=== PATIENT | female | born 1935 | race Caucasian/White ===

== ENCOUNTER 2021-10-15 18:03 | Inpatient (IN) ==
--- NOTE | 2021-10-15 19:15 | XRay Report ---
XR knee LT 3V HISTORY: 86 years-old Female L knee pain acute left-sided knee pain COMPARISON: None TECHNIQUE: 3 views of the left knee FINDINGS: Moderate diffuse soft tissue swelling. Mild tricompartmental osteoarthritis with chondrocalcinosis. M oderate size joint effusion. IMPRESSION: Moderate sized joint effusion without acute fracture. ACT 112: Negative or not required by law. The above report was generated using voice recognition software. It may contain grammatical, syntax o r spelling errors. Electronically signed by: Calvin Carroll M.D. 10/15/2021 7:13 PM
--- NOTE | 2021-10-15 19:16 | XRay Report ---
XR chest 1V portable HISTORY: 86 years-old Female Chest Pain, Tachycardia acute atypical chest pain with tachycardia COMPARISON: Chest CT 09/28/2018 TECHNIQUE: Portable AP view of the chest FINDINGS: The cardiac silhouette is enlarged. There is no pneumothorax, pleural effusion, airspace consolidatio n or overt pulmonary edema. Mild chronic interstitial coarsening. Degenerative changes of the shoulde rs and spine. IMPRESSION: Cardiomegaly with chronic appearing interstitial coarsening. ACT 112: Negative or not required by law. The above report was generated using voice recognition software. It may contain grammatical, syntax o r spelling errors. Electronically signed by: Calvin Carroll M.D. 10/15/2021 7:14 PM
[2021-10-15] MEDS ORDERED: dilTIAZem HCl 5 MG/ML 5 ML VIAL IV STA (19:40)
[2021-10-15] MEDS ORDERED: STAT IV Infusion **Titration per Protocol STA (19:40)
[2021-10-15] MEDS ORDERED: dilTIAZem HCl 5 MG/ML 5 ML VIAL IV ONE (19:41)
[2021-10-15] MEDS ORDERED: ASPIRIN CHEW 324 MG PO STA (19:45)
[2021-10-15] MEDS ORDERED: dilTIAZem HCL 125 MG in DEXTROSE 5% 100 ML IV SCH (19:45)
[2021-10-15] MEDS ORDERED: ALBUMIN 25% 100 mL 25 GM/100 ML VIAL IV ONE (19:50)
[2021-10-15 19:52] LABS: INR 1.6 (0.9-1.1); Partial Thromboplastin Ratio 1.1; Partial Thromboplastin Time 30.2 Seconds (21.0-31.0); Prothrombin Time 16.7 Seconds (9.0-12.0)
[2021-10-15] MEDS ORDERED: METOPROLOL TARTRATE 25 MG TAB PO STA (19:52)
[2021-10-15 20:01] LABS: Alanine Aminotransferase 15 U/L (7-52); Albumin Globulin Ratio 1.2 (0.9-2); Albumin Level 3.8 gm/dl (3.4-5.0); Alkaline Phosphatase 80 U/L (34-104); Anion Gap 9 (3-11); Aspartate Aminotransferase 15 U/L (13-39); BUN Creatinine Ratio 20.8 (10-20); Basophils # (auto) 0.02 K/uL (0-0.2); Basophils % (auto) 0.2 %; Bilirubin,Total 0.7 mg/dl (0.2-1.0); Blood Urea Nitrogen 20 mg/dl (6-23); Calcium 6.8 mg/dl (8.5-10.1); Carbon Dioxide 28 mmol/L (21-32); Chloride 104 mmol/L (98-107); Eosinophils # (auto) 0.08 K/uL (0-0.5); Eosinophils % (auto) 0.7 %; Est GFR (African American) 62.9 ml/min; Est GFR (Non-African American) 54.3 ml/min; Globulin 3.1 gm/dl (2.5-4.0); Glucose 107 mg/dl (70-99(Fasting)); Hematocrit (blood only) 38.9 % (37-47); Hemoglobin 12.6 g/dL (12.0-16.0); Immature Granulocytes # (auto) 0.05 K/uL (0.00-0.02); Immature Granulocytes % (auto) 0.4 %; Lipase 40 U/L (11-82); Lymphocytes # (auto) 2.22 K/uL (1.2-3.4); Lymphocytes % (auto) 19.1 %; Mean Corpuscular Hemoglobin 30.4 pg (25-34); Mean Corpuscular Hgb Conc 32.4 g/dL (32-36); Mean Platelet Volume 10.4 fL (7.4-10.4); Monocytes # (auto) 0.77 K/uL (0.11-0.59); Monocytes % (auto) 6.6 %; Platelet Count 292 K/uL (130-400); RDW Coefficient of Variation 14.2 % (11.5-14.5); RDW Standard Deviation 48.9 fL (36.4-46.3); Red Blood Count 4.14 M/uL (4.2-5.4); Sodium 141 mmol/L (136-145); Total Protein 6.9 gm/dl (6.0-8.3); White Blood Count 11.64 K/uL (4.8-10.8)
[2021-10-15 20:13] LABS: D Dimer 910 ug/L FEU (0-500)
[2021-10-15] MEDS ORDERED: traMADol HCL 50 MG TABLET PO STA (20:55)
[2021-10-15] MEDS ORDERED: MAGNESIUM SULFATE / D5W 1 GM/100 ML BAG IV ONE (20:56)
[2021-10-15] MEDS ORDERED: WARFARIN SOD 5 MG TAB PO ONE (20:56)
[2021-10-15] MEDS ORDERED: FUROSEMIDE 40 MG/4 ML VIAL IV ONE (20:57)
--- NOTE | 2021-10-15 20:57 | History & Physical Report ---
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 Denies SOB cognitive impairment as per records postsurgical hypothyroidism, euthyroid as of today's TSH PCU Resume home beta-sandro for rate control Wean off Cardizem drip IV heparin for thromboembolic prophylaxis given subtherapeutic INR on Coumadin Doxycycline for LLE cellulitis Orthopedics consult Re: Right knee pain/swelling Hold Coumadin until patient seen by orthopedics in anticipation of procedure. TTE, Cardiology consult Re: New onset A. fib DVT prophylaxis. IV heparin Full code Patient daughter requesting updates from providers. Ms. Elida Albarran for, contact #[phone]. Text document was generated using frooly voice recognition software. It may contain grammatical or spelling errors. Kindly contact undersigned for clarification of any documentation item in question. History of Present Illness Chief Complaint: Left left knee pain/swelling Primary Care Provider: Kiel Brooks MD History obtained from patient, family, and records. 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 Patient noted achy left knee swelling without fever or chills today after she tried cleaning swimming pool at home. Patient looks short of breath as per patient daughter who happens to be an RN. Patient however denies chest pain, cough, SOB symptoms No unusual fluid retention. Patient not compliant with heart medications (metoprolol, Lasix, lisinopril) as per daughter. Patient noted to be in rapid A. fib at the ER. IV Cardizem bolus/infusion initiated at the ER. 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 Allergies Allergy/AdvReac Type Severity Reaction Status Date / Time No Known Drug Allergies Allergy Unknown Verified 09/04/20 15:03 Home Medications Medication Instructions Recorded Confirmed Type albuterol sulfate 90 mcg/actuation 2 puffs INH Q4H PRN ea 01/26/19 09/04/20 History breath activated powder inhaler cholecalciferol (vitamin D3) 1,250 50,000 units PO WEEKLY cap 01/26/19 09/04/20 History mcg (50,000 unit) capsule furosemide 40 mg tablet 40 mg PO DAILY 01/26/19 09/04/20 History loratadine 10 mg tablet 10 mg PO DAILY 01/26/19 09/04/20 History omeprazole 20 mg capsule,delayed 20 mg PO DAILY 01/26/19 09/04/20 History release warfarin 5 mg tablet 5 mg PO DAILY 01/26/19 09/04/20 History albuterol sulfate 90 mcg/actuation 2 puffs INH Q6H PRN #1 ea 03/01/19 09/04/20 Rx breath activated powder inhaler budesonide-formoterol HFA 160 2 puffs INH BID #10.2 gm 03/01/19 09/04/20 Rx mcg-4.5 mcg/actuation aerosol inhaler (Symbicort) Past Med/Surg History Medical History Chronic airway disease Chronic anticoagulation Surgical History History of breast biopsy LEFT - 1985 History of thyroidectomy History of tubal ligation Family History Other No family history of allergies No family history of bleeding disorder Denies family history of Hearing loss Heart disease Cancer Hypertension Stroke Asthma Social History Smoking Status: Never smoker Hx Alcohol Use: No Hx Substance Use: No Preferred Language: [place] Communication Ability: Effective Sterilization Technician Required: No Beliefs That Will Affect Care: None marital status: / Current Living Situation: Alone current occupational status: retired How many Children do You have: 4 Other Information That Helps Us Care for You: No Feels Safe at Home: Yes Safety Concerns: Feels Safe At This Time Review of Systems Review of Systems: As per HPI, all other systems reviewed and negative Physical Exam Physical Exam: GENERAL: Slightly uncomfortable, obese, minimal respiratory distress SKIN: Normal color, warm HEENT: [place] palpebral conjunctivae, no ptosis, moist buccal mucosa, nasal cannula in place NECK : Supple, short neck, no tenderness CHEST : Decreased breath sounds, no tenderness HEART : Irregular, no obvious murmurs ABDOMEN: Some distention, nontender EXTREMITIES : LLE swelling, left knee tenderness, no other conspicuous deformities noted NEUROLOGIC : Coherent, no facial asymmetry, no other gross focality Results & Data Results & Data ([facility]) Vital Signs (Past 12 Hours) Vital Signs Temp Pulse Pulse Resp BP BP Pulse Ox 10/15/21 20:38 101 H 24 149/91 H 95 10/15/21 20:09 107 H 26 H 114/99 94 10/15/21 19:55 89 24 126/80 96 10/15/21 19:49 85 20 96 10/15/21 19:43 149 H 28 H 137/114 H 97 10/15/21 18:50 161 H 161 H 26 H 114/80 91 10/15/21 18:07 36.9 C 146 H 18 149/87 H 94 Laboratory Results Laboratory Results WBC 11.64 K/uL (4.8-10.8) H 10/15/21 19:15 RBC 4.14 M/uL (4.2-5.4) L 10/15/21 19:15 Hgb 12.6 g/dL (12.0-16.0) 10/15/21 19:15 Hct 38.9 % (37-47) 10/15/21 19:15 MCV 94.0 fL (80-100) 10/15/21 19:15 MCH 30.4 pg (25-34) 10/15/21 19:15 MCHC 32.4 g/dL (32-36) 10/15/21 19:15 RDW Std Deviation 48.9 fL (36.4-46.3) H 10/15/21 19:15 RDW Coeff of Juan 14.2 % (11.5-14.5) 10/15/21 19:15 Plt Count 292 K/uL (130-400) 10/15/21 19:15 MPV 10.4 fL (7.4-10.4) 10/15/21 19:15 Immature Gran % (Auto) 0.4 % 10/15/21 19:15 Neut % (Auto) 73.0 % 10/15/21 19:15 Lymph % (Auto) 19.1 % 10/15/21 19:15 [place] % (Auto) 6.6 % 10/15/21 19:15 Eos % (Auto) 0.7 % 10/15/21 19:15 Baso % (Auto) 0.2 % 10/15/21 19:15 Neut # (Auto) 8.50 K/uL (1.4-6.5) H 10/15/21 19:15 Lymph # (Auto) 2.22 K/uL (1.2-3.4) 10/15/21 19:15 [place] # (Auto) 0.77 K/uL (0.11-0.59) H 10/15/21 19:15 Eos # (Auto) 0.08 K/uL (0-0.5) 10/15/21 19:15 Baso # (Auto) 0.02 K/uL (0-0.2) 10/15/21 19:15 Immature Gran # (Auto) 0.05 K/uL (0.00-0.02) H 10/15/21 19:15 PT 16.7 Seconds (9.0-12.0) H 10/15/21 19:15 INR 1.6 (0.9-1.1) H 10/15/21 19:15 APTT 30.2 Seconds (21.0-31.0) 10/15/21 19:15 PTT Ratio 1.1 10/15/21 19:15 D-Dimer 910 ug/L FEU (0-500) H* 10/15/21 19:15 Sodium 141 mmol/L (136-145) 10/15/21 19:15 Potassium 4.0 mmol/L (3.5-5.1) 10/15/21 19:15 Chloride 104 mmol/L (98-107) 10/15/21 19:15 Carbon Dioxide 28 mmol/L (21-32) 10/15/21 19:15 Anion Gap 9 (3-11) 10/15/21 19:15 BUN 20 mg/dl (6-23) 10/15/21 19:15 Creatinine 0.96 mg/dl (0.6-1.2) 10/15/21 19:15 Est Cr Clr Drug Dosing Not Reportable 10/15/21 19:15 Est GFR ( Amer) 62.9 ml/min 10/15/21 19:15 Est GFR (Non-Af Amer) 54.3 ml/min 10/15/21 19:15 BUN/Creatinine Ratio 20.8 (10-20) H 10/15/21 19:15 Glucose 107 mg/dl (70-99(Fasting)) H 10/15/21 19:15 Calcium 6.8 mg/dl (8.5-10.1) L 10/15/21 19:15 Magnesium 1.8 mg/dl (1.7-2.4) 10/15/21 19:15 Total Bilirubin 0.7 mg/dl (0.2-1.0) 10/15/21 19:15 AST 15 U/L (13-39) 10/15/21 19:15 ALT 15 U/L (7-52) 10/15/21 19:15 Alkaline Phosphatase 80 U/L (34-104) 10/15/21 19:15 Troponin I High Sens 9.0 pg/ml (0-14) 10/15/21 19:15 Total Protein 6.9 gm/dl (6.0-8.3) 10/15/21 19:15 Albumin 3.8 gm/dl (3.4-5.0) 10/15/21 19:15 Globulin 3.1 gm/dl (2.5-4.0) 10/15/21 19:15 Albumin/Globulin Ratio 1.2 (0.9-2) 10/15/21 19:15 Lipase 40 U/L (11-82) 10/15/21 19:15 TSH 3.509 uIu/ml (0.300-4.500) 10/15/21 19:15 SARS-CoV-2, RNA, NAAT NEGATIVE (NEGATIVE) 10/15/21 20:03 Impressions Knee X-Ray 10/15/21 18:17 XR knee LT 3V HISTORY: 86 years-old Female L knee pain acute left-sided knee pain COMPARISON: None TECHNIQUE: 3 views of the left knee FINDINGS: Moderate diffuse soft tissue swelling. Mild tricompartmental osteoarthritis with chondrocalcinosis. Moderate size joint effusion. IMPRESSION: Moderate sized joint effusion without acute fracture. ACT 112: Negative or not required by law. The above report was generated using voice recognition software. It may contain grammatical, syntax or spelling errors. Electronically signed by: Calvin Carroll M.D. 10/15/2021 7:13 PM Chest X-Ray 10/15/21 18:57 XR chest 1V portable HISTORY: 86 years-old Female Chest Pain, Tachycardia acute atypical chest pain with tachycardia COMPARISON: Chest CT 09/28/2018 TECHNIQUE: Portable AP view of the chest FINDINGS: The cardiac silhouette is enlarged. There is no pneumothorax, pleural effusion, airspace consolidation or overt pulmonary edema. Mild chronic interstitial coarsening. Degenerative changes of the shoulders and spine. IMPRESSION: Cardiomegaly with chronic appearing interstitial coarsening. ACT 112: Negative or not required by law. The above report was generated using voice recognition software. It may contain grammatical, syntax or spelling errors. Electronically signed by: Calvin Carroll M.D. 10/15/2021 7:14 PM Diagnostic Findings LLE venous Dopplers initial read: No evidence of DVT in the left lower extremity. Extensive edema limiting evaluation of the calf veins. Could this patient have chronic venous insufficiency? No comparisons. EKG as per my interpretation: Rate 130, A. fib, normal axis, no ischemia
[2021-10-15] MEDS: Heparin IV Adult Wt-Based Standard *NO* Bolus Protocol IV SCH ×4 (22:08→23:36)
[2021-10-15] MEDS ORDERED: ACETAMINOPHEN 325 MG TAB PO PRN (23:19)
[2021-10-15] MEDS ORDERED: MoRPHine SULFATE 2 MG/ML CARP IV PRN (23:19)
[2021-10-15] MEDS ORDERED: PROMETHAZINE HCL 12.5 MG in SODIUM CHLORIDE 0.9% 50 ML IV PRN (23:19)
[2021-10-15] MEDS ORDERED: traMADol HCL 50 MG TABLET PO PRN (23:19)
[2021-10-15] MEDS: HEPARIN SODIUM/DEXTROSE 25,000 UNITS/500 ML BAG IV SCH (23:29)
--- NOTE | 2021-10-15 23:31 | Emergency Department Note ---
History of Present Illness General Chief complaint: Knee Injury/Pain Stated complaint: LEFT KNEE PAIN Time Seen by Provider: 10/15/21 18:16 History of Present Illness Maximum Pain Intensity: 6 86-year-old female who presents to the emergency department for evaluation of left knee pain. The patient she was working on the ground around her pool, was on her hands and knees, and felt a pop in her knee while crawling. The patient then reports swelling and increasing pain within the knee, with notable pain with weightbearing. Her daughter who is with the patient reports that she does have a history of osteoarthritis. She also has a history of prior large pelvic blood clot many years ago, and has been on chronic Coumadin since that time. The patient reports that her INR levels have been relatively stable for some time. The daughter also reports that the patient does have a history of lymphedema, and reports that her extremity swelling has not seemed to have increased lately. The patient rates her discomfort a 5 out of 10. Home Medications Medication Instructions Recorded Confirmed Type albuterol sulfate 90 mcg/actuation 2 puffs INH Q4H PRN ea 01/26/19 09/04/20 History breath activated powder inhaler cholecalciferol (vitamin D3) 1,250 50,000 units PO WEEKLY cap 01/26/19 09/04/20 History mcg (50,000 unit) capsule furosemide 40 mg tablet 40 mg PO DAILY 01/26/19 09/04/20 History loratadine 10 mg tablet 10 mg PO DAILY 01/26/19 09/04/20 History omeprazole 20 mg capsule,delayed 20 mg PO DAILY 01/26/19 09/04/20 History release warfarin 5 mg tablet 5 mg PO DAILY 01/26/19 09/04/20 History albuterol sulfate 90 mcg/actuation 2 puffs INH Q6H PRN #1 ea 03/01/19 09/04/20 R x breath activated powder inhaler budesonide-formoterol HFA 160 2 puffs INH BID #10.2 gm 03/01/19 09/04/20 Rx mcg-4.5 mcg/actuation aerosol inhaler (Symbicort) Allergies Allergy/AdvReac Type Severity Reaction Status Date / Time No Known Drug Allergies Allergy Unknown Verified 09/04/20 15:03 Past Med/Surg History Medical History Chronic airway disease Chronic anticoagulation Surgical History History of breast biopsy LEFT - 1986 History of thyroidectomy History of tubal ligation Family History Other No family history of allergies No family history of bleeding disorder Denies family history of Hearing loss Heart disease Cancer Hypertension Stroke Asthma Social History Smoking Status: Never smoker Hx Alcohol Use: No Hx Substance Use: No Preferred Language: American Communication Ability: Effective 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 Required: No Beliefs That Will Affect Care: None marital status: / Current Living Situation: Alone current occupational status: retired How many Children do You have: 4 Other Information That Helps Us Care for You: No Feels Safe at Home: Yes Safety Concerns: Feels Safe At This Time Review of Systems 10 system review was performed and was negative except for pertinent positives and negatives as indicated in history of present illness Physical Exam Vital Signs Vital Signs - 24 hr 10/15/21 18:07 10/15/21 18:50 10/15/21 19:43 Temperature 36.9 C Temperature Source Temporal Artery Scan Pulse Rate 146 H 161 H 149 H Pulse Rate [Apical] 161 H Pulse Rhythm Irregular Pulse Rhythm [Apical] Irregular Pulse Strength [Apical] Normal Respiratory Rate 18 26 H 28 H Respiratory Effort / Characteristics Non-Labored Non-Labored Spontaneous Respiratory Depth Normal Normal Respiratory Pattern Regular Regular Blood Pressure 149/87 H 137/114 H Blood Pressure [Left Arm] 114/80 Blood Pressure Mean 107 121 Blood Pressure Mean [Left Arm] 91 Blood Pressure Position [Left Arm] Sitting Pulse Oximetry 94 91 97 Oxygen Delivery Method Room Air Room Air Nasal Cannula Oxygen Flow Rate 2 Sepsis Recent Fever Within 48 Hours No Sepsis New/Unexplained Change in Mental Status No Sepsis Action Taken by Nursing No Action Required 10/15/21 19:49 10/15/21 19:55 10/15/21 20:09 Temperature Temperature Source Pulse Rate 85 89 Pulse Rate [Apical] 107 H Pulse Rhythm Pulse Rhythm [Apical] Pulse Strength [Apical] Respiratory Rate 20 24 26 H Respiratory Effort / Characteristics Respiratory Depth Respiratory Pattern Blood Pressure 126/80 Blood Pressure [Left Arm] 114/99 Blood Pressure Mean 95 Blood Pressure Mean [Left Arm] 104 Blood Pressure Position [Left Arm] Pulse Oximetry 96 96 94 Oxygen Delivery Method Nasal Cannula Nasal Cannula Nasal Cannula Oxygen Flow Rate 2 2 2 Sepsis Recent Fever Within 48 Hours Sepsis New/Unexplained Change in Mental Status Sepsis Action Taken by Nursing 10/15/21 20:38 Temperature Temperature Source Pulse Rate Pulse Rate [Apical] 101 H Pulse Rhythm Pulse Rhythm [Apical] Pulse Strength [Apical] Respiratory Rate 24 Respiratory Effort / Characteristics Respiratory Depth Respiratory Pattern Blood Pressure Blood Pressure [Left Arm] 149/91 H Blood Pressure Mean Blood Pressure Mean [Left Arm] 110 Blood Pressure Position [Left Arm] Pulse Oximetry 95 Oxygen Delivery Method Nasal Cannula Oxygen Flow Rate 2 Sepsis Recent Fever Within 48 Hours Sepsis New/Unexplained Change in Mental Status Sepsis Action Taken by Nursing CONSTITUTIONAL: Obese female in no significant distress. HEENT: No scleral icterus or conjunctival injection/pallor. NECK: Full active range of motion without discomfort. No JVD or carotid bruits. LYMPHATICS: No cervical chain adenopathy. RESPIRATORY: Clear to auscultation bilaterally with no wheezing, crackles, rhonchi or stridor. CARDIOVASCULAR: Regular rate and rhythm with no murmurs, rubs or gallops. GASTROINTESTINAL: Bowel sounds present in all quadrants. Abdomen is protuberant but soft and nontender to palpation. MUSCULOSKELETAL: Examination of lower extremities shows chronic skin changes with lymphedema, left worse than right. Examination of the left knee shows fullness within the popliteal space, as well as a joint effusion. No gross ligamentous instability. Range of motion worsens the patient's discomfort. INTEGUMENTARY: No rash or other significant dermatologic conditions noted. HEMATOLOGIC: No ecchymosis or petechiae. PSYCHIATRIC: Positive affect. NEUROLOGIC: No focal neurologic deficits noted. Course Course Patient history and physical exam were performed. Nurses notes were reviewed. Vital signs were reviewed from triage, showing a tachycardia of 146 bpm. The patient was also hypertensive at 149/87. The patient was triaged and then sent to room D5, with protocol x-ray of the knee performed. The patient's nurse nor I were advised of the patient's tachycardia. When the patient's nurse did enter the room, she was found to be dyspneic with belly breathing as well. I was advised of the patient's symptoms and tachycardia. X-ray did present to the room at that time, with x-ray showing a joint effusion, as well as arthritic changes, and no evidence for fractures. Attention was then directed to the patient's dyspnea and tachycardia. The access was established, and labs were drawn. Precursor ECG was performed, showing an atrial fibrillation with rapid ventricular response at 133 bpm. Port able chest x-ray was also performed and was grossly normal with my preliminary review. The case was then further discussed with Dr. Reyes, ED attending physician, who evaluated the patient. The patient was administered IV Cardizem. Please see Dr. Reyes's dictations for further details. Additional labs were ordered. The patient was administered aspirin 324 mg chew as well. Labs were reviewed to show a mild leukocytosis with left shift and 5% bands. Coagulation studies shows an INR of 1.6. D-dimer was elevated at 910. CMP shows a mildly elevated glucose, otherwise electrolytes, magnesium, troponin, lipase and TSH were normal. BNP was only mildly elevated at 161. COVID-19 test was negative. Case was then further discussed with Dr. Brizuela, [facility] hospitalist, who came to the emergency department for further evaluation. Dr. Reyes did order chest CT angiography, however Dr. Brizuela did call me and advised that he was going to cancel that test. Venous ultrasound of the left lower extremity was performed and was negative for DVT. Please see hospitalist dictation for further treatment and final disposition. The patient did have good response to the IV Cardizem with adequate rate control. Administered Medications Diltiazem HCl 125 mg/ Dextrose 125 mls @ 5 mls/hr IV .Q24H [facility]; Protocol Stop: 11/14/21 19:44 Last Admin: 10/15/21 19:56 Dose: 5 mg/hr, 5 mls/hr Documented by: [id number] Cosigned by: [id number] Heparin Sodium/Dextrose (Heparin Sodium/Dextrose) 25,000 units in 500 mls @ 22 mls/hr IV .[id number] [facility]; Protocol Stop: 11/14/21 21:14 Last Admin: 10/15/21 23:29 Dose: 1,100 units/hr, 22 mls/hr Documented by: [id number] Cosigned by: [id number] Discontinued Medications Aspirin (Aspirin Chew 324 Mg) 324 mg PO NOW STA Stop: 10/15/21 19:46 Last Admin: 10/15/21 19:56 Dose: 324 mg Documented by: [id number] Diltiazem HCl (Diltiazem Hcl 5 Mg/Ml 5 Ml Vial) 15 mg IV NOW STA Stop: 10/15/21 19:41 Last Admin: 10/15/21 19:51 Dose: 15 mg Documented by: [id number] Cosigned by: [id number] Diltiazem HCl (Diltiazem Hcl 5 Mg/Ml 5 Ml Vial) Confirm Administered Dose 25 mg IV .STK-MED ONE Stop: 10/15/21 19:42 Last Admin: 10/15/21 19:51 Dose: Not Given Documented by: [id number] Furosemide (Furosemide 40 Mg/4 Ml Vial) 20 mg IV ONE ONE Stop: 10/15/21 20:58 Last Admin: 10/15/21 21:53 Dose: 20 mg Documented by: [id number] Heparin Sodium/Dextrose (Heparin Iv Adult Wt-Based Standard *No* Bolus Protocol) 1 ea IV Q15M [id number]; Protocol Stop: 10/15/21 22:16 Last Admin: 10/15/21 23:36 Dose: Not Given Documented by: [id number] Admin: 10/15/21 23:36 Dose: Not Given Documented by: [id number] Admin: 10/15/21 23:36 Dose: Not Given Documented by: [id number] Admin: 10/15/21 23:32 Dose: 1 ea Documented by: [id number] Admin: 10/15/21 22:09 Dose: Not Given Documented by: [id number] Admin: 10/15/21 22:08 Dose: Not Given Documented by: [id number] Albumin Human (Albumin 25% 100 Ml) 25 gm in 100 mls @ 50 mls/hr IV ONE ONE Stop: 10/15/21 21:49 Last Infusion: 10/15/21 23:05 Dose: 0 mls/hr Documented by: [id number] Admin: 10/15/21 21:00 Dose: 50 mls/hr Documented by: [id number] Magnesium Sulfate/Dextrose (Magnesium Sulfate / D5w) 1 gm in 100 mls @ 50 mls/hr IV ONE ONE Stop: 10/15/21 22:55 Last Admin: 10/15/21 23:30 Dose: 50 mls/hr Documented by: [id number] Metoprolol Tartrate (Metoprolol Tartrate 25 Mg Tab) 25 mg PO NOW STA Stop: 10/15/21 19:53 Last Admin: 10/15/21 20:45 Dose: 25 mg Documented by: [id number] Miscellaneous (Stat Iv Infusion Titration Per Protocol) 1 ea N/A NOW STA Stop: 10/15/21 19:41 Last Admin: 10/15/21 20:35 Dose: Not Given Documented by: [id number] Tramadol HCl (Tramadol Hcl 50 Mg Tablet) 25 mg PO NOW STA Stop: 10/15/21 20:56 Last Admin: 10/15/21 21:53 Dose: 25 mg Documented by: [id number] Warfarin Sodium (Warfarin Sod 5 Mg Tab) 5 mg PO NOW ONE Stop: 10/15/21 20:57 Last Admin: 10/15/21 22:09 Dose: Not Given Documented by: [id number] Medical Decision Making Medical Records Attestation: I reviewed the patient's medical records. Home Medications Current Medication List: was personally reviewed by me Laboratory Data Attestation: I reviewed the patient's lab results. Result diagrams: 10/15/21 19:15 10/15/21 19:15 Lab Results 10/15/21 10/15/21 10/15/21 Range/Units 19:15 19:15 19:15 WBC 11.64 H (4.8-10.8) K/uL RBC 4.14 L (4.2-5.4) M/uL Hgb 12.6 (12.0-16.0) g/dL Hct 38.9 (37-47) % MCV 94.0 (80-100) fL MCH 30.4 (25-34) pg MCHC 32.4 (32-36) g/dL RDW Std Deviation 48.9 H (36.4-46.3) fL RDW Coeff of Juan 14.2 (11.5-14.5) % Plt Count 292 (130-400) K/uL MPV 10.4 (7.4-10.4) fL Immature Gran % (Auto) 0.4 % Neut % (Auto) 73.0 % Lymph % (Auto) 19.1 % Rooks % (Auto) 6.6 % Eos % (Auto) 0.7 % Baso % (Auto) 0.2 % Neut # (Auto) 8.50 H (1.4-6.5) K/uL Lymph # (Auto) 2.22 (1.2-3.4) K/uL Rooks # (Auto) 0.77 H (0.11-0.59) K/uL Eos # (Auto) 0.08 (0-0.5) K/uL Baso # (Auto) 0.02 (0-0.2) K/uL Immature Gran # (Auto) 0.05 H (0.00-0.02) K/uL PT 16.7 H (9.0-12.0) Seconds INR 1.6 H (0.9-1.1) APTT 30.2 (21.0-31.0) Seconds PTT Ratio 1.1 D-Dimer 910 H* (0-500) ug/L FEU Sodium 141 (136-145) mmol/L Potassium 4.0 (3.5-5.1) mmol/L Chloride 104 (98-107) mmol/L Carbon Dioxide 28 (21-32) mmol/L Anion Gap 9 (3-11) BUN 20 (6-23) mg/dl Creatinine 0.96 (0.6-1.2) mg/dl Est Cr Clr Drug Dosing Not Reportable Est GFR ( Amer) 62.9 ml/min Est GFR (Non-Af Amer) 54.3 ml/min BUN/Creatinine Ratio 20.8 H (10-20) Glucose 107 H (70-99(Fasting)) mg/dl Calcium 6.8 L (8.5-10.1) mg/dl Magnesium (1.7-2.4) mg/dl Total Bilirubin 0.7 (0.2-1.0) mg/dl AST 15 (13-39) U/L ALT 15 (7-52) U/L Alkaline Phosphatase 80 (34-104) U/L Troponin I High Sens 9.0 (0-14) pg/ml B-Natriuretic Peptide (0-100) pg/ml Total Protein 6.9 (6.0-8.3) gm/dl Albumin 3.8 (3.4-5.0) gm/dl Globulin 3.1 (2.5-4.0) gm/dl Albumin/Globulin Ratio 1.2 (0.9-2) Lipase 40 (11-82) U/L TSH (0.300-4.500) uIu/ml SARS-CoV-2, RNA, NAAT (NEGATIVE) 10/15/21 10/15/21 10/15/21 Range/Units 19:15 19:15 19:15 WBC (4.8-10.8) K/uL RBC (4.2-5.4) M/uL Hgb (12.0-16.0) g/dL Hct (37-47) % MCV (80-100) fL MCH (25-34) pg MCHC (32-36) g/dL RDW Std Deviation (36.4-46.3) fL RDW Coeff of Juan (11.5-14.5) % Plt Count (130-400) K/uL MPV (7.4-10.4) fL Immature Gran % (Auto) % Neut % (Auto) % Lymph % (Auto) % Rooks % (Auto) % Eos % (Auto) % Baso % (Auto) % Neut # (Auto) (1.4-6.5) K/uL Lymph # (Auto) (1.2-3.4) K/uL Rooks # (Auto) (0.11-0.59) K/uL Eos # (Auto) (0-0.5) K/uL Baso # (Auto) (0-0.2) K/uL Immature Gran # (Auto) (0.00-0.02) K/uL PT (9.0-12.0) Seconds INR (0.9-1.1) APTT (21.0-31.0) Seconds PTT Ratio D-Dimer (0-500) ug/L FEU Sodium (136-145) mmol/L Potassium (3.5-5.1) mmol/L Chloride (98-107) mmol/L Carbon Dioxide (21-32) mmol/L Anion Gap (3-11) BUN (6-23) mg/dl Creatinine (0.6-1.2) mg/dl Est Cr Clr Drug Dosing Est GFR ( Amer) ml/min Est GFR (Non-Af Amer) ml/min BUN/Creatinine Ratio (10-20) Glucose (70-99(Fasting)) mg/dl Calcium (8.5-10.1) mg/dl Magnesium 1.8 (1.7-2.4) mg/dl Total Bilirubin (0.2-1.0) mg/dl AST (13-39) U/L ALT (7-52) U/L Alkaline Phosphatase (34-104) U/L Troponin I High Sens (0-14) pg/ml B-Natriuretic Peptide 161 H (0-100) pg/ml Total Protein (6.0-8.3) gm/dl Albumin (3.4-5.0) gm/dl Globulin (2.5-4.0) gm/dl Albumin/Globulin Ratio (0.9-2) Lipase (11-82) U/L TSH 3.509 (0.300-4.500) uIu/ml SARS-CoV-2, RNA, NAAT (NEGATIVE) 10/15/21 Range/Units 20:03 WBC (4.8-10.8) K/uL RBC (4.2-5.4) M/uL Hgb (12.0-16.0) g/dL Hct (37-47) % MCV (80-100) fL MCH (25-34) pg MCHC (32-36) g/dL RDW Std Deviation (36.4-46.3) fL RDW Coeff of Juan (11.5-14.5) % Plt Count (130-400) K/uL MPV (7.4-10.4) fL Immature Gran % (Auto) % Neut % (Auto) % Lymph % (Auto) % Rooks % (Auto) % Eos % (Auto) % Baso % (Auto) % Neut # (Auto) (1.4-6.5) K/uL Lymph # (Auto) (1.2-3.4) K/uL Rooks # (Auto) (0.11-0.59) K/uL Eos # (Auto) (0-0.5) K/uL Baso # (Auto) (0-0.2) K/uL Immature Gran # (Auto) (0.00-0.02) K/uL PT (9.0-12.0) Seconds INR (0.9-1.1) APTT (21.0-31.0) Seconds PTT Ratio D-Dimer (0-500) ug/L FEU Sodium (136-145) mmol/L Potassium (3.5-5.1) mmol/L Chloride (98-107) mmol/L Carbon Dioxide (21-32) mmol/L Anion Gap (3-11) BUN (6-23) mg/dl Creatinine (0.6-1.2) mg/dl Est Cr Clr Drug Dosing Est GFR ( Amer) ml/min Est GFR (Non-Af Amer) ml/min BUN/Creatinine Ratio (10-20) Glucose (70-99(Fasting)) mg/dl Calcium (8.5-10.1) mg/dl Magnesium (1.7-2.4) mg/dl Total Bilirubin (0.2-1.0) mg/dl AST (13-39) U/L ALT (7-52) U/L Alkaline Phosphatase (34-104) U/L Troponin I High Sens (0-14) pg/ml B-Natriuretic Peptide (0-100) pg/ml Total Protein (6.0-8.3) gm/dl Albumin (3.4-5.0) gm/dl Globulin (2.5-4.0) gm/dl Albumin/Globulin Ratio (0.9-2) Lipase (11-82) U/L TSH (0.300-4.500) uIu/ml SARS-CoV-2, RNA, NAAT NEGATIVE (NEGATIVE) Imaging Data Attestation: I personally reviewed and interpreted this imaging study as follows: My Impression: My interpretation of her left knee x-ray shows evidence for osteoarthritic changes and joint effusion. No acute fractures appreciated. My interpretation of reportable chest x-ray does not show evidence for failure. Cardiomegaly is noted. Venous ultrasound of the left lower extremity is negative for DVT. Radiologist reports were also reviewed. Radiologist's Impression: Knee X-Ray 10/15/21 18:17 XR knee LT 3V HISTORY: 86 years-old Female L knee pain acute left-sided knee pain COMPARISON: None TECHNIQUE: 3 views of the left knee FINDINGS: Moderate diffuse soft tissue swelling. Mild tricompartmental osteoarthritis with chondrocalcinosis. Moderate size joint effusion. IMPRESSION: Moderate sized joint effusion without acute fracture. ACT 112: Negative or not required by law. The above report was generated using voice recognition software. It may contain grammatical, syntax or spelling errors. Electronically signed by: Calvin Carroll M.D. 10/15/2021 7:13 PM Chest X-Ray 10/15/21 18:57 XR chest 1V portable HISTORY: 86 years-old Female Chest Pain, Tachycardia acute atypical chest pain with tachycardia COMPARISON: Chest CT 09/28/2018 TECHNIQUE: Portable AP view of the chest FINDINGS: The cardiac silhouette is enlarged. There is no pneumothorax, pleural effusion, airspace consolidation or overt pulmonary edema. Mild chronic interstitial coarsening. Degenerative changes of the shoulders and spine. IMPRESSION: Cardiomegaly with chronic appearing interstitial coarsening. ACT 112: Negative or not required by law. The above report was generated using voice recognition software. It may contain grammatical, syntax or spelling errors. Electronically signed by: Calvin Carroll M.D. 10/15/2021 7:14 PM ECG Data Attestation: I personally reviewed and interpreted this ECG as follows: Indication: + SOB/dyspnea Rate (beats per minute): 133 Rhythm: + atrial fibrillation (Rapid ventricular response) ECG Intervals/blocks: + Normal QRS ECG [place]: + Normal ECG ST segments: + Normal ST segments Comparison ECG Date: no prior available Blood Pressure Blood Pressure Findings: Normal blood pressure MDM Narrative Cardiac monitoring: An order was placed for continuous cardiac monitoring. The monitor shows a rate of 33 bpm with atrial fibrillation with rapid ventricular response. hospital monitor history was reviewed throughout the evaluation, and no dysrhythmias were noted. Patient presented to the emergency department for evaluation of a left knee injury at home while crawling on her knees. Areas of the knee did not show evidence for fracture, however osteoarthritic changes are noted with a joint effusion. The patient unfortunate was found to be dyspneic upon nurse evaluation, and ECG further showed evidence for atrial fibrillation with rapid ventricular response. The patient denies prior history of atrial fibrillation. Chest x-ray does show some cardiomegaly without failure pattern. The patient has minimally elevated BNP, therefore I do not suspect CHF. ECG and troponin also are not suggestive of acute coronary event. Patient did have excellent rate control with IV Cardizem. This portion of the patient's evaluation was managed by Dr. Reyes, ED attending physician. The patient will be admitted for further hospitalist management. Impression & Plan Atrial fibrillation with rapid ventricular response, Chronic anticoagulation, Effusion of left knee, Osteoarthritis of left knee Discharge Plan Visit Data Chief Complaint: Knee Injury/Pain Stated Complaint: LEFT KNEE PAIN ED Provider: Haris Reyes ED Midlevel Provider: Kaylah,Christo G Discharge Problem: Atrial fibrillation with rapid ventricular response, Chronic anticoagulation, Effusion of left knee, Osteoarthritis of left knee Patient Disposition: Admitted As Inpatient Discharge Instructions Interventions: ED Discharge Assessment Last Done: 10/15/21 22:07 Discharge Problem: Osteoarthritis of left knee Qualifiers: Osteoarthritis type: primary Qualified Code(s): M17.12 - Unilateral primary osteoarthritis, left knee
[2021-10-16] MEDS ORDERED: STAT IV STA (01:10)
[2021-10-16] MEDS ORDERED: CALCIUM GLUCONATE 10% 3,000 MG in DEXTROSE 5% 100 ML IV ONE (01:15)
[2021-10-16 06:32] LABS: Basophils # (auto) 0.02 K/uL (0-0.2); Basophils % (auto) 0.2 %; Eosinophils # (auto) 0.08 K/uL (0-0.5); Eosinophils % (auto) 0.8 %; Hematocrit (blood only) 37.1 % (37-47); Hemoglobin 11.8 g/dL (12.0-16.0); Immature Granulocytes # (auto) 0.01 K/uL (0.00-0.02); Immature Granulocytes % (auto) 0.1 %; Lymphocytes # (auto) 2.29 K/uL (1.2-3.4); Lymphocytes % (auto) 23.3 %; Mean Corpuscular Hemoglobin 29.8 pg (25-34); Mean Corpuscular Hgb Conc 31.8 g/dL (32-36); Mean Corpuscular Volume 93.7 fL (80-100); Mean Platelet Volume 10.5 fL (7.4-10.4); Monocytes # (auto) 0.75 K/uL (0.11-0.59); Monocytes % (auto) 7.6 %; Neutrophils # (auto) 6.69 K/uL (1.4-6.5); Platelet Count 262 K/uL (130-400); RDW Coefficient of Variation 14.4 % (11.5-14.5); RDW Standard Deviation 49.1 fL (36.4-46.3); Red Blood Count 3.96 M/uL (4.2-5.4); White Blood Count 9.84 K/uL (4.8-10.8)
--- NOTE | 2021-10-16 06:40 | Ultrasound Report ---
LEFT LOWER EXTREMITY VENOUS DOPPLER HISTORY: Acute pain and swelling of the left lower extremity rodvt COMPARISON STUDY: None. FINDINGS: There is normal compressibility, flow, and augmentation within the left lower extremity rahul p venous system. Subcutaneous edema. IMPRESSION: No DVT within the left lower extremity. ACT 112: Negative or not required by law. Electronically signed by: Calvin Carroll M.D. 10/16/2021 6:38 AM
[2021-10-16 06:54] LABS: BUN Creatinine Ratio 19.6 (10-20); Calcium 7.2 mg/dl (8.5-10.1); Creatinine Clr Calc Pharmacy 43.7 ml/min; Est GFR (African American) 66.3 ml/min; Est GFR (Non-African American) 57.2 ml/min; Potassium 3.7 mmol/L (3.5-5.1)
[2021-10-16 07:11] LABS: Partial Thromboplastin Ratio 2.4
[2021-10-16 07:12] LABS: Partial Thromboplastin Time 66.4 Seconds (21.0-31.0)
--- NOTE | 2021-10-16 08:34 | Cardiology Consultation ---
Date of Consultation October 16, 2021 Assessment & Plan (1) Atrial fibrillation with rapid ventricular response: (2) Effusion of left knee: (3) LV dysfunction: (4) Hypertension: Patient admitted for left knee pain/effusion. Incidentally found to have afib RVR, new diagnosis. Duration unknown. she takes coumadin (for history of DVT) as outpatient but INR was low. Started on IV heparin. She takes metoprolol 25 mg as outpatient, but admits to non compliance with meds. SHe was started on IV diltiazem in the ER, rates have trended down. Recommend stopping IV diltiazem and will adjust metoprolol dose as needed for ongoing rate control. She has mildly reduced LV function with EF 45%, likely due to afib RVR. Due to edema, will give one additional dose of IV lasix today 20 mg with potassium. She is to be taking lisinopril 10 mg per outpatient records, and will resume therapy given HTN and LV dysfunction. Once she has been evaluated by ortho, pending any need for intervention on her knee, will plan to resume coumadin for goal INR 2-3. Once she has been appropriately anticoagulated for 4 weeks, could consider future cardioversion. Case discussed with Dr. Acosta. Will follow. History of Present Illness Reason for Consultation: New onset atrial fibrillation Requesting Physician: Dr. Brizuela Attending Physician: Dr. 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 Patient is somewhat of a poor historian. SHe does not know her outpatient medications but admits to not being compliant. SHe is to take metoprolol, furosemide and lisinopril apparently per [facility] records. Yesterday she apparently noted significant left knee pain and swelling. Daughter felt she was more SOB and they came to the ER for evaluation. Upon arrival she was found to have afib RVR on EKG, new finding. Started on IV diltiazem. INR was low and she was placed on IV heparin. Venous duplex of the left leg was negative for DVT. No acute fractures. ortho has been consulted for left knee effusion. Coumadin was not resumed due to possible knee procedure/aspiration? She was unaware of palpitations. She denies recent chest pain or worsening SOB. SHe reports chronic LE edema. At time of consult, patient resting in bed comfortably. She reports ongoing left knee discomfort but improved from admission. Her heart rates have improved and she denies symptoms of chest pain, palpitations, shortness of breath. No fever or chills. Allergies Allergy/AdvReac Type Severity Reaction Status Date / Time No Known Drug Allergies Allergy Unknown Verified 09/04/20 15:03 Home Medications Medication Instructions Recorded Confirmed Type albuterol sulfate 90 mcg/actuation 2 puffs INH Q4H PRN ea 01/26/19 09/04/20 History breath activated powder inhaler cholecalciferol (vitamin D3) 1,250 50,000 units PO WEEKLY cap 01/26/19 09/04/20 History mcg (50,000 unit) capsule loratadine 10 mg tablet 10 mg PO DAILY 01/26/19 09/04/20 History warfarin 5 mg tablet 5 mg PO DAILY 01/26/19 09/04/20 History levothyroxine 112 mcg tablet mcg 10/16/21 History Patient History Medical History Chronic airway disease Chronic anticoagulation Surgical History History of breast biopsy LEFT - 1985 History of thyroidectomy History of tubal ligation Family History Other No family history of allergies No family history of bleeding disorder Denies family history of Hearing loss Heart disease Cancer Hypertension Stroke Asthma Social History Smoking Status: Never smoker Hx Alcohol Use: No Hx Substance Use: No Preferred Language: Luxembourger Communication Ability: Effective Linux System Admin Required: No Beliefs That Will Affect Care: None marital status: / Current Living Situation: Alone current occupational status: retired How many Children do You have: 4 Other Information That Helps Us Care for You: No Feels Safe at Home: Yes Safety Concerns: Feels Safe At This Time Review of Systems Review of Systems: All systems reviewed & are unremarkable except as noted in HPI & below Physical Exam Constitutional: WD/WN, vitals as above Neck: trachea midline, no thyromegaly Respiratory: normal respiratory effort Auscultation: + diminished lung sounds; no crackles and no rales Cardiovascular: Rate/Rhythm: + irregularly irregular Heart Sounds: normal S1 and normal S2; no murmur Vessels: no JVD Extremities: + edema (1-2+ LE edema) Gastrointestinal (Abdomen): normal bowel sounds, soft, nontender, no hepatosplenomegaly Skin: no rashes, warm and dry Neurologic: PERRL, EOMI, accommodation nl, no face palsy, no dysarthria Psychiatric: A+Ox3, euthymic affect Results & Data ([facility]) Vital Signs (Past 12 Hours) Vital Signs Temp Pulse Pulse Resp BP Pulse Ox 10/16/21 03:28 36.9 C 80 20 131/81 94 10/15/21 23:19 36.9 C 84 16 115/84 96 10/15/21 23:00 84 10/15/21 22:42 36.9 C 91 H 16 115/83 96 10/15/21 22:06 89 22 119/90 98 10/15/21 21:40 83 22 106/63 96 10/15/21 20:38 101 H 24 149/91 H 95 Laboratory Results Cardiac Enzymes 10/15/21 10/15/21 Range/Units 19:15 19:15 AST 15 (13-39) U/L Troponin I High Sens 9.0 (0-14) pg/ml B-Natriuretic Peptide 161 H (0-100) pg/ml Coagulation 10/15/21 10/15/21 10/16/21 Range/Units 19:15 19:15 05:43 PT 16.7 H (9.0-12.0) Seconds APTT 30.2 66.4 H* (21.0-31.0) Seconds B-Natriuretic Peptide 161 H (0-100) pg/ml CBC 10/15/21 10/16/21 Range/Units 19:15 05:43 WBC 11.64 H 9.84 (4.8-10.8) K/uL RBC 4.14 L 3.96 L (4.2-5.4) M/uL Hgb 12.6 11.8 L (12.0-16.0) g/dL Hct 38.9 37.1 (37-47) % Plt Count 292 262 (130-400) K/uL Neut # (Auto) 8.50 H 6.69 H (1.4-6.5) K/uL Lymph # (Auto) 2.22 2.29 (1.2-3.4) K/uL [place] # (Auto) 0.77 H 0.75 H (0.11-0.59) K/uL Eos # (Auto) 0.08 0.08 (0-0.5) K/uL Baso # (Auto) 0.02 0.02 (0-0.2) K/uL Comprehensive Metabolic Panel 10/15/21 10/16/21 Range/Units 19:15 05:43 Sodium 141 141 (136-145) mmol/L Potassium 4.0 3.7 (3.5-5.1) mmol/L Chloride 104 101 (98-107) mmol/L Carbon Dioxide 28 32 (21-32) mmol/L BUN 20 18 (6-23) mg/dl Creatinine 0.96 0.92 (0.6-1.2) mg/dl Glucose 107 H 110 H (70-99(Fasting)) mg/dl Calcium 6.8 L 7.2 L (8.5-10.1) mg/dl AST 15 (13-39) U/L ALT 15 (7-52) U/L Alkaline Phosphatase 80 (34-104) U/L Total Protein 6.9 (6.0-8.3) gm/dl Albumin 3.8 (3.4-5.0) gm/dl Intake and Output 10/15/21 10/16/21 10/16/21 22:59 06:59 14:59 Intake Total 330 / 330 226.650 / 226.650 Balance 330 / 330 226.650 / 226.650 Intake: IV 330 / 330 226.650 / 226.650 ALBUMIN 25% 100 mL 25 gm In 100 100 / 100 ml @ 50 mls/hr IV ONE ONE Rx#: [id number] Calcium Gluconate 10% 3,000 mg 130 / 130 In Dextrose 5% 100 ml @ 65 mls/ hr IV 0115 ONE Rx#:[id number] Heparin Sodium/Dextrose 25,000 171.233 / 171.233 units In 500 ml @ 1,100 UNITS/ HR 22 mls/hr IV .[id number] [facility] Rx #:[id number] Magnesium Sulfate / D5w 1 gm In 100 / 100 100 ml @ 50 mls/hr IV ONE ONE Rx#:[id number] dilTIAZem HCL 125 mg In 55.417 / 55.417 Dextrose 5% 100 ml @ 5 MG/HR 5 mls/hr IV .Q24H [facility] Rx#: [id number] Other: # Unmeasured Voids 4 Weight 84 kg 83.9 kg Weight Measurement Method Built in Bedscale Built in [facility] Diagnostic Findings Telemetry reviewed: Persistent atrial fibrillation with controlled rates ranging 60-80 bpm on low dose diltiazem gtt Echo results reviewed from 10/16/21: The left ventricle is normal in size. Left ventricular systolic function is low normal with ejection fraction 45 to 50%. RV systolic function is normal. Left atrial size is normal. Right atrial size is normal. Aortic valve sclerosis mild without significant aortic valvular stenosis. No significant aortic regurgitation. Mild to moderate mitral regurgitation. Mild to moderate tricuspid regurgitation. Repeat EKG this morning, 10/16/21 - Atrial fibrillation Nonspecific T wave abnormality No acute changes. Rates have improved EKG on admission reviewed: Atrial fibrillation with rapid ventricular response Nonspecific ST abnormality Abnormal ECG No previous ECGs available Knee X-Ray 10/15/21 18:17 XR knee LT 3V HISTORY: 86 years-old Female L knee pain acute left-sided knee pain COMPARISON: None TECHNIQUE: 3 views of the left knee FINDINGS: Moderate diffuse soft tissue swelling. Mild tricompartmental osteoarthritis with chondrocalcinosis. Moderate size joint effusion. IMPRESSION: Moderate sized joint effusion without acute fracture. Electronically signed by: Calvin Carroll M.D. 10/15/2021 7:13 PM Chest X-Ray 10/15/21 18:57 XR chest 1V portable HISTORY: 86 years-old Female Chest Pain, Tachycardia acute atypical chest pain with tachycardia COMPARISON: Chest CT 09/28/2018 TECHNIQUE: Portable AP view of the chest FINDINGS: The cardiac silhouette is enlarged. There is no pneumothorax, pleural effusion, airspace consolidation or overt pulmonary edema. Mild chronic interstitial coarsening. Degenerative changes of the shoulders and spine. IMPRESSION: Cardiomegaly with chronic appearing interstitial coarsening. ACT 112: Negative or not required by law. The above report was generated using voice recognition software. It may contain grammatical, syntax or spelling errors. Electronically signed by: Calvin Carroll M.D. 10/15/2021 7:14 PM Venous Doppler Study 10/15/21 20:27 LEFT LOWER EXTREMITY VENOUS DOPPLER HISTORY: Acute pain and swelling of the left lower extremity rodvt COMPARISON STUDY: None. FINDINGS: There is normal compressibility, flow, and augmentation within the left lower extremity deep venous system. Subcutaneous edema. IMPRESSION: No DVT within the left lower extremity. ACT 112: Negative or not required by law. Electronically signed by: Calvin Carroll M.D. 10/16/2021 6:38 AM Outside/prior records reviewed: EKG from October 2019: Sinus rhythm with Premature atrial complexes Otherwise normal ECG When compared with ECG of 15-SEP-2018 11:15, No significant change was found Echo reviewed from Mar 2019: Normal LV systolic function, EF 60-65% No wall motion abnormalities. No significant valvular pathology Medications Administered Medications albuterol sulfate 90 mcg/actuation breath activated powder inhaler 2 puffs INH Q4H PRN ea 01/26/19 [History Confirmed 09/04/20] cholecalciferol (vitamin D3) 1,250 mcg (50,000 unit) capsule 50,000 units PO WEEKLY cap 01/26/19 [History Confirmed 09/04/20] loratadine 10 mg tablet 10 mg PO DAILY 01/26/19 [History Confirmed 09/04/20] warfarin 5 mg tablet 5 mg PO DAILY 01/26/19 [History Confirmed 09/04/20] levothyroxine 112 mcg tablet mcg 10/16/21 [History] Home Medications Acetaminophen (Acetaminophen 325 Mg Tab) 650 mg PO Q4H PRN PRN Reason: Pain or Fever Stop: 11/14/21 23:18 Doxycycline Hyclate (Doxycycline Hyclate 100 Mg Cap) 100 mg PO BID [facility] Stop: 10/23/21 08:59 Last Admin: 10/16/21 10:28 Dose: 100 mg Documented by: Diltiazem HCl 125 mg/ Dextrose 125 mls @ 5 mls/hr IV .Q24H [facility]; Protocol Stop: 11/14/21 19:44 Last Titration: 10/16/21 07:01 Dose: 5 mg/hr, 5 mls/hr Documented by: Heparin Sodium/Dextrose (Heparin Sodium/Dextrose) 25,000 units in 500 mls @ 22 mls/hr IV .[id number] [facility]; Protocol Stop: 11/14/21 21:14 Last Titration: 10/16/21 07:16 Dose: 1,100 units/hr, 22 mls/hr Documented by: Promethazine HCl 12.5 mg/ (Sodium Chloride) 50.5 mls @ 202 mls/hr IV Q6H PRN PRN Reason: Nausea And Vomiting Stop: 11/14/21 23:18 Levothyroxine Sodium (Levothyroxine Sodium 112 Mcg Tablet) 112 mcg PO DAILYBB [facility] Stop: 11/16/21 06:29 Loratadine (Loratadine 10 Mg Tab) 10 mg PO DAILY [facility] Stop: 11/15/21 08:59 Last Admin: 10/16/21 08:53 Dose: 10 mg Documented by: Metoprolol Succinate (Metoprolol Succ 25mg Ext Rel Tab) 25 mg PO QAM [facility] Stop: 11/15/21 08:59 Last Admin: 10/16/21 08:53 Dose: 25 mg Documented by: Morphine Sulfate (Morphine Sulfate 2 Mg/Ml Carp) 2 mg IV Q3H PRN PRN Reason: Pain Stop: 10/29/21 23:18 Tramadol HCl (Tramadol Hcl 50 Mg Tablet) 25 - 50 mg PO Q4H PRN PRN Reason: Pain Stop: 11/14/21 23:18
[2021-10-16] MEDS: METOPROLOL SUCC 25MG EXT REL TAB PO SCH (08:53)
[2021-10-16] MEDS: LORATADINE 10 MG TAB PO SCH (08:53)
[2021-10-16 09:40] LABS: INR 1.7 (0.9-1.1); Prothrombin Time 17.6 Seconds (9.0-12.0)
[2021-10-16] MEDS: DOXYCYCLINE HYCLATE 100 MG CAP PO SCH ×2 (10:28→20:49)
[2021-10-16] MEDS ORDERED: FUROSEMIDE 40 MG/4 ML VIAL IV ONE (11:30)
[2021-10-16] MEDS ORDERED: POTASSIUM CHLORIDE CRTAB 20 MEQ TABCR PO ONE (11:30)
--- NOTE | 2021-10-16 12:14 | Electrocardiogram Report ---
Test Reason : Blood Pressure : / mmHG Vent. Rate : 133 BPM Atrial Rate : 138 BPM P-R Int : 000 ms QRS Dur : 068 ms QT Int : 318 ms P-R-T Axes : 000 073 019 degrees QTc Int : 473 ms Atrial fibrillation with rapid ventricular response Nonspecific ST abnormality Abnormal ECG No previous ECGs available Confirmed by Mat Peñaloza ([id number]) on 10/16/2021 12:14:07 PM Referred By: REFERRED SELF Confirmed By:Mat Peñaloza
[2021-10-16] MEDS: lisinopril 10 MG TAB PO SCH (12:15)
--- NOTE | 2021-10-16 12:15 | Electrocardiogram Report ---
Test Reason : Blood Pressure : / mmHG Vent. Rate : 089 BPM Atrial Rate : 083 BPM P-R Int : 000 ms QRS Dur : 072 ms QT Int : 362 ms P-R-T Axes : 000 067 047 degrees QTc Int : 440 ms Poor data quality, interpretation may be adversely affected Atrial fibrillation Abnormal ECG When compared with ECG of 15-OCT-2021 19:25, (unconfirmed) Vent. rate has decreased BY 44 BPM Confirmed by Mat Peñaloza ([id number]) on 10/16/2021 12:15:18 PM Referred By: REFERRED SELF Confirmed By:Mat Peñaloza
--- NOTE | 2021-10-16 12:46 | Electrocardiogram Report ---
Test Reason : Blood Pressure : / mmHG Vent. Rate : 084 BPM Atrial Rate : 234 BPM P-R Int : 000 ms QRS Dur : 080 ms QT Int : 380 ms P-R-T Axes : 000 070 068 degrees QTc Int : 449 ms Atrial fibrillation Nonspecific T wave abnormality Abnormal ECG When compared with ECG of 15-OCT-2021 19:49, (unconfirmed) Nonspecific T wave abnormality, worse in Anterolateral leads Confirmed by Mat Peñaloza ([id number]) on 10/16/2021 12:46:29 PM Referred By: REFERRED SELF Confirmed By:Mat Peñaloza
--- NOTE | 2021-10-16 19:43 | Hospitalist Progress Note ---
Date of Service October 16, 2021 delayed entry date of service noted above Assessment & Plan (1) Atrial fibrillation with rapid ventricular response: Plan: On diltiazem drip Also on usual metoprolol 25 mg twice daily Coumadin held, currently bridged with heparin Machine [employer]il As[employer]er consulted Left knee effusion Knee x-ray showing moderate knee effusion Orthopedic evaluation pending hypertension, stable history of extensive DVT status post thrombectomy/IVC filter placement on Coumadin, INR subtherapeutic hx COPD as per records, patient currently without cough symptoms. cognitive impairment as per records postsurgical hypothyroidism, euthyroid as of today's TSH DVT prophylaxis. IV heparin Full code plan of care discussed with patient and her daughter Elida at bedside in detail and at length all questions answered they are understanding, agreeable, comfortable with the plan of care Admission and Anticipated Discharge Date Admission Date: October 15, 2021 Subjective Follow-up for left knee pain, A. fib and RVR, etc. Seen resting in bed, sitting up, comfortable, in good spirits States she feels fine overall except for left knee pain, worse with walking No chest pain, palpitations, dizziness, shortness of breath No other symptoms Review of Systems Review of Systems: all noted and negative except for above Physical Exam Physical Exam: General- oriented x 3, not in distress, speaks in sentences with no effort or accessory muscle use Head- atraumatic Eyes- PERRL, EOMI, anicteric ENT- oropharynx clear Neck- supple, no JVD, no adenopathy, no thyromegaly; carotids +2/2, no bruits appreciated Lungs- clear to auscultation bilaterally, no rales/wheezes Heart- normal rate, irregularly irregular rhythm; no murmur, no gallop, no rub appreciated Abdomen- normal bowel sounds, nondistended, soft, nontender, no masses or hepatosplenomegaly Extremities- Left knee-moderate edema, mild warmth, no erythema, fair range of motion Mild edema of the calf Right lower extremity: No pretibial edema, no calf tenderness; peripheral pulses intact Neuro- alert, oriented x 3; CN 2-12 grossly intact; motor 5/5 bilaterally;sensation 100% on all extremities; no other gross focal neurologic deficits Skin- warm & dry Results & Data Results & Data ([facility]) Vital Signs (Past 12 Hours) Vital Signs Temp Pulse Pulse Resp BP Pulse Ox 10/16/21 19:29 37.9 C H 89 20 114/56 L 91 10/16/21 15:47 93 H 10/16/21 14:00 36.8 C 99 H 20 146/72 H 97 10/16/21 12:00 36.9 C 72 20 139/61 97 10/16/21 11:23 75 10/16/21 08:00 36.8 C 74 20 147/72 H 96 all noted and reviewed including below
[2021-10-16] MEDS: HEPARIN SODIUM/DEXTROSE 25,000 UNITS/500 ML BAG IV SCH (21:55)
[2021-10-17] MEDS: LEVOTHYROXINE SODIUM 112 MCG TABLET PO SCH (06:05)
[2021-10-17 07:17] LABS: Basophils # (auto) 0.02 K/uL (0-0.2); Basophils % (auto) 0.2 %; Eosinophils # (auto) 0.11 K/uL (0-0.5); Hematocrit (blood only) 37.5 % (37-47); Hemoglobin 12.4 g/dL (12.0-16.0); Immature Granulocytes # (auto) 0.01 K/uL (0.00-0.02); Immature Granulocytes % (auto) 0.1 %; Lymphocytes # (auto) 1.79 K/uL (1.2-3.4); Lymphocytes % (auto) 17.1 %; Mean Corpuscular Hemoglobin 30.9 pg (25-34); Mean Corpuscular Hgb Conc 33.1 g/dL (32-36); Mean Corpuscular Volume 93.5 fL (80-100); Mean Platelet Volume 10.6 fL (7.4-10.4); Monocytes # (auto) 0.73 K/uL (0.11-0.59); Neutrophils # (auto) 7.82 K/uL (1.4-6.5); Neutrophils % (auto) 74.6 %; Platelet Count 283 K/uL (130-400); RDW Coefficient of Variation 14.4 % (11.5-14.5); RDW Standard Deviation 48.9 fL (36.4-46.3); Red Blood Count 4.01 M/uL (4.2-5.4); White Blood Count 10.48 K/uL (4.8-10.8)
[2021-10-17 07:43] LABS: INR 1.6 (0.9-1.1); Partial Thromboplastin Ratio 2.2; Prothrombin Time 16.7 Seconds (9.0-12.0)
[2021-10-17 07:45] LABS: Calcium 6.8 mg/dl (8.5-10.1); Creatinine Clr Calc Pharmacy 38.8 ml/min; Est GFR (African American) 57.1 ml/min; Est GFR (Non-African American) 49.3 ml/min; Potassium 3.6 mmol/L (3.5-5.1)
[2021-10-17 07:48] LABS: Partial Thromboplastin Time 59.9 Seconds (21.0-31.0)
[2021-10-17] MEDS: lisinopril 10 MG TAB PO SCH (07:50)
[2021-10-17] MEDS: LORATADINE 10 MG TAB PO SCH (07:51)
[2021-10-17] MEDS: DOXYCYCLINE HYCLATE 100 MG CAP PO SCH (07:51)
[2021-10-17] MEDS: METOPROLOL SUCC 25MG EXT REL TAB PO SCH (07:51)
--- NOTE | 2021-10-17 11:25 | Cardiology Progress Note ---
Date of Service October 17, 2021 Assessment & Plan (1) Atrial fibrillation with rapid ventricular response: (2) Effusion of left knee: (3) LV dysfunction: (4) Hypertension: Plan: Patient admitted for left knee pain/effusion. Incidentally found to have afib RVR, new diagnosis. Duration unknown. she takes coumadin (for history of DVT) as outpatient but INR was low. Started on IV heparin. She takes metoprolol 25 mg as outpatient, but admits to non compliance with meds. SHe was started on IV diltiazem in the ER, rates have trended down. Recommend stopping IV diltiazem and will adjust metoprolol dose as needed for ongoing rate control. She has mildly reduced LV function with EF 45%, likely due to afib RVR. Due to edema, will give one additional dose of IV lasix today 20 mg with potassium. She is to be taking lisinopril 10 mg per outpatient records, and will resume therapy given HTN and LV dysfunction. Once she has been evaluated by ortho, pending any need for intervention on her knee, will plan to resume coumadin for goal INR 2-3. Once she has been appropriately anticoagulated for 4 weeks, could consider future cardioversion. 10/17/2021 Plan as outlined above. Heart rate still elevated will increase metoprolol succinate to 50 mg every morning additional dose of 25 mg to be given this morning. Would recommend resuming anticoagulation with warfarin pending Ortho evaluation Admission and Anticipated Discharge Date Admission Date: October 15, 2021 Subjective Patient seen and examined, chart, medications, telemetry reviewed. No cardiac complaints. No chest pain or discomfort. No dizziness or lightheadedness. Atrial fibrillation still present with mildly elevated average heart rate INR this morning 1.6 with patient chronically anticoagulated with warfarin, currently bridging with heparin Review of Systems Review of Systems: All systems reviewed & are unremarkable except as noted in Subjective Physical Exam Constitutional: WD/WN, vitals as above Neck: trachea midline, no thyromegaly Respiratory: normal respiratory effort Auscultation: + diminished lung sounds; no crackles and no rales Cardiovascular: Rate/Rhythm: + irregularly irregular Heart Sounds: normal S1 and normal S2; no murmur Vessels: no JVD Extremities: + edema (1-2+ LE edema) Gastrointestinal (Abdomen): normal bowel sounds, soft, nontender, no hepatosplenomegaly Skin: no rashes, warm and dry Neurologic: PERRL, EOMI, accommodation nl, no face palsy, no dysarthria Psychiatric: A+Ox3, euthymic affect Results & Data ([facility]) Vital Signs (Past 12 Hours) Vital Signs Temp Pulse Pulse Resp BP BP Pulse Ox 10/17/21 08:01 101 H 10/17/21 07:47 37.0 C 113 H 16 121/93 92 10/17/21 03:24 36.8 C 117 H 22 108/74 90 Laboratory Results Laboratory Results - last 24 hr 10/17/21 10/17/21 10/17/21 06:04 06:04 06:04 WBC 10.48 RBC 4.01 L Hgb 12.4 Hct 37.5 MCV 93.5 MCH 30.9 MCHC 33.1 RDW Std Deviation 48.9 H RDW Coeff of Juan 14.4 Plt Count 283 MPV 10.6 H Immature Gran % (Auto) 0.1 Neut % (Auto) 74.6 Lymph % (Auto) 17.1 [place] % (Auto) 7.0 Eos % (Auto) 1.0 Baso % (Auto) 0.2 Neut # (Auto) 7.82 H Lymph # (Auto) 1.79 [place] # (Auto) 0.73 H Eos # (Auto) 0.11 Baso # (Auto) 0.02 Immature Gran # (Auto) 0.01 PT 16.7 H INR 1.6 H APTT 59.9 H* PTT Ratio 2.2 Sodium 140 Potassium 3.6 Chloride 99 Carbon Dioxide 32 Anion Gap 9 BUN 25 H Creatinine 1.04 Est Cr Clr Drug Dosing 38.8 Est GFR ( Amer) 57.1 Est GFR (Non-Af Amer) 49.3 BUN/Creatinine Ratio 24.0 H Glucose 103 H Calcium 6.8 L
[2021-10-17] MEDS ORDERED: METOPROLOL SUCC 25MG EXT REL TAB PO ONE (11:28)
--- NOTE | 2021-10-17 14:55 | Consultation Report ---
ORTHOPEDIC CONSULTATION DATE OF CONSULTATION: 10/17/2021. CHIEF COMPLAINT: Left knee pain. HISTORY OF PRESENT ILLNESS: The patient is an 86-year-old female who has had some mild pain in her k nee over the last few weeks. On ; however, she felt a pop in her knee with a significant inc rease in her pain. She tried taking Tylenol at home, but was limping around. Her daughter brought h er to the emergency room yesterday. She was noted to be short of breath in the emergency room and wa s found to have rapid AFib in the emergency room. She was admitted to the hospital and has been seen by Cardiology who is managing her atrial fibrillation. Orthopedics was consulted in regards to her left knee. The patient was seen and examined on the floor. She is currently on IV heparin because she has got a subtherapeutic INR. She is normally on Coumadin. She points to the medial aspect of her knee and l ower leg where she feels the pain at. She says it does not travel down to her ankle or up to her hip or back. She says it is also sharp in character. No numbness or tingling. No previous history of injuries to the knee. PAST MEDICAL HISTORY: 1. DVT, status post thrombectomy with IV filter placement, on Coumadin. 2. Hypertension. 3. COPD. 4. Cognitive impairment. 5. Hypothyroidism. 6. Atrial fibrillation with rapid ventricular rate. 7. Hyperlipidemia. 8. Chronic lymphedema. PAST SURGICAL HISTORY: Breast lesion excision, thyroidectomy, IVC filter placement. FAMILY HISTORY: Dementia. SOCIAL HISTORY: She is a nonsmoker. 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 MEDICATIONS: Include warfarin 5 mg orally daily, Lasix 40 mg orally daily, albuterol, vitamin D, jerel atadine, omeprazole, and a corticosteroid inhaler. PHYSICAL EXAMINATION: GENERAL: She is an pleasant female, obese, sitting up in her chair, accompanied by her 3 family memb ers in no acute distress. EXTREMITIES: Left knee exam reveals the patient to have tenderness to palpation along the medial juarez nt line. She has a positive Jodi's test referable to the medial aspect of the knee. Her range o f motion is limited from 20 degrees up to 95 degrees. She says if she tries to extend past 20 degree s, she has increasing knee pain in the anteromedial knee. No lateral joint line tenderness. Minimal peripatellar tenderness. She has significant lymphedema noted in her dorsal foot as well as her ank le. Skin is warm and well perfused. Difficult to palpate pulses due to her lymphedema. RESULTS REVIEWED: X-rays that were done recently on 10/15/2021 are reviewed. These show well-preser marcelo joint spaces and no fracture. IMPRESSION: An 86-year-old female, currently admitted for atrial fibrillation with rapid ventricular response and on a heparin drip for history of a deep venous thrombosis and atrial fibrillation with left medial knee pain. Differential diagnosis includes medial meniscus tear, loose body, focal chond ral defect, medial plica, and an MCL sprain. PLAN: Agree with the already placed an order for an MRI to evaluate for meniscus tear. No surgery i s planned for today. If she does have a bucket-handle tear then surgery might be indicated for a buc ket-handle tear. Any other kind of meniscus tear, we would likely try to treat nonsurgically given h er significant medical comorbidities. I will review her MRI once it is complete. Please make the lane marte n.p.o. after midnight tonight and stop her heparin drip in case she should need to go to the op erating room tomorrow. Job ID: [id number]
[2021-10-17] MEDS: HEPARIN SODIUM/DEXTROSE 25,000 UNITS/500 ML BAG IV SCH (17:43)
--- NOTE | 2021-10-17 18:41 | Hospitalist Progress Note ---
Date of Service October 17, 2021 Assessment & Plan (1) Atrial fibrillation with rapid ventricular response: Plan: Diltiazem drip discontinued Transition to metoprolol XL 50 mg daily No plans for surgery per Ortho Restart Coumadin 5 mg, continue heparin bridge INR daily Appreciate cardiology service consultation Left knee effusion Knee x-ray showing moderate knee effusion Knee MRI showing meniscal tear per Dr. 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 cognitive impairment as per records postsurgical hypothyroidism, euthyroid as of today's TSH DVT prophylaxis. IV heparin plus Coumadin Full code Disposition Lives at home PT and OT evaluation Admission and Anticipated Discharge Date Admission Date: October 15, 2021 Subjective Follow-up for left knee effusion, atrial fibrillation, etc. Seen resting in bedside chair, comfortable, not in distress Left knee discomfort about the same Worse with movement No calf pain Denies chest pain, shortness of breath, palpitations, dizziness No other symptoms Review of Systems Review of Systems: all noted and negative except for above Physical Exam Physical Exam: General- oriented x 3, not in distress, speaks in sentences with no effort or accessory muscle use Eyes- anicteric Neck- no JVD Lungs- clear breath sounds bilaterally, no rales/wheezes Heart-mildly tachycardic, irregularly irregular rhythm; no murmurs Abdomen- normal bowel sounds, nondistended, soft, nontender Extremities- Left knee-moderate edema, no warmth, mild tenderness, no erythema Right lower extremity-essentially normal Neuro- alert, oriented x 3; no gross focal neurologic deficits Skin- warm & dry Results & Data Results & Data ([facility]) Vital Signs (Past 12 Hours) Vital Signs Temp Pulse Pulse Resp BP BP Pulse Ox 10/17/21 15:33 117 H 10/17/21 15:23 37.1 C 107 H 18 121/79 95 10/17/21 12:00 36.9 C 96 H 18 109/74 99 10/17/21 08:01 101 H 10/17/21 07:47 37.0 C 113 H 16 121/93 92 all noted and reviewed including below
--- NOTE | 2021-10-17 19:54 | Magnetic Resonance Report ---
MR knee LT wo con CLINICAL HISTORY: 86 years-old Female with left knee pain, effusion. Acute left knee pain with joint effusion status post injury COMPARISON: Duplex venous Doppler study 10/15/2021, left knee radiographs 10/15/2021 TECHNIQUE: Multiplanar, multisequence MRI of the left knee was performed without intravenous contrast . FINDINGS: Motion degraded exam. MENISCI: Complex tearing of the posterior junction and horn medial meniscus with probable tear extens ion to the posterior meniscal root. There is no definite displaced fragment or parameniscal cyst iden tified. Degeneration of the lateral meniscus without definitive tear identified. CRUCIATE LIGAMENTS: The anterior and posterior cruciate ligaments are normal in signal, morphology an d course. COLLATERAL LIGAMENTS: The popliteus tendon, biceps femoris tendon, and iliotibial band are intact. Th ere is thickening with intermediate PD signal noted involving the proximal fibers of the medial and l ateral collateral ligament suggestive of chronic sprains. EXTENSOR MECHANISM: The quadriceps and patellar tendons are intact. The medial and lateral patellar r etinacula are intact. KNEE JOINT: Moderate to large joint effusion. There is mild tricompartmental joint space narrowing wi th marginal osteophytic spurring. Low-grade chondromalacia the lateral compartment. Low and intermedi ate grade chondromalacia of the medial compartment with a few areas of high-grade chondral fissuring and mild subchondral edema. Mild patellofemoral joint space narrowing and marginal osteophytic spurri ng with a few areas of intermediate to high-grade chondral fissuring noted within the medial patellar facet and patellar apex. Mostly low-grade chondromalacia of the trochlea. There are areas of frog-le g thickening involving the synovium within the suprapatellar joint space. No definite intra-articular loose body. BONE MARROW: The bone marrow signal is age appropriate. No fracture, marrow edema, or marrow replacin g process. SOFT TISSUES: There is at least moderate diffuse subcutaneous edema with mild intramuscular edema, mo st pronounced in the gastrocnemius musculature. 2.6 x 1.8 x 4.5 cm Oh's cyst. IMPRESSION: 1. Motion degraded exam. No acute fracture or acute ligamentous injury. 2. Complex medial meniscal tearing. 3. 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 4. Moderate to large joint effusion with questioned lipoma arborescens. 5. Diffuse subcutaneous edema with nonspecific intramuscular edema most pronounced within the proxima l gastrocnemius. ACT 112: Negative or not required by law. The above report was generated using voice recognition software. It may contain grammatical, syntax o r spelling errors. Electronically signed by: Calvin Carroll M.D. 10/17/2021 7:52 PM
[2021-10-17] MEDS: WARFARIN SOD 5 MG TAB PO SCH (20:54)
[2021-10-18] MEDS: LEVOTHYROXINE SODIUM 112 MCG TABLET PO SCH (06:35)
[2021-10-18] MEDS ORDERED: DEXAMETHASONE SOD INJ 10 MG/ML VIAL INJ ONE (07:32)
[2021-10-18] MEDS ORDERED: ROPIVACAINE 0.5% 5 MG/ML 30 ML VIAL INFIL ONE (07:33)
[2021-10-18] MEDS: LORATADINE 10 MG TAB PO SCH (08:19)
[2021-10-18] MEDS: lisinopril 10 MG TAB PO SCH (08:19)
[2021-10-18 08:39] LABS: INR 1.4 (0.9-1.1); Partial Thromboplastin Ratio 2.2; Partial Thromboplastin Time 61.3 Seconds (21.0-31.0); Prothrombin Time 15.1 Seconds (9.0-12.0)
[2021-10-18 08:54] LABS: BUN Creatinine Ratio 24.5 (10-20); Calcium 7.1 mg/dl (8.5-10.1); Creatinine Clr Calc Pharmacy 39.7 ml/min; Est GFR (African American) 58.5 ml/min; Est GFR (Non-African American) 50.5 ml/min; Magnesium 1.8 mg/dl (1.7-2.4); Potassium 3.7 mmol/L (3.5-5.1)
[2021-10-18] MEDS ORDERED: METOPROLOL SUCC 50MG EXT REL TAB PO SCH (09:00)
--- NOTE | 2021-10-18 10:50 | Orthopedic Progress Note ---
Date of Service October 18, 2021 Assessment & Plan (1) Acute medial meniscus tear of left knee: Plan: I reviewed the diagnosis with the patient and her daughter Elida. Given the improvement in her symptoms overnight options were presented to her including a corticosteroid injection versus continued use of Tylenol, icing, physical therapy, and activity modification to avoid squatting and twisting activities. Through shared decision making they elected to hold off on the cortisone injection. This could always be done at a later date if desired. She can follow-up with orthopedics on an as-needed basis. Admission and Anticipated Discharge Date Admission Date: October 15, 2021 Subjective Patient seen and examined on a.m. rounds. She reports her left knee feels a lot better this morning. She received Tylenol last night. She is able to get up and walk around her room some this morning. Physical Exam Physical Exam: Left knee exam this morning reveals the patient to continue to have tenderness to palpation along the medial joint line. Trace effusion. Range of motion from 0 to 105 degrees. Neurovascular intact. Lymphedema noted once again distally Results & Data ([facility]) Vital Signs (Past 12 Hours) Vital Signs Temp Pulse Pulse Resp BP BP Pulse Ox 10/18/21 08:15 36.7 C 114 H 16 102/68 94 10/18/21 07:17 91 H 10/18/21 03:37 35.6 C L 62 16 127/80 98 10/17/21 22:55 36.3 C L 111 H 20 113/62 93 Diagnostic Findings MRI done yesterday was reviewed. This does show a tear of the medial meniscus. It is not a bucket-handle tear however.
--- NOTE | 2021-10-18 11:20 | Cardiology Progress Note ---
Date of Service October 18, 2021 Assessment & Plan (1) Atrial fibrillation with rapid ventricular response: (2) Effusion of left knee: (3) LV dysfunction: (4) Hypertension: Plan: Patient admitted for left knee pain/effusion. Incidentally found to have afib RVR, new diagnosis. Duration unknown. she takes coumadin (for history of DVT) as outpatient but INR was low. Started on IV heparin. She takes metoprolol 25 mg as outpatient, but admits to non compliance with meds. SHe was started on IV diltiazem in the ER, rates have trended down. Recommend stopping IV diltiazem and will adjust metoprolol dose as needed for ongoing rate control. She has mildly reduced LV function with EF 45%, likely due to afib RVR. Due to edema, will give one additional dose of IV lasix today 20 mg with potassium. She is to be taking lisinopril 10 mg per outpatient records, and will resume therapy given HTN and LV dysfunction. Once she has been evaluated by ortho, pending any need for intervention on her knee, will plan to resume coumadin for goal INR 2-3. Once she has been appropriately anticoagulated for 4 weeks, could consider future cardioversion. 09/24/2021 Plan as outlined above. Heart rate still elevated will increase metoprolol succinate to 75 mg every morning additional dose of 25 mg to be given this morning. Warfarin anticoagulation resumed Follow-up cardiology 3 weeks time Admission and Anticipated Discharge Date Admission Date: October 15, 2021 Subjective Patient seen and examined, chart, medications, telemetry reviewed. Sitting out of bed in chair notes right knee pain substantially improved. She remains in atrial fibrillation with elevated ventricular response rate but unaware. No chest pains or shortness of breath orthopnea. Oxygenating well on room air. Review of Systems Review of Systems: All systems reviewed & are unremarkable except as noted in Subjective Physical Exam Constitutional: WD/WN, vitals as above Neck: trachea midline, no thyromegaly Respiratory: normal respiratory effort Auscultation: + diminished lung sounds; no crackles and no rales Cardiovascular: Rate/Rhythm: + irregularly irregular Heart Sounds: normal S1 and normal S2; no murmur Vessels: no JVD Extremities: + edema (1-2+ LE edema) Gastrointestinal (Abdomen): normal bowel sounds, soft, nontender, no hepatosplenomegaly Skin: no rashes, warm and dry Neurologic: PERRL, EOMI, accommodation nl, no face palsy, no dysarthria Psychiatric: A+Ox3, euthymic affect Results & Data ([facility]) Vital Signs (Past 12 Hours) Vital Signs Temp Pulse Pulse Resp BP BP Pulse Ox 10/18/21 08:15 36.7 C 114 H 16 102/68 94 10/18/21 07:17 91 H 10/18/21 03:37 35.6 C L 62 16 127/80 98
[2021-10-18] MEDS ORDERED: METOPROLOL SUCC 25MG EXT REL TAB PO ONE (11:21)
[2021-10-18] MEDS: WARFARIN SOD 5 MG TAB PO SCH (15:13)
[2021-10-18] MEDS: HEPARIN SODIUM/DEXTROSE 25,000 UNITS/500 ML BAG IV SCH (15:14)
[2021-10-18] MEDS ORDERED: WARFARIN SOD 2.5 MG TAB PO ONE (15:59)
[2021-10-18] MEDS ORDERED: WARFARIN SOD 7.5 MG TAB PO SCH (16:00)
--- NOTE | 2021-10-18 16:35 | Hospitalist Progress Note ---
Date of Service October 18, 2021 Assessment & Plan (1) Atrial fibrillation with rapid ventricular response: Plan: Diltiazem drip discontinued Heart rate still elevated Increased metoprolol XL 75 mg daily Coumadin restarted, INR 1.4, 7.5 mg Coumadin today INR daily Left knee effusion Knee x-ray showing moderate knee effusion Knee MRI showing meniscal tear per Dr. 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 cognitive impairment as per records postsurgical hypothyroidism, euthyroid as of today's TSH DVT prophylaxis. IV heparin plus Coumadin Full code Disposition Lives at home May need inpatient rehab PT and OT evaluation Admission and Anticipated Discharge Date Admission Date: October 15, 2021 Subjective Follow-up for left knee effusion, A. fib etc. Resting in chair, comfortable, in good spirits Left knee pain somewhat improving No fevers or chills, chest pain, shortness of breath, palpitations, dizziness No other symptoms Review of Systems Review of Systems: all noted and negative except for above Physical Exam Physical Exam: General- oriented x 3, not in distress, speaks in sentences with no effort or accessory muscle use Eyes- anicteric Neck- no JVD Lungs- clear breath sounds bilaterally, no rales/wheezes Heart- normal rate, irregularly irregular rhythm; no murmurs Abdomen- normal bowel sounds, nondistended, soft, nontender Extremities- no pretibial edema, no calf tenderness Mild edema left knee, improving No edema calf region No erythema/warmth/tenderness Neuro- alert, oriented x 3; no gross focal neurologic deficits Skin- warm & dry Results & Data Results & Data ([facility]) Vital Signs (Past 12 Hours) Vital Signs Temp Pulse Pulse Resp BP Pulse Ox 10/18/21 15:08 114 H 10/18/21 11:51 36.4 C L 97 H 16 119/73 94 10/18/21 08:15 36.7 C 114 H 16 102/68 94 10/18/21 07:17 91 H all noted and reviewed including below
[2021-10-19] MEDS: LEVOTHYROXINE SODIUM 112 MCG TABLET PO SCH (06:00)
[2021-10-19] MEDS: lisinopril 10 MG TAB PO SCH (08:31)
[2021-10-19] MEDS: LORATADINE 10 MG TAB PO SCH (08:31)
[2021-10-19 08:40] LABS: INR 1.8 (0.9-1.1); Partial Thromboplastin Ratio 2.7; Prothrombin Time 18.2 Seconds (9.0-12.0)
[2021-10-19 08:46] LABS: Partial Thromboplastin Time 74.2 Seconds (21.0-31.0)
[2021-10-19] MEDS ORDERED: METOPROLOL SUCC 25MG EXT REL TAB PO SCH (09:00)
--- NOTE | 2021-10-19 10:58 | Cardiology Progress Note ---
Date of Service October 19, 2021 Assessment & Plan (1) Atrial fibrillation with rapid ventricular response: (2) Effusion of left knee: (3) LV dysfunction: (4) Hypertension: Plan: Admitted for left knee pain/effusion. Incidentally found to have atrial fibrillation with a rapid ventricular response (new diagnosis), of unknown duration, chronically prescribed Coumadin following a remote unprovoked left lower extremity DVT in the INR subtherapeutic on presentation (1.6) and throughout hospitalization, bridging with IV heparin Noncompliant with metoprolol prior to admission. Metoprolol resumed this admission and titrated for rate control. Resting echocardiography with mildly reduced LV function, EF 45%, likely due to afib with RVR. Lisinopril resumed, RE: HTN and LV dysfunction. Patient asymptomatic. Recommend "rate control" strategy along with continued use of anticoagulation. Increase metoprolol succinated to 100 mg/day for additional rate control Outpatient cardiology follow-up in 3 weeks time. Office aware; will contact patient. Admission and Anticipated Discharge Date Admission Date: October 15, 2021 Supervising Physician Co-Signing Physician Notes I have seen and examined the patient. Reviewed the medical record and discussed the case with Mr. Pan. I agree with a rate control strategy with this patient. Subjective Patient seen and examined. Chart, medications, telemetry reviewed. Telemetry: Atrial fibrillation in the 90s, up to a high of 150 bpm. Sitting out of bed in chair. Hoping for a left knee injection today. Anxious to go home. Chronically prescribed Coumadin anticoagulation following an unprovoked left lo wer extremity DVT in the mid . Denies chest pain, palpitations, unusual shortness of breath, cough, orthopnea, PND, increased edema (chronic left lower extremity edema), dizziness, near syncope, syncope, melena, hematochezia, or hematuria. Notes noncompliance with metoprolol prior to hospitalization. INR 1.8 this AM Review of Systems Review of Systems: Complete Review of Systems is as stated above, negative, or noncontributory. Physical Exam Physical Exam: Patient examined while sitting in the bedside chair General: A&Ox3. NAD. HENT: Normocephalic. Atraumatic. Eyes: PER. Conjunctiva pink, sclera clear. Neck: No carotid bruits. No overt JVD. Heart: Irregularly irregular at 100 bpm. Systolic murmur at the LLSB. No diastolic murmur. No rub. Lungs: Clear to auscultation. Abdomen: +BS. Soft. Nontender. No masses or organomegaly. Extremities: Chronic hard indurated left greater than right lower extremity edema. No clubbing. No cyanosis. Limited neurological examination is without focal deficits. Pulses: radial=2/4, posterior tibial=1/4. Results & Data ([facility]) Vital Signs (Past 12 Hours) Vital Signs Temp Pulse Pulse Resp BP Pulse Ox 10/19/21 07:41 100 H 10/19/21 07:14 36.9 C 91 H 16 128/74 97 10/19/21 03:00 36.8 C 105 H 16 122/96 93 10/18/21 23:00 37.0 C 116 H 16 131/92 94
[2021-10-19] MEDS ORDERED: Heparin IV Adult Wt-Based Low-Dose *NO* Bolus Protocol IV SCH (14:00)
[2021-10-19] MEDS ORDERED: HEPARIN SODIUM/DEXTROSE 25,000 UNITS/500 ML BAG IV SCH (14:30)
[2021-10-19] MEDS ORDERED: WARFARIN SOD 7.5 MG TAB PO SCH (16:00)
--- NOTE | 2021-10-19 16:39 | Orthopedic Progress Note ---
Date of Service October 19, 2021 Assessment & Plan (1) Acute medial meniscus tear of left knee: Plan: After verbal informed consent was obtained, the injection site of left knee was confirmed with the patient. The anterolateral aspect of the knee was prepped with chloroprep. A 22 gauge needle with syringe attached was inserted into the knee, anterolateral approach, and 9 cc of ropivicaine and 4 mg of dexamethasone was injected into the knee. A band-aid was applied. Patient tolerated this well. No immediate complications. Ice and tylenol for next 2-3 days. WBAT. Follow-up orthopaedics as needed. Admission and Anticipated Discharge Date Admission Date: October 15, 2021 Subjective Patient reports her left knee hurts about the same as yesterday, worse when she's up on it. She's worried about being discharged home and having her knee flare up, so she is requesting the cortisone injection today. Physical Exam Physical Exam: Left knee exam this morning reveals the patient to continue to have tenderness to palpation along the medial joint line. Trace effusion. Range of motion from 0 to 105 degrees. Neurovascular intact. Lymphedema noted once again distally. Results & Data ([facility]) Vital Signs (Past 12 Hours) Vital Signs Temp Pulse Pulse Resp BP Pulse Ox 10/19/21 15:04 107 H 10/19/21 12:14 36.8 C 66 16 114/60 99 10/19/21 07:41 100 H 10/19/21 07:14 36.9 C 91 H 16 128/74 97
--- NOTE | 2021-10-19 17:52 | Hospitalist Progress Note ---
Date of Service October 19, 2021 Assessment & Plan (1) Atrial fibrillation with rapid ventricular response: Plan: Diltiazem drip discontinued Increased metoprolol XL 100 mg daily Coumadin restarted, INR 1.8, 7.5 mg Coumadin today INR daily Left knee effusion Knee x-ray showing moderate knee effusion Knee MRI showing meniscal tear per Dr. 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 cognitive impairment as per records postsurgical hypothyroidism, euthyroid as of today's TSH DVT prophylaxis. IV heparin plus Coumadin Full code Disposition Lives at home PT and OT evaluation: ok to return home Admission and Anticipated Discharge Date Admission Date: October 15, 2021 Subjective ff up for a fib, left knee meniscal tear seen resting in chair, comfortable states she feels fine overall left knee discomfort about the same no leg pain no chest pain, dyspnea, palpitations, dizziness no other symptoms Review of Systems Review of Systems: all noted and negative except for above Physical Exam Physical Exam: General- oriented x 3, not in distress, speaks in sentences with no effort or accessory muscle use Eyes- anicteric Neck- no JVD Lungs- clear BS BL Heart- normal rate, irregularly irregular rhythm; no murmurs Abdomen- normal bowel sounds, nondistended, soft, nontender Extremities- RLE: no pretibial edema, no calf tenderness LLE: minimal edema of L knee, moderate edema of L calf no tenderness, erythema, warmth Neuro- alert, oriented x 3; no gross focal neurologic deficits Skin- warm & dry Results & Data Results & Data ([facility]) Vital Signs (Past 12 Hours) Vital Signs Temp Pulse Pulse Resp BP Pulse Ox 10/19/21 15:04 107 H 10/19/21 14:00 36.8 C 72 18 121/61 100 10/19/21 12:14 36.8 C 66 16 114/60 99 10/19/21 07:41 100 H 10/19/21 07:14 36.9 C 91 H 16 128/74 97 all noted and reviewed including below
[2021-10-19 21:37] LABS: Partial Thromboplastin Ratio 2.2
[2021-10-19 21:53] LABS: Partial Thromboplastin Time 60.5 Seconds (21.0-31.0)
[2021-10-20] MEDS: LEVOTHYROXINE SODIUM 112 MCG TABLET PO SCH (05:50)
[2021-10-20 06:29] LABS: INR 2.6 (0.9-1.1); Partial Thromboplastin Ratio 3.4; Prothrombin Time 26.2 Seconds (9.0-12.0)
[2021-10-20 06:36] LABS: Partial Thromboplastin Time 92.2 Seconds (21.0-31.0)
[2021-10-20] MEDS ORDERED: Nursing to Pharmacy Communication SCH (07:45)
[2021-10-20] MEDS: LORATADINE 10 MG TAB PO SCH (08:08)
[2021-10-20] MEDS: lisinopril 10 MG TAB PO SCH (08:09)
--- NOTE | 2021-10-20 08:59 | Cardiology Progress Note ---
Date of Service October 20, 2021 Assessment & Plan (1) Atrial fibrillation with rapid ventricular response: (2) Effusion of left knee: (3) LV dysfunction: (4) Hypertension: Plan: Admitted for left knee pain/effusion. Incidentally found to have atrial fibrillation with a rapid ventricular response (new diagnosis), of unknown duration, chronically prescribed Coumadin following a remote unprovoked left lower extremity DVT in the Resting echocardiography with mildly reduced LV function, EF 45%, likely due to afib with RVR. INR subtherapeutic on presentation (1.6); 2.6 this AM Patient asymptomatic. Continue with "rate control" strategy along with chronic anticoagulation. Metoprolol succinated increased to 100 mg/day Add oral digoxin 125 mcg/day today. Lisinopril resumed this admission, RE: Hypertension, LV dysfunction. Outpatient cardiology follow-up in 2-3 weeks time. Office aware; will contact patient. Possible future direct current cardioversion discussed with patient and daughter. Admission and Anticipated Discharge Date Admission Date: October 15, 2021 Supervising Physician Co-Signing Physician Notes I have seen and examined the patient. I discussed the case with Cr Pan and reviewed the medical record. I agree with the plan as outlined above. Patient is anxious to go home today and I would agree that she can be discharged. Subjective Patient seen and examined. Chart, medications, telemetry reviewed. Telemetry: Atrial fibrillation. Heart rates have ranged from the 90's to the 120's over the last 24 hours. Sitting out of bed in chair. Feeling better overall. Status post left knee injection 10/19/2021. Chronically prescribed Coumadin anticoagulation following an unprovoked left lower extremity DVT in the mid . Denies chest pain, palpitations, unusual shortness of breath, cough, orthopnea, PND, increased edema (chronic left lower extremity edema), dizziness, near syncope, syncope, melena, hematochezia, or hematuria. INR 2.6 this AM Review of Systems Review of Systems: Complete Review of Systems is as stated above, negative, or noncontributory. Physical Exam Physical Exam: Patient examined while sitting in the bedside chair General: A&Ox3. NAD. HENT: Normocephalic. Atraumatic. Eyes: PER. Conjunctiva pink, sclera clear. Neck: No overt JVD. Heart: Irregularly irregular at 110 bpm. Systolic murmur at the LLSB. No diastolic murmur. No rub. Lungs: Clear to auscultation. Abdomen: +BS. Soft. Nontender. No masses or organomegaly. Extremities: Chronic hard indurated left greater than right lower extremity edema. No clubbing. No cyanosis. Limited neurological examination is without focal deficits. Pulses: radial=2/4, posterior tibial=1/4. Results & Data ([facility]) Vital Signs (Past 12 Hours) Vital Signs Temp Pulse Resp BP Pulse Ox 10/20/21 07:00 36.9 C 112 H 18 116/97 94 10/20/21 03:07 36.5 C 90 18 117/70 92 10/19/21 23:23 36.8 C 107 H 20 126/93 92 Laboratory Results Laboratory Results - last 24 hr 10/19/21 10/20/21 20:46 05:42 PT 26.2 H INR 2.6 H APTT 60.5 H* 92.2 H* PTT Ratio 2.2 3.4
[2021-10-20] MEDS ORDERED: METOPROLOL SUCC 50MG EXT REL TAB PO SCH (09:00)
[2021-10-20] MEDS ORDERED: WARFARIN SOD 5 MG TAB PO SCH (16:00)
[2021-10-20] MEDS ORDERED: DIGOXIN 0.125 MG TAB PO SCH (16:00)
--- NOTE | 2021-10-22 13:57 | Hospitalist Progress Note ---
Date of Service October 22, 2021 delayed entry date of service 10/20/21 Assessment & Plan (1) Atrial fibrillation with rapid ventricular response: Plan: Diltiazem drip discontinued Increased metoprolol XL 100 mg daily Digoxin 125mcg daily also started HR improved ff up with Cardiology clinic in 2 weeks Coumadin restarted, INR 2.6 continue coumadin, ff up with Coumadin Clinic Left knee effusion, Meniscal Tear Knee x-ray showing moderate knee effusion Knee MRI showing meniscal tear per Dr. 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 cognitive impairment as per records postsurgical hypothyroidism, euthyroid as of today's TSH Disposition PT and OT evaluation: ok to return home d/c home ff up with PCP in 1 week Degreasing Solution Reclaimer in 2 weeks Ortho in 2 weeks Admission and Anticipated Discharge Date Admission Date: October 15, 2021 Subjective ff up for left knee meniscal tear, a fib in RVR, etc seen resting in chair, comfortable L knee pain much better no chest pain, dyspnea, palpitations, dizziness no other symptoms states she is ready for discharge Review of Systems Review of Systems: all noted and negative except for above Physical Exam Physical Exam: General- oriented x 3, not in distress, speaks in sentences with no effort or accessory muscle use Eyes- anicteric Neck- no JVD Lungs- clear BS bilaterally, no rales/wheezes Heart- normal rate, irregularly irregular rhythm; no murmurs Abdomen- normal bowel sounds, nondistended, soft, nontender Extremities- RLE: knee: no erythema/warmth/tenderness/ good ROM; mild lower leg edema LLE: no pretibial edema, no calf tenderness Neuro- alert, oriented x 3; no gross focal neurologic deficits Skin- warm & dry Results & Data Results & Data ([facility]) Vital Signs (Past 12 Hours) all noted and reviewed including below
--- NOTE | 2021-10-22 13:58 | Discharge Summary ---
Date of Service October 22, 2021 delayed entry date of service 10/20/21 Admission HPI Per Admitting Provider History obtained from patient, family, and records. 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 Patient noted achy left knee swelling without fever or chills today after she tried cleaning swimming pool at home. Patient looks short of breath as per patient daughter who happens to be an RN. Patient however denies chest pain, cough, SOB symptoms No unusual fluid retention. Patient not compliant with heart medications (metoprolol, Lasix, lisinopril) as per daughter. Patient noted to be in rapid A. fib at the ER. IV Cardizem bolus/infusion initiated at the ER. 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 Admission Exam Per Admitting Provider GENERAL: Slightly uncomfortable, obese, minimal respiratory distress SKIN: Normal color, warm HEENT: Dustin palpebral conjunctivae, no ptosis, moist buccal mucosa, nasal cannula in place NECK : Supple, short neck, no tenderness CHEST : Decreased breath sounds, no tenderness HEART : Irregular, no obvious murmurs ABDOMEN: Some distention, nontender EXTREMITIES : LLE swelling, left knee tenderness, no other conspicuous deformities noted NEUROLOGIC : Coherent, no facial asymmetry, no other gross focality Principal Diagnosis LEFT KNEE MENISCAL TEAR ATRIAL FIBRILLATION IN RVR Discharge Exam GENERAL: Slightly uncomfortable, obese, minimal respiratory distress SKIN: Normal color, warm HEENT: Dustin palpebral conjunctivae, no ptosis, moist buccal mucosa, nasal cannula in place NECK : Supple, short neck, no tenderness CHEST : Decreased breath sounds, no tenderness HEART : Irregular, no obvious murmurs ABDOMEN: Some distention, nontender EXTREMITIES : LLE swelling, left knee tenderness, no other conspicuous deformities noted NEUROLOGIC : Coherent, no facial asymmetry, no other gross focality Discharge Data Allergies Allergy/AdvReac Type Severity Reaction Status Date / Time No Known Drug Allergies Allergy Unknown Verified 09/04/20 15:03 Consultations 10/15/21 19:45 ED Decision to Admit Stat 10/15/21 21:03 Consult Orthopedic Surgery Routine 10/15/21 23:19 Consult Cardiology Routine Ordered Studies 10/15/21 20:27 US venous doppler LE LT Urgent FINDINGS: There is normal compressibility, flow, and augmentation within the left lower extremity deep venous system. Subcutaneous edema. IMPRESSION: No DVT within the left lower extremity. ACT 112: Negative or not required by law. 10/17/21 11:49 MR knee LT wo con Routine COMPARISON: Duplex venous Doppler study 10/15/2021, left knee radiographs 10/15/2021 TECHNIQUE: Multiplanar, multisequence MRI of the left knee was performed without intravenous contrast. FINDINGS: Motion degraded exam. MENISCI: Complex tearing of the posterior junction and horn medial meniscus with probable tear extension to the posterior meniscal root. There is no definite displaced fragment or parameniscal cyst identified. Degeneration of the lateral meniscus without definitive tear identified. CRUCIATE LIGAMENTS: The anterior and posterior cruciate ligaments are normal in signal, morphology and course. COLLATERAL LIGAMENTS: The popliteus tendon, biceps femoris tendon, and iliotibial band are intact. There is thickening with intermediate PD signal noted involving the proximal fibers of the medial and lateral collateral ligament suggestive of chronic sprains. EXTENSOR MECHANISM: The quadriceps and patellar tendons are intact. The medial and lateral patellar retinacula are intact. KNEE JOINT: Moderate to large joint effusion. There is mild tricompartmental joint space narrowing with marginal osteophytic spurring. Low-grade chondromalacia the lateral compartment. Low and intermediate grade chondromalacia of the medial compartment with a few areas of high-grade chondral fissuring and mild subchondral edema. Mild patellofemoral joint space narrowing and marginal osteophytic spurring with a few areas of intermediate to high-grade chondral fissuring noted within the medial patellar facet and patellar apex. Mostly low-grade chondromalacia of the trochlea. There are areas of frog-leg thickening involving the synovium within the suprapatellar joint space. No definite intra-articular loose body. BONE MARROW: The bone marrow signal is age appropriate. No fracture, marrow edema, or marrow replacing process. SOFT TISSUES: There is at least moderate diffuse subcutaneous edema with mild intramuscular edema, most pronounced in the gastrocnemius musculature. 2.6 x 1.8 x 4.5 cm Oh's cyst. IMPRESSION: 1. Motion degraded exam. No acute fracture or acute ligamentous injury. 2. Complex medial meniscal tearing. 3. 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 4. Moderate to large joint effusion with questioned lipoma arborescens. 5. Diffuse subcutaneous edema with nonspecific intramuscular edema most pronounced within the proximal gastrocnemius. ACT 112: Negative or not required by law. The above report was generated using voice recognition software. It may contain grammatical, syntax or spelling errors. Electronically signed by: Calvin Carroll M.D. 10/17/2021 7:52 PM Hospital Course (1) Atrial fibrillation with rapid ventricular response: Diltiazem drip discontinued Increased metoprolol XL 100 mg daily Digoxin 125mcg daily also started HR improved ff up with Cardiology clinic in 2 weeks Coumadin restarted, INR 2.6 continue coumadin, ff up with Coumadin Clinic Left knee effusion, Meniscal Tear Knee x-ray showing moderate knee effusion Knee MRI showing meniscal tear per Dr. 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 cognitive impairment as per records postsurgical hypothyroidism, euthyroid as of today's TSH Disposition PT and OT evaluation: ok to return home d/c home ff up with PCP in 1 week Biology Teacher in 2 weeks Ortho in 2 weeks Total Time Total Time Spent Total Time Spent (In Minutes): >30 MINUTES Discharge Plan Discharge Items Patient Disposition: Home - Home Health Services Reason For Visit: AF Discharge Diagnosis: Left knee meniscal tear Atrial fibrillation and rapid ventricular response Activity: As commented below Activity Comment: Resume gradually as tolerated, always ambulate carefully to avoid falls Lifting: Wait until after follow-up appointment Exercise/Sports: Wait until after follow-up appointment Driving/Machine Use: No driving until reevaluated and allowed by primary care physician on follo Non-emergency contact: Primary Care Provider Call non-emergency contact if: you have any medication questions, your symptoms worsen, your pain is not controlled, your pain is worsening, your pain is unusual for you, your pain is concerning for you and you have a fever Follow-up/Referrals: Jay Deng MD [Physician] - Kiel Brooks MD [Primary Care Provider] - (Date & Time 10/23/2021 11:00 AM Provider Gilda Craig MD Department [facility] ) Diet: Heart Healthy Addtl Attending Provider Instructions: PLEASE REFER TO YOUR NEW MEDICATION LIST AND FOLLOW INSTRUCTIONS CAREFULLY. YOUR NEW MEDICATIONS INCLUDE: Metoprolol XL 100 mg daily Digoxin 125 mcg daily PLEASE CALL YOUR PRIMARY CARE PHYSICIAN OR RETURN TO THE ER IF WITH WORSENING OF SYMPTOMS, INCLUDING Left knee swelling, pain, tenderness Shortness of breath, palpitations, chest pain FOLLOW UP WITH PRIMARY CARE PHYSICIAN in 1 week. Follow-up with [facility] cardiology clinic in 2 weeks. Follow-up with orthopedic surgeon Dr. Jay Rajput in 1 week. Contact information outlined above. Stand-Alone Forms: [employer], Smoking Cessation Medications and DC Order Prescriptions: New digoxin [Digitek] 125 mcg (0.125 mg) Tablet 125 mcg PO DAILY@1600 Qty: 30 RF: 2 metoprolol succinate 100 mg tablet extended release 24 hr 100 mg PO DAILY Qty: 30 RF: 2 Continued warfarin 5 mg tablet 5 mg PO DAILY RF: 0 loratadine 10 mg tablet 10 mg PO DAILY RF: 0 levothyroxine 112 mcg tablet 112 mcg PO DAILY RF: 0 atorvastatin 20 mg tablet 20 mg PO DAILY RF: 0 donepezil 5 mg tablet 5 mg PO DAILY RF: 0 furosemide 40 mg tablet 40 mg PO DAILY RF: 0 lisinopril 10 mg tablet 10 mg PO DAILY RF: 0 Discontinued metoprolol succinate 25 mg tablet extended release 24 hr 25 mg PO DAILY RF: 0 Discharge Orders: Discharge Order (Routine); Ordered 10/20/21 Ordered By: Petr Castillo Admission Data Admit Date/Time: 10/15/21 21:00 Attending Provider: Petr Castillo Admit Provider: Cornel Brizuela Primary Care Provider: Kiel Brooks Other Providers: Enrike Hyde ; Cornel Brizuela ; Stiven Acosta ; Zay Benedict ; Jc Pickard ; Truong Morales ; Aquilino Ham ; Cr Pan ; Jenna Mcginnis ; Isabel Flood ; Yadira Silverman ; Wilder Aquino Other Interventions: Discharge Summary Assessment (RN) Last Done: 10/20/21 10:22
== END 2021-10-20 16:28 | disposition home health service (06) | DRG 563 ==
LOC: ED 18:03 → SUATTDRO 21:00 → 2E 21:00

== ENCOUNTER 2022-02-07 10:18 | Inpatient (IN) ==
[2022-02-07] MEDS ORDERED: FUROSEMIDE 40 MG/4 ML VIAL IV ONE (10:54)
--- NOTE | 2022-02-07 11:03 | Emergency Department Note ---
History of Present Illness General Chief complaint: Shortness of Breath/Dyspnea Stated complaint: SOB-POST SURGICAL 02/04 Time Seen by Provider: 02/07/22 10:24 History of Present Illness Maximum Pain Intensity: 0 86-year-old female presents to the ED with a chief complaint of shortness of breath. The patient states that she awoke with the symptoms around 7 AM today. She states that she just feels like she cannot breathe well and cannot get enough air. She denies any pain. No fevers. No cough. She does have some chronic pedal edema due to lymphedema. The left is usually greater than the right. It is slightly worse than normal but not much different. She did have a meniscal tear surgery of the left knee on 02/04/2022, 3 days ago. 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 She states that she went off the Coumadin and they transferred her to [facility] for few days prior to the surgery. The day of the surgery they started her back on her Coumadin at 12.5 mg daily. She has taken this for the last 3 days. The patient has no other specific complaints. Denies any chest pains. No back pains. She does chronically take Lasix. She states that she did not take any medication this morning because she was not feeling well. Home Medications Medication Instructions Recorded Confirmed Type loratadine 10 mg tablet (Claritin) 10 mg PO QAM 01/26/19 02/04/22 History warfarin 5 mg tablet 5 mg PO DIRECTED 01/26/19 02/04/22 History levothyroxine 112 mcg tablet 112 mcg PO QAM 10/16/21 02/04/22 History atorvastatin 20 mg tablet (Lipitor) 20 mg PO QDL 10/20/21 02/04/22 History digoxin 125 mcg (0.125 mg) tablet 125 mcg PO DAILY@1600 #30 tabs 10/20/21 02/04/22 Rx (Digitek) furosemide 40 mg tablet 40 mg PO QAM 10/20/21 02/04/22 History lisinopril 10 mg tablet (Zestril) 10 mg PO QDL 10/20/21 02/04/22 History acetaminophen 650 mg 650 mg PO Q12H 01/28/22 02/04/22 History tablet,extended release albuterol sulfate 90 mcg/actuation 1 inh inhalation QID PRN sob 01/28/22 02/04/22 History aerosol inhaler calcium carbonate 300 mg (750 mg) 300 mg PO QPM 01/28/22 02/04/22 History chewable tablet (Tums) ergocalciferol (vitamin D2) 1,250 1,250 mcg PO WK 01/28/22 02/04/22 History mcg (50,000 unit) capsule (Vitamin D2) metoprolol succinate 100 mg 100 mg PO QAM 01/28/22 02/04/22 History tablet,extended release 24 hr warfarin 5 mg tablet 7.5 mg PO DAILY 01/28/22 02/04/22 History Allergies Allergy/AdvReac Type Severity Reaction Status Date / Time No Known Drug Allergies Allergy Unknown Verified 02/04/22 05:51 Past Med/Surg History Medical History Atrial fibrillation Dx/d September 2021 -- on coumadin -- follows with Dr. Pickard Chronic airway disease Chronic anticoagulation Enlarged thyroid History of anesthesia complications per dtr, voice has changed since thyroidectomy. informed by surgeon voice change is probably r/t intubation. History of thrombosis HLD (hyperlipidemia) [place] (hard of hearing) HTN (hypertension) Lymphedema BLLE Nodular thyroid disease Reactive airway disease Surgical History History of breast biopsy LEFT - 1985 History of cataract surgery History of thyroidectomy History of tubal ligation S/P IVC filter Family History Other No family history of adverse response to anesthesia No family history of allergies No family history of bleeding disorder Denies family history of Hearing loss Heart disease Cancer Hypertension Stroke Asthma Social History Smoking Status: Never smoker Second Hand Exposure: No; Hx Alcohol Use: No Hx Substance Use: No Preferred Language: Czech Communication Ability: Effective Health And Safety Instructor Required: No Beliefs That Will Affect Care: None marital status: / Current Living Situation: Alone current occupational status: retired How many Children do You have: 4 Feels Safe at Home: Yes Review of Systems A total of 10 systems reviewed and were otherwise negative Physical Exam Vital Signs Vital Signs - 24 hr 02/07/22 10:35 02/07/22 10:55 02/07/22 11:13 Temperature 36.8 C Temperature Source Temporal Artery Scan Pulse Rate 91 H Pulse Rate [Apical] Respiratory Rate 18 Respiratory Effort / Characteristics Accessory Muscle Use Labored Short of Breath Blood Pressure 189/88 H Blood Pressure [Left Arm] Blood Pressure Mean 121 Blood Pressure Mean [Left Arm] Blood Pressure Position Sitting Pulse Oximetry 75 L 99 Oxygen Delivery Method Room Air Nasal Cannula Nasal Cannula Oxygen Flow Rate 3 Sepsis Recent Fever Within 48 Hours No Sepsis New/Unexplained Change in Mental Status N/A Sepsis Action Taken by Nursing No Action Required Oxygen Flow Rate - Titration 4 Pulse Oximetry Post Tiitration 99 02/07/22 11:45 02/07/22 13:00 Temperature Temperature Source Pulse Rate Pulse Rate [Apical] 84 74 Respiratory Rate 18 18 Respiratory Effort / Characteristics Blood Pressure Blood Pressure [Left Arm] 174/93 H 116/85 Blood Pressure Mean Blood Pressure Mean [Left Arm] 120 95 Blood Pressure Position Pulse Oximetry 100 99 Oxygen Delivery Method Nasal Cannula Nasal Cannula Oxygen Flow Rate 3 3 Sepsis Recent Fever Within 48 Hours Sepsis New/Unexplained Change in Mental Status Sepsis Action Taken by Nursing Oxygen Flow Rate - Titration Pulse Oximetry Post Tiitration CONSTITUTIONAL/VITAL SIGNS: Reviewed / noted above. GENERAL: Non-toxic in appearance. INTEGUMENTARY: Warm, dry, and [place]. HEAD: Normocephalic. EYES: without scleral icterus or trauma. ENT/OROPHARYNX: clear and moist. LYMPHADENOPATHY/NECK: Is supple without lymphadenopathy or meningismus. RESPIRATORY: Diminished with some basilar crackles to auscultation bilaterally. No increased work of breathing. CARDIOVASCULAR: Regular rate and rhythm. GI/ABDOMEN: Soft and nontender. No organomegaly or pulsatile mass. EXTREMITIES: Warm and well perfused. Bilateral pedal edema left greater than right. Patient and family states this is chronic but may be slightly worse than usual. NEUROLOGICAL: Intact without focal deficits. PSYCHIATRIC: normal affect. MUSCULOSKELETAL: Normally developed with good muscle tone. TRIAGE NURSING DOCUMENTATION REVIEWED. Course Administered Medications Discontinued Medications Furosemide (Furosemide 40 Mg/4 Ml Vial) 40 mg IV ONE ONE Stop: 02/07/22 10:55 Last Admin: 02/07/22 11:34 Dose: 40 mg Documented By: GEORGIANA Medical Decision Making Differential Diagnosis The differential was considered includes acute myocardial infarction, acute coronary syndrome, myocarditis, pericarditis, pericardial effusions /tamponad, esophageal perforation, pulmonary embolism, pneumonia, pneumothorax, cardiomyopathy, congestive heart, anemia , COPD/asthma exacerbation. Medical Records Attestation: I reviewed the patient's medical records. Home Medications Current Medication List: was personally reviewed by me Laboratory Data Attestation: I reviewed the patient's lab results. Result diagrams: 02/07/22 11:20 02/07/22 11:20 Lab Results 02/07/22 02/07/22 02/07/22 Range/Units 11:00 11:20 11:20 WBC (4.8-10.8) K/ul RBC (3.93-5.22) M/uL Hgb (12.0-16.0) g/dl Hct (34.1-44.9) % MCV (80.0-100.0) fL MCH (25.0-34.0) pg MCHC (32.0-36.0) g/dL RDW Std Deviation (36.4-46.3) fL RDW Coeff of Juan (11.5-14.5) % Plt Count (130-400) K/uL MPV (9.4-12.3) fL Immature Gran % (Auto) % Neut % (Auto) % Lymph % (Auto) % Ransom % (Auto) % Eos % (Auto) % Baso % (Auto) % Neut # (Auto) (1.4-6.5) K/uL Lymph # (Auto) (1.2-3.4) K/uL Ransom # (Auto) (0.24-0.82) K/uL Eos # (Auto) (0-0.50) K/uL Baso # (Auto) (0-0.2) K/uL Immature Gran # (Auto) (0.00-0.02) K/uL PT (9.0-12.0) Seconds INR (0.9-1.1) APTT (21.0-31.0) Seconds PTT Ratio ABG pH (7.35-7.45) ABG pCO2 (35-46) mmHg ABG pO2 (80-95) mmHg ABG HCO3 (19-24) mmol/L ABG O2 Saturation (90-95) % ABG Base Excess (-9-1.8) mEq/L Sterling Test (Pos) Oxygen Given Sodium 140 (136-145) mmol/L Potassium 4.5 (3.5-5.1) mmol/L Chloride 103 (98-107) mmol/L Carbon Dioxide 29 (21-32) mmol/L Anion Gap 8 (3-11) BUN 27 H (6-23) mg/dl Creatinine 0.87 (0.6-1.2) mg/dl Est Cr Clr Drug Dosing 45.5 ml/min Est GFR ( Amer) 70.9 ml/min Est GFR (Non-Af Amer) 61.2 ml/min BUN/Creatinine Ratio 31.0 H (10-20) Glucose 123 H (70-99(Fasting)) mg/dl Lactate 0.9 (0.4-2.0) mmol/L Calcium 6.7 L (8.5-10.1) mg/dl Magnesium 1.7 (1.7-2.4) mg/dl Total Bilirubin 0.7 (0.2-1.0) mg/dl Direct Bilirubin 0.2 (0-0.2) mg/dl AST 19 (13-39) U/L ALT 22 (7-52) U/L Alkaline Phosphatase 95 (34-104) U/L Troponin I High Sens 12.1 (0-14) pg/ml B-Natriuretic Peptide (0-100) pg/ml Total Protein 6.7 (6.0-8.3) gm/dl Albumin 3.8 (3.4-5.0) gm/dl Globulin 2.9 (2.5-4.0) gm/dl Albumin/Globulin Ratio 1.3 (0.9-2) Procalcitonin < 0.05 (0-0.5) ng/ml SARS-CoV-2, RNA, NAAT (NEGATIVE) 02/07/22 02/07/22 02/07/22 Range/Units 11:20 11:20 11:20 WBC 16.92 H (4.8-10.8) K/ul RBC 3.79 L (3.93-5.22) M/uL Hgb 12.1 (12.0-16.0) g/dl Hct 36.4 (34.1-44.9) % MCV 96.0 (80.0-100.0) fL MCH 31.9 (25.0-34.0) pg MCHC 33.2 (32.0-36.0) g/dL RDW Std Deviation 53.7 H (36.4-46.3) fL RDW Coeff of Juan 15.1 H (11.5-14.5) % Plt Count 213 (130-400) K/uL MPV 10.3 (9.4-12.3) fL Immature Gran % (Auto) 1.1 % Neut % (Auto) 82.0 % Lymph % (Auto) 10.3 % Ransom % (Auto) 6.1 % Eos % (Auto) 0.3 % Baso % (Auto) 0.2 % Neut # (Auto) 13.87 H (1.4-6.5) K/uL Lymph # (Auto) 1.74 (1.2-3.4) K/uL Ransom # (Auto) 1.03 H (0.24-0.82) K/uL Eos # (Auto) 0.05 (0-0.50) K/uL Baso # (Auto) 0.04 (0-0.2) K/uL Immature Gran # (Auto) 0.19 H (0.00-0.02) K/uL PT 27.2 H (9.0-12.0) Seconds INR 2.7 H (0.9-1.1) APTT 33.9 H (21.0-31.0) Seconds PTT Ratio 1.2 ABG pH (7.35-7.45) ABG pCO2 (35-46) mmHg ABG pO2 (80-95) mmHg ABG HCO3 (19-24) mmol/L ABG O2 Saturation (90-95) % ABG Base Excess (-9-1.8) mEq/L Sterling Test (Pos) Oxygen Given Sodium (136-145) mmol/L Potassium (3.5-5.1) mmol/L Chloride (98-107) mmol/L Carbon Dioxide (21-32) mmol/L Anion Gap (3-11) BUN (6-23) mg/dl Creatinine (0.6-1.2) mg/dl Est Cr Clr Drug Dosing ml/min Est GFR ( Amer) ml/min Est GFR (Non-Af Amer) ml/min BUN/Creatinine Ratio (10-20) Glucose (70-99(Fasting)) mg/dl Lactate (0.4-2.0) mmol/L Calcium (8.5-10.1) mg/dl Magnesium (1.7-2.4) mg/dl Total Bilirubin (0.2-1.0) mg/dl Direct Bilirubin (0-0.2) mg/dl AST (13-39) U/L ALT (7-52) U/L Alkaline Phosphatase (34-104) U/L Troponin I High Sens (0-14) pg/ml B-Natriuretic Peptide 413 H (0-100) pg/ml Total Protein (6.0-8.3) gm/dl Albumin (3.4-5.0) gm/dl Globulin (2.5-4.0) gm/dl Albumin/Globulin Ratio (0.9-2) Procalcitonin (0-0.5) ng/ml SARS-CoV-2, RNA, NAAT (NEGATIVE) 02/07/22 02/07/22 Range/Units 11:21 14:10 WBC (4.8-10.8) K/ul RBC (3.93-5.22) M/uL Hgb (12.0-16.0) g/dl Hct (34.1-44.9) % MCV (80.0-100.0) fL MCH (25.0-34.0) pg MCHC (32.0-36.0) g/dL RDW Std Deviation (36.4-46.3) fL RDW Coeff of Juan (11.5-14.5) % Plt Count (130-400) K/uL MPV (9.4-12.3) fL Immature Gran % (Auto) % Neut % (Auto) % Lymph % (Auto) % Ransom % (Auto) % Eos % (Auto) % Baso % (Auto) % Neut # (Auto) (1.4-6.5) K/uL Lymph # (Auto) (1.2-3.4) K/uL Ransom # (Auto) (0.24-0.82) K/uL Eos # (Auto) (0-0.50) K/uL Baso # (Auto) (0-0.2) K/uL Immature Gran # (Auto) (0.00-0.02) K/uL PT (9.0-12.0) Seconds INR (0.9-1.1) APTT (21.0-31.0) Seconds PTT Ratio ABG pH 7.37 (7.35-7.45) ABG pCO2 58 H (35-46) mmHg ABG pO2 128 H (80-95) mmHg ABG HCO3 34 H (19-24) mmol/L ABG O2 Saturation > 100.0 H (90-95) % ABG Base Excess 6.4 H (-9-1.8) mEq/L Sterling Test Pos (Pos) Oxygen Given 3L Sodium (136-145) mmol/L Potassium (3.5-5.1) mmol/L Chloride (98-107) mmol/L Carbon Dioxide (21-32) mmol/L Anion Gap (3-11) BUN (6-23) mg/dl Creatinine (0.6-1.2) mg/dl Est Cr Clr Drug Dosing ml/min Est GFR ( Amer) ml/min Est GFR (Non-Af Amer) ml/min BUN/Creatinine Ratio (10-20) Glucose (70-99(Fasting)) mg/dl Lactate (0.4-2.0) mmol/L Calcium (8.5-10.1) mg/dl Magnesium (1.7-2.4) mg/dl Total Bilirubin (0.2-1.0) mg/dl Direct Bilirubin (0-0.2) mg/dl AST (13-39) U/L ALT (7-52) U/L Alkaline Phosphatase (34-104) U/L Troponin I High Sens (0-14) pg/ml B-Natriuretic Peptide (0-100) pg/ml Total Protein (6.0-8.3) gm/dl Albumin (3.4-5.0) gm/dl Globulin (2.5-4.0) gm/dl Albumin/Globulin Ratio (0.9-2) Procalcitonin (0-0.5) ng/ml SARS-CoV-2, RNA, NAAT NEGATIVE (NEGATIVE) Imaging Data Radiologist's Impression: Chest X-Ray 02/07/22 10:54 XR chest 1V portable HISTORY: 86 years-old Female Dyspnea acute shortness of breath COMPARISON: Chest radiograph 10/15/2021 TECHNIQUE: Portable AP view of the chest FINDINGS: Cardiac silhouette is enlarged. Chronic interstitial coarsening. Possible associated pulmonary vascular congestion. No pneumothorax or large pleural effusion. Calcification noted involving the left breast. Degenerative changes of the shoulders and spine. IMPRESSION: Cardiomegaly with pulmonary vascular congestion. ACT 112: Negative or not required by law. The above report was generated using voice recognition software. It may contain grammatical, syntax or spelling errors. Electronically signed by: Calvin Carroll M.D. 02/07/2022 11:30 AM ECG Data Attestation: I personally reviewed and interpreted this ECG as follows: Additional Comments: Twelve-lead EKG: Per my interpretation there is a normal sinus rhythm at a rate of 86. No ST elevation. No PVCs. Normal QTC. MDM Narrative 86-year-old female presents with acute onset of shortness of breath this morning when she woke. She does have some acute on chronic pedal edema but not much worse than usual. She also had a meniscal surgery 3 days ago. She had a brief time where she was off Coumadin and placed on Lovenox and then back on Coumadin. She did not have any bridging of medication when placed back on Coumadin. Sounds reveal diminished breath sounds with some crackles in the bases. The patient's white blood cell count of 16.9. She does not have any infectious symptoms to suggest infection. This might be stress related elevation. INR is 2.7. The BUN is 27. Calcium is 6.7. BNP is 413. Procalcitonin was negative. Lactic acid is negative. ABG shows a normal ventilation and adequate oxygenation with oxygen. EKG shows a sinus rhythm without ischemic changes. The troponin was negative. Because the patient's pulse ox was low and her clini mary exam and x-ray findings suggest congestive heart failure, she was given IV Lasix. On reassessment, she is feeling somewhat better. She states that her breathing feels better and is more relaxed. Because her saturations were low when she came in, she will be seen by the hospitalist for further evaluation and care. Impression & Plan Congestive heart failure, Hypoxia Discharge Plan Visit Data Chief Complaint: Shortness of Breath/Dyspnea Stated Complaint: SOB-POST SURGICAL 02/04 ED Provider: Ej Lubin Discharge Problem: Congestive heart failure, Hypoxia Patient Disposition: Being Evaluated by Hospitalist Forms Stand Alone Forms: My [facility] Prescriptions Prescriptions: No Action warfarin 5 mg tablet 5 mg PO DIRECTED Rx Instructions: Tuesday, Tuesday, Tuesday, Tuesday loratadine [Claritin] 10 mg tablet 10 mg PO QAM levothyroxine 112 mcg tablet 112 mcg PO QAM digoxin [Digitek] 125 mcg (0.125 mg) Tablet 125 mcg PO DAILY@1600 Qty: 30 2RF atorvastatin [Lipitor] 20 mg tablet 20 mg PO QDL furosemide 40 mg tablet 40 mg PO QAM lisinopril [Zestril] 10 mg tablet 10 mg PO QDL calcium carbonate [Tums] 300 mg (750 mg) Tablet,Chewable 300 mg PO QPM acetaminophen 650 mg Tablet Extended Release 650 mg PO Q12H warfarin 5 mg Tablet 7.5 mg PO DAILY Rx Instructions: Tuesday, , Tuesday ergocalciferol (vitamin D2) [Vitamin D2] 1,250 mcg (50,000 unit) Capsule 1,250 mcg PO WK metoprolol succinate 100 mg tablet extended release 24 hr 100 mg PO QAM albuterol sulfate 90 mcg/actuation Hfa Aerosol Inhaler 1 inh INHALATION QID PRN (Reason: sob) Referrals Referrals: PCP,NO [Physician] -
[2022-02-07 11:28] LABS: Basophils # (auto) 0.04 K/uL (0-0.2); Basophils % (auto) 0.2 %; Eosinophils # (auto) 0.05 K/uL (0-0.50); Eosinophils % (auto) 0.3 %; Hematocrit (blood only) 36.4 % (34.1-44.9); Hemoglobin 12.1 g/dl (12.0-16.0); Immature Granulocytes # (auto) 0.19 K/uL (0.00-0.02); Immature Granulocytes % (auto) 1.1 %; Lymphocytes # (auto) 1.74 K/uL (1.2-3.4); Lymphocytes % (auto) 10.3 %; Mean Corpuscular Hemoglobin 31.9 pg (25.0-34.0); Mean Corpuscular Hgb Conc 33.2 g/dL (32.0-36.0); Mean Platelet Volume 10.3 fL (9.4-12.3); Monocytes # (auto) 1.03 K/uL (0.24-0.82); Monocytes % (auto) 6.1 %; Neutrophils # (auto) 13.87 K/uL (1.4-6.5); Platelet Count 213 K/uL (130-400); RDW Coefficient of Variation 15.1 % (11.5-14.5); RDW Standard Deviation 53.7 fL (36.4-46.3); Red Blood Count 3.79 M/uL (3.93-5.22); White Blood Count 16.92 K/ul (4.8-10.8)
--- NOTE | 2022-02-07 11:32 | XRay Report ---
XR chest 1V portable HISTORY: 86 years-old Female Dyspnea acute shortness of breath COMPARISON: Chest radiograph 10/15/2021 TECHNIQUE: Portable AP view of the chest FINDINGS: Cardiac silhouette is enlarged. Chronic interstitial coarsening. Possible associated pulmonary vascul ar congestion. No pneumothorax or large pleural effusion. Calcification noted involving the left leisa [address]. Degenerative changes of the shoulders and spine. IMPRESSION: Cardiomegaly with pulmonary vascular congestion. ACT 112: Negative or not required by law. The above report was generated using voice recognition software. It may contain grammatical, syntax o r spelling errors. Electronically signed by: Calvin Carroll M.D. 02/07/2022 11:30 AM
[2022-02-07 11:33] LABS: Base Excess ABG 6.4 mEq/L (-9-1.8); HCO3 ABG 34 mmol/L (19-24); Oxygen Saturation ABG > 100.0 % (90-95); PCO2 ABG 58 mmHg (35-46); PO2 ABG 128 mmHg (80-95); pH ABG 7.37 (7.35-7.45)
[2022-02-07 11:39] LABS: INR 2.7 (0.9-1.1); Partial Thromboplastin Ratio 1.2; Partial Thromboplastin Time 33.9 Seconds (21.0-31.0); Prothrombin Time 27.2 Seconds (9.0-12.0)
[2022-02-07 11:53] LABS: Albumin Globulin Ratio 1.3 (0.9-2); Albumin Level 3.8 gm/dl (3.4-5.0); Bilirubin Direct 0.2 mg/dl (0-0.2); Bilirubin,Total 0.7 mg/dl (0.2-1.0); Calcium 6.7 mg/dl (8.5-10.1); Creatinine Clr Calc Pharmacy 45.5 ml/min; Est GFR (African American) 70.9 ml/min; Est GFR (Non-African American) 61.2 ml/min; Globulin 2.9 gm/dl (2.5-4.0); Magnesium 1.7 mg/dl (1.7-2.4); Potassium 4.5 mmol/L (3.5-5.1); Total Protein 6.7 gm/dl (6.0-8.3)
[2022-02-07 11:58] LABS: Troponin I High Sensitivity 12.1 pg/ml (0-14)
[2022-02-07 12:11] LABS: Allen Test Pos (Pos)
--- NOTE | 2022-02-07 13:50 | Electrocardiogram Report ---
Test Reason : Blood Pressure : / mmHG Vent. Rate : 086 BPM Atrial Rate : 086 BPM P-R Int : 164 ms QRS Dur : 068 ms QT Int : 388 ms P-R-T Axes : 061 065 018 degrees QTc Int : 464 ms Poor data quality, interpretation may be adversely affected Normal sinus rhythm Nonspecific T wave abnormality Inferior leads Abnormal ECG When compared with ECG of 16-OCT-2021 08:50, Sinus rhythm has replaced Atrial fibrillation Nonspecific T wave abnormality, improved in Anterolateral leads Confirmed by Usman Leon ([id number]) on 02/07/2022 1:50:16 PM Referred By: REFERRED SELF Confirmed By:Usman Leon
--- NOTE | 2022-02-07 14:52 | History & Physical Report ---
Date of Service February 07, 2022 Assessment & Plan (1) Acute diastolic heart failure: Plan: Likely has congestive heart failure secondary to diastolic dysfunction and has been on Lasix She has been very noncompliant with Lasix and has been having dietary indiscretion recently Presented with acute CHF likely secondary to diastolic dysfunction given the history of atrial fibrillation with RVR She received 40 mg of Lasix IV and has been diuresing enough and clinically much better Will continue with 40 mg Lasix IV daily Has had an echo done in December showed normal systolic function and will not repeat now BNP is minimally elevated at 480 and troponin normal Strongly advised to take Lasix as advised as an outpatient We will get PT and OT evaluation prior to discharge Shortness of breath Noted to be hypoxic in the emergency room Secondary to CHF ABG remained unremarkable Condition improved with Lasix and has been requiring 3 L of oxygen to maintain saturation Will need 2 step O2 saturation test prior to discharge (2) Atrial fibrillation: Plan: Remained in sinus rhythm with controlled rate We will continue current medications including Coumadin (3) COPD (chronic obstructive pulmonary disease): Plan: History of COPD and not on any oxygen at home Does not have any exacerbation by examination Will provide albuterol MDI as needed (4) History of DVT (deep vein thrombosis): Plan: INR is more than 2 Continue Coumadin (5) Hypertension: Plan: Blood pressure is stable Will continue current medications (6) Acute medial meniscus tear of left knee: Plan: History of recent left knee arthroscopic procedure on last Has left knee bandaged No acute arthropathy now (7) History of thyroidectomy: Plan: Has been on thyroid replacement surgery (8) HLD (hyperlipidemia): Plan: Continue statin DVT prophylaxis On Coumadin CODE STATUS Full History of Present Illness Chief Complaint: Shortness of breath since this morning Primary Care Provider: Gilda Craig MD She is an 86-year-old female with significant past medical history of COPD, atrial fibrillation on anticoagulation, hyperlipidemia, history of DVT, essential hypertension and lymphedema of leg apparently has been complaining of shortness of breath with minimal chest tightness since this morning. Apparently she has been very noncompliant with her diuretics. She has had left knee arthroscopic procedure this and has resumed her Coumadin accordingly. She has not been taking her Lasix recently and noted to have more shortness of breath since this morning when her daughter brought her to the hospital for further evaluation. She denies any fever and or chills, any cough or phlegm, any urinary symptoms, any chest pain and/or palpitation. She was noted to be hypoxic in the emergency room and chest x-ray did not show congestive heart failure with a BNP minimally high at more than 400. He did not have any increase in lactate and/or procalcitonin. She received Lasix intravenously and was admitted to medical telemetry unit for continuation of care. Apparently her EKG and troponin are unremarkable Allergies Allergy/AdvReac Type Severity Reaction Status Date / Time No Known Drug Allergies Allergy Unknown Verified 02/04/22 05:51 Home Medications Medication Instructions Recorded Confirmed Type loratadine 10 mg tablet (Claritin) 10 mg PO QAM 01/26/19 02/04/22 History warfarin 5 mg tablet 5 mg PO DIRECTED 01/26/19 02/04/22 History levothyroxine 112 mcg tablet 112 mcg PO QAM 10/16/21 02/04/22 History atorvastatin 20 mg tablet (Lipitor) 20 mg PO QDL 10/20/21 02/04/22 History digoxin 125 mcg (0.125 mg) tablet 125 mcg PO DAILY@1600 #30 tabs 10/20/21 02/04/22 Rx ([facility]) furosemide 40 mg tablet 40 mg PO QAM 10/20/21 02/04/22 History lisinopril 10 mg tablet (Zestril) 10 mg PO QDL 10/20/21 02/04/22 History acetaminophen 650 mg 650 mg PO Q12H 01/28/22 02/04/22 History tablet,extended release albuterol sulfate 90 mcg/actuation 1 inh inhalation QID PRN sob 01/28/22 02/04/22 History aerosol inhaler calcium carbonate 300 mg (750 mg) 300 mg PO QPM 01/28/22 02/04/22 History chewable tablet (Tums) ergocalciferol (vitamin D2) 1,250 1,250 mcg PO WK 01/28/22 02/04/22 History mcg (50,000 unit) capsule (Vitamin D2) metoprolol succinate 100 mg 100 mg PO QAM 01/28/22 02/04/22 History tablet,extended release 24 hr warfarin 5 mg tablet 7.5 mg PO DAILY 01/28/22 02/04/22 History Past Med/Surg History Medical History (Updated 02/07/22 @ 14:46 by Mónica Layton MD) Atrial fibrillation Dx/d September 2021 -- on coumadin -- follows with Dr. Pickard Chronic airway disease Chronic anticoagulation Enlarged thyroid History of anesthesia complications per dtr, voice has changed since thyroidectomy. informed by surgeon voice change is probably r/t intubation. History of thrombosis HLD (hyperlipidemia) [place] (hard of hearing) HTN (hypertension) Lymphedema BLLE Nodular thyroid disease Reactive airway disease Surgical History History of breast biopsy LEFT - 1985 History of cataract surgery History of thyroidectomy History of tubal ligation S/P IVC filter Family History Other No family history of adverse response to anesthesia No family history of allergies No family history of bleeding disorder Denies family history of Hearing loss Heart disease Cancer Hypertension Stroke Asthma Social History Smoking Status: Never smoker Second Hand Exposure: No; Hx Alcohol Use: No Hx Substance Use: No Preferred Language: Ukrainian Communication Ability: Effective Restaurant Cook Required: No Beliefs That Will Affect Care: None marital status: / Current Living Situation: Alone current occupational status: retired How many Children do You have: 4 Feels Safe at Home: Yes Review of Systems Review of Systems: All systems reviewed & are unremarkable except as noted in HPI & below Respiratory: Shortness of breath-resolved Physical Exam Physical Exam: No apparent distress at rest Constitutional: well developed and well nourished; not ill appearing Eyes: PERRL, conjunctivae normal, anicteric sclerae ENMT: external ear and nose normal, oropharynx normal Neck: trachea midline, no thyromegaly Respiratory: no respiratory distress Auscultation: + diminished lung sounds and + crackles (Bilateral crackles without any wheezing) Cardiovascular: Rate/Rhythm: regular rate and regular rhythm; not tachycardic Heart Sounds: normal S1, normal S2 and + murmur Extremities: + edema (1+ edema bilaterally) Gastrointestinal (Abdomen): Inspection/Auscultation: normal bowel sounds; abdomen not distended Percussion/Palpation: abdomen soft; abdomen nontender Musculoskeletal: Left knee arthroscopic procedure recently and is bandaged without any acute pain Neurologic: Alert, awake and oriented x3. Generally weak no focal sensory or no motor deficit appreciated Psychiatric: A+Ox3, euthymic affect Lymphatic: no cervical or axillary lymphadenopathy Results & Data Results & Data ([facility]) Vital Signs (Past 12 Hours) Vital Signs Temp Pulse Pulse Resp BP BP Pulse Ox 02/07/22 13:00 74 18 116/85 99 02/07/22 11:45 84 18 174/93 H 100 02/07/22 11:13 99 02/07/22 10:55 02/07/22 10:35 36.8 C 91 H 18 189/88 H 75 L O2 Del Method O2 Flow Rate 02/07/22 13:00 Nasal Cannula 3 02/07/22 11:45 Nasal Cannula 3 02/07/22 11:13 Nasal Cannula 3 02/07/22 10:55 Nasal Cannula 02/07/22 10:35 Room Air Laboratory Results Short CBC 02/07/22 Range/Units 11:20 WBC 16.92 H (4.8-10.8) K/ul Hgb 12.1 (12.0-16.0) g/dl Hct 36.4 (34.1-44.9) % Plt Count 213 (130-400) K/uL BMP 02/07/22 11:20 Sodium 140 Potassium 4.5 Chloride 103 Carbon Dioxide 29 BUN 27 H Creatinine 0.87 Glucose 123 H Calcium 6.7 L Liver Function 02/07/22 Range/Units 11:20 Total Bilirubin 0.7 (0.2-1.0) mg/dl Direct Bilirubin 0.2 (0-0.2) mg/dl AST 19 (13-39) U/L ALT 22 (7-52) U/L Alkaline Phosphatase 95 (34-104) U/L Albumin 3.8 (3.4-5.0) gm/dl
[2022-02-07] MEDS ORDERED: ALBUTEROL HFA 8 GM INHALER INH PRN (16:56)
[2022-02-07] MEDS: DIGOXIN 0.125 MG TAB PO SCH (17:53)
[2022-02-07] MEDS: WARFARIN SOD 5 MG TAB PO SCH (17:54)
[2022-02-07] MEDS: CALCIUM CARBONATE 500 MG CHEWABLE TAB PO SCH (20:23)
[2022-02-07] MEDS: ACETAMINOPHEN 325 MG TAB PO SCH (20:24)
[2022-02-08] MEDS: LEVOTHYROXINE SODIUM 112 MCG TABLET PO SCH (05:32)
[2022-02-08 07:36] LABS: Basophils # (auto) 0.03 K/uL (0-0.2); Basophils % (auto) 0.2 %; Eosinophils # (auto) 0.08 K/uL (0-0.50); Eosinophils % (auto) 0.6 %; Hematocrit (blood only) 33.6 % (34.1-44.9); Immature Granulocytes # (auto) 0.06 K/uL (0.00-0.02); Immature Granulocytes % (auto) 0.4 %; Lymphocytes # (auto) 1.85 K/uL (1.2-3.4); Lymphocytes % (auto) 13.7 %; Mean Corpuscular Hemoglobin 30.8 pg (25.0-34.0); Mean Corpuscular Hgb Conc 32.7 g/dL (32.0-36.0); Mean Corpuscular Volume 94.1 fL (80.0-100.0); Mean Platelet Volume 10.5 fL (9.4-12.3); Monocytes % (auto) 6.7 %; Neutrophils % (auto) 78.4 %; Platelet Count 212 K/uL (130-400); RDW Coefficient of Variation 14.7 % (11.5-14.5); RDW Standard Deviation 51.8 fL (36.4-46.3); Red Blood Count 3.57 M/uL (3.93-5.22); White Blood Count 13.52 K/ul (4.8-10.8)
[2022-02-08 07:49] LABS: INR 2.8 (0.9-1.1); Prothrombin Time 28.5 Seconds (9.0-12.0)
[2022-02-08 07:55] LABS: BUN Creatinine Ratio 29.3 (10-20); Calcium 6.7 mg/dl (8.5-10.1); Creatinine Clr Calc Pharmacy 42.7 ml/min; Est GFR (African American) 66.3 ml/min; Est GFR (Non-African American) 57.2 ml/min; Magnesium 1.7 mg/dl (1.7-2.4); Potassium 4.1 mmol/L (3.5-5.1)
[2022-02-08] MEDS: FUROSEMIDE 40 MG/4 ML VIAL IV SCH (09:02)
[2022-02-08] MEDS: METOPROLOL SUCC 50MG EXT REL TAB PO SCH (09:02)
[2022-02-08] MEDS: ACETAMINOPHEN 325 MG TAB PO SCH ×3 (09:02→20:05)
[2022-02-08] MEDS: LORATADINE 10 MG TAB PO SCH (09:03)
[2022-02-08] MEDS: lisinopril 10 MG TAB PO SCH (11:43)
[2022-02-08] MEDS: ATORVASTATIN 20 MG TAB PO SCH (11:43)
[2022-02-08 15:50] LABS: Appearance Urine Clear (Clear); Bilirubin Urine Negative (Negative); Blood Urine Negative (Negative); Color Urine Yellow; Glucose Urine UA Negative (Negative); Ketones Urine Negative (Negative); Leukocyte Esterase Urine Negative (Negative); Nitrite Urine Negative (Negative); Protein Urine Negative (Negative); Specific Gravity Urine 1.008 (1.000-1.030); Urobilinogen Urine Negative (Negative)
[2022-02-08] MEDS ORDERED: FUROSEMIDE 40 MG/4 ML VIAL IV ONE (15:56)
--- NOTE | 2022-02-08 16:28 | Hospitalist Progress Note ---
Date of Service February 08, 2022 Assessment & Plan (1) Acute diastolic heart failure: Plan: Likely has congestive heart failure secondary to diastolic dysfunction and has been on Lasix She has been very noncompliant with Lasix and has been having dietary indiscretion recently Presented with acute CHF likely secondary to diastolic dysfunction given the history of atrial fibrillation with RVR She received 40 mg of Lasix IV and has been diuresing enough and clinically much better Will continue with 40 mg Lasix IV daily Has had an echo done in December showed normal systolic function and will not repeat now BNP is minimally elevated at 480 and troponin normal Strongly advised to take Lasix as advised as an outpatient We will get PT and OT evaluation prior to discharge Clinically better and has been diuresing enough with negative cumulative fluid balance of 1250 mm Will give additional dose of Lasix today Get PT and OT evaluation and possible discharge tomorrow following a two-step O2 saturation test Shortness of breath Noted to be hypoxic in the emergency room Secondary to CHF ABG remained unremarkable Condition improved with Lasix and has been requiring 3 L of oxygen to maintain saturation Will need 2 step O2 saturation test prior to discharge (2) Atrial fibrillation: Plan: Remained in sinus rhythm with controlled rate We will continue current medications including Coumadin Rate is controlled and INR therapeutic (3) COPD (chronic obstructive pulmonary disease): Plan: History of COPD and not on any oxygen at home Does not have any exacerbation by examination Will provide albuterol MDI as needed Does not have any wheezing (4) History of DVT (deep vein thrombosis): Plan: INR is more than 2 Continue Coumadin (5) Hypertension: Plan: Blood pressure is stable Will continue current medications (6) Acute medial meniscus tear of left knee: Plan: History of recent left knee arthroscopic procedure on last Has left knee bandaged No acute arthropathy now (7) History of thyroidectomy: Plan: Has been on thyroid replacement surgery (8) HLD (hyperlipidemia): Plan: Continue statin DVT prophylaxis On Coumadin CODE STATUS Full Admission and Anticipated Discharge Date Admission Date: February 07, 2022 Subjective 02/08/2022 The patient was seen and examined in medical telemetry unit She has been feeling a little better but is still requiring about 3 L of oxygen to maintain saturation Denies any chest pain or palpitation Has been diuresing enough Review of Systems Review of Systems: All systems reviewed and are unremarkable as noted below Respiratory: Minimal shortness of breath with exertion Physical Exam Physical Exam: No apparent distress at rest Constitutional: well developed and well nourished; not ill appearing Eyes: PERRL, conjunctivae normal, anicteric sclerae ENMT: external ear and nose normal, oropharynx normal Neck: trachea midline, no thyromegaly Respiratory: no respiratory distress Auscultation: + diminished lung sounds and + crackles (Bilateral crackles without any wheezing) Cardiovascular: Rate/Rhythm: regular rate and regular rhythm; not tachycardic Heart Sounds: normal S1, normal S2 and + murmur Extremities: + edema (1+ edema bilaterally) Gastrointestinal (Abdomen): Inspection/Auscultation: normal bowel sounds; a bdomen not distended Percussion/Palpation: abdomen soft; abdomen nontender Musculoskeletal: Left knee pain without any acute joint inflammation Neurologic: Alert, awake and oriented x3 Psychiatric: A+Ox3, euthymic affect Lymphatic: no cervical or axillary lymphadenopathy Results & Data Results & Data ([facility]) Vital Signs (Past 12 Hours) Vital Signs Temp Pulse Pulse Resp BP Pulse Ox O2 Del Method 02/08/22 15:41 73 02/08/22 15:18 36.7 C 81 22 123/82 96 Nasal Cannula 02/08/22 11:11 36.8 C 69 18 118/74 96 Nasal Cannula 02/08/22 10:29 Nasal Cannula 02/08/22 10:27 93 Nasal Cannula 02/08/22 10:27 77 L Room Air 02/08/22 08:13 36.9 C 88 18 122/66 92 Nasal Cannula 02/08/22 07:21 74 O2 Flow Rate 02/08/22 15:41 02/08/22 15:18 2 02/08/22 11:11 2 02/08/22 10:29 2 02/08/22 10:27 2 02/08/22 10:27 02/08/22 08:13 02/08/22 07:21 Laboratory Results Current Inpatient Medications Acetaminophen (Acetaminophen 325 Mg Tab) 650 mg PO Q12 [facility] Stop: 03/09/22 20:59 Last Admin: 02/08/22 09:54 Dose: Not Given Albuterol (Albuterol Hfa 8 Gm Inhaler) 1 puffs INH QID PRN PRN Reason: sob Stop: 03/09/22 16:55 Atorvastatin Calcium (Atorvastatin 20 Mg Tab) 20 mg PO QDL [facility] Stop: 03/10/22 11:29 Last Admin: 02/08/22 11:43 Dose: 20 mg Calcium Carbonate (Calcium Carbonate 500 Mg Chewable Tab) 500 mg PO QPM [facility] Stop: 03/09/22 20:59 Last Admin: 02/07/22 20:23 Dose: 500 mg Digoxin (Digoxin 0.125 Mg Tab) 0.125 mg PO DAILY@1600 [facility] Stop: 03/09/22 16:55 Last Admin: 02/07/22 17:53 Dose: 0.125 mg Furosemide (Furosemide 40 Mg/4 Ml Vial) 40 mg IV DAILY [facility] Stop: 03/10/22 08:59 Last Admin: 02/08/22 09:02 Dose: 40 mg Levothyroxine Sodium (Levothyroxine Sodium 112 Mcg Tablet) 112 mcg PO DAILYBB [facility] Stop: 03/10/22 06:29 Last Admin: 02/08/22 05:32 Dose: 112 mcg Lisinopril (Lisinopril 10 Mg Tab) 10 mg PO QDL [facility] Stop: 03/10/22 11:29 Last Admin: 02/08/22 11:43 Dose: 10 mg Loratadine (Loratadine 10 Mg Tab) 10 mg PO QAM [facility] Stop: 03/10/22 08:59 Last Admin: 02/08/22 09:03 Dose: 10 mg Metoprolol Succinate (Metoprolol Succ 50mg Ext Rel Tab) 100 mg PO QAM [facility] Stop: 03/10/22 08:59 Last Admin: 02/08/22 09:02 Dose: 100 mg Warfarin Sodium (Warfarin Sod 5 Mg Tab) 5 mg PO SuMoWeFr@1600 [facility] Stop: 03/09/22 17:14 Last Admin: 02/07/22 17:54 Dose: 5 mg Warfarin Sodium (Warfarin Sod 7.5 Mg Tab) 7.5 mg PO TuThSa@1600 [facility] Stop: 03/11/22 15:59 Medications Administered Current Inpatient Medications Acetaminophen (Acetaminophen 325 Mg Tab) 650 mg PO Q12 [facility] Stop: 03/09/22 20:59 Last Admin: 02/08/22 09:54 Dose: Not Given Albuterol (Albuterol Hfa 8 Gm Inhaler) 1 puffs INH QID PRN PRN Reason: sob Stop: 03/09/22 16:55 Atorvastatin Calcium (Atorvastatin 20 Mg Tab) 20 mg PO QDL [facility] Stop: 03/10/22 11:29 Last Admin: 02/08/22 11:43 Dose: 20 mg Calcium Carbonate (Calcium Carbonate 500 Mg Chewable Tab) 500 mg PO QPM [facility] Stop: 03/09/22 20:59 Last Admin: 02/07/22 20:23 Dose: 500 mg Digoxin (Digoxin 0.125 Mg Tab) 0.125 mg PO DAILY@1600 [facility] Stop: 03/09/22 16:55 Last Admin: 02/07/22 17:53 Dose: 0.125 mg Furosemide (Furosemide 40 Mg/4 Ml Vial) 40 mg IV DAILY [facility] Stop: 03/10/22 08:59 Last Admin: 02/08/22 09:02 Dose: 40 mg Levothyroxine Sodium (Levothyroxine Sodium 112 Mcg Tablet) 112 mcg PO DAILYBB [facility] Stop: 03/10/22 06:29 Last Admin: 02/08/22 05:32 Dose: 112 mcg Lisinopril (Lisinopril 10 Mg Tab) 10 mg PO QDL [facility] Stop: 03/10/22 11:29 Last Admin: 02/08/22 11:43 Dose: 10 mg Loratadine (Loratadine 10 Mg Tab) 10 mg PO QAM [facility] Stop: 03/10/22 08:59 Last Admin: 02/08/22 09:03 Dose: 10 mg Metoprolol Succinate (Metoprolol Succ 50mg Ext Rel Tab) 100 mg PO QAM [facility] Stop: 03/10/22 08:59 Last Admin: 02/08/22 09:02 Dose: 100 mg Warfarin Sodium (Warfarin Sod 5 Mg Tab) 5 mg PO SuMoWeFr@1600 [facility] Stop: 03/09/22 17:14 Last Admin: 02/07/22 17:54 Dose: 5 mg Warfarin Sodium (Warfarin Sod 7.5 Mg Tab) 7.5 mg PO TuThSa@1600 [facility] Stop: 03/11/22 15:59
[2022-02-08] MEDS: DIGOXIN 0.125 MG TAB PO SCH (16:50)
[2022-02-08] MEDS: WARFARIN SOD 5 MG TAB PO SCH (16:50)
[2022-02-08] MEDS: CALCIUM CARBONATE 500 MG CHEWABLE TAB PO SCH (20:06)
[2022-02-09] MEDS: LEVOTHYROXINE SODIUM 112 MCG TABLET PO SCH (06:07)
[2022-02-09 07:57] LABS: Basophils # (auto) 0.03 K/uL (0-0.2); Basophils % (auto) 0.2 %; Eosinophils # (auto) 0.07 K/uL (0-0.50); Eosinophils % (auto) 0.5 %; Hematocrit (blood only) 36.2 % (34.1-44.9); Hemoglobin 11.9 g/dl (12.0-16.0); Immature Granulocytes # (auto) 0.08 K/uL (0.00-0.02); Immature Granulocytes % (auto) 0.5 %; Lymphocytes # (auto) 1.69 K/uL (1.2-3.4); Lymphocytes % (auto) 11.2 %; Mean Corpuscular Hemoglobin 30.7 pg (25.0-34.0); Mean Corpuscular Hgb Conc 32.9 g/dL (32.0-36.0); Mean Corpuscular Volume 93.5 fL (80.0-100.0); Mean Platelet Volume 10.4 fL (9.4-12.3); Monocytes # (auto) 1.16 K/uL (0.24-0.82); Monocytes % (auto) 7.7 %; Neutrophils # (auto) 12.01 K/uL (1.4-6.5); Neutrophils % (auto) 79.9 %; Platelet Count 248 K/uL (130-400); RDW Coefficient of Variation 14.3 % (11.5-14.5); RDW Standard Deviation 49.4 fL (36.4-46.3); Red Blood Count 3.87 M/uL (3.93-5.22); White Blood Count 15.04 K/ul (4.8-10.8)
[2022-02-09] MEDS: METOPROLOL SUCC 50MG EXT REL TAB PO SCH (07:59)
[2022-02-09] MEDS: LORATADINE 10 MG TAB PO SCH (07:59)
[2022-02-09] MEDS: FUROSEMIDE 40 MG/4 ML VIAL IV SCH (08:00)
[2022-02-09] MEDS: ACETAMINOPHEN 325 MG TAB PO SCH ×2 (08:00→20:49)
[2022-02-09 08:06] LABS: INR 2.7 (0.9-1.1); Prothrombin Time 27.7 Seconds (9.0-12.0)
[2022-02-09 08:19] LABS: BUN Creatinine Ratio 32.6 (10-20); Calcium 6.8 mg/dl (8.5-10.1); Creatinine Clr Calc Pharmacy 44.4 ml/min; Est GFR (African American) 71.9 ml/min; Magnesium 1.6 mg/dl (1.7-2.4); Potassium 3.9 mmol/L (3.5-5.1)
[2022-02-09] MEDS: lisinopril 10 MG TAB PO SCH (12:17)
[2022-02-09] MEDS: ATORVASTATIN 20 MG TAB PO SCH (12:17)
--- NOTE | 2022-02-09 14:10 | XRay Report ---
XR chest 2V PA/lateral CLINICAL HISTORY: R/O Pneumonia TECHNIQUE: 2 views of the chest were obtained. Comparison: Comparison is made to chest radiograph 02/07/2022 FINDINGS: No lines and tubes are seen. Cardiomegaly is noted. The lungs are clear. No evidence of pleural effus ion or pneumothorax. IMPRESSION: No acute abnormalities and in particular no evidence of pneumonia. ACT 112: Negative or not required by law. Electronically signed by: Mervin Mathis M.D. 02/09/2022 2:09 PM
--- NOTE | 2022-02-09 14:22 | Hospitalist Progress Note ---
Date of Service February 09, 2022 Assessment & Plan (1) Acute diastolic heart failure: Plan: Likely has congestive heart failure secondary to diastolic dysfunction and has been on Lasix She has been very noncompliant with Lasix and has been having dietary indiscretion recently Presented with acute CHF likely secondary to diastolic dysfunction given the history of atrial fibrillation with RVR She received 40 mg of Lasix IV and has been diuresing enough and clinically much better Will continue with 40 mg Lasix IV daily Has had an echo done in December showed normal systolic function and will not repeat now BNP is minimally elevated at 480 and troponin normal Strongly advised to take Lasix as advised as an outpatient We will get PT and OT evaluation prior to discharge Clinically better and has been diuresing enough with negative cumulative fluid balance of 1250 mm Will give additional dose of Lasix today Get PT and OT evaluation and possible discharge tomorrow following a two-step O2 saturation test PT OT recommended home and she has been still on oxygen at 1 L/min Clinically much better and the chest x-ray showing no CHF We will get to step O2 saturation test prior to discharge tomorrow Discussed with the daughter Shortness of breath Noted to be hypoxic in the emergency room Secondary to CHF ABG remained unremarkable Condition improved with Lasix and has been requiring 3 L of oxygen to maintain saturation Will need 2 step O2 saturation test prior to discharge (2) Atrial fibrillation: Plan: Remained in sinus rhythm with controlled rate We will continue current medications including Coumadin Rate is controlled and INR therapeutic (3) COPD (chronic obstructive pulmonary disease): Plan: History of COPD and not on any oxygen at home Does not have any exacerbation by examination Will provide albuterol MDI as needed Does not have any wheezing Complaint to have minimal wheezing with exertion but none at rest (4) History of DVT (deep vein thrombosis): Plan: INR is more than 2 Continue Coumadin (5) Hypertension: Plan: Blood pressure is stable Will continue current medications (6) Acute medial meniscus tear of left knee: Plan: History of recent left knee arthroscopic procedure on last Has left knee bandaged No acute arthropathy now (7) History of thyroidectomy: Plan: Has been on thyroid replacement surgery (8) HLD (hyperlipidemia): Plan: Continue statin DVT prophylaxis On Coumadin CODE STATUS Full Discharge tomorrow Admission and Anticipated Discharge Date Admission Date: February 07, 2022 Subjective 02/08/2022 The patient was seen and examined in medical telemetry unit She has been feeling a little better but is still requiring about 3 L of oxygen to maintain saturation Denies any chest pain or palpitation Has been diuresing enough 02/09/2022 The patient was seen and examined in medical telemetry unit She has been feeling much better He has had physical therapy and recommended home Denies any shortness of breath at rest She will have 2 step O2 saturation test prior to discharge tomorrow Review of Systems Review of Systems: All systems reviewed and are unremarkable as noted below Respiratory: Minimal shortness of breath with exertion Physical Exam Physical Exam: No apparent distress at rest Constitutional: well developed and well nourished; not ill appearing Eyes: PERRL, conjunctivae normal, anicteric sclerae ENMT: external ear and nose normal, oropharynx normal Neck: trachea midline, no thyromegaly Respiratory: no respiratory distress Auscultation: + diminished lung sounds and + crackles (Bilateral crackles without any wheezing) Cardiovascular: Rate/Rhythm: regular rate and regular rhythm; not tachycardic Heart Sounds: normal S1, normal S2 and + murmur Extremities: + edema (1+ edema bilaterally) Gastrointestinal (Abdomen): Inspection/Auscultation: normal bowel sounds; abdomen not distended Percussion/Palpation: abdomen soft; abdomen nontender Musculoskeletal: No acute arthritis in any joint. Left knee and the leg is bandaged Psychiatric: A+Ox3, euthymic affect Lymphatic: no cervical or axillary lymphadenopathy Results & Data Results & Data ([facility]) Vital Signs (Past 12 Hours) Vital Signs Temp Pulse Pulse Resp BP BP Pulse Ox 02/09/22 11:33 37.1 C 74 20 137/84 94 02/09/22 10:24 02/09/22 08:01 36.9 C 78 20 125/82 95 02/09/22 07:30 76 02/09/22 03:00 36.9 C 71 18 119/72 94 O2 Del Method O2 Flow Rate 02/09/22 11:33 Nasal Cannula 1 02/09/22 10:24 Nasal Cannula 2 02/09/22 08:01 Nasal Cannula 2 02/09/22 07:30 02/09/22 03:00 Nasal Cannula 2 Laboratory Results Short CBC 02/09/22 Range/Units 07:27 WBC 15.04 H (4.8-10.8) K/ul Hgb 11.9 L (12.0-16.0) g/dl Hct 36.2 (34.1-44.9) % Plt Count 248 (130-400) K/uL BMP 02/09/22 07:27 Sodium 141 Potassium 3.9 Chloride 94 L Carbon Dioxide 38 H BUN 28 H Creatinine 0.86 Glucose 117 H Calcium 6.8 L Urine 02/08/22 Range/Units 14:40 Urine Color Yellow Urine Appearance Clear (Clear) Urine pH 5.0 (4.5-7.5) Ur Specific [place] 1.008 (1.000-1.030) Urine Protein Negative (Negative) Urine Glucose (UA) Negative (Negative) Medications Administered Current Inpatient Medications Acetaminophen (Acetaminophen 325 Mg Tab) 650 mg PO Q12 [facility] Stop: 03/09/22 20:59 Last Admin: 02/09/22 08:00 Dose: Not Given Albuterol (Albuterol Hfa 8 Gm Inhaler) 1 puffs INH QID PRN PRN Reason: sob Stop: 03/09/22 16:55 Atorvastatin Calcium (Atorvastatin 20 Mg Tab) 20 mg PO QDL [facility] Stop: 03/10/22 11:29 Last Admin: 02/09/22 12:17 Dose: 20 mg Calcium Carbonate (Calcium Carbonate 500 Mg Chewable Tab) 500 mg PO QPM [facility] Stop: 03/09/22 20:59 Last Admin: 02/08/22 20:06 Dose: 500 mg Digoxin (Digoxin 0.125 Mg Tab) 0.125 mg PO DAILY@1600 [facility] Stop: 03/09/22 16:55 Last Admin: 02/08/22 16:50 Dose: 0.125 mg Furosemide (Furosemide 40 Mg/4 Ml Vial) 40 mg IV DAILY [facility] Stop: 03/10/22 08:59 Last Admin: 02/09/22 08:00 Dose: 40 mg Levothyroxine Sodium (Levothyroxine Sodium 112 Mcg Tablet) 112 mcg PO DAILYBB [facility] Stop: 03/10/22 06:29 Last Admin: 02/09/22 06:07 Dose: 112 mcg Lisinopril (Lisinopril 10 Mg Tab) 10 mg PO QDL [facility] Stop: 03/10/22 11:29 Last Admin: 02/09/22 12:17 Dose: 10 mg Loratadine (Loratadine 10 Mg Tab) 10 mg PO QAM [facility] Stop: 03/10/22 08:59 Last Admin: 02/09/22 07:59 Dose: 10 mg Metoprolol Succinate (Metoprolol Succ 50mg Ext Rel Tab) 100 mg PO [facility] Stop: 03/10/22 08:59 Last Admin: 02/09/22 07:59 Dose: 100 mg Warfarin Sodium (Warfarin Sod 5 Mg Tab) 5 mg PO SuMoWeFr@1600 [facility] Stop: 03/09/22 17:14 Last Admin: 02/08/22 16:50 Dose: 5 mg Warfarin Sodium (Warfarin Sod 7.5 Mg Tab) 7.5 mg PO TuThSa@1600 [facility] Stop: 03/11/22 15:59
[2022-02-09] MEDS: DIGOXIN 0.125 MG TAB PO SCH (15:45)
[2022-02-09] MEDS ORDERED: WARFARIN SOD 7.5 MG TAB PO SCH (16:00)
[2022-02-09] MEDS: CALCIUM CARBONATE 500 MG CHEWABLE TAB PO SCH (20:49)
[2022-02-10] MEDS: LEVOTHYROXINE SODIUM 112 MCG TABLET PO SCH (05:33)
[2022-02-10 06:32] LABS: INR 3.4 (0.9-1.1); Prothrombin Time 33.8 Seconds (9.0-12.0)
[2022-02-10 06:47] LABS: BUN Creatinine Ratio 28.7 (10-20); Calcium 6.6 mg/dl (8.5-10.1); Creatinine Clr Calc Pharmacy 43.6 ml/min; Est GFR (African American) 70.9 ml/min; Est GFR (Non-African American) 61.2 ml/min; Magnesium 1.6 mg/dl (1.7-2.4); Potassium 3.8 mmol/L (3.5-5.1)
[2022-02-10] MEDS: LORATADINE 10 MG TAB PO SCH (07:49)
[2022-02-10] MEDS: METOPROLOL SUCC 50MG EXT REL TAB PO SCH (07:49)
[2022-02-10] MEDS: ACETAMINOPHEN 325 MG TAB PO SCH (07:49)
[2022-02-10] MEDS: FUROSEMIDE 40 MG/4 ML VIAL IV SCH (07:51)
[2022-02-10] MEDS ORDERED: MAGNESIUM OXIDE 400 MG TAB PO SCH (09:30)
[2022-02-10] MEDS: lisinopril 10 MG TAB PO SCH (11:52)
[2022-02-10] MEDS: ATORVASTATIN 20 MG TAB PO SCH (11:52)
[2022-02-10] MEDS: DIGOXIN 0.125 MG TAB PO SCH (15:37)
--- NOTE | 2022-02-10 18:00 | Hospitalist Progress Note ---
Date of Service February 10, 2022 Assessment & Plan (1) Acute diastolic heart failure: Plan: Per Dr. Layton's notes with addendum: Likely has congestive heart failure secondary to diastolic dysfunction and has been on Lasix She has been very noncompliant with Lasix and has been having dietary indiscretion recently Presented with acute CHF likely secondary to diastolic dysfunction given the history of atrial fibrillation with RVR She received 40 mg of Lasix IV and has been diuresing enough and clinically much better Will continue with 40 mg Lasix IV daily Has had an echo done in December showed normal systolic function and will not repeat now BNP is minimally elevated at 480 and troponin normal Strongly advised to take Lasix as advised as an outpatient We will get PT and OT evaluation prior to discharge Clinically better and has been diuresing enough with negative cumulative fluid balance of 1250 mm Will give additional dose of Lasix today Get PT and OT evaluation and possible discharge tomorrow following a two-step O2 saturation test PT OT recommended home and she has been still on oxygen at 1 L/min Clinically much better and the chest x-ray showing no CHF We will get to step O2 saturation test prior to discharge tomorrow Discussed with the daughter 02/10 Resume usual Lasix 40 mg p.o. daily Repeat BMP on follow-up with primary care physician as an outpatient Advised to take Lasix regularly Patient verbalized understanding and agreement Shortness of breath Noted to be hypoxic in the emergency room Secondary to CHF ABG remained unremarkable Condition improved with Lasix and has been requiring 3 L of oxygen to maintain saturation Will need 2 step O2 saturation test prior to discharge 02/10 Patient requiring 2 L of oxygen with ambulation Portable oxygen arranged for patient Wean off accordingly as an outpatient (2) Atrial fibrillation: Plan: Remained in sinus rhythm with controlled rate We will continue current medications including Coumadin Rate is controlled and INR therapeutic 02/10 INR 3.4 Advised to hold Coumadin until further advised with Coumadin clinic Coumadin clinic messaged to follow patient closely this week (3) COPD (chronic obstructive pulmonary disease): Plan: History of COPD and not on any oxygen at home Does not have any exacerbation by examination (4) History of DVT (deep vein thrombosis): Plan: INR 3.4 Management per above (5) Hypertension: Plan: Blood pressure is stable Will continue current medications (6) Acute medial meniscus tear of left knee: Plan: History of recent left knee arthroscopic procedure on last Has left knee bandaged No acute arthropathy now (7) History of thyroidectomy: Plan: Has been on thyroid replacement surgery (8) HLD (hyperlipidemia): Plan: Continue statin DVT prophylaxis On Coumadin CODE STATUS Full Discharge to home with home health services Follow-up with PCP in 1 week Follow-up with hogshead inspector in 2 to 3 weeks Follow-up with Coumadin clinic this week Admission and Anticipated Discharge Date Admission Date: February 07, 2022 Subjective Follow-up for acute CHF exacerbation, etc. Seen resting in bed side chair, comfortable, in good spirits States she feels much better overall Ambulated in the hallways with no shortness of breath but required 1 L O2 to maintain O2 sats more than 87% no chest pain, dyspnea, palpitations, dizziness No other symptoms States she is ready and would like to be discharged Review of Systems Review of Systems: all noted and negative except for above Physical Exam Physical Exam: General- oriented x 3, not in distress, speaks in sentences with no effort or accessory muscle use Eyes- anicteric Neck- no JVD Lungs- clear breath sounds bilaterally, no rales/wheezes Heart- normal rate, regular rhythm; no murmurs Abdomen- normal bowel sounds, nondistended, soft, nontender Extremities-right: No pretibial edema, no calf tenderness Left lower extremity: Mild edema, chronic as per patient Neuro- alert, oriented x 3; no gross focal neurologic deficits Skin- warm & dry Results & Data Results & Data ([facility]) Vital Signs (Past 12 Hours) Vital Signs Temp Pulse Pulse Pulse Pulse Pulse Pulse 02/10/22 15:46 36.7 C 75 83 02/10/22 15:37 73 02/10/22 15:06 75 02/10/22 10:14 80 71 72 02/10/22 10:08 02/10/22 08:53 36.7 C 83 02/10/22 07:12 72 Pulse Resp Resp Resp Resp Resp BP 02/10/22 15:46 18 135/73 02/10/22 15:37 02/10/22 15:06 02/10/22 10:14 74 18 16 15 15 02/10/22 10:08 02/10/22 08:53 18 02/10/22 07:12 BP Pulse Ox Pulse Ox Pulse Ox Pulse Ox Pulse Ox O2 Del Method 02/10/22 15:46 127/72 90 02/10/22 15:37 02/10/22 15:06 02/10/22 10:14 91 85 L 93 90 02/10/22 10:08 Nasal Cannula 02/10/22 08:53 127/72 90 Room Air 02/10/22 07:12 O2 Flow Rate O2 Flow Rate 02/10/22 15:46 02/10/22 15:37 02/10/22 15:06 02/10/22 10:14 1 02/10/22 10:08 1 02/10/22 08:53 02/10/22 07:12 all noted and reviewed including below
--- NOTE | 2022-02-10 18:00 | Discharge Summary ---
Discharge Summary Date of Service February 10, 2022 Notes For Next Care Provider Patient advised to take Lasix 40 mg p.o. regularly Repeat BMP and magnesium on follow-up with primary care physician Medication Changes From Visit Protonix 40 mg p.o. daily-for dyspepsia Magnesium 400 mg p.o. twice daily x5 days Admission HPI Per Admitting Provider She is an 86-year-old female with significant past medical history of COPD, atrial fibrillation on anticoagulation, hyperlipidemia, history of DVT, essential hypertension and lymphedema of leg apparently has been complaining of shortness of breath with minimal chest tightness since this morning. Apparently she has been very noncompliant with her diuretics. She has had left knee arthroscopic procedure this and has resumed her Coumadin accordingly. She has not been taking her Lasix recently and noted to have more shortness of breath since this morning when her daughter brought her to the hospital for further evaluation. She denies any fever and or chills, any cough or phlegm, any urinary symptoms, any chest pain and/or palpitation. She was noted to be hypoxic in the emergency room and chest x-ray did not show congestive heart failure with a BNP minimally high at more than 400. He did not have any increase in lactate and/or procalcitonin. She received Lasix intravenously and was admitted to medical telemetry unit for continuation of care. Apparently her EKG and troponin are unremarkable Admission Exam Per Admitting Provider Physical Exam: No apparent distress at rest Constitutional: well developed and well nourished; not ill appearing Eyes: PERRL, conjunctivae normal, anicteric sclerae ENMT: external ear and nose normal, oropharynx normal Neck: trachea midline, no thyromegaly Respiratory: no respiratory distress Auscultation: + diminished lung sounds and + crackles (Bilateral crackles without any wheezing) Cardiovascular: Rate/Rhythm: regular rate and regular rhythm; not tachycardic Heart Sounds: normal S1, normal S2 and + murmur Extremities: + edema (1+ edema bilaterally) Gastrointestinal (Abdomen): Inspection/Auscultation: normal bowel sounds; abdomen not distended Percussion/Palpation: abdomen soft; abdomen nontender Musculoskeletal: Left knee arthroscopic procedure recently and is bandaged without any acute pain Neurologic: Alert, awake and oriented x3. Generally weak no focal sensory or no motor deficit appreciated Psychiatric: A+Ox3, euthymic affect Lymphatic: no cervical or axillary lymphadenopathy Principal Dx & Hospital Course #1 = Principal Diagnosis (1) Acute diastolic heart failure: Per Dr. Layton's notes with addendum: Likely has congestive heart failure secondary to diastolic dysfunction and has been on Lasix She has been very noncompliant with Lasix and has been having dietary indiscretion recently Presented with acute CHF likely secondary to diastolic dysfunction given the history of atrial fibrillation with RVR Has had an echo done in December showed normal systolic function and will not repeat now BNP is minimally elevated at 480 and troponin normal Given IV Lasix, patient diuresed well Repeat chest x-ray: No signs of CHF 02/10 Resume usual Lasix 40 mg p.o. daily Repeat BMP on follow-up with primary care physician as an outpatient Advised to take Lasix regularly Patient verbalized understanding and agreement Shortness of breath Noted to be hypoxic in the emergency room Secondary to CHF ABG remained unremarkable Condition improved with Lasix and has been requiring 3 L of oxygen to maintain saturation Will need 2 step O2 saturation test prior to discharge 02/10 Patient requiring 2 L of oxygen with ambulation Portable oxygen arranged for patient Wean off accordingly as an outpatient (2) Atrial fibrillation: Remained in sinus rhythm with controlled rate Rate is controlled and INR therapeutic 02/10 INR 3.4 Advised to hold Coumadin until further advised with Coumadin clinic Coumadin clinic messaged to follow patient closely this week (3) COPD (chronic obstructive pulmonary disease): History of COPD and not on any oxygen at home Does not have any exacerbation by examination (4) History of DVT (deep vein thrombosis): INR 3.4 Management per above (5) Hypertension: Blood pressure is stable Will continue current medications (6) Acute medial meniscus tear of left knee: History of recent left knee arthroscopic procedure on last Has left knee bandaged No acute arthropathy now (7) History of thyroidectomy: Has been on thyroid replacement surgery (8) HLD (hyperlipidemia): Continue statin DVT prophylaxis On Coumadin CODE STATUS Full Discharge to home with home health services Follow-up with PCP in 1 week Follow-up with cinema operator in 2 to 3 weeks Follow-up with Coumadin clinic this week Discharge Exam General- oriented x 3, not in distress, speaks in sentences with no effort or accessory muscle use Eyes- anicteric Neck- no JVD Lungs- clear breath sounds bilaterally, no rales/wheezes Heart- normal rate, regular rhythm; no murmurs Abdomen- normal bowel sounds, nondistended, soft, nontender Extremities-right: No pretibial edema, no calf tenderness Left lower extremity: Mild edema, chronic as per patient Neuro- alert, oriented x 3; no gross focal neurologic deficits Skin- warm & dry Updated Medication List Medication Instructions Recorded Confirmed Type loratadine 10 mg tablet (Claritin) 10 mg PO QAM 01/26/19 02/07/22 History levothyroxine 112 mcg tablet 112 mcg PO DAILYBB 10/16/21 02/07/22 History atorvastatin 20 mg tablet (Lipitor) 20 mg PO QDL 10/20/21 02/07/22 History digoxin 125 mcg (0.125 mg) tablet 125 mcg PO DAILY@1600 #30 tabs 10/20/21 02/07/22 Rx ([facility]) furosemide 40 mg tablet 40 mg PO QAM 10/20/21 02/07/22 History lisinopril 10 mg tablet (Zestril) 10 mg PO QDL 10/20/21 02/07/22 History albuterol sulfate 90 mcg/actuation 1 inh inhalation QID PRN sob 01/28/22 02/07/22 History aerosol inhaler calcium carbonate 300 mg (750 mg) 300 mg PO QPM 01/28/22 02/07/22 History chewable tablet (Tums) metoprolol succinate 100 mg 100 mg PO QAM 01/28/22 02/07/22 History tablet,extended release 24 hr acetaminophen 500 mg tablet 1,000 mg PO BID PRN Pain 02/07/22 02/07/22 History cholecalciferol (vitamin D3) 1,250 50,000 unit PO WK 02/07/22 02/07/22 History mcg (50,000 unit) capsule metoprolol succinate 25 mg 25 mg PO HS 02/07/22 02/07/22 History tablet,extended release 24 hr tramadol 50 mg tablet 50 mg PO Q6H PRN Pain 02/07/22 02/07/22 History magnesium oxide 400 mg (241.3 mg 400 mg PO BID 5 days #10 tabs 02/10/22 Rx magnesium) tablet pantoprazole 40 mg tablet,delayed 40 mg PO DAILY 14 days #14 tabs 02/10/22 Rx release (Protonix) Hospital Stay Data Pending Results Patient Have Any Pending Studies at Discharge: No Discharge Instructions Given to Patient (Per Discharging Provider) PLEASE REFER TO YOUR NEW MEDICATION LIST AND FOLLOW INSTRUCTIONS CAREFULLY. YOUR NEW MEDICATIONS INCLUDE: Protonix-to lower the acid in your stomach Please take this at least 30 minutes before your breakfast for better absorption. Magnesium supplement Hold Coumadin for now. The Coumadin clinic will be calling in 1 to 2 days for repeat blood work and advice regarding your Coumadin dosing. Always take your Lasix every day. Always use supplemental oxygen at 2 L via nasal cannula while ambulating. PLEASE CALL YOUR PRIMARY CARE PHYSICIAN OR RETURN TO THE ER IF WITH WORSENING OF SYMPTOMS, INCLUDING Shortness of breath, chest pain, leg swelling. FOLLOW UP WITH PRIMARY CARE PHYSICIAN OUTLINED ABOVE. Follow-up with your cinema operator in 2 weeks. Total Time Total Time Spent Total Time Spent (In Minutes): >30 minutes
== END 2022-02-10 17:35 | disposition home or self-care (01) | DRG 987 ==
LOC: ED 10:18 → 2N 14:52 → SUATTDRO 14:52 → 2N 16:37

== ENCOUNTER 2022-02-12 10:05 | Inpatient (IN) ==
[2022-02-12] MEDS ORDERED: SODIUM CHLORIDE 0.9% 500 ML IV ONE (10:43)
--- NOTE | 2022-02-12 10:45 | Emergency Department Note ---
Impression & Plan Weakness, Elevated troponin, Nausea, Leukocytosis ED Provider Note NAME: KATELYNN CRAIN AGE: 86 SEX: F : 1935 ARRIVES VIA: Walk-In INFORMANT: Patient ED PROVIDER(S): Damon Arriaga DO CHIEF COMPLAINT: weak HPI: Patient is an 86-year-old female who presents to the ER with a past medical history of hyperlipidemia, COPD, A. fib on Coumadin, hypertension presents the ER for weakness. She just recently admitted and discharged for CHF. She left on Tuesday. Since being home she is no longer able to get up or get up out of bed. She cannot care for self. She denies any headache or change in vision. No chest pain. She notes that shortness of breath is still present but has improved significantly since being admitted. No belly pain but admits to an episode of nausea, vomiting this morning after eating. She notes that normally when she eats now she feels very nauseated and she had stopped eating. Denies any dysuria, urgency, or frequency. ROS: See above HPI for pertinent positives & negatives. A total of 10 systems reviewed and were otherwise negative. PAST MEDICAL HISTORY:See Below PAST SURGICAL HISTORY:See Below FAMILY HISTORY:See Below SOCIAL HISTORY:See Below HOME MEDICATIONS:See Below ALLERGIES:See Below VITALS:See Below PHYSICAL EXAMINATION: GENERAL: Sitting up in bed, alert, disheveled, obese, on 2 L nasal cannula EYE EXAM: normal conjunctiva. OROPHARYNX: no exudate, no erythema, lips, buccal mucosa, and tongue normal and mucous membranes are moist NECK: supple, no nuchal rigidity, no adenopathy, non-tender LUNGS: Clear to auscultation. Normal chest wall mechanics HEART: no murmurs, S1 normal and S2 normal ABDOMEN: abdomen soft, non-tender, normo-active bowel sounds, no masses, no rebound or guarding. UPPER EXTREMITIES: upper extremities are grossly normal. LOWER EXTREMITIES: No pitting edema. NEURO EXAM: Normal sensorium, cranial nerves II-XII grossly intact, normal speech, no gross weakness of arms, no gross weakness of legs. MEDICAL DECISION MAKING: Patient is an 86-year-old female who presents the ER for above-stated complaint. IV was established blood work is obtained. Labs show mild leukocytosis of 18,000 up from discharge of 15,000. No significant anemia. BMP with slightly elevated CO2 at 37. Trope mildly elevated at 14.8. Lipase normal. She denies any chest pain or shortness of breath. UA was clean. COVID was negative. CT abdomen pelvis showed no acute pathology. Chest x-ray with faint atelectasis versus pneumonia although not seen on CT abdomen pelvis of the lower lung jimenez. Patient was updated bedside and discussed with the hospitalist for fur ther evaluation. Triage Nursing notes reviewed. Limited review of prior medical records performed Vital Signs: reviewed and remarkable for no significant abnormalities Differential diagnosis: Infection, dehydration, metabolic abnormality, hypo/hyperglycemia, electrolyte disturbance, anemia, hypoxia, cardiac sources, intracerebral event, toxicologic, neurologic, as well as other pathologies. ER treatment provided: See below Diagnostics interpreted by me: ECG: Sinus rhythm rate of 74 Normal axis T wave version in lead III Nonspecific ST wave changes in the inferior leads as well as V3 through V6 QTC 466 Cardiac Monitoring: An order was placed for continuous cardiac monitoring. The monitor shows a rate of 80 with sinus rhythm. Laboratory studies: As stated above and show below. Imaging studies: CT abdomen pelvis as described above Chest x-ray as described above CT head was pending upon admission but no obvious bleed per my read Consultation(s[facility] Procedures: none Critical Care: None Past Med/Surg History Medical History (Updated 02/12/22 @ 15:21 by Damon Arriaga DO) Atrial fibrillation Dx/d September 2021 -- on coumadin -- follows with Dr. Pickard Chronic airway disease Chronic anticoagulation Enlarged thyroid History of anesthesia complications per dtr, voice has changed since thyroidectomy. informed by surgeon voice change is probably r/t intubation. History of thrombosis HLD (hyperlipidemia) [place] (hard of hearing) HTN (hypertension) Lymphedema BLLE Nodular thyroid disease Reactive airway disease Surgical History History of breast biopsy LEFT - 1985 History of cataract surgery History of thyroidectomy History of tubal ligation S/P IVC filter Family History Other No family history of adverse response to anesthesia No family history of allergies No family history of bleeding disorder Denies family history of Hearing loss Heart disease Cancer Hypertension Stroke Asthma Social History (Reviewed 02/07/22 @ 11:01 by KENNETH Tam Smoking Status: Never smoker Second Hand Exposure: No; Hx Alcohol Use: No Hx Substance Use: No Preferred Language: Surinamese Communication Ability: Effective Station Supervisor Required: No Beliefs That Will Affect Care: None marital status: / Current Living Situation: Alone current occupational status: retired How many Children do You have: 4 Feels Safe at Home: Yes Assistive Devices: Cane and Walker Allergies Allergies Allergy/AdvReac Type Severity Reaction Status Date / Time No Known Drug Allergies Allergy Unknown Verified 02/07/22 15:43 Home Meds Home Medications Medication Instructions Recorded Confirmed loratadine 10 mg tablet (Claritin) 10 mg PO QAM 01/26/19 02/07/22 levothyroxine 112 mcg tablet 112 mcg PO DAILYBB 10/16/21 02/07/22 atorvastatin 20 mg tablet (Lipitor) 20 mg PO QDL 10/20/21 02/07/22 furosemide 40 mg tablet 40 mg PO QAM 10/20/21 02/07/22 lisinopril 10 mg tablet (Zestril) 10 mg PO QDL 10/20/21 02/07/22 albuterol sulfate 90 mcg/actuation 1 inh inhalation QID PRN sob 01/28/22 02/07/22 aerosol inhaler calcium carbonate 300 mg (750 mg) 300 mg PO QPM 01/28/22 02/07/22 chewable tablet (Tums) metoprolol succinate 100 mg 100 mg PO QAM 01/28/22 02/07/22 tablet,extended release 24 hr acetaminophen 500 mg tablet 1,000 mg PO BID PRN Pain 02/07/22 02/07/22 cholecalciferol (vitamin D3) 1,250 50,000 unit PO WK 02/07/22 02/07/22 mcg (50,000 unit) capsule metoprolol succinate 25 mg 25 mg PO HS 02/07/22 02/07/22 tablet,extended release 24 hr tramadol 50 mg tablet 50 mg PO Q6H PRN Pain 02/07/22 02/07/22 Previous Rx's Medication Instructions Recorded digoxin 125 mcg (0.125 mg) tablet 125 mcg PO DAILY@1600 #30 tabs 10/20/21 (Digitek) magnesium oxide 400 mg (241.3 mg 400 mg PO BID 5 days #10 tabs 02/10/22 magnesium) tablet pantoprazole 40 mg tablet,delayed 40 mg PO DAILY 14 days #14 tabs 02/10/22 release (Protonix) Results & Data (ED) Vital Signs Vital Signs - 24 hr 02/12/22 10:08 02/12/22 10:46 02/12/22 10:44 Temperature 36.5 C Temperature Source Temporal Artery Scan Pulse Rate 128 H 78 Pulse Rate from SpO2 Sensor 78 Respiratory Rate 20 27 H Respiratory Effort / Characteristics Non-Labored Respiratory Depth Normal Blood Pressure 143/72 H Blood Pressure Mean 95 Pulse Oximetry 99 99 Oxygen Delivery Method Room Air Room Air Sepsis Recent Fever Within 48 Hours No Sepsis New/Unexplained Change in Mental Status No Sepsis Action Taken by Nursing No Action Required 02/12/22 11:00 02/12/22 11:11 02/12/22 11:11 Temperature Temperature Source Pulse Rate 74 81 Pulse Rate from SpO2 Sensor 77 89 Respiratory Rate 23 23 Respiratory Effort / Characteristics Respiratory Depth Blood Pressure 138/81 Blood Pressure Mean 100 Pulse Oximetry 99 99 Oxygen Delivery Method Sepsis Recent Fever Within 48 Hours Sepsis New/Unexplained Change in Mental Status Sepsis Action Taken by Nursing 02/12/22 11:30 02/12/22 12:08 02/12/22 12:30 Temperature Temperature Source Pulse Rate 72 77 84 Pulse Rate from SpO2 Sensor 72 76 77 Respiratory Rate 24 25 H 23 Respiratory Effort / Characteristics Respiratory Depth Blood Pressure Blood Pressure Mean Pulse Oximetry 99 90 99 Oxygen Delivery Method Sepsis Recent Fever Within 48 Hours Sepsis New/Unexplained Change in Mental Status Sepsis Action Taken by Nursing 02/12/22 13:00 02/12/22 13:30 02/12/22 14:00 Temperature Temperature Source Pulse Rate 75 73 84 Pulse Rate from SpO2 Sensor 74 76 82 Respiratory Rate 26 H 24 26 H Respiratory Effort / Characteristics Respiratory Depth Blood Pressure Blood Pressure Mean Pulse Oximetry 100 98 99 Oxygen Delivery Method Sepsis Recent Fever Within 48 Hours Sepsis New/Unexplained Change in Mental Status Sepsis Action Taken by Nursing 02/12/22 14:30 02/12/22 14:49 02/12/22 14:49 Temperature Temperature Source Pulse Rate 82 76 Pulse Rate from SpO2 Sensor 79 77 Respiratory Rate 22 21 Respiratory Effort / Characteristics Respiratory Depth Blood Pressure 129/78 Blood Pressure Mean 95 Pulse Oximetry 98 99 Oxygen Delivery Method Sepsis Recent Fever Within 48 Hours Sepsis New/Unexplained Change in Mental Status Sepsis Action Taken by Nursing 02/12/22 15:00 02/12/22 15:00 Temperature Temperature Source Pulse Rate 74 Pulse Rate from SpO2 Sensor 74 Respiratory Rate 20 Respiratory Effort / Characteristics Respiratory Depth Blood Pressure 123/80 Blood Pressure Mean 94 Pulse Oximetry 97 Oxygen Delivery Method Sepsis Recent Fever Within 48 Hours Sepsis New/Unexplained Change in Mental Status Sepsis Action Taken by Nursing Laboratory Data Result diagrams: 02/12/22 10:36 02/12/22 10:36 Lab Results 02/12/22 02/12/22 02/12/22 Range/Units 10:36 10:36 11:17 WBC 18.94 H (4.8-10.8) K/ul RBC 4.36 (3.93-5.22) M/uL Hgb 13.8 (12.0-16.0) g/dl Hct 40.7 (34.1-44.9) % MCV 93.3 (80.0-100.0) fL MCH 31.7 (25.0-34.0) pg MCHC 33.9 (32.0-36.0) g/dL RDW Std Deviation 49.6 H (36.4-46.3) fL RDW Coeff of Juan 14.4 (11.5-14.5) % Plt Count 343 (130-400) K/uL MPV 9.9 (9.4-12.3) fL Immature Gran % (Auto) 0.7 % Neut % (Auto) 84.2 % Lymph % (Auto) 7.2 % Churchill % (Auto) 7.6 % Eos % (Auto) 0.1 % Baso % (Auto) 0.2 % Neut # (Auto) 15.97 H (1.4-6.5) K/uL Lymph # (Auto) 1.36 (1.2-3.4) K/uL Churchill # (Auto) 1.43 H (0.24-0.82) K/uL Eos # (Auto) 0.02 (0-0.50) K/uL Baso # (Auto) 0.03 (0-0.2) K/uL Immature Gran # (Auto) 0.13 H (0.00-0.02) K/uL Sodium 140 (136-145) mmol/L Potassium 4.0 (3.5-5.1) mmol/L Chloride 90 L (98-107) mmol/L Carbon Dioxide 37 H (21-32) mmol/L Anion Gap 13 H (3-11) BUN 42 H (6-23) mg/dl Creatinine 1.16 (0.6-1.2) mg/dl Est Cr Clr Drug Dosing Not Reportable Est GFR ( Amer) 50.1 ml/min Est GFR (Non-Af Amer) 43.2 ml/min BUN/Creatinine Ratio 36.2 H (10-20) Glucose 158 H (70-99(Fasting)) mg/dl Calcium 6.2 L (8.5-10.1) mg/dl Total Bilirubin 1.0 (0.2-1.0) mg/dl AST 23 (13-39) U/L ALT 17 (7-52) U/L Alkaline Phosphatase 95 (34-104) U/L Troponin I High Sens 14.8 H (0-14) pg/ml Total Protein 7.7 (6.0-8.3) gm/dl Albumin 3.5 (3.4-5.0) gm/dl Globulin 4.2 H (2.5-4.0) gm/dl Albumin/Globulin Ratio 0.8 L (0.9-2) Lipase 41 (11-82) U/L Urine Color Urine Appearance (Clear) Urine pH (4.5-7.5) Ur Specific Purcell (1.000-1.030) Urine Protein (Negative) Urine Glucose (UA) (Negative) Urine Ketones (Negative) Urine Blood (Negative) Urine Nitrite (Negative) Urine Bilirubin (Negative) Urine Urobilinogen (Negative) Ur Leukocyte Esterase (Negative) Urine WBC (Auto) (0-5) /hpf Urine RBC (Auto) (0-4) /hpf U Hyaline Cast (Auto) (0-5) /lpf U Epithel Cells (Auto) (0-5) /lpf Urine Bacteria (Auto) (Negative) SARS-CoV-2, RNA, NAAT NEGATIVE (NEGATIVE) 02/12/22 Range/Units 12:10 WBC (4.8-10.8) K/ul RBC (3.93-5.22) M/uL Hgb (12.0-16.0) g/dl Hct (34.1-44.9) % MCV (80.0-100.0) fL MCH (25.0-34.0) pg MCHC (32.0-36.0) g/dL RDW Std Deviation (36.4-46.3) fL RDW Coeff of Juan (11.5-14.5) % Plt Count (130-400) K/uL MPV (9.4-12.3) fL Immature Gran % (Auto) % Neut % (Auto) % Lymph % (Auto) % Churchill % (Auto) % Eos % (Auto) % Baso % (Auto) % Neut # (Auto) (1.4-6.5) K/uL Lymph # (Auto) (1.2-3.4) K/uL Churchill # (Auto) (0.24-0.82) K/uL Eos # (Auto) (0-0.50) K/uL Baso # (Auto) (0-0.2) K/uL Immature Gran # (Auto) (0.00-0.02) K/uL Sodium (136-145) mmol/L Potassium (3.5-5.1) mmol/L Chloride (98-107) mmol/L Carbon Dioxide (21-32) mmol/L Anion Gap (3-11) BUN (6-23) mg/dl Creatinine (0.6-1.2) mg/dl Est Cr Clr Drug Dosing Est GFR ( Amer) ml/min Est GFR (Non-Af Amer) ml/min BUN/Creatinine Ratio (10-20) Glucose (70-99(Fasting)) mg/dl Calcium (8.5-10.1) mg/dl Total Bilirubin (0.2-1.0) mg/dl AST (13-39) U/L ALT (7-52) U/L Alkaline Phosphatase (34-104) U/L Troponin I High Sens (0-14) pg/ml Total Protein (6.0-8.3) gm/dl Albumin (3.4-5.0) gm/dl Globulin (2.5-4.0) gm/dl Albumin/Globulin Ratio (0.9-2) Lipase (11-82) U/L Urine Color Yellow Urine Appearance Cloudy A (Clear) Urine pH 5.0 (4.5-7.5) Ur Specific Purcell 1.021 (1.000-1.030) Urine Protein 1+ H (Negative) Urine Glucose (UA) Negative (Negative) Urine Ketones Negative (Negative) Urine Blood Negative (Negative) Urine Nitrite Negative (Negative) Urine Bilirubin Negative (Negative) Urine Urobilinogen Negative (Negative) Ur Leukocyte Esterase Negative (Negative) Urine WBC (Auto) 1-5 (0-5) /hpf Urine RBC (Auto) 0-4 (0-4) /hpf U Hyaline Cast (Auto) 1-5 (0-5) /lpf U Epithel Cells (Auto) >30 H (0-5) /lpf Urine Bacteria (Auto) Negative (Negative) SARS-CoV-2, RNA, NAAT (NEGATIVE) Administered Medications Discontinued Medications Ioversol (Optiray 350 100ml) 88 ml IV ONCE ONE Stop: 02/12/22 14:47 Last Admin: 02/12/22 14:47 Dose: 88 ml Documented By: DIAN Imaging Data Radiologist's Impression: Abdomen/Pelvis CT 02/12/22 13:14 CT SCAN OF THE ABDOMEN AND PELVIS WITH IV CONTRAST CLINICAL HISTORY: Nausea and vomiting. Anorexia. COMPARISON STUDY: Abdominal CT dated 02/19/2019. TECHNIQUE: Following the IV administration of 88 cc of Optiray 350, CT scan of the abdomen and pelvis is performed from the lung bases to the proximal femora. Images are reviewed in the axial, sagittal, and coronal planes. IV contrast was administered without complication. A dose lowering technique was utilized adhering to the principles of ALARA. CT DOSE: 1843.71 mGy.cm FINDINGS: Lung bases: The heart is mildly enlarged and without pericardial effusion. The mitral annulus is densely calcified. There is a small hiatal hernia. Evaluation of the lung bases is degraded by motion artifact. The lung bases are grossly clear noting bibasilar scarring/atelectasis. Liver: The contrast-enhanced liver is normal in size, contour, and attenuation. There is no intrahepatic biliary ductal dilatation. The hepatic veins and portal veins are patent. Gallbladder: Unremarkable. Spleen: Normal in size and attenuation. Pancreas: Moderately atrophic and grossly unremarkable. Adrenal glands: Unremarkable. Kidneys: The contrast enhanced kidneys history cortical atrophy and are without hydronephrosis. The kidneys enhance symmetrically. Renal sinus cysts are noted bilaterally. Abdominal vasculature: The abdominal aorta is normal in course and caliber noting advanced atherosclerotic calcification. An infrarenal IVC filter is in place. Bowel: There is mild colonic diverticulosis without CT evidence of acute diverticulitis. No bowel obstruction is seen. Pntz-br-lcoaeoyy fecal retention is noted throughout the colon. The appendix is well-visualized and normal. Peritoneum: There is no intraperitoneal free air or abdominal ascites. Lymphadenopathy: None. Pelvic viscera: The bladder is normal as visualized. There are calcified fibroids. The endometrium is significantly thickened for age, measuring up to 1.9 cm. A 1.9 cm simple cystic lesion is seen in the left ovary on image #332. This has been present dating back to at least 2019. Skeletal structures: The skeletal structures are osteopenic. There is mild to moderate lumbosacral spondylosis. There are minimal compression deformities of T11 and L5. No lytic or blastic lesions are seen. IMPRESSION: 1. No acute infectious or inflammatory findings are identified in the abdomen or pelvis. 2. The endometrium is significantly thickened for age measuring up to 1.9 cm. This is not well assessed by CT, and nonemergent follow-up with gynecology and pelvic ultrasound is recommended for further evaluation. 3. Additional findings as above. ACT 112: Negative or not required by law. Electronically signed by: Olayinka Conde M.D. 02/12/2022 3:09 PM Chest X-Ray 02/12/22 13:14 XR chest 1V portable CLINICAL HISTORY: weakness TECHNIQUE: Single frontal radiograph of the chest was obtained. Comparison: Comparison is made to chest radiograph 02/09/2022 FINDINGS: No lines and tubes are seen. Cardiomegaly is noted. There is faint right lower lung airspace opacity. No evidence of pleural effusion or pneumothorax. IMPRESSION: Faint right lower lung airspace opacity likely represents atelectasis with or without superimposed aspiration/pneumonia. Stable cardiomegaly. ACT 112: Negative or not required by law. Electronically signed by: Mervin Mathis M.D. 02/12/2022 2:[address] 02/12/22 13:[address] DOSE: HISTORY: Weakness. TECHNIQUE: Multiaxial CT images of the head were performed without the use of intravenous contrast. Automated exposure control was utilized for this study. A dose lowering technique was utilized adhering to the principles of ALARA. Comparison: None. Findings: The paranasal sinuses and mastoid air cells are clear. The calvarium and skull base are intact. There is no mass, hematoma, midline shift, acute infarct. White matter hypodensity is nonspecific but suggestive of microvascular ischemic change. The ventricles and sulci demonstrate mild age-related involutional changes. Mild motion artifact. 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 Impression: No acute intracranial abnormality. ACT 112: Negative or not required by law. Electronically signed by: Kayden Perez M.D. 02/12/2022 3:20 PM Discharge Plan Visit Data Chief Complaint: Weakness Stated Complaint: FLUID IN LUNGS, WEAKNESS, VOMITING, CONFUSION ED Provider: Damon Arriaga Discharge Problem: Weakness, Elevated troponin, Nausea, Leukocytosis Forms Stand Alone Forms: My [facility] PLAXD Prescriptions Prescriptions: No Action loratadine [Claritin] 10 mg tablet 10 mg PO QAM levothyroxine 112 mcg tablet 112 mcg PO DAILYBB digoxin [Digitek] 125 mcg (0.125 mg) Tablet 125 mcg PO DAILY@1600 Qty: 30 2RF atorvastatin [Lipitor] 20 mg tablet 20 mg PO QDL furosemide 40 mg tablet 40 mg PO QAM lisinopril [Zestril] 10 mg tablet 10 mg PO QDL calcium carbonate [Tums] 300 mg (750 mg) Tablet,Chewable 300 mg PO QPM Rx Instructions: MAY TAKE UP TO TO 1,000MG DAILY. metoprolol succinate 100 mg tablet extended release 24 hr 100 mg PO QAM albuterol sulfate 90 mcg/actuation Hfa Aerosol Inhaler 1 inh INHALATION QID PRN (Reason: sob) acetaminophen 500 mg Tablet 1,000 mg PO BID PRN (Reason: Pain) tramadol 50 mg Tablet 50 mg PO Q6H PRN (Reason: Pain) cholecalciferol (vitamin D3) 1,250 mcg (50,000 unit) capsule 50,000 unit PO WK Rx Instructions: TAKE THIS MED EVERY TUESDAY metoprolol succinate 25 mg tablet extended release 24 hr 25 mg PO HS magnesium oxide 400 mg (241.3 mg magnesium) Tablet 400 mg PO BID 5 Days Qty: 10 0RF pantoprazole [Protonix] 40 mg tablet,delayed release (DR/EC) 40 mg PO DAILY 14 Days Qty: 14 0RF Referrals Referrals: Gilda Craig MD [Primary Care Provider] -
[2022-02-12 10:51] LABS: Basophils # (auto) 0.03 K/uL (0-0.2); Basophils % (auto) 0.2 %; Eosinophils # (auto) 0.02 K/uL (0-0.50); Eosinophils % (auto) 0.1 %; Hematocrit (blood only) 40.7 % (34.1-44.9); Hemoglobin 13.8 g/dl (12.0-16.0); Immature Granulocytes # (auto) 0.13 K/uL (0.00-0.02); Immature Granulocytes % (auto) 0.7 %; Lymphocytes # (auto) 1.36 K/uL (1.2-3.4); Lymphocytes % (auto) 7.2 %; Mean Corpuscular Hemoglobin 31.7 pg (25.0-34.0); Mean Corpuscular Hgb Conc 33.9 g/dL (32.0-36.0); Mean Corpuscular Volume 93.3 fL (80.0-100.0); Mean Platelet Volume 9.9 fL (9.4-12.3); Monocytes # (auto) 1.43 K/uL (0.24-0.82); Monocytes % (auto) 7.6 %; Neutrophils # (auto) 15.97 K/uL (1.4-6.5); Neutrophils % (auto) 84.2 %; Platelet Count 343 K/uL (130-400); RDW Coefficient of Variation 14.4 % (11.5-14.5); RDW Standard Deviation 49.6 fL (36.4-46.3); Red Blood Count 4.36 M/uL (3.93-5.22); White Blood Count 18.94 K/ul (4.8-10.8)
[2022-02-12 11:23] LABS: Alanine Aminotransferase 17 U/L (7-52); Albumin Globulin Ratio 0.8 (0.9-2); Albumin Level 3.5 gm/dl (3.4-5.0); Alkaline Phosphatase 95 U/L (34-104); Anion Gap 13 (3-11); Aspartate Aminotransferase 23 U/L (13-39); BUN Creatinine Ratio 36.2 (10-20); Blood Urea Nitrogen 42 mg/dl (6-23); Calcium 6.2 mg/dl (8.5-10.1); Carbon Dioxide 37 mmol/L (21-32); Chloride 90 mmol/L (98-107); Est GFR (African American) 50.1 ml/min; Est GFR (Non-African American) 43.2 ml/min; Globulin 4.2 gm/dl (2.5-4.0); Glucose 158 mg/dl (70-99(Fasting)); Lipase 41 U/L (11-82); Sodium 140 mmol/L (136-145); Total Protein 7.7 gm/dl (6.0-8.3)
[2022-02-12 11:26] LABS: Troponin I High Sensitivity 14.8 pg/ml (0-14)
[2022-02-12 12:23] LABS: Appearance Urine Cloudy (Clear); Bacteria Urine Automated Negative (Negative); Bilirubin Urine Negative (Negative); Blood Urine Negative (Negative); Color Urine Yellow; Epithelial Cell Urine Auto >30 /lpf (0-5); Glucose Urine UA Negative (Negative); Ketones Urine Negative (Negative); Leukocyte Esterase Urine Negative (Negative); Nitrite Urine Negative (Negative); Protein Urine 1+ (Negative); RBC Urine Automated 0-4 /hpf (0-4); Specific Gravity Urine 1.021 (1.000-1.030); Urobilinogen Urine Negative (Negative)
--- NOTE | 2022-02-12 12:32 | Electrocardiogram Report ---
Test Reason : Blood Pressure : / mmHG Vent. Rate : 077 BPM Atrial Rate : 077 BPM P-R Int : 158 ms QRS Dur : 072 ms QT Int : 402 ms P-R-T Axes : 075 024 038 degrees QTc Int : 454 ms Normal sinus rhythm Nonspecific ST and T wave abnormality Abnormal ECG When compared with ECG of 07-FEB-2022 10:55, Nonspecific T wave abnormality now evident in Lateral leads Confirmed by Usman Leon ([id number]) on 02/12/2022 12:31:45 PM Referred By: REFERRED SELF Confirmed By:Usman Leon
--- NOTE | 2022-02-12 12:34 | Electrocardiogram Report ---
Test Reason : Blood Pressure : / mmHG Vent. Rate : 074 BPM Atrial Rate : 074 BPM P-R Int : 158 ms QRS Dur : 070 ms QT Int : 420 ms P-R-T Axes : 062 054 011 degrees QTc Int : 466 ms Normal sinus rhythm Diffuse Nonspecific ST abnormality Abnormal ECG When compared with ECG of 12-FEB-2022 10:33, No significant change was found Confirmed by Usman Leon ([id number]) on 02/12/2022 12:33:57 PM Referred By: REFERRED SELF Confirmed By:Usman Leon
--- NOTE | 2022-02-12 14:12 | XRay Report ---
XR chest 1V portable CLINICAL HISTORY: weakness TECHNIQUE: Single frontal radiograph of the chest was obtained. Comparison: Comparison is made to chest radiograph 02/09/2022 FINDINGS: No lines and tubes are seen. Cardiomegaly is noted. There is faint right lower lung airspace opacity. No evidence of pleural effusion or pneumothorax. IMPRESSION: Faint right lower lung airspace opacity likely represents atelectasis with or without superimposed as piration/pneumonia. Stable cardiomegaly. ACT 112: Negative or not required by law. Electronically signed by: Mervin Mathis M.D. 02/12/2022 2:10 PM
[2022-02-12] MEDS ORDERED: OPTIRAY 350 100ml IV ONE (14:46)
--- NOTE | 2022-02-12 14:53 | History & Physical Report ---
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 Recent meniscal surgery on 02/04/22, recent hospitalization 02/07/22-02/10/22. CT Head: No acute intracranial abnormality. Weakness likely secondary to underlying illness, recent surgery and deconditioning Treat pneumonia as below Fall precautions PT/OT eval (2) Pneumonia: Plan: WBC: 18, CXR: Faint right lower lung airspace opacity likely represents atelectasis with or without superimposed aspiration/pneumonia Denies fever/chills, cough, SOB Not hypoxic on her 2L oxygen via NC Recent hospitalization, possible aspiration with recent vomiting Procalcitonin pending MRSA swab pending Blood cultures pending Zosyn Incentive spirometer CBC in am (3) Elevated troponin: Plan: Troponin: 14.[address] changes on EKG. No CP, SOB Trend troponin Recent echo 12/30/21 If uptrending troponin add echo (4) Chronic diastolic heart failure: Plan: History Echo 12/30/2021: EF: 60-64%, mild to moderate mitral insufficiency Recent hospitalization 02/07/2022-02/10/2022 for acute diastolic heart failure and was diuresed with IV Lasix. She was discharged on home 2 L home oxygen for hypoxia. Appears euvolemic currently Monitor I's & O's Continue Lasix Continue supplemental oxygen (5) Atrial fibrillation: Plan: History of paroxysmal atrial fibrillation. Anticoagulated on Coumadin INR: 3.1 Continue metoprolol succinate, digoxin Hold Coumadin tonight, monitor INR for further dosing adjustment (6) COPD (chronic obstructive pulmonary disease): Plan: No acute exacerbation Albuterol inhaler as needed (7) Abnormal abdominal CT scan: Plan: CT Abd/pelvis: endometrium is significantly thickened for age measuring up to 1.9 cm. Patient reports was told thickened endometrium in past. (I was unable to locate prior pelvic ultrasound. Prior CT abd/pelvis here without mention of endometrium) Will need outpatient follow-up with gynecology for us and evaluation (8) S/P left knee arthroscopy: Plan: 02/04/22. Left knee arthroscopy secondary to left medial meniscus tear Surgical site appears to be healing well without any signs of infection Keep follow-up with Ortho (9) Hypertension: Plan: Continue metoprolol succinate, lisinopril (10) History of DVT (deep vein thrombosis): Plan: Chronically anticoagulated on Coumadin. S/p IVC filter INR: 3.1 Hold Coumadin tonight, repeat INR tomorrow for further dosing adjustment (11) HLD (hyperlipidemia): Plan: Continue atorvastatin (12) History of thyroidectomy: Plan: Continue levothyroxine DVT Prophylaxis Anticoagulated on Coumadin, INR theurapeutic Full Code as per discussion with pt, however she reports would not want prolonged life support if poor prognosis Follows with Dr Gilda Craig in [place] for routine care Pt was seen and care coordinated with Dr Meneses. 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 History obtained from patient, patient's daughter and son and chart review. Patient with recent left knee arthroscopy secondary to left medial meniscus tear on 02/04/2022. Reports knee seems to be healing well without noted discharge and is not having any pain currently. Recent hospitalization 02/07/2022-02/10/2022 for acute diastolic heart failure and was diuresed with IV Lasix. She was discharged on home 2 L home oxygen for hypoxia. Since being home has had generalized weakness and fatigue. Been s leeping most of the day. Today so weak was unable to get up and walk. Has been also having nausea and vomiting past couple of days. Denies any known choking. Denies any fever/chills, cough, or shortness of breath, diaphoresis, hematemesis, diarrhea, constipation, SANDERS, dizziness, syncope, vision changes, neck pain, CP, orthopnea, palpitations, cough, sore throat, choking, otalgia, rhinorrhea, abdominal pain, paresthesias, increased extremity edema, rashes, urinary symptoms. Allergies Allergy/AdvReac Type Severity Reaction Status Date / Time No Known Drug Allergies Allergy Unknown Verified 02/07/22 15:43 Home Medications Medication Instructions Recorded Confirmed Type loratadine 10 mg tablet (Claritin) 10 mg PO QAM 01/26/19 02/12/22 History levothyroxine 112 mcg tablet 112 mcg PO DAILYBB 10/16/21 02/12/22 History atorvastatin 20 mg tablet (Lipitor) 20 mg PO QDL 10/20/21 02/12/22 History digoxin 125 mcg (0.125 mg) tablet 125 mcg PO DAILY@1600 #30 tabs 10/20/21 02/12/22 Rx ([employer]k) furosemide 40 mg tablet 40 mg PO QAM 10/20/21 02/12/22 History lisinopril 10 mg tablet (Zestril) 10 mg PO QDL 10/20/21 02/12/22 History albuterol sulfate 90 mcg/actuation 1 inh inhalation QID PRN sob 01/28/22 02/12/22 History aerosol inhaler calcium carbonate 300 mg (750 mg) 300 mg PO QPM 01/28/22 02/12/22 History chewable tablet (Tums) metoprolol succinate 100 mg 100 mg PO QAM 01/28/22 02/12/22 History tablet,extended release 24 hr acetaminophen 500 mg tablet 1,000 mg PO BID PRN Pain 02/07/22 02/12/22 History cholecalciferol (vitamin D3) 1,250 50,000 unit PO WK 02/07/22 02/12/22 History mcg (50,000 unit) capsule metoprolol succinate 25 mg 25 mg PO HS 02/07/22 02/12/22 History tablet,extended release 24 hr tramadol 50 mg tablet 50 mg PO Q6H PRN Pain 02/07/22 02/12/22 History magnesium oxide 400 mg (241.3 mg 400 mg PO BID 5 days #10 tabs 02/10/22 02/12/22 Rx magnesium) tablet pantoprazole 40 mg tablet,delayed 40 mg PO DAILY 14 days #14 tabs 02/10/22 02/12/22 Rx release (Protonix) warfarin 5 mg tablet 5 mg PO UD 02/12/22 02/12/22 History Past Med/Surg History Medical History Atrial fibrillation Dx/d September 2021 -- on coumadin -- follows with Dr. Pickard Chronic airway disease Chronic anticoagulation Enlarged thyroid History of anesthesia complications per dtr, voice has changed since thyroidectomy. informed by surgeon voice change is probably r/t intubation. History of thrombosis HLD (hyperlipidemia) [place] (hard of hearing) HTN (hypertension) Lymphedema BLLE Nodular thyroid disease Reactive airway disease Surgical History (Updated 02/12/22 @ 16:21 by Jocelyne Lemon PA-C) History of breast biopsy LEFT - 1985 History of cataract surgery History of thyroidectomy History of tubal ligation S/P IVC filter S/P left knee arthroscopy Family History Other No family history of adverse response to anesthesia No family history of allergies No family history of bleeding disorder Denies family history of Hearing loss Heart disease Cancer Hypertension Stroke Asthma Social History Smoking Status: Never smoker Second Hand Exposure: No; Hx Alcohol Use: No Hx Substance Use: No Preferred Language: Azeri Communication Ability: Effective Shop Technician Required: No Beliefs That Will Affect Care: None marital status: / Current Living Situation: Alone current occupational status: retired How many Children do You have: 4 Other Information That Helps Us Care for You: No Feels Safe at Home: Yes Safety Concerns: Feels Safe At This Time Assistive Devices: Cane and Walker Review of Systems Review of Systems: All systems reviewed & are unremarkable except as noted in HPI & below Physical Exam Physical Exam: General: no distress, WDWN Head: normocephalic, atraumatic Eyes: conjunctiva non-injected, anicteric ENT: normal inspection external ears, nose, mucous membranes moist Neck: supple, trachea midline Lungs: no respiratory distress on current 2L via [place], +rales RLL, no wheezing/rhonchi CV: RRR, no murmur, trace pretibial edema Abd: protuberant, normal BS, soft, non-tender Ext: no cyanosis, no calf tenderness; Left knee: +steri strips over anterior knee without surrounding erythema, no discharge or erythema Neuro: Appears fatigued and sleepy however is A&O x 3, no focal deficits noted, normal affect Skin: warm, dry Results & Data Results & Data ([facility]) Vital Signs (Past 12 Hours) Vital Signs Temp Pulse Resp BP Pulse Ox O2 Del Method 02/12/22 12:30 84 23 99 02/12/22 12:08 77 25 H 90 02/12/22 11:30 72 24 99 02/12/22 11:11 138/81 02/12/22 11:11 81 23 99 02/12/22 11:00 74 23 99 02/12/22 10:44 78 27 H 99 02/12/22 10:46 Room Air 02/12/22 10:08 36.5 C 128 H 20 143/72 H 99 Room Air Laboratory Results Short CBC 02/12/22 Range/Units 10:36 WBC 18.94 H (4.8-10.8) K/ul Hgb 13.8 (12.0-16.0) g/dl Hct 40.7 (34.1-44.9) % Plt Count 343 (130-400) K/uL BMP 02/12/22 10:36 Sodium 140 Potassium 4.0 Chloride 90 L Carbon Dioxide 37 H BUN 42 H Creatinine 1.16 Glucose 158 H Calcium 6.2 L Liver Function 02/12/22 Range/Units 10:36 Total Bilirubin 1.0 (0.2-1.0) mg/dl AST 23 (13-39) U/L ALT 17 (7-52) U/L Alkaline Phosphatase 95 (34-104) U/L Albumin 3.5 (3.4-5.0) gm/dl Urine 02/12/22 Range/Units 12:10 Urine Color Yellow Urine Appearance Cloudy A (Clear) Urine pH 5.0 (4.5-7.5) Ur Specific [place] 1.021 (1.000-1.030) Urine Protein 1+ H (Negative) Urine Glucose (UA) Negative (Negative) Diagnostic Findings Abdomen/Pelvis CT 02/12/22 13:14 CT SCAN OF THE ABDOMEN AND PELVIS WITH IV CONTRAST CLINICAL HISTORY: Nausea and vomiting. Anorexia. COMPARISON STUDY: Abdominal CT dated 02/19/2019. TECHNIQUE: Following the IV administration of 88 cc of Optiray 350, CT scan of the abdomen and pelvis is performed from the lung bases to the proximal femora. Images are reviewed in the axial, sagittal, and coronal planes. IV contrast was administered without complication. A dose lowering technique was utilized adhering to the principles of ALARA. CT DOSE: 1843.71 mGy.cm FINDINGS: Lung bases: The heart is mildly enlarged and without pericardial effusion. The mitral annulus is densely calcified. There is a small hiatal hernia. Evaluation of the lung bases is degraded by motion artifact. The lung bases are grossly clear noting bibasilar scarring/atelectasis. Liver: The contrast-enhanced liver is normal in size, contour, and attenuation. There is no intrahepatic biliary ductal dilatation. The hepatic veins and portal veins are patent. Gallbladder: Unremarkable. Spleen: Normal in size and attenuation. Pancreas: Moderately atrophic and grossly unremarkable. Adrenal glands: Unremarkable. Kidneys: The contrast enhanced kidneys history cortical atrophy and are without hydronephrosis. The kidneys enhance symmetrically. Renal sinus cysts are noted bilaterally. Abdominal vasculature: The abdominal aorta is normal in course and caliber noting advanced atherosclerotic calcification. An infrarenal IVC filter is in place. Bowel: There is mild colonic diverticulosis without CT evidence of acute diverticulitis. No bowel obstruction is seen. [id number] fecal retention is noted throughout the colon. The appendix is well-visualized and normal. Peritoneum: There is no intraperitoneal free air or abdominal ascites. Lymphadenopathy: None. Pelvic viscera: The bladder is normal as visualized. There are calcified fibroids. The endometrium is significantly thickened for age, measuring up to 1.9 cm. A 1.9 cm simple cystic lesion is seen in the left ovary on image #332. This has been present dating back to at least 2019. Skeletal structures: The skeletal structures are osteopenic. There is mild to moderate lumbosacral spondylosis. There are minimal compression deformities of T11 and L5. No lytic or blastic lesions are seen. IMPRESSION: 1. No acute infectious or inflammatory findings are identified in the abdomen or pelvis. 2. The endometrium is significantly thickened for age measuring up to 1.9 cm. This is not well assessed by CT, and nonemergent follow-up with gynecology and pelvic ultrasound is recommended for further evaluation. 3. Additional findings as above. ACT 112: Negative or not required by law. Electronically signed by: Olayinka Conde M.D. 02/12/2022 3:09 PM Chest X-Ray 02/12/22 13:14 XR chest 1V portable CLINICAL HISTORY: weakness TECHNIQUE: Single frontal radiograph of the chest was obtained. Comparison: Comparison is made to chest radiograph 02/09/2022 FINDINGS: No lines and tubes are seen. Cardiomegaly is noted. There is faint right lower lung airspace opacity. No evidence of pleural effusion or pneumothorax. IMPRESSION: Faint right lower lung airspace opacity likely represents atelectasis with or without superimposed aspiration/pneumonia. Stable cardiomegaly. ACT 112: Negative or not required by law. Electronically signed by: Mervin Mathis M.D. 02/12/2022 2:[address] 02/12/22 13:[address] DOSE: HISTORY: Weakness. TECHNIQUE: Multiaxial CT images of the head were performed without the use of intravenous contrast. Automated exposure control was utilized for this study. A dose lowering technique was utilized adhering to the principles of ALARA. Comparison: None. Findings: The paranasal sinuses and mastoid air cells are clear. The calvarium and skull base are intact. There is no mass, hematoma, midline shift, acute infarct. White matter hypodensity is nonspecific but suggestive of microvascular ischemic change. The ventricles and sulci demonstrate mild age-related involutional changes. Mild motion artifact. 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 Impression: No acute intracranial abnormality. ACT 112: Negative or not required by law. Electronically signed by: Kayden Perez M.D. 02/12/2022 3:20 PM ECG Rate (beats per minute): 74 Rhythm: sinus rhythm Findings: + nonspecific-ST abn Code Status & VTE Plan VTE Prophylaxis Plan VTE Prophylaxis will be ordered: Yes Supervising Physician Co-Signing Physician Notes The patient is an 86-year-old female with chronic diastolic heart failure who presents with generalized weakness that is abnormal for her. At baseline she is independent and cares for herself and is off oxygen. She is currently unable to sit up in bed independently and son and daughter are at bedside and states this was not the case just a week and a half ago. She was admitted to the hospital 1 week ago and left but was still feeling some generalized malaise and when she got home this progressively worsened. She was treated for heart failure and has not been taking Lasix because this makes her nauseous. The Lasix has been making her nauseous since September. She denies any coughing or fevers and her children report that she stays in bed all day long. She denies any urinary tract infection symptoms. Daughter states patient has been having trouble sitting up and will tend to fall to the side. There was some vomiting this morning that is not persistent. Physical exam reveals a well-nourished well-developed elderly female in no acute distress. She appears younger than stated age. She is not demonstrating any increased work of breathing but has supplemental oxygen in place. She is not confused but intermittently will sound less confident in her history. Breath sounds are present bilaterally with no rales or wheezes or crackles. Breath sounds are somewhat diminished at the bases bilaterally. Abdomen is soft nontender nondistended. Appetite is poor and she is not eating. Work-up in the ER reveals an elevated white blood cell count to 19,000. Upon discharge a few days ago she was 15,000. She has not received any glucocorticoids. H&H is normal as is her platelet count. INR is 3.1 and she has held Coumadin since recent discharge per instructions. Her chemistry is within normal limits except for metabolic alkalosis and a mildly elevated renal function with BUN 42 creatinine 1.16. This is up from recent BUN 25 and creatinine 0.9 just 2 days ago. Calcium is 6.2 and has notably been low status post thyroidectomy a couple of years ago. This is lower than her measurements in the outpatient clinic which are in the mid 7 range. She has a mildly elevated troponin at 14.8 with repeat check at 15.7. She is again chest pain- free. Procalcitonin is 0.13 which is negative but not 0. Urinalysis reveals no evidence of infection. Respiratory nasal swab is negative. Head CT reveals no acute intracranial abnormality. Chest x-ray reveals a faint right lower lung airspace opacity. CT of the abdomen pelvis reveals a significantly thickened endometrium for her age measuring 1.9 cm nonemergent follow-up with [facility] [employer] [facility] and pelvic ultrasound is recommended for further evaluation. EKG reveals sinus rhythm 74. Overall this is a elderly patient with healthcare associated pneumonia versus aspiration pneumonia with a rising white blood cell count generalized malaise and decreased appetite. She is also not taking her Lasix and has congestion on chest x-ray consistent with possible acute diastolic heart failure exacerbation. Medication noncompliance with Lasix is secondary to nausea and should be adjusted with consideration for use of torsemide. Agree with IV Zosyn given her recent hospitalization. Will screen for MRSA and if positive will consider adding vancomycin depending on her clinical improvement overnight. Follow-up [facility] [facility] for thickened endometrium as outpatient and consider pelvic ultrasound. Discussed the plan with son and daughter at bedside who are in agreement and all questions were answered to their satisfaction. Additionally her calcium level of 6.2 (post-thyroidectomy hypocalcemia) is concerning and may be contributing to her symptoms. She reports taking calcium carbonate 300 mg in the evening, however, typical calcium supplementation is over 1000 mg daily. Additionally if there is a gastric bypass patient or patient taking PPI, and she is on Protonix, calcium should be in the form of citrate as this can be absorbed without gastric acid. We will change her calcium supplementation to calcium citrate and will give her additional IV calcium supplementation tonight. After review of outpatient records she is being followed by primary care only, and may benefit from being followed by nephrology. We will consult nephrology inpatient. We will also update PTH, 25- hydroxy vitamin D, phosphorus, magnesium levels to optimize treatment. DO Gideon
[2022-02-12] MEDS ORDERED: PIPERACILLIN/TAZOBACTAM 3.375 GM in DEXTROSE 5% 100 ML/100 ML BAG IV STA (14:54)
--- NOTE | 2022-02-12 15:10 | CT Scan Report ---
CT SCAN OF THE ABDOMEN AND PELVIS WITH IV CONTRAST CLINICAL HISTORY: Nausea and vomiting. Anorexia. COMPARISON STUDY: Abdominal CT dated 02/19/2019. TECHNIQUE: Following the IV administration of 88 cc of Optiray 350, CT scan of the abdomen and pelvi s is performed from the lung bases to the proximal femora. Images are reviewed in the axial, sagittal , and coronal planes. IV contrast was administered without complication. A dose lowering technique wa s utilized adhering to the principles of ALARA. CT DOSE: 1843.71 mGy.cm FINDINGS: Lung bases: The heart is mildly enlarged and without pericardial effusion. The mitral annulus is dens neri calcified. There is a small hiatal hernia. Evaluation of the lung bases is degraded by motion art ifact. The lung bases are grossly clear noting bibasilar scarring/atelectasis. Liver: The contrast-enhanced liver is normal in size, contour, and attenuation. There is no intrahepa tic biliary ductal dilatation. The hepatic veins and portal veins are patent. Gallbladder: Unremarkable. Spleen: Normal in size and attenuation. Pancreas: Moderately atrophic and grossly unremarkable. Adrenal glands: Unremarkable. Kidneys: The contrast enhanced kidneys history cortical atrophy and are without hydronephrosis. The k idneys enhance symmetrically. Renal sinus cysts are noted bilaterally. Abdominal vasculature: The abdominal aorta is normal in course and caliber noting advanced atheroscle rotic calcification. An infrarenal IVC filter is in place. Bowel: There is mild colonic diverticulosis without CT evidence of acute diverticulitis. No bowel obs truction is seen. [id number] fecal retention is noted throughout the colon. The appendix is we ll-visualized and normal. Peritoneum: There is no intraperitoneal free air or abdominal ascites. Lymphadenopathy: None. Pelvic viscera: The bladder is normal as visualized. There are calcified fibroids. The endometrium is significantly thickened for age, measuring up to 1.9 cm. A 1.9 cm simple cystic lesion is seen in th e left ovary on image #332. This has been present dating back to at least 2019. Skeletal structures: The skeletal structures are osteopenic. There is mild to moderate lumbosacral sp ondylosis. There are minimal compression deformities of T11 and L5. No lytic or blastic lesions are s een. IMPRESSION: 1. No acute infectious or inflammatory findings are identified in the abdomen or pelvis. 2. The endometrium is significantly thickened for age measuring up to 1.9 cm. This is not well assess ed by CT, and nonemergent follow-up with gynecology and pelvic ultrasound is recommended for further evaluation. 3. Additional findings as above. ACT 112: Negative or not required by law. Electronically signed by: Olayinka Conde M.D. 02/12/2022 3:09 PM
--- NOTE | 2022-02-12 15:21 | CT Scan Report ---
HEAD CT NONCONTRAST CT DOSE: HISTORY: Weakness. TECHNIQUE: Multiaxial CT images of the head were performed without the use of intravenous contrast. A utomated exposure control was utilized for this study. A dose lowering technique was utilized adheri ng to the principles of ALARA. Comparison: None. Findings: The paranasal sinuses and mastoid air cells are clear. The calvarium and skull base are int act. There is no mass, hematoma, midline shift, acute infarct. White matter hypodensity is nonspecifi c but suggestive of microvascular ischemic change. The ventricles and sulci demonstrate mild age-rela umair involutional changes. Mild motion artifact. There is an old lacunar infarct within the right basa l ganglia. Impression: No acute intracranial abnormality. ACT 112: Negative or not required by law. Electronically signed by: Kayden Perez M.D. 02/12/2022 3:20 PM
[2022-02-12] MEDS ORDERED: PIPERACILLIN/TAZOBACTAM 4.5 GM/120ML D5W IV ONE (15:54)
[2022-02-12 16:09] LABS: INR 3.1 (0.9-1.1); Prothrombin Time 31.2 Seconds (9.0-12.0)
[2022-02-12] MEDS ORDERED: POLYETHYLENE (MIRALAX) 17 GM PACK PO PRN (16:31)
[2022-02-12] MEDS ORDERED: ONDANSETRON INJ 2 MG/ML 2 ML VIAL IV PRN (16:31)
[2022-02-12] MEDS: DIGOXIN 0.125 MG TAB PO SCH (17:33)
[2022-02-12 18:23] LABS: Influenza A virus by PCR Negative (Neg); Influenza B virus by PCR Negative (Neg); RSV by PCR Negative (Neg); SARS CoV2 RNA(COVID-19) InHosp NEGATIVE (Negative)
[2022-02-12] MEDS ORDERED: STAT IV STA (18:29)
[2022-02-12] MEDS ORDERED: CALCIUM GLUCONATE 10% 1,000 MG in DEXTROSE 5% 50 ML IV ONE (19:00)
[2022-02-12] MEDS ORDERED: CALCIUM GLUCONATE 10% 1,000 MG in SODIUM CHLORIDE 0.9% 50 ML IV ONE (19:00)
[2022-02-12] MEDS: MAGNESIUM OXIDE 400 MG TAB PO SCH (19:55)
[2022-02-12] MEDS: METOPROLOL SUCC 25MG EXT REL TAB PO SCH (19:56)
[2022-02-12 20:13] LABS: Phosphorus 5.5 mg/dl (2.5-4.9)
[2022-02-12] MEDS: PIPERACILLIN/TAZOBACTAM 3.375 GM in DEXTROSE 5% 100 ML IV SCH (20:21)
[2022-02-12] MEDS ORDERED: CALCIUM CARBONATE 500 MG CHEWABLE TAB PO SCH (21:00)
[2022-02-12] MEDS ORDERED: CALCIUM CITRATE 950 MG TAB PO SCH (21:00)
[2022-02-13] MEDS: PIPERACILLIN/TAZOBACTAM 3.375 GM in DEXTROSE 5% 100 ML IV SCH ×3 (04:58→20:35)
[2022-02-13] MEDS: LEVOTHYROXINE SODIUM 112 MCG TABLET PO SCH (05:48)
[2022-02-13 07:04] LABS: Basophils # (auto) 0.05 K/uL (0-0.2); Basophils % (auto) 0.3 %; Eosinophils # (auto) 0.11 K/uL (0-0.50); Eosinophils % (auto) 0.7 %; Hematocrit (blood only) 35.7 % (34.1-44.9); Hemoglobin 11.7 g/dl (12.0-16.0); Immature Granulocytes # (auto) 0.11 K/uL (0.00-0.02); Immature Granulocytes % (auto) 0.7 %; Lymphocytes # (auto) 1.84 K/uL (1.2-3.4); Lymphocytes % (auto) 11.8 %; Mean Corpuscular Hemoglobin 30.9 pg (25.0-34.0); Mean Corpuscular Hgb Conc 32.8 g/dL (32.0-36.0); Mean Corpuscular Volume 94.2 fL (80.0-100.0); Mean Platelet Volume 9.7 fL (9.4-12.3); Monocytes # (auto) 1.35 K/uL (0.24-0.82); Monocytes % (auto) 8.7 %; Neutrophils # (auto) 12.07 K/uL (1.4-6.5); Neutrophils % (auto) 77.8 %; Platelet Count 300 K/uL (130-400); RDW Coefficient of Variation 14.6 % (11.5-14.5); Red Blood Count 3.79 M/uL (3.93-5.22); White Blood Count 15.53 K/ul (4.8-10.8)
[2022-02-13 07:18] LABS: INR 2.6 (0.9-1.1); Prothrombin Time 26.3 Seconds (9.0-12.0)
[2022-02-13 07:45] LABS: BUN Creatinine Ratio 31.2 (10-20); Calcium 6.3 mg/dl (8.5-10.1); Creatinine Clr Calc Pharmacy 35.7 ml/min; Est GFR (Non-African American) 46.6 ml/min; Potassium 3.7 mmol/L (3.5-5.1)
[2022-02-13] MEDS ORDERED: CALCIUM GLUCONATE 10% 2,000 MG in DEXTROSE 5% 50 ML IV ONE (07:56)
[2022-02-13] MEDS ORDERED: STAT IV STA ×2 (07:56→10:58)
[2022-02-13] MEDS: PANTOprazole 40 MG TAB PO SCH (08:41)
[2022-02-13] MEDS: MAGNESIUM OXIDE 400 MG TAB PO SCH ×2 (08:42→20:34)
[2022-02-13] MEDS: LORATADINE 10 MG TAB PO SCH (08:42)
[2022-02-13] MEDS: METOPROLOL SUCC 50MG EXT REL TAB PO SCH (08:42)
[2022-02-13] MEDS ORDERED: FUROSEMIDE 40 MG TAB PO SCH (09:00)
[2022-02-13] MEDS ORDERED: CALCIUM CARBONATE 1250MG TAB PO SCH (09:00)
[2022-02-13] MEDS ORDERED: CALCIUM GLUCONATE 10% 3,000 MG in DEXTROSE 5% 100 ML IV ONE (10:58)
--- NOTE | 2022-02-13 11:57 | Consultation Report ---
NEPHROLOGY CONSULTATION NOTE DATE OF SERVICE: 02/13/2022 REASON FOR CONSULTATION: Hypocalcemia. HISTORY OF PRESENT ILLNESS: The patient is an 86-year-old female who presented to the hospital yeste rday because of severe weakness. She was actually discharged from the hospital after admission for a cute diastolic heart failure and was discharged just few days ago on 02/10/2022 for acute diastolic h eart failure and was diuresed with IV Lasix. She was discharged on home 2 L oxygen for ongoing hypox ia. The patient also recently had a left knee arthroscopy secondary to left medial meniscus tear on 02/04/2022. She seems to have somewhat more swelling in her surgical limb, patient was found to have low calcium on blood work yesterday of 6.2; however, it is worth noting that the patient has had sig nificantly low calcium for a while. Even back in September, she had a calcium of 6.8 and on the day of di scharge, she had 6.6. The patient had thyroidectomy done about 2 years ago and it appears since then , she has had somewhat low calcium. The patient does take a low dose calcium and vitamin D supplemen tation as an outpatient, but does not seem her calcium has really normalized with that. Her PTH was checked yesterday and was only 17 with profound hypocalcemia. Magnesium was normal. Ionized calcium was very low. Since then, she has received multiple doses of IV calcium, but it is still low. PAST MEDICAL AND SURGICAL HISTORY: Includes chronic diastolic heart failure, paroxysmal AFib, on chr onic Coumadin; history of DVT, on chronic anticoagulation; hypertension, hyperlipidemia, COPD, histor y of thyroidectomy, chronic hypocalcemia, history of breast biopsy, cataract surgery, thyroidectomy, tubal ligation, IVC filter, left knee arthroscopy. ALLERGIES: List was reviewed and she does not have any known drug allergies. MEDICATIONS: Home medication list was reviewed and is as per the H and P and the reconciliation list . She takes magnesium 400 twice daily, ergocalciferol 50,000 units per week, Tums 750 mg daily. FAMILY HISTORY: Negative for renal disease or dialysis. SOCIAL HISTORY: She never smoked. No alcohol. She is a . She lives alone. She is retired. She uses cane and walker for ambulation and currently is requiring oxygen. REVIEW OF SYSTEMS: Other than nonspecific severe generalized weakness, really she did not have any o ther acute complaints. Her breathing has been better since being diuresed recently. Twelve systems reviewed and is otherwise negative. PHYSICAL EXAMINATION: GENERAL: Awake, alert, oriented x3. Elderly white female who is not in any respiratory distress. VITAL SIGNS: Blood pressure is 128/74, pulse rate 68, temperature 36.7, 96% on 2 liter nasal cannula . CHEST: Bilaterally clear to auscultation. CARDIOVASCULAR: S1 and S2, regular. ABDOMEN: Soft, nontender. EXTREMITIES: Show bandaged surgical limb with some edema, otherwise no edema. LABORATORY TEST: BUN 34, creatinine 1.09, calcium is 6.3. Ionized calcium 0.69, albumin 3.5, magnes ium 2.2. PTH 17. Vitamin D level 33.6. Chest x-ray, no acute findings noted. CT abdomen and pelvi s, no obvious finding noted. ASSESSMENT AND PLAN: An 86-year-old female who was admitted yesterday with severe generalized weakne ss, some nausea and poor appetite. She was discharged just one day prior to readmission. That admiss ion was for congestive heart failure, requiring IV diuresis. I have been consulted for severe hypoca lcemia. 1. Hypocalcemia. She had a very low calcium level of 6.3, but it does not appear that this is a new problem. In fact, even during her recent hospital admission, she had low calcium and she has had lo w calcium, it seems since she had the thyroidectomy done. Her PTH was 17, which is a lot less than w hat she would expect in a setting of profound hypocalcemia. 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 Almost certainly, she developed hypoparathyroidism after the thyroidect connie surgery. Her calcium is quite low and would need massive dose of calcium supplementation to even bring it up in the 7 range. I will give him another 3 grams of IV calcium gluconate today on top of what she has already received. Her oral calcium supplementation has to be dramatically increased an d we will use 1875 mg 3 times a day. I will change her vitamin D supplementation to cholecalciferol 1000 units daily and also add Calcitriol 0.25 mg daily. She is already on magnesium, which she can c ontinue at the same dose of 400 twice daily. However, it is worth noting that when the hypocalcemia is secondary to hypoparathyroidism, it is exceptionally difficult to increase the calcium level. My goal is to get it close to the low to mid 7 and ionized calcium closer to 1, and that might be the be st we can achieve. Thank you very much for the consult. Job ID: [id number]
[2022-02-13] MEDS: CALCIUM CARBONATE 1250MG TAB PO SCH ×2 (12:46→20:33)
[2022-02-13] MEDS: CHOLECALCIFEROL 1,000 UNITS 25 MCG TAB PO SCH (12:47)
[2022-02-13] MEDS: CALCITRIOL 0.25 MCG CAPSULE PO SCH (12:51)
[2022-02-13] MEDS: lisinopril 10 MG TAB PO SCH (12:52)
[2022-02-13] MEDS: ATORVASTATIN 20 MG TAB PO SCH (12:52)
--- NOTE | 2022-02-13 15:31 | Hospitalist Progress Note ---
Date of Service February 13, 2022 Assessment & Plan (1) Weakness: Plan: Per admitting service notes with addendum: Patient is 86 y/o F with PMH chronic diastolic heart failure, paroxysmal atrial fibrillation anticoagulated on warfarin, history of DVT on chronic antic oagulation on warfarin, HTN, HLD, COPD, h/o thyroidectomy presented to ER with c/o generalized weakness x couple of days. Recent meniscal surgery on 02/04/22, recent hospitalization 02/07/22-02/10/22. CT Head: No acute intracranial abnormality. Weakness likely secondary to deconditioning, dehydration from poor oral intake, hypocalcemia, etc. PT/OT eval Given IV fluids Management of hypophosphatemia noted below (2) Pneumonia: Plan: WBC: 18, CXR: Faint right lower lung airspace opacity likely represents atelectasis with or without superimposed aspiration/pneumonia Denies fever/chills, cough, SOB Not hypoxic on her 2L oxygen via [place] Recent hospitalization, possible aspiration with recent vomiting Procalcitonin pending MRSA swab pending Blood cultures pending Zosyn Incentive spirometer CBC in am 02/13 CT abdomen pelvis: No lung infiltrates noted Pneumonia unlikely given patient also does not have cough, fevers Blood cultures: Pending Continue IV Zosyn for now (3) Hypocalcemia: Plan: Likely secondary to hypoparathyroidism History of thyroidectomy Nephrology service consulted Given IV calcium gluconate total of 5 g today Given p.o. calcium supplement-calcium carbonate 1875 mg p.o. 3 times daily Calcitriol 0.25 mcg p.o. daily Also on vitamin D supplement Repeat ionized calcium tonight May need additional IV calcium gluconate (4) Elevated troponin: Plan: Troponin: 14.[address] changes on EKG. No CP, SOB Trend troponin Recent echo 12/30/21 Troponin remained stable at around 15 (5) Chronic diastolic heart failure: Plan: History Echo 12/30/2021: EF: 60-64%, mild to moderate mitral insufficiency Recent hospitalization 02/07/2022-02/10/2022 for acute diastolic heart failure and was diuresed with IV Lasix. She was discharged on home 2 L home oxygen for hypoxia. Appears euvolemic currently Monitor I's & O's Continue Lasix Continue supplemental oxygen 02/13 Hold Lasix for now, patient appears to be euvolemic Patient reports feeling nauseated after taking Lasix Will consider transitioning to torsemide (6) Atrial fibrillation: Plan: History of paroxysmal atrial fibrillation. Anticoagulated on Coumadin INR: 3.1 Continue metoprolol succinate, digoxin Hold Coumadin tonight, monitor INR for further dosing adjustment 02/17 INR 2.6 Will resume Coumadin 2.5 mg p.o. daily INR daily (7) COPD (chronic obstructive pulmonary disease): Plan: No acute exacerbation Albuterol inhaler as needed (8) Abnormal abdominal CT scan: Plan: CT Abd/pelvis: endometrium is significantly thickened for age measuring up to 1.9 cm. Patient reports was told thickened endometrium in past. (I was unable to locate prior pelvic ultrasound. Prior CT abd/pelvis here without mention of endometrium) Will need outpatient follow-up with gynecology for us and evaluation (9) S/P left knee arthroscopy: Plan: 02/04/22. Left knee arthroscopy secondary to left medial meniscus tear Surgical site appears to be healing well without any signs of infection Keep follow-up with Ortho (10) Hypertension: Plan: Continue metoprolol succinate, lisinopril (11) History of DVT (deep vein thrombosis): Plan: Chronically anticoagulated on Coumadin. S/p IVC filter INR: 2.6 Resume Coumadin, following (12) HLD (hyperlipidemia): Plan: Continue atorvastatin (13) History of thyroidectomy: Plan: TSH normal Continue levothyroxine DVT Prophylaxis Anticoagulated on Coumadin, INR theurapeutic Full Code as per discussion with pt, however she reports would not want prolonged life support if poor prognosis Follows with Dr Gilda Craig in [place] for routine care plan of care discussed with patient and her daughter Elida in detail and at length all questions answered they are understanding, agreeable, comfortable with the plan of care Admission and Anticipated Discharge Date Admission Date: February 12, 2022 Subjective Follow-up for generalized weakness, hypercalcemia, etc. Seen sitting in bedside chair, comfortable, not in distress On 2 L of oxygen via nasal cannula Patient's daughter Elida visiting Patient states she feels better today compared to yesterday Still a little bit weak but improving Appetite also improving Shortness of breath, cough, fevers or chills, sputum production No abdominal pain, diarrhea, urinary symptoms no chest pain, dyspnea, palpitations, dizziness No other symptoms Review of Systems Review of Systems: all noted and negative except for above Physical Exam Physical Exam: General- oriented x 3, not in distress, speaks in sentences with no effort or accessory muscle use Eyes- anicteric Neck- no JVD Lungs- clear breath sounds bilaterally, no rales/wheezes Heart- normal rate, regular rhythm; no murmurs Abdomen- normal bowel sounds, nondistended, soft, nontender Extremities-right lower extremity essentially normal Left lower extremity: Mild edema, dressing in place over the left knee, no warmth or tenderness, no bleeding or discharge Neuro- alert, oriented x 3; no gross focal neurologic deficits Skin- warm & dry Results & Data Results & Data ([facility]) Vital Signs (Past 12 Hours) Vital Signs Temp Pulse Pulse Resp BP BP Pulse Ox 02/13/22 15:24 37.5 C 76 18 118/60 94 02/13/22 14:56 71 02/13/22 14:56 02/13/22 12:00 36.7 C 71 19 133/85 91 02/13/22 08:20 36.7 C 68 18 128/74 96 02/13/22 07:29 67 02/13/22 04:18 36.4 C L 66 18 129/74 96 O2 Del Method O2 Flow Rate 02/13/22 15:24 2 02/13/22 14:56 02/13/22 14:56 Nasal Cannula 2 02/13/22 12:00 2 02/13/22 08:20 Nasal Cannula 2 02/13/22 07:29 02/13/22 04:18 Nasal Cannula 2 all noted and reviewed including below
[2022-02-13] MEDS ORDERED: WARFARIN SOD 2.5 MG TAB PO SCH (16:00)
[2022-02-13] MEDS: DIGOXIN 0.125 MG TAB PO SCH (17:31)
[2022-02-13] MEDS: METOPROLOL SUCC 25MG EXT REL TAB PO SCH (20:34)
[2022-02-14] MEDS: PIPERACILLIN/TAZOBACTAM 3.375 GM in DEXTROSE 5% 100 ML IV SCH ×3 (04:11→20:20)
[2022-02-14] MEDS: LEVOTHYROXINE SODIUM 112 MCG TABLET PO SCH (05:37)
[2022-02-14 06:05] LABS: Prothrombin Time 20.6 Seconds (9.0-12.0)
[2022-02-14 06:15] LABS: BUN Creatinine Ratio 25.7 (10-20); Creatinine Clr Calc Pharmacy 22.4 ml/min; Est GFR (African American) 30.5 ml/min; Est GFR (Non-African American) 26.3 ml/min; Potassium 3.7 mmol/L (3.5-5.1)
--- NOTE | 2022-02-14 07:23 | Electrocardiogram Report ---
Test Reason : Blood Pressure : / mmHG Vent. Rate : 071 BPM Atrial Rate : 071 BPM P-R Int : 148 ms QRS Dur : 080 ms QT Int : 414 ms P-R-T Axes : 038 065 -28 degrees QTc Int : 449 ms Normal sinus rhythm possible Inferior-posterior infarct , age undetermined Abnormal ECG When compared with ECG of 12-FEB-2022 11:02, Nonspecific T wave abnormality now evident in Anterolateral leads Confirmed by Edison Fernandes ([id number]) on 02/14/2022 7:23:12 AM Referred By: REFERRED SELF Confirmed By:Joey Fernandes
[2022-02-14] MEDS: CALCIUM CARBONATE 1250MG TAB PO SCH ×3 (08:07→20:25)
[2022-02-14] MEDS: MAGNESIUM OXIDE 400 MG TAB PO SCH ×2 (08:07→20:26)
[2022-02-14] MEDS: LORATADINE 10 MG TAB PO SCH (08:08)
[2022-02-14] MEDS: CHOLECALCIFEROL 1,000 UNITS 25 MCG TAB PO SCH (08:08)
[2022-02-14] MEDS: PANTOprazole 40 MG TAB PO SCH (08:08)
[2022-02-14] MEDS: CALCITRIOL 0.25 MCG CAPSULE PO SCH (08:08)
[2022-02-14] MEDS: METOPROLOL SUCC 50MG EXT REL TAB PO SCH (08:16)
[2022-02-14] MEDS ORDERED: STAT IV STA (08:43)
[2022-02-14] MEDS ORDERED: CALCIUM GLUCONATE 10% 2,000 MG in DEXTROSE 5% 50 ML IV ONE (08:43)
[2022-02-14] MEDS ORDERED: ERGOCALCIFEROL 50,000 UNITS 1250 MCG CAP PO SCH (09:00)
[2022-02-14] MEDS: ACETAMINOPHEN 325 MG TAB PO PRN (09:21)
--- NOTE | 2022-02-14 09:49 | Nephrology Progress Note ---
Date of Service February 14, 2022 Assessment & Plan Admission and Anticipated Discharge Date Admission Date: February 12, 2022 Subjective S--Some low BP readings. denies any new issues PHYSICAL EXAMINATION: GENERAL: Awake, alert, oriented x3. Elderly white female who is not in any respiratory distress. CHEST: Bilaterally clear to auscultation. CARDIOVASCULAR: S1 and S2, regular. ABDOMEN: Soft, nontender. EXTREMITIES: Show bandaged surgical limb with some edema, otherwise no edema. LABORATORY TEST: Creat is up and Ca somewhat better ASSESSMENT AND PLAN: An 86-year-old female who was admitted yesterday with severe generalized weakness, some nausea and poor appetite. She was discharged just one day prior to readmission. That admission was for congestive heart failure, requiring IV diuresis. 1. Hypocalcemia. She had a very low calcium level of 6.3, but it does not appear that this is a new problem. In fact, even during her recent hospital admission, she had low calcium and she has had low calcium, it seems since she had the thyroidectomy done. Her PTH was 17, which is a lot less than what she would expect in a setting of profound hypocalcemia. This proves that the etiology of hypocalcemia is hypoparathyroidism. Almost certainly, she developed hypoparathyroidism after the thyroidectomy surgery. Her calcium is quite low and would need massive dose of calcium supplementation to even bring it up in the 7 range. I will give him another 3 grams of IV calcium gluconate today on top of what she has already received. Her oral calcium supplementation has to be dramatically increased and we will use 1875 mg 3 times a day. I will change her vitamin D supplementation to cholecalciferol 1000 units daily and also add Calcitriol 0.25 mg daily. She is already on magnesium, which she can continue at the same dose of 400 twice daily. However, it is worth noting that when the hypocalcemia is secondary to hypoparathyroidism, it is exceptionally difficult to increase the calcium level. My goal is to get it close to the low to mid 7 and ionized calcium closer to 1, and that might be the best we can achieve. Increase the Ca supplement even more PO--2600 tid. raise Calcitriol to 0.5 mcg daily. Check Ca++, Mg and renal panel daily. 2 ARF--Creat up quite a bit today. Start iv fluid NS at 75 /hr for 1000 ml. [place] recent CHF admission will be careful. Also Hold Lasix and Lisinopril. Results & Data ([facility]) Vital Signs (Past 12 Hours) Vital Signs Temp Pulse Pulse Resp BP Pulse Ox O2 Del Method 02/14/22 09:22 94 Nasal Cannula 02/14/22 09:22 84 L Room Air 02/14/22 08:15 67 123/80 02/14/22 06:21 36.7 C 62 18 103/64 94 Nasal Cannula 02/14/22 04:30 36.9 C 68 18 125/73 94 Nasal Cannula 02/13/22 22:32 63 02/13/22 23:27 Room Air 02/13/22 23:02 36.9 C 66 18 92/59 L 95 Room Air O2 Flow Rate 02/14/22 09:22 2 02/14/22 09:22 02/14/22 08:15 02/14/22 06:21 2 02/14/22 04:30 2 02/13/22 22:32 02/13/22 23:27 02/13/22 23:02 2
[2022-02-14] MEDS: SODIUM CHLORIDE 0.9% 1000ML 1,000 ML IV SCH (11:19)
[2022-02-14] MEDS: ATORVASTATIN 20 MG TAB PO SCH (11:20)
--- NOTE | 2022-02-14 15:01 | Hospitalist Progress Note ---
Date of Service February 14, 2022 Assessment & Plan (1) Weakness: (2) Hypocalcemia: Plan: (1) Weakness: Plan: Per admitting service notes with addendum: Patient is 86 y/o F with PMH chronic diastolic heart failure, paroxysmal atrial fibrillation anticoagulated on warfarin, history of DVT on chronic anticoagulation on warfarin, HTN, HLD, COPD, h/o thyroidectomy presented to ER with c/o generalized weakness x couple of days. Recent meniscal surgery on 02/04/22, recent hospitalization 02/07/22-02/10/22. CT Head: No acute intracranial abnormality. Weakness likely secondary to deconditioning, dehydration from poor oral intake, hypocalcemia, etc. PT/OT eval Given IV fluids Management of hypocalcemia noted below 02/14 Gradually improving (3) Hypocalcemia: Plan: Likely secondary to hypoparathyroidism History of thyroidectomy Nephrology service consulted Given IV calcium gluconate total of 5 g today Given p.o. calcium supplement-calcium carbonate 1875 mg p.o. 3 times daily Calcitriol 0.25 mcg p.o. daily Also on vitamin D supplement Repeat ionized calcium tonight May need additional IV calcium gluconate 02/14 Calcium stable at 0.7 Calcium carbonate increased to 2100 mg p.o. 3 times daily Calcitriol increased to 0.5 mcg daily Give additional calcium gluconate IV this morning Repeat ionized calcium tomorrow Acute renal failure Likely secondary to IV contrast Hold Lasix, lisinopril IV NSS ordered Monitor creatinine daily (5) Chronic diastolic heart failure: Plan: History Echo 12/30/2021: EF: 60-64%, mild to moderate mitral insufficiency Recent hospitalization 02/07/2022-02/10/2022 for acute diastolic heart failure and was diuresed with IV Lasix. She was discharged on home 2 L home oxygen for hypoxia. Appears euvolemic currently Monitor I's & O's Continue Lasix Continue supplemental oxygen 02/13 Hold Lasix for now, patient appears to be euvolemic Patient reports feeling nauseated after taking Lasix Will consider transitioning to torsemide 02/14 Lasix on hold in light of acute renal failure Still on 2 L of oxygen via nasal cannula No history of pulmonary hypertension, PE unlikely as patient is already on Coumadin, INR therapeutic Incentive spirometry ordered (4) Elevated troponin: Plan: Troponin: 14.[address] changes on EKG. No CP, SOB Trend troponin Recent echo 12/30/21 Troponin remained stable at around 15 (2) Pneumonia: Plan: WBC: 18, CXR: Faint right lower lung airspace opacity likely represents atelectasis with or without superimposed aspiration/pneumonia Denies fever/chills, cough, SOB Not hypoxic on her 2L oxygen via [place] Recent hospitalization, possible aspiration with recent vomiting Procalcitonin pending MRSA swab pending Blood cultures pending Zosyn Incentive spirometer CBC in am CT abdomen pelvis: No lung infiltrates noted Pneumonia unlikely given patient also does not have cough, fevers Blood cultures: Negative so far Continue IV Zosyn for now (6) Atrial fibrillation: Plan: History of paroxysmal atrial fibrillation. Anticoagulated on Coumadin Continue metoprolol succinate, digoxin Hold Coumadin tonight, monitor INR for further dosing adjustment 02/14 INR 2.0 Continue Coumadin 5 mg p.o. daily INR daily (7) COPD (chronic obstructive pulmonary disease): Plan: No acute exacerbation Albuterol inhaler as needed (8) Abnormal abdominal CT scan: Plan: CT Abd/pelvis: endometrium is significantly thickened for age measuring up to 1.9 cm. Patient reports was told thickened endometrium in past. (I was unable to locate prior pelvic ultrasound. Prior CT abd/pelvis here without mention of endometrium) Will need outpatient follow-up with gynecology for us and evaluation (9) S/P left knee arthroscopy: Plan: 02/04/22. Left knee arthroscopy secondary to left medial meniscus tear Surgical site appears to be healing well without any signs of infection Keep follow-up with Ortho (10) Hypertension: Plan: Continue metoprolol succinate, lisinopril (11) History of DVT (deep vein thrombosis): Plan: Chronically anticoagulated on Coumadin. S/p IVC filter INR: 2.0 Resume Coumadin, following (12) HLD (hyperlipidemia): Plan: Continue atorvastatin (13) History of thyroidectomy: Plan: TSH normal Continue levothyroxine DVT Prophylaxis Anticoagulated on Coumadin, INR theurapeutic Full Code as per discussion with pt, however she reports would not want prolonged life support if poor prognosis Follows with Dr Gilda Craig in [place] for routine care Admission and Anticipated Discharge Date Admission Date: February 12, 2022 Subjective Follow-up for weakness, hypo calcemic, etc. Seen resting in bedside chair, comfortable, not in distress On 2 L of oxygen via nasal cannula States she continues to improve feel improved every day although still somewhat weak Able to ambulate in the hallways today Had some dyspnea No cough, fever chills, abdominal pain, nausea vomiting, problems urination or bowel movement No Other symptoms Review of Systems Review of Systems: all noted and negative except for above Physical Exam 2 Physical Exam: General- oriented x 3, not in distress, speaks in sentences with no effort or accessory muscle use Eyes- anicteric Neck- no JVD Lungs- clear breath sounds bilaterally, no crackles or wheezing Heart- normal rate, regular rhythm; no murmurs Abdomen- normal bowel sounds, nondistended, soft, nontender Extremities-right lower extremity: No pretibial edema, no calf tenderness Left lower extremity: Mild edema no Tenderness Neuro- alert, oriented x 3; no gross focal neurologic deficits Skin- warm & dry Results & Data Results & Data ([facility]) Vital Signs (Past 12 Hours) Vital Signs Temp Pulse Resp BP BP Pulse Ox Pulse Ox 02/14/22 08:00 02/14/22 12:15 85 L 02/14/22 12:00 36.7 C 62 20 92/55 L 92 02/14/22 12:03 96 02/14/22 09:22 94 02/14/22 09:22 84 L 02/14/22 08:15 67 123/80 02/14/22 06:21 36.7 C 62 18 103/64 94 02/14/22 04:30 36.9 C 68 18 125/73 94 O2 Del Method O2 Flow Rate O2 Flow Rate 02/14/22 08:00 Nasal Cannula 2 02/14/22 12:15 0 02/14/22 12:00 Room Air 02/14/22 12:03 02/14/22 09:22 Nasal Cannula 2 02/14/22 09:22 Room Air 02/14/22 08:15 02/14/22 06:21 Nasal Cannula 2 02/14/22 04:30 Nasal Cannula 2 all noted and reviewed including below
[2022-02-14] MEDS: DIGOXIN 0.125 MG TAB PO SCH (17:09)
[2022-02-14] MEDS: WARFARIN SOD 5 MG TAB PO SCH (17:09)
[2022-02-14] MEDS: METOPROLOL SUCC 25MG EXT REL TAB PO SCH (20:25)
[2022-02-15] MEDS: SODIUM CHLORIDE 0.9% 1000ML 1,000 ML IV SCH ×2 (00:23→12:40)
[2022-02-15] MEDS: ACETAMINOPHEN 325 MG TAB PO PRN (04:12)
[2022-02-15] MEDS: PIPERACILLIN/TAZOBACTAM 3.375 GM in DEXTROSE 5% 100 ML IV SCH ×2 (04:12→12:37)
[2022-02-15] MEDS: LEVOTHYROXINE SODIUM 112 MCG TABLET PO SCH (05:43)
[2022-02-15 07:23] LABS: Prothrombin Time 20.4 Seconds (9.0-12.0)
[2022-02-15 07:47] LABS: BUN Creatinine Ratio 31.3 (10-20); Creatinine Clr Calc Pharmacy 30.1 ml/min; Est GFR (African American) 43.2 ml/min; Est GFR (Non-African American) 37.3 ml/min; Potassium 3.7 mmol/L (3.5-5.1)
[2022-02-15] MEDS: LORATADINE 10 MG TAB PO SCH (08:57)
[2022-02-15] MEDS: METOPROLOL SUCC 50MG EXT REL TAB PO SCH (08:57)
[2022-02-15] MEDS: PANTOprazole 40 MG TAB PO SCH (08:58)
[2022-02-15] MEDS: CALCIUM CARBONATE 1250MG TAB PO SCH ×3 (08:58→20:38)
[2022-02-15] MEDS: CALCITRIOL 0.25 MCG CAPSULE PO SCH (08:59)
[2022-02-15] MEDS: MAGNESIUM OXIDE 400 MG TAB PO SCH ×2 (08:59→20:38)
[2022-02-15] MEDS: CHOLECALCIFEROL 1,000 UNITS 25 MCG TAB PO SCH (08:59)
[2022-02-15] MEDS: ATORVASTATIN 20 MG TAB PO SCH (12:41)
--- NOTE | 2022-02-15 15:07 | CT Scan Report ---
CT OF THE CHEST WITHOUT IV CONTRAST CLINICAL HISTORY: Hypoxia. COMPARISON STUDY: Chest CT September 28, 2018. Chest radiograph February 12, 2022. CT DOSE: 301.22 mGy.cm TECHNIQUE: Axial images of the chest were obtained without IV contrast. Images were reviewed in the axial, sagittal, and coronal planes. IV contrast was not administered for this examination. Automat ed exposure control was utilized for the study. A dose lowering technique was utilized adhering to t he principles of ALARA. FINDINGS: This exam is compromised by motion artifact. Dilatation of the central pulmonary arteries is similar to CT of September 28, 2018. The thyroid goiter shown on that exam has been resected. Cardiomega ly is unchanged. There is no pericardial effusion. No enlarged thoracic lymph nodes are identified. T here is no pneumothorax or pleural effusion. Lungs are suboptimally assessed due to respiratory motio n. There is no consolidation to suggest pneumonia. Minimal subpleural opacity within the right upper lobe on axial image 58 of 231 is unchanged since prior exam. This favors scarring. Minimal groundglas s opacities with mosaic attenuation within the lungs are noted. Old sternal and thoracic spine compre ssion deformity is are unchanged. There is a small hiatal hernia. IMPRESSION: 1. No consolidation to suggest pneumonia. Mild groundglass opacities with mosaic attenuation within t he lungs. The findings could reflect atelectasis or air trapping. 2. Dilatation of the central pulmonary arteries, similar to prior exam. This suggests pulmonary arter ial hypertension. 3. No pneumothorax. No pleural effusion. 4. Small hiatal hernia. ACT 112: Negative or not required by law. Electronically signed by: Johny Peace M.D. 02/15/2022 3:05 PM
[2022-02-15] MEDS: WARFARIN SOD 5 MG TAB PO SCH (16:13)
[2022-02-15] MEDS: DIGOXIN 0.125 MG TAB PO SCH (16:13)
--- NOTE | 2022-02-15 16:37 | Hospitalist Progress Note ---
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 Recent meniscal surgery on 02/04/22, recent hospitalization 02/07/22-02/10/22. CT Head: No acute intracranial abnormality. Weakness likely secondary to deconditioning, dehydration from poor oral intake, hypocalcemia, etc. 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 calcium supplement-calcium carbonate 1875 mg p.o. 3 times daily Calcitriol 0.25 mcg p.o. daily Also on vitamin D supplement Repeat ionized calcium tonight May need additional IV calcium gluconate 02/15 Calcium level improving, now at 0.8 Calcium carbonate increased to 2,500 mg p.o. 3 times daily Calcitriol increased to 0.5 mcg daily Give additional calcium gluconate IV Repeat ionized calcium tomorrow Acute renal failure Likely secondary to IV contrast Hold Lasix, lisinopril IV NSS ordered Creatinine improving from 1.7 now 1.3 DC IV fluids (5) Chronic diastolic heart failure: Plan: History Echo 12/30/2021: EF: 60-64%, mild to moderate mitral insufficiency Recent hospitalization 02/07/2022-02/10/2022 for acute diastolic heart failure and was diuresed with IV Lasix. She was discharged on home 2 L home oxygen for hypoxia. Appears euvolemic currently Monitor I's & O's Continue Lasix Continue supplemental oxygen 02/13 Hold Lasix for now, patient appears to be euvolemic Patient reports feeling nauseated after taking Lasix Will consider transitioning to torsemide 02/14 Lasix on hold in light of acute renal failure Still on 2 L of oxygen via nasal cannula No history of pulmonary hypertension, PE unlikely as patient is already on Coumadin, INR therapeutic 02/15 CT chest: No signs of pulmonary edema, possible pulmonary hypertension Lasix on hold in light of acute renal failure On room air at rest, currently on 3 L of oxygen via nasal cannula while ambulating (4) Elevated troponin: Plan: Troponin: 14.[address] changes on EKG. No CP, SOB Trend troponin Recent echo 12/30/21 Troponin remained stable at around 15 (2) Pneumonia: Plan: WBC: 18, CXR: Faint right lower lung airspace opacity likely represents atelectasis with or without superimposed aspiration/pneumonia Denies fever/chills, cough, SOB Not hypoxic on her 2L oxygen via NC Recent hospitalization, possible aspiration with recent vomiting Procalcitonin negative MRSA swab negative Blood cultures negative DC IV Zosyn Incentive spirometer CT abdomen pelvis: No lung infiltrates noted CT chest: No pneumonia Pneumonia unlikely given patient also does not have cough, fevers Blood cultures: Negative so far DC IV Zosyn (6) Atrial fibrillation: Plan: History of paroxysmal atrial fibrillation. Anticoagulated on Coumadin Continue metoprolol succinate, digoxin Hold Coumadin tonight, monitor INR for further dosing adjustment 02/15 INR 2.0 Coumadin 7.5 mg p.o. today INR daily (7) COPD (chronic obstructive pulmonary disease): Plan: No acute exacerbation Albuterol inhaler as needed (8) Abnormal abdominal CT scan: Plan: CT Abd/pelvis: endometrium is significantly thickened for age measuring up to 1.9 cm. Patient reports was told thickened endometrium in past. (I was unable to locate prior pelvic ultrasound. Prior CT abd/pelvis here without mention of endometrium) Will need outpatient follow-up with gynecology for us and evaluation (9) S/P left knee arthroscopy: Plan: 02/04/22. Left knee arthroscopy secondary to left medial meniscus tear Surgical site appears to be healing well without any signs of infection Keep follow-up with Ortho (10) Hypertension: Plan: Continue metoprolol succinate Lisinopril held in light of acute renal failure (11) History of DVT (deep vein thrombosis): Plan: Chronically anticoagulated on Coumadin. S/p IVC filter INR: 2.0 Resume Coumadin, following (12) HLD (hyperlipidemia): Plan: Continue atorvastatin (13) History of thyroidectomy: Plan: TSH normal Continue levothyroxine DVT Prophylaxis Anticoagulated on Coumadin, INR theurapeutic Full Code as per discussion with pt, however she reports would not want prolonged life support if poor prognosis Follows with Dr Gilda Craig in [place] for routine care Disposition Pending PT and OT evaluation recommending discharge to home medically stable next Admission and Anticipated Discharge Date Admission Date: February 12, 2022 Subjective Follow-up for hypocalcemia, weakness, etc. Seen resting in bed, comfortable, not in distress Sitting up In good spirits States she continues to feel improved daily Breathing is improving Denies cough, fevers or chills Still on the weak side but able to ambulate more No other symptoms Review of Systems Review of Systems: all noted and negative except for above Physical Exam Physical Exam: General- oriented x 3, not in distress, speaks in sentences with no effort or accessory muscle use Eyes- anicteric Neck- no JVD Lungs- clear BS BL Heart- normal rate, regular rhythm; no murmurs Abdomen- normal bowel sounds, nondistended, soft, nontender Extremities-right lower extremity: No pretibial edema, no calf tenderness Left lower extremity: Mild leg edema No tenderness No Warmth Neuro- alert, oriented x 3; no gross focal neurologic deficits Skin- warm & dry Results & Data Results & Data ([facility]) Vital Signs (Past 12 Hours) Vital Signs Temp Pulse Pulse Resp BP BP Pulse Ox 02/15/22 16:13 66 02/15/22 15:31 37.0 C 65 20 128/81 96 02/15/22 11:26 36.8 C 62 18 117/58 L 94 02/15/22 08:00 61 02/15/22 10:27 02/15/22 07:21 36.6 C 61 22 108/74 93 O2 Del Method 02/15/22 16:13 02/15/22 15:31 Room Air 02/15/22 11:26 Room Air 02/15/22 08:00 02/15/22 10:27 Room Air 02/15/22 07:21 Room Air all noted and reviewed including below
[2022-02-15] MEDS ORDERED: WARFARIN SOD 2.5 MG TAB PO ONE (16:40)
[2022-02-15] MEDS: METOPROLOL SUCC 25MG EXT REL TAB PO SCH (20:38)
[2022-02-16] MEDS: SODIUM CHLORIDE 0.9% 1000ML 1,000 ML IV SCH (01:12)
[2022-02-16] MEDS: LEVOTHYROXINE SODIUM 112 MCG TABLET PO SCH (05:59)
[2022-02-16 06:53] LABS: BUN Creatinine Ratio 25.5 (10-20); Creatinine Clr Calc Pharmacy 37.4 ml/min; Est GFR (African American) 55.8 ml/min; Est GFR (Non-African American) 48.2 ml/min; Potassium 4.2 mmol/L (3.5-5.1)
[2022-02-16 07:02] LABS: INR 2.3 (0.9-1.1); Prothrombin Time 23.5 Seconds (9.0-12.0)
[2022-02-16] MEDS: MAGNESIUM OXIDE 400 MG TAB PO SCH ×2 (08:28→20:15)
[2022-02-16] MEDS: CALCIUM CARBONATE 1250MG TAB PO SCH ×3 (08:28→20:15)
[2022-02-16] MEDS: LORATADINE 10 MG TAB PO SCH (08:29)
[2022-02-16] MEDS: CHOLECALCIFEROL 1,000 UNITS 25 MCG TAB PO SCH (08:29)
[2022-02-16] MEDS: PANTOprazole 40 MG TAB PO SCH (08:29)
[2022-02-16] MEDS: METOPROLOL SUCC 50MG EXT REL TAB PO SCH (08:29)
[2022-02-16] MEDS: CALCITRIOL 0.25 MCG CAPSULE PO SCH (08:29)
[2022-02-16] MEDS: ATORVASTATIN 20 MG TAB PO SCH (11:46)
[2022-02-16] MEDS: TORSEMIDE 10 MG TAB PO SCH (11:46)
--- NOTE | 2022-02-16 14:10 | Hospitalist Progress Note ---
Date of Service February 16, 2022 Assessment & Plan (1) Weakness: (2) Hypocalcemia: Plan: (1) Weakness: Plan: Per admitting service notes with addendum: Patient is 86 y/o F with PMH chronic diastolic heart failure, paroxysmal atrial fibrillation anticoagulated on warfarin, history of DVT on chronic anticoagulation on warfarin, HTN, HLD, COPD, h/o thyroidectomy presented to ER with c/o generalized weakness x couple of days. Recent meniscal surgery on 02/04/22, recent hospitalization 02/07/22-02/10/22. CT Head: No acute intracranial abnormality. Weakness likely secondary to deconditioning, dehydration from poor oral intake, chronic hypocalcemia, etc. 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 calcium supplement-calcium carbonate 1875 mg p.o. 3 times daily Calcitriol 0.25 mcg p.o. daily Also on vitamin D supplement Repeat ionized calcium tonight May need additional IV calcium gluconate 02/16 Calcium level gradually improving, now at 0.8 Calcium carbonate 2,500 mg p.o. 3 times daily Calcitriol 0.5 mcg daily Vit D daily Acute renal failure Likely secondary to IV contrast Held Lasix, lisinopril IV NSS ordered Creatinine improving from 1.7 now 1.0 DC IV fluids resume Lasix and Lisinopril (5) Chronic diastolic heart failure: Plan: History Echo 12/30/2021: EF: 60-64%, mild to moderate mitral insufficiency Recent hospitalization 02/07/2022-02/10/2022 for acute diastolic heart failure and was diuresed with IV Lasix. She was discharged on home 2 L home oxygen for hypoxia. 02/16 CT chest: No signs of pulmonary edema, possible pulmonary hypertension Patient reporting severe nausea with p.o. Lasix 40 mg p.o. daily Requesting a different diuretic Will start torsemide 20 mg p.o. daily, monitor closely Continue incentive spirometry Off oxygen supplement at rest Will need updated two-step exercise test before discharge (4) Elevated troponin: Plan: Troponin: 14.[address] changes on EKG. No CP, SOB Recent echo 12/30/21 Troponin remained stable at around 15 (2) Pneumonia, ruled out Plan: WBC: 18, CXR: Faint right lower lung airspace opacity likely represents atelectasis with or without superimposed aspiration/pneumonia Denies fever/chills, cough, SOB Not hypoxic on her 2L oxygen via NC Recent hospitalization, possible aspiration with recent vomiting Procalcitonin negative MRSA swab negative CT abdomen pelvis: No lung infiltrates noted CT chest: No pneumonia Pneumonia unlikely given patient also does not have cough, fevers Blood cultures: Negative so far DC IV Zosyn (6) Atrial fibrillation: Plan: History of paroxysmal atrial fibrillation. Anticoagulated on Coumadin Continue metoprolol succinate, digoxin 02/16 INR 2.3 Continue Coumadin INR daily (7) COPD (chronic obstructive pulmonary disease): Plan: No acute exacerbation Albuterol inhaler as needed (8) Abnormal abdominal CT scan: Plan: CT Abd/pelvis: endometrium is significantly thickened for age measuring up to 1.9 cm. Patient reports was told thickened endometrium in past. (I was unable to locate prior pelvic ultrasound. Prior CT abd/pelvis here without mention of endometrium) Will need outpatient follow-up with gynecology for us and evaluation (9) S/P left knee arthroscopy: Plan: 02/04/22. Left knee arthroscopy secondary to left medial meniscus tear Surgical site appears to be healing well without any signs of infection She has chronic lymphedema of the left lower extremity Keep follow-up with Ortho (10) Hypertension: Plan: Continue metoprolol succinate and lisinopril (11) History of DVT (deep vein thrombosis): Plan: Chronically anticoagulated on Coumadin. S/p IVC filter INR: 2.3 Continue Coumadin (12) HLD (hyperlipidemia): Plan: Continue atorvastatin (13) History of thyroidectomy: Plan: TSH normal Continue levothyroxine DVT Prophylaxis Anticoagulated on Coumadin, INR theurapeutic Full Code as per discussion with pt, however she reports would not want prolonged life support if poor prognosis Follows with Dr Gilda Craig in [place] for routine care Disposition Pending PT and OT evaluation recommending discharge to home medically stable We will need repeat two-step exercise test to determine oxygen requirement with ambulation Admission and Anticipated Discharge Date Admission Date: February 12, 2022 Subjective ff up for generalized weakness, hypocalcemia, etc seen resting in chair, comfortable in good spirits off oxygen states she continues to feel better overall strength improving breathing ok, denies cough, sputum production, fever/chills no other symptoms Review of Systems Review of Systems: all noted and negative except for above Physical Exam Physical Exam: General- oriented x 3, not in distress, speaks in sentences with no effort or accessory muscle use Eyes- anicteric Neck- no JVD Lungs- clear breath sounds bilaterally, no crackles, no wheezing Heart- normal rate, regular rhythm; no murmurs Abdomen- normal bowel sounds, nondistended, soft, nontender Extremities- RLE: mild edema, no calf tenderness LLE: moderate edema, no tenderness/erythema/warmth knee wound: dressing in place Neuro- alert, oriented x 3; no gross focal neurologic deficits Skin- warm & dry Results & Data Results & Data ([facility]) Vital Signs (Past 12 Hours) Vital Signs Temp Pulse Pulse Resp BP BP Pulse Ox 02/16/22 11:17 36.9 C 67 20 157/95 H 94 02/16/22 08:45 02/16/22 08:00 36.7 C 66 20 149/69 H 94 02/16/22 07:19 60 02/16/22 03:02 36.6 C 68 18 124/61 93 O2 Del Method 02/16/22 11:17 02/16/22 08:45 Room Air 02/16/22 08:00 Room Air 02/16/22 07:19 02/16/22 03:02 Room Air all noted and reviewed including below
--- NOTE | 2022-02-16 15:10 | Nephrology Progress Note ---
Date of Service February 16, 2022 Assessment & Plan (1) Hypocalcemia: Plan: An 86-year-old female who was admitted yesterday with severe generalized weakness, some nausea and poor appetite. She was discharged just one day prior to readmission. That admission was for congestive heart failure, requiring IV diuresis. Hypocalcemia. She had a very low calcium level of 6.3, - Etiology of hypocalcemia is hypoparathyroidism,she developed hypoparathyroidism after the thyroidectomy surgery. - Calcium is better on the present regime of, calcium supplement-calcium carbonate 2500 mg p.o. 3 times daily Calcitriol 0.5 mcg p.o. daily with 1000u vitamin D. Check Ca++, Mg and renal panel daily and keep magnesium > 2.0. She will need to be on high dose calcium and vitamin D life long with regular monitoring of her ionized calcium, either by Nephrology or endocrinology. (2) Acute renal failure: Plan: Prerenal - resolved. Admission and Anticipated Discharge Date Admission Date: February 12, 2022 Subjective ff up for generalized weakness, hypocalcemia, etc seen resting in chair, comfortable in good spirits off oxygen states she continues to feel better overall strength improving breathing ok, denies cough, sputum production, fever/chills no other symptoms Review of Systems Review of Systems: All systems reviewed & are unremarkable except as noted in HPI & below Physical Exam Physical Exam: PHYSICAL EXAMINATION: GENERAL: Awake, alert, oriented x3. Elderly white female who is not in any respiratory distress. CHEST: Bilaterally clear to auscultation. CARDIOVASCULAR: S1 and S2, regular. ABDOMEN: Soft, nontender. EXTREMITIES: Show bandaged surgical limb with some edema, otherwise no edema. Results & Data ([facility]) Vital Signs (Past 12 Hours) Vital Signs Temp Pulse Pulse Resp BP BP Pulse Ox 02/16/22 11:17 36.9 C 67 20 157/95 H 94 02/16/22 08:45 02/16/22 08:00 36.7 C 66 20 149/69 H 94 02/16/22 07:19 60 O2 Del Method 02/16/22 11:17 02/16/22 08:45 Room Air 02/16/22 08:00 Room Air 02/16/22 07:19 Laboratory Results 02/13/22 06:49 02/16/22 05:53
[2022-02-16] MEDS: DIGOXIN 0.125 MG TAB PO SCH (16:58)
[2022-02-16] MEDS: WARFARIN SOD 5 MG TAB PO SCH (16:58)
[2022-02-16] MEDS: METOPROLOL SUCC 25MG EXT REL TAB PO SCH (20:14)
[2022-02-17] MEDS: LEVOTHYROXINE SODIUM 112 MCG TABLET PO SCH (05:39)
[2022-02-17 07:07] LABS: BUN Creatinine Ratio 22.2 (10-20); Calcium 7.2 mg/dl (8.5-10.1); Creatinine Clr Calc Pharmacy 36.5 ml/min; Est GFR (African American) 54.6 ml/min; Est GFR (Non-African American) 47.1 ml/min; Potassium 4.4 mmol/L (3.5-5.1)
[2022-02-17] MEDS: TORSEMIDE 10 MG TAB PO SCH (08:15)
[2022-02-17] MEDS: CALCIUM CARBONATE 1250MG TAB PO SCH ×2 (08:15→13:32)
[2022-02-17] MEDS: PANTOprazole 40 MG TAB PO SCH (08:15)
[2022-02-17] MEDS: METOPROLOL SUCC 50MG EXT REL TAB PO SCH (08:15)
[2022-02-17] MEDS: CALCITRIOL 0.25 MCG CAPSULE PO SCH (08:15)
[2022-02-17] MEDS: CHOLECALCIFEROL 1,000 UNITS 25 MCG TAB PO SCH (08:15)
[2022-02-17] MEDS: LORATADINE 10 MG TAB PO SCH (08:15)
[2022-02-17] MEDS: MAGNESIUM OXIDE 400 MG TAB PO SCH (08:15)
--- NOTE | 2022-02-17 09:08 | Pulmonary Consultation ---
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 Pulmonary hypertension can give sometimes mosaicism as well. If the patient has significant desaturations on walking then would recommend a right heart cath to look at the right-sided pressures along with pulmonary wedge. 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 The dilation of the main pulmonary artery is most likely from patient's underlying SONG/OHS as well as history of A. fib Recommend to continue with diuresis given probability of diastolic CHF BiPAP/CPAP nightly and as needed shortness of breath Recommend outpatient polysomnography 2 step to check for oxygen requirement prior to discharge. Case was discussed with Dr Hnutley No further recommendation from pulmonary perspective. We will sign off Please call directly with any questions Please note the above document was generated using voice recognition software. It may contain grammatical, syntax or spelling errors.Any formal questions or concerns about the content, text or information contained within the body of this dictation should be directly addressed to the provider for clarification. History of Present Illness Attending Physician: Edgardo Horton MD History of Present Illness 86-year-old female was admitted to hospital because of generalized weakness and fatigue. Past medical history: Paroxysmal A. fib on warfarin, history of DVT on an ticoagulation, hypertension, dyslipidemia, diastolic CHF Pulmonary consulted for finding of dilated main pulmonary artery on the CT chest At the time of examination patient was saturating 97% on room air She says she is feeling much better. Denies any chest pain, no shortness of breath. No cough. Feeling more energetic. Denies any abdominal pain. No nausea or vomiting Fair appetite No fever or chills No hematuria, no hematochezia, no epistaxis Social history: Lifetime non-smoker No history of asthma as a child Allergies Allergy/AdvReac Type Severity Reaction Status Date / Time No Known Drug Allergies Allergy Unknown Verified 02/07/22 15:43 Home Medications Medication Instructions Recorded Confirmed Type loratadine 10 mg tablet (Claritin) 10 mg PO QAM 01/26/19 02/12/22 History levothyroxine 112 mcg tablet 112 mcg PO DAILYBB 10/16/21 02/12/22 History atorvastatin 20 mg tablet (Lipitor) 20 mg PO QDL 10/20/21 02/12/22 History digoxin 125 mcg (0.125 mg) tablet 125 mcg PO DAILY@1600 #30 tabs 10/20/21 02/12/22 Rx (Digitek) furosemide 40 mg tablet 40 mg PO QAM 10/20/21 02/12/22 History lisinopril 10 mg tablet (Zestril) 10 mg PO QDL 10/20/21 02/12/22 History albuterol sulfate 90 mcg/actuation 1 inh inhalation QID PRN sob 01/28/22 History aerosol inhaler calcium carbonate 300 mg (750 mg) 300 mg PO QPM 01/28/22 02/12/22 History chewable tablet (Tums) metoprolol succinate 100 mg 100 mg PO QAM 01/28/22 02/12/22 History tablet,extended release 24 hr acetaminophen 500 mg tablet 1,000 mg PO BID PRN Pain 02/07/22 02/12/22 History cholecalciferol (vitamin D3) 1,250 50,000 unit PO WK 02/07/22 02/12/22 History mcg (50,000 unit) capsule metoprolol succinate 25 mg 25 mg PO HS 02/07/22 02/12/22 History tablet,extended release 24 hr tramadol 50 mg tablet 50 mg PO Q6H PRN Pain 02/07/22 02/12/22 History magnesium oxide 400 mg (241.3 mg 400 mg PO BID 5 days #10 tabs 02/10/22 02/12/22 Rx magnesium) tablet pantoprazole 40 mg tablet,delayed 40 mg PO DAILY 14 days #14 tabs 02/10/22 Rx release (Protonix) warfarin 5 mg tablet 5 mg PO UD 02/12/22 02/12/22 History Patient History Medical History (Updated 02/17/22 @ 12:32 by Astrid Carrasco MD, [facility]) Atrial fibrillation Dx/d September 2021 -- on coumadin -- follows with Dr. Pickard Chronic airway disease Chronic anticoagulation Enlarged thyroid History of anesthesia complications per dtr, voice has changed since thyroidectomy. informed by surgeon voice change is probably r/t intubation. History of thrombosis HLD (hyperlipidemia) KASHIA (hard of hearing) HTN (hypertension) Lymphedema BLLE Nodular thyroid disease Reactive airway disease Surgical History (Updated 02/12/22 @ 16:21 by Jocelyne Lemon PA-C) History of breast biopsy LEFT - 1985 History of cataract surgery History of thyroidectomy History of tubal ligation S/P IVC filter S/P left knee arthroscopy Family History Other No family history of adverse response to anesthesia No family history of allergies No family history of bleeding disorder Denies family history of Hearing loss Heart disease Cancer Hypertension Stroke Asthma Social History Smoking Status: Never smoker Second Hand Exposure: No; Hx Alcohol Use: No Hx Substance Use: No Preferred Language: Stateless Communication Ability: Effective Sales Executive Required: No Beliefs That Will Affect Care: None marital status: / Current Living Situation: Alone current occupational status: retired How many Children do You have: 4 Other Information That Helps Us Care for You: No Feels Safe at Home: Yes Safety Concerns: Feels Safe At This Time Assistive Devices: Cane and Walker Review of Systems Review of Systems: All systems reviewed & are unremarkable except as noted in HPI & below Physical Exam Physical Exam: Constitutional: No acute distress HEENT: EOMI, PERRLA Respiratory system: Good air entry bilaterally, no wheeze, rhonchi, mild crackles bilateral lower lobe CVS: S1-S2 positive, no murmurs or gallops Abdomen: Soft, nontender, nondistended, positive bowel sounds x4, obese Extremities: +2 pulses bilaterally radialis/ dorsalis pedis, no cyanosis, +2 pitting edema bilateral lower extremity Neuro: Awake alert oriented x3 Psych: Normal mood and affect G/U: No [place] Skin: no rashes, warm and dry Lymphatic: no cervical or axillary lymphadenopathy Results & Data Results & Data ([facility]) Vital Signs (Past 12 Hours) Vital Signs Temp Pulse Pulse Resp BP BP Pulse Ox 02/17/22 08:05 37.0 C 62 18 157/74 H 94 02/17/22 07:05 62 02/17/22 07:00 36.9 C 61 20 145/77 H 92 02/17/22 03:00 36.7 C 68 18 148/73 H 93 02/16/22 22:15 79 02/16/22 22:56 37 C 66 18 121/76 93 O2 Del Method 02/17/22 08:05 Room Air 02/17/22 07:05 02/17/22 07:00 Room Air 02/17/22 03:00 Room Air 02/16/22 22:15 02/16/22 22:56 Room Air Laboratory Results 02/13/22 06:49 02/17/22 06:00 PG Care Time/CCT Total # of Minutes Spent Total Time Spent with Patient: Total time spent is greater than 50% in coordination of care (as documented) at patient's floor/unit and/or counseling patient: Coding Level of Care Code 66104 Initial Inpt Care Lvl 3 Diagnoses Chronic respiratory failure with hypercapnia J96.[address] scan R93.5
[2022-02-17 09:50] LABS: Base Excess ABG 6.1 mEq/L (-9-1.8); HCO3 ABG 30 mmol/L (19-24); Oxygen Saturation ABG 97.9 % (90-95); PCO2 ABG 38 mmHg (35-46); PO2 ABG 88 mmHg (80-95)
[2022-02-17 10:26] LABS: Allen Test Pos (Pos)
--- NOTE | 2022-02-17 11:56 | Hospitalist Progress Note ---
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 She was discharged on home 2 L home oxygen for hypoxia. - started on torsemide 20 mg p.o. 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 afib - needs outpatient work up - required O2 1L NC on initial 2-step 02/10/2022 - repeat ordered 02/17/2022 (4) Atrial fibrillation: Plan: - History of paroxysmal atrial fibrillation - anticoagulated on Coumadin - daily INR while inpatient - Continue metoprolol succinate, digoxin (5) HLD (hyperlipidemia): Plan: - continue statin (6) Hypertension: Plan: - Continue metoprolol succinate and lisinopril Plan DVT ppx: coumadin Code Status: Full Code Dispo: telemetry Edgardo Horton MD [facility] Medicine Admission and Anticipated Discharge Date Admission Date: February 12, 2022 Subjective Patient with HFpEF, pafib on Coumadin, HTN, HLD, h/o thyroidectomy presented for generalized weakness. Found to have hypocalcemia, renal consulted, started on supplements, nuvialey as result of hypoparathyroidism from parathyroidectomy at time of thyroidectomy. Also with hypoxia on exertion initially. pulm consulted for pHTN, patient has likely pHTN from chronic afib but ill need formal outpatient work up with [facility]. Patient feels well, wants to go home. Denies chest pain, shortness of breath, fever or chills, n/v/d, change in leg swelling. Review of Systems Review of Systems: All systems reviewed & are unremarkable except as noted in Subjective all noted and negative except for above Physical Exam Physical Exam: General- oriented x 3, not in distress, speaks in sentences with no effort or accessory muscle use Eyes- anicteric Neck- no JVD Lungs- clear breath sounds bilaterally, no crackles, no wheezing Heart- normal rate, regular rhythm; no murmurs Abdomen- normal bowel sounds, nondistended, soft, nontender Extremities- RLE: mild edema, no calf tenderness LLE: moderate edema, no tenderness/erythema/warmth knee wound: dressing in place Neuro- alert, oriented x 3; no gross focal neurologic deficits Skin- warm & dry Results & Data Results & Data ([facility]) Vital Signs (Past 12 Hours) Vital Signs Temp Pulse Pulse Resp BP BP Pulse Ox 02/17/22 11:45 36.9 C 67 18 133/84 93 02/17/22 08:15 02/17/22 08:05 37.0 C 62 18 157/74 H 94 02/17/22 07:05 62 02/17/22 07:00 36.9 C 61 20 145/77 H 92 02/17/22 03:00 36.7 C 68 18 148/73 H 93 O2 Del Method 02/17/22 11:45 Room Air 02/17/22 08:15 Room Air 02/17/22 08:05 Room Air 02/17/22 07:05 02/17/22 07:00 Room Air 02/17/22 03:00 Room Air Diagnostic Findings Laboratory Results WBC 15.53 K/ul (4.8-10.8) H 02/13/22 06:49 RBC 3.79 M/uL (3.93-5.22) L 02/13/22 06:49 Hgb 11.7 g/dl (12.0-16.0) L 02/13/22 06:49 Hct 35.7 % (34.1-44.9) 02/13/22 06:49 MCV 94.2 fL (80.0-100.0) 02/13/22 06:49 MCH 30.9 pg (25.0-34.0) 02/13/22 06:49 MCHC 32.8 g/dL (32.0-36.0) 02/13/22 06:49 RDW Std Deviation 51.0 fL (36.4-46.3) H 02/13/22 06:49 RDW Coeff of Juan 14.6 % (11.5-14.5) H 02/13/22 06:49 Plt Count 300 K/uL (130-400) 02/13/22 06:49 MPV 9.7 fL (9.4-12.3) 02/13/22 06:49 Immature Gran % (Auto) 0.7 % 02/13/22 06:49 Neut % (Auto) 77.8 % 02/13/22 06:49 Lymph % (Auto) 11.8 % 02/13/22 06:49 [place] % (Auto) 8.7 % 02/13/22 06:49 Eos % (Auto) 0.7 % 02/13/22 06:49 Baso % (Auto) 0.3 % 02/13/22 06:49 Neut # (Auto) 12.07 K/uL (1.4-6.5) H 02/13/22 06:49 Lymph # (Auto) 1.84 K/uL (1.2-3.4) 02/13/22 06:49 [place] # (Auto) 1.35 K/uL (0.24-0.82) H 02/13/22 06:49 Eos # (Auto) 0.11 K/uL (0-0.50) 02/13/22 06:49 Baso # (Auto) 0.05 K/uL (0-0.2) 02/13/22 06:49 Immature Gran # (Auto) 0.11 K/uL (0.00-0.02) H 02/13/22 06:49 PT 21.0 Seconds (9.0-12.0) H 02/17/22 06:00 INR 2.0 (0.9-1.1) H 02/17/22 06:00 ABG pH 7.50 (7.35-7.45) H 02/17/22 09:19 ABG pCO2 38 mmHg (35-46) 02/17/22 09:19 ABG pO2 88 mmHg (80-95) 02/17/22 09:19 ABG HCO3 30 mmol/L (19-24) H 02/17/22 09:19 ABG O2 Saturation 97.9 % (90-95) H 02/17/22 09:19 ABG Base Excess 6.1 mEq/L (-9-1.8) H 02/17/22 09:19 [place] Test Pos (Pos) 02/17/22 09:19 Oxygen Given ROOM AIR 02/17/22 09:19 Sodium 141 mmol/L (136-145) 02/17/22 06:00 Potassium 4.4 mmol/L (3.5-5.1) 02/17/22 06:00 Chloride 101 mmol/L (98-107) 02/17/22 06:00 Carbon Dioxide 30 mmol/L (21-32) 02/17/22 06:00 Anion Gap 10 (3-11) 02/17/22 06:00 BUN 24 mg/dl (6-23) H 02/17/22 06:00 Creatinine 1.08 mg/dl (0.6-1.2) 02/17/22 06:00 Est Cr Clr Drug Dosing 36.5 ml/min 02/17/22 06:00 Est GFR ( Amer) 54.6 ml/min 02/17/22 06:00 Est GFR (Non-Af Amer) 47.1 ml/min 02/17/22 06:00 BUN/Creatinine Ratio 22.2 (10-20) H 02/17/22 06:00 Glucose 97 mg/dl (70-99(Fasting)) 02/17/22 06:00 Calcium 7.2 mg/dl (8.5-10.1) L 02/17/22 06:00 Ionized Calcium 0.88 mmol/L (1.12-1.32) L 02/17/22 06:00 Phosphorus 5.5 mg/dl (2.5-4.9) H 02/12/22 19:08 Magnesium 2.2 mg/dl (1.7-2.4) 02/13/22 06:49 Total Bilirubin 1.0 mg/dl (0.2-1.0) 02/12/22 10:36 AST 23 U/L (13-39) 02/12/22 10:36 ALT 17 U/L (7-52) 02/12/22 10:36 Alkaline Phosphatase 95 U/L (34-104) 02/12/22 10:36 Troponin I High Sens 15.9 pg/ml (0-14) H 02/12/22 22:42 B-Natriuretic Peptide 145 pg/ml (0-100) H 02/17/22 09:19 Total Protein 7.7 gm/dl (6.0-8.3) 02/12/22 10:36 Albumin 3.5 gm/dl (3.4-5.0) 02/12/22 10:36 Globulin 4.2 gm/dl (2.5-4.0) H 02/12/22 10:36 Albumin/Globulin Ratio 0.8 (0.9-2) L 02/12/22 10:36 Lipase 41 U/L (11-82) 02/12/22 10:36 25-OH Vitamin D Total 33.6 ng/ml (30-100) 02/12/22 19:08 Procalcitonin 0.13 ng/ml (0-0.5) 02/12/22 15:44 TSH 2.098 uIu/ml (0.300-4.500) 02/12/22 19:08 PTH Intact 17.0 pg/ml (12.0-88.0) 02/12/22 19:08 Urine Color Yellow 02/12/22 12:10 Urine Appearance Cloudy (Clear) A 02/12/22 12:10 Urine pH 5.0 (4.5-7.5) 02/12/22 12:10 Ur Specific Equality 1.021 (1.000-1.030) 02/12/22 12:10 Urine Protein 1+ (Negative) H 02/12/22 12:10 Urine Glucose (UA) Negative (Negative) 02/12/22 12:10 Urine Ketones Negative (Negative) 02/12/22 12:10 Urine Blood Negative (Negative) 02/12/22 12:10 Urine Nitrite Negative (Negative) 02/12/22 12:10 Urine Bilirubin Negative (Negative) 02/12/22 12:10 Urine Urobilinogen Negative (Negative) 02/12/22 12:10 Ur Leukocyte Esterase Negative (Negative) 02/12/22 12:10 Urine WBC (Auto) 1-5 /hpf (0-5) 02/12/22 12:10 Urine RBC (Auto) 0-4 /hpf (0-4) 02/12/22 12:10 U Hyaline Cast (Auto) 1-5 /lpf (0-5) 02/12/22 12:10 U Epithel Cells (Auto) >30 /lpf (0-5) H 02/12/22 12:10 Urine Bacteria (Auto) Negative (Negative) 02/12/22 12:10 Nasal Screen MRSA (PCR) Negative (Negative) 02/12/22 16:52 Digoxin 1.2 ng/ml (0.8-2.0) 02/12/22 15:44 SARS-CoV-2 (PCR) NEGATIVE (Negative) 02/12/22 17:30 Influenza Type A (PCR) Negative (Neg) 02/12/22 17:30 Influenza Type B (PCR) Negative (Neg) 02/12/22 17:30 RSV (RT-PCR) Negative (Neg) 02/12/22 17:30 SARS-CoV-2, RNA, NAAT NEGATIVE (NEGATIVE) 02/12/22 11:17 Impressions Abdomen/Pelvis CT 02/12/22 13:14 CT SCAN OF THE ABDOMEN AND PELVIS WITH IV CONTRAST CLINICAL HISTORY: Nausea and vomiting. Anorexia. COMPARISON STUDY: Abdominal CT dated 02/19/2019. TECHNIQUE: Following the IV administration of 88 cc of Optiray 350, CT scan of the abdomen and pelvis is performed from the lung bases to the proximal femora. Images are reviewed in the axial, sagittal, and coronal planes. IV contrast was administered without complication. A dose lowering technique was utilized adhering to the principles of ALARA. CT DOSE: 1843.71 mGy.cm FINDINGS: Lung bases: The heart is mildly enlarged and without pericardial effusion. The mitral annulus is densely calcified. There is a small hiatal hernia. Evaluation of the lung bases is degraded by motion artifact. The lung bases are grossly clear noting bibasilar scarring/atelectasis. Liver: The contrast-enhanced liver is normal in size, contour, and attenuation. There is no intrahepatic biliary ductal dilatation. The hepatic veins and portal veins are patent. Gallbladder: Unremarkable. Spleen: Normal in size and attenuation. Pancreas: Moderately atrophic and grossly unremarkable. Adrenal glands: Unremarkable. Kidneys: The contrast enhanced kidneys history cortical atrophy and are without hydronephrosis. The kidneys enhance symmetrically. Renal sinus cysts are noted bilaterally. Abdominal vasculature: The abdominal aorta is normal in course and caliber noting advanced atherosclerotic calcification. An infrarenal IVC filter is in place. Bowel: There is mild colonic diverticulosis without CT evidence of acute diverticulitis. No bowel obstruction is seen. [id number] fecal retention is noted throughout the colon. The appendix is well-visualized and normal. Peritoneum: There is no intraperitoneal free air or abdominal ascites. Lymphadenopathy: None. Pelvic viscera: The bladder is normal as visualized. There are calcified fibroids. The endometrium is significantly thickened for age, measuring up to 1.9 cm. A 1.9 cm simple cystic lesion is seen in the left ovary on image #332. This has been present dating back to at least 2019. Skeletal structures: The skeletal structures are osteopenic. There is mild to moderate lumbosacral spondylosis. There are minimal compression deformities of T 11 and L5. No lytic or blastic lesions are seen. IMPRESSION: 1. No acute infectious or inflammatory findings are identified in the abdomen or pelvis. 2. The endometrium is significantly thickened for age measuring up to 1.9 cm. This is not well assessed by CT, and nonemergent follow-up with gynecology and pelvic ultrasound is recommended for further evaluation. 3. Additional findings as above. ACT 112: Negative or not required by law. Electronically signed by: Olayinka Conde M.D. 02/12/2022 3:09 PM Chest X-Ray 02/12/22 13:14 XR chest 1V portable CLINICAL HISTORY: weakness TECHNIQUE: Single frontal radiograph of the chest was obtained. Comparison: Comparison is made to chest radiograph 02/09/2022 FINDINGS: No lines and tubes are seen. Cardiomegaly is noted. There is faint right lower lung airspace opacity. No evidence of pleural effusion or pneumothorax. IMPRESSION: Faint right lower lung airspace opacity likely represents atelectasis with or without superimposed aspiration/pneumonia. Stable cardiomegaly. ACT 112: Negative or not required by law. Electronically signed by: Mervin Mathis M.D. 02/12/2022 2:[address] 02/12/22 13:[address] DOSE: HISTORY: Weakness. TECHNIQUE: Multiaxial CT images of the head were performed without the use of intravenous contrast. Automated exposure control was utilized for this study. A dose lowering technique was utilized adhering to the principles of ALARA. Comparison: None. Findings: The paranasal sinuses and mastoid air cells are clear. The calvarium and skull base are intact. There is no mass, hematoma, midline shift, acute infarct. White matter hypodensity is nonspecific but suggestive of microvascular ischemic change. The ventricles and sulci demonstrate mild age-related involutional changes. Mild motion artifact. 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 Impression: No acute intracranial abnormality. ACT 112: Negative or not required by law. Electronically signed by: Kayden Perez M.D. 02/12/2022 3:[address] 02/15/22 08:33 CT OF THE CHEST WITHOUT IV CONTRAST CLINICAL HISTORY: Hypoxia. COMPARISON STUDY: Chest CT September 28, 2018. Chest radiograph February 12, 2022. CT DOSE: 301.22 mGy.cm TECHNIQUE: Axial images of the chest were obtained without IV contrast. Images were reviewed in the axial, sagittal, and coronal planes. IV contrast was not administered for this examination. Automated exposure control was utilized for the study. A dose lowering technique was utilized adhering to the principles of ALARA. FINDINGS: This exam is compromised by motion artifact. Dilatation of the central pulmonary arteries is similar to CT of September 28, 2018. The thyroid goiter shown on that exam has been resected. Cardiomegaly is unchanged. There is no pericardial effusion. No enlarged thoracic lymph nodes are identified. There is no pneumothorax or pleural effusion. Lungs are suboptimally assessed due to respiratory motion. There is no consolidation to suggest pneumonia. Minimal subpleural opacity within the right upper lobe on axial image 58 of 231 is unchanged since prior exam. This favors scarring. Minimal groundglass opacities with mosaic attenuation within the lungs are noted. Old sternal and thoracic spi ne compression deformity is are unchanged. There is a small hiatal hernia. IMPRESSION: 1. No consolidation to suggest pneumonia. Mild groundglass opacities with mosaic attenuation within the lungs. The findings could reflect atelectasis or air trapping. 2. Dilatation of the central pulmonary arteries, similar to prior exam. This suggests pulmonary arterial hypertension. 3. No pneumothorax. No pleural effusion. 4. Small hiatal hernia. ACT 112: Negative or not required by law. Electronically signed by: Johny Peace M.D. 02/15/2022 3:05 PM Medications Administered Current Inpatient Medications Acetaminophen (Acetaminophen 325 Mg Tab) 650 mg PO Q4H PRN PRN Reason: Pain or Fever Stop: 03/14/22 16:30 Last Admin: 02/15/22 04:12 Dose: 650 mg Atorvastatin Calcium (Atorvastatin 20 Mg Tab) 20 mg PO QDL [facility] Stop: 03/15/22 11:29 Last Admin: 02/17/22 12:34 Dose: 20 mg Calcitriol (Calcitriol 0.25 Mcg Capsule) 0.5 mcg PO QAM [facility] Stop: 03/17/22 08:59 Last Admin: 02/17/22 08:15 Dose: 0.5 mcg Calcium Carbonate (Calcium Carbonate 1250mg Tab) 2,500 mg PO TID [facility] Stop: 03/16/22 13:59 Last Admin: 02/17/22 08:15 Dose: 2,500 mg Digoxin (Digoxin 0.125 Mg Tab) 0.125 mg PO DAILY@1600 [facility] Stop: 03/14/22 16:44 Last Admin: 02/16/22 16:58 Dose: 0.125 mg Levothyroxine Sodium (Levothyroxine Sodium 112 Mcg Tablet) 112 mcg PO DAILYBB [facility] Stop: 03/15/22 06:29 Last Admin: 02/17/22 05:39 Dose: 112 mcg Lisinopril (Lisinopril 10 Mg Tab) 10 mg PO QDL [facility] Stop: 03/15/22 11:29 Last Admin: 02/17/22 12:34 Dose: 10 mg Loratadine (Loratadine 10 Mg Tab) 10 mg PO QAM [facility] Stop: 03/15/22 08:59 Last Admin: 02/17/22 08:15 Dose: 10 mg Magnesium Oxide (Magnesium Oxide 400 Mg Tab) 400 mg PO BID [facility] Stop: 03/14/22 20:59 Last Admin: 02/17/22 08:15 Dose: 400 mg Metoprolol Succinate (Metoprolol Succ 25mg Ext Rel Tab) 25 mg PO HS [facility] Stop: 03/14/22 20:59 Last Admin: 02/16/22 20:14 Dose: 25 mg Metoprolol Succinate (Metoprolol Succ 50mg Ext Rel Tab) 100 mg PO QAM [facility] Stop: 03/15/22 08:59 Last Admin: 02/17/22 08:15 Dose: 100 mg Ondansetron HCl (Ondansetron Inj 2 Mg/Ml 2 Ml Vial) 4 mg IV Q6H PRN PRN Reason: Nausea Stop: 03/14/22 16:30 Pantoprazole Sodium (Pantoprazole 40 Mg Tab) 40 mg PO DAILY [facility] Stop: 03/15/22 08:59 Last Admin: 02/17/22 08:15 Dose: 40 mg Polyethylene Glycol (Polyethylene (Miralax) 17 Gm Pack) 17 gm PO DAILY PRN PRN Reason: Constipation Stop: 03/14/22 16:30 Torsemide (Torsemide 10 Mg Tab) [facility] [place] Stop: 03/18/22 11:14 Last Admin: 02/17/22 08:15 Dose: 20 mg Vitamin D (Cholecalciferol 1,000 Units 25 Mcg Tab) 1,000 units [facility] [place] Stop: 03/15/22 11:14 Last Admin: 02/17/22 08:15 Dose: 1,000 units Warfarin Sodium (Warfarin Sod 5 Mg Tab) 5 mg PO DAILY@1600 [facility] Stop: 03/16/22 15:59 Last Admin: 02/16/22 16:58 Dose: 5 mg
[2022-02-17] MEDS: lisinopril 10 MG TAB PO SCH (12:34)
[2022-02-17] MEDS: ATORVASTATIN 20 MG TAB PO SCH (12:34)
[2022-02-17] MEDS ORDERED: ACETAMINOPHEN 325 MG TAB PO PRN (14:57)
[2022-02-17] MEDS: DIGOXIN 0.125 MG TAB PO SCH (15:51)
[2022-02-17] MEDS: WARFARIN SOD 5 MG TAB PO SCH (15:51)
--- NOTE | 2022-02-17 16:48 | Discharge Summary ---
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 History obtained from patient, patient's daughter and son and chart review. Patient with recent left knee arthroscopy secondary to left medial meniscus tear on 02/04/2022. Reports knee seems to be healing well without noted discharge and is not having any pain currently. Recent hospitalization 02/07/2022-02/10/2022 for acute diastolic heart failure and was diuresed with IV Lasix. She was discharged on home 2 L home oxygen for hypoxia. Since being home has had generalized weakness and fatigue. Been sleeping most of the day. Today so weak was unable to get up and walk. Has been also having nausea and vomiting past couple of days. Denies any known choking. Denies any fever/chills, cough, or shortness of breath, diaphoresis, hematemesis, diarrhea, constipation, SANDERS, dizziness, syncope, vision changes, neck pain, CP, orthopnea, palpitations, cough, sore throat, choking, otalgia, rhinorrhea, abdominal pain, paresthesias, increased extremity edema, rashes, urinary symptoms. Admission Exam Per Admitting Provider General: no distress, WDWN Head: normocephalic, atraumatic Eyes: conjunctiva non-injected, anicteric ENT: normal inspection external ears, nose, mucous membranes moist Neck: supple, trachea midline Lungs: no respiratory distress on current 2L via NC, +rales RLL, no wheezing/rhonchi CV: RRR, no murmur, trace pretibial edema Abd: protuberant, normal BS, soft, non-tender Ext: no cyanosis, no calf tenderness; Left knee: +steri strips over anterior knee without surrounding erythema, no discharge or erythema Neuro: Appears fatigued and sleepy however is A&O x 3, no focal deficits noted, normal affect Skin: warm, dry Principal Diagnosis hypocalcemia Discharge Exam General- oriented x 3, not in distress, speaks in sentences with no effort or accessory muscle use Eyes- anicteric Neck- no JVD Lungs- clear breath sounds bilaterally, no crackles, no wheezing Heart- normal rate, regular rhythm; no murmurs Abdomen- normal bowel sounds, nondistended, soft, nontender Extremities- RLE: mild edema, no calf tenderness LLE: moderate edema, no tenderness/erythema/warmth knee wound: dressing in place Neuro- alert, oriented x 3; no gross focal neurologic deficits Skin- warm & dry Discharge Data Allergies Allergy/AdvReac Type Severity Reaction Status Date / Time No Known Drug Allergies Allergy Unknown Verified 02/07/22 15:43 Consultations 02/12/22 13:02 ED Decision to Admit Stat 02/12/22 18:52 Consult Nephrology Routine 02/13/22 07:56 Consult Nephrology Routine 02/16/22 18:44 Consult Pulmonology Routine Ordered Studies 02/12/22 13:14 CT Abd and Pelvis [CT abd pelvis IV con only] Stat 02/12/22 13:47 CT head/brain wo con Stat 02/15/22 08:33 CT chest diagnostic wo con Routine Hospital Course (1) Weakness: - likely in the setting of 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 She was discharged on home 2 L home oxygen for hypoxia. - started on torsemide 20 mg p.o. 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 afib - needs outpatient work up - required O2 1L NC on initial 2-step 02/10/2022 - repeat ordered 02/17/2022 - tolerated exertion on RA - no oxygen needed on discharge (4) Atrial fibrillation: - History of paroxysmal atrial fibrillation - anticoagulated on Coumadin - daily INR while inpatient - Continue metoprolol succinate, digoxin (5) HLD (hyperlipidemia): - continue statin (6) Hypertension: - Continue metoprolol succinate and lisinopril Plan DVT ppx: coumadin Code Status: Full Code Dispo: telemetry Edgardo Horton MD [facility] Medicine Total Time Total Time Spent Total Time Spent (In Minutes): 35 Total Time Includes: Examination of the Patient, Discharge Planning, Medication Reconciliation and Communication With Other Providers Discharge Plan Discharge Items Patient Disposition: Hospice - Home Reason For Visit: WEAKNESS Discharge Diagnosis: hypocalcemia Activity: Resume your previous activity Non-emergency contact: Primary Care Provider, Specialist, Doughnut Dough Mixer, Cracking Machine Operator and Circuit Rider Call non-emergency contact if: you have any medication questions and your sympt oms worsen Follow-up/Referrals: Astrid Carrasco MD, FCCP [Physician] - Olvin Peres MD [Surgeon] - (Date & Time 03/04/2022 10:20 AM Provider Olvin Peres MD Department Nephrology [facility] ) Gilda Craig MD [Primary Care Provider] - (Date & Time 02/23/2022 11:00 AM Provider Gilda Craig MD Department Family [facility] ) Diet: Heart Healthy Addtl Attending Provider Instructions: You were admitted for weakness, found to have low calcium. You were seen by a supervisor tank house who gave you IV calcium and then you are to continue with calcium supplements and vitamin D supplements by mouth. The low calcium is probably a result of your parathyroid gland being removed when you got your thyroid gland removed. Parathyroid glad regulates your calcium levels. You should follow up with your Primary care doctor as well as your Scarfer Operator for further management of your calcium levels. You were also seen by pulmonary doctor for oxygenation, which improved by time of discharge and do not require oxygen at home. You should follow up with Pulmonary and Cardiology for heart function a ssessment. Pending Studies at Discharge: No Stand-Alone Forms: My [facility] Sviral Medications and DC Order Prescriptions: New torsemide 10 mg Tablet 20 mg PO QAM Qty: 30 0RF calcitriol 0.25 mcg Capsule 0.5 mcg PO QAM Qty: 60 0RF cholecalciferol (vitamin D3) 25 mcg (1,000 unit) Capsule 1,000 unit PO QAM Qty: 30 0RF calcium carbonate-vitamin D3 [Os-Chris 500 + D3] 500 mg-15 mcg (600 unit) tablet 5 tab PO TID Qty: 450 0RF Continued loratadine [Claritin] 10 mg tablet 10 mg PO QAM levothyroxine 112 mcg tablet 112 mcg PO DAILYBB digoxin [Digitek] 125 mcg (0.125 mg) Tablet 125 mcg PO DAILY@1600 Qty: 30 2RF atorvastatin [Lipitor] 20 mg tablet 20 mg PO QDL lisinopril [Zestril] 10 mg tablet 10 mg PO QDL calcium carbonate [Tums] 300 mg (750 mg) Tablet,Chewable 300 mg PO QPM Rx Instructions: MAY TAKE UP TO TO 1,000MG DAILY. metoprolol succinate 100 mg tablet extended release 24 hr 100 mg PO QAM albuterol sulfate 90 mcg/actuation Hfa Aerosol Inhaler 1 inh INHALATION QID PRN (Reason: sob) acetaminophen 500 mg Tablet 1,000 mg PO BID PRN (Reason: Pain) tramadol 50 mg Tablet 50 mg PO Q6H PRN (Reason: Pain) cholecalciferol (vitamin D3) 1,250 mcg (50,000 unit) capsule 50,000 unit PO WK Rx Instructions: TAKE THIS MED EVERY TUESDAY metoprolol succinate 25 mg tablet extended release 24 hr 25 mg PO HS magnesium oxide 400 mg (241.3 mg magnesium) Tablet 400 mg PO BID 5 Days Qty: 10 0RF pantoprazole [Protonix] 40 mg tablet,delayed release (DR/EC) 40 mg PO DAILY 14 Days Qty: 14 0RF warfarin 5 mg tablet 5 mg PO UD Rx Instructions: 5mg on tues, thur, sat. 7.5mg on sun, mon, wed, fri Discontinued furosemide 40 mg tablet 40 mg PO QAM Discharge Orders: Discharge Order (Routine); Ordered 02/17/22 Ordered By: Edgardo Horton Admission Data Admit Date/Time: 02/12/22 14:50 Attending Provider: Edgardo Horton Admit Provider: Shiloh Meneses Primary Care Provider: Gilda Craig Other Providers: Shiloh Meneses ; Olvin Peres ; Astrid Carrasco Other Interventions: Discharge Summary Assessment (RN) Last Done: 02/17/22 14:47
== END 2022-02-17 16:40 | disposition home or self-care (01) | DRG 643 ==
LOC: ED 10:05 → SUATTDRO 14:50 → 2N 14:50

== ENCOUNTER 2023-05-01 11:35 | Inpatient (IN) ==
--- OUTSIDE RECORDS SUMMARY | 2023-05-01 11:42 | External Medical Summary ---
Author Name Unknown Address Unknown Organization [id number]:[facility] [place] - [address] [place] [address] Laboratory Report Ordering Provider Test Date Status AMADOU PERRY 04/27/2023 12:51:36 Final Observation Date Value Abnormality Reference (Units ) Status Parathyrin.intact [Mass/volume] in Serum or Plasma 04/27/2023 12:51:36 14 Below low normal 15-65 (pg/mL) Final Performing Location [facility] [place] - [address] [place] [address]
--- OUTSIDE RECORDS SUMMARY | 2023-05-01 11:42 | External Medical Summary ---
Author Name Unknown Address Unknown Organization [id number][place] [place] [address] [facility] [address] Laboratory Report Ordering Provider Test Date Status AMADOU PERRY 04/27/2023 12:51:36 Final Observation Date Value Abnormality Reference (Units ) Status WBC, Total 04/27/2023 12:51:36 10.67 4.00-10.80 (K/uL) Final RBC 04/27/2023 12:51:36 4.34 3.85-5.15 (M/uL) Final Hemoglobin 04/27/2023 12:51:36 13.4 12.0-15.3 (g/dL) Final HCT 04/27/2023 12:51:36 42.4 36.0-45.2 (%) Final MCV 04/27/2023 12:51:36 97.7 81.5-97.5 (fL) Final MCH 04/27/2023 12:51:36 30.9 27.0-34.0 (pg) Final MCHC 04/27/2023 12:51:36 31.6 32.0-36.0 (g/dL) Final RDW 04/27/2023 12:51:36 13.2 11.5-15.5 (%) Final Platelets 04/27/2023 12:51:36 251 140-400 (K/uL) Final MPV 04/27/2023 12:51:36 10.6 6.6-11.1 (fL) Final Nucleated erythrocytes/100 leukocytes [Ratio] in Blood by Automated count 04/27/2023 12:51:36 0 <=0 (/100 WBCs) Final Performing Location [facility] [place] [address] [place] [address]
--- OUTSIDE RECORDS SUMMARY | 2023-05-01 11:42 | External Medical Summary | Summary of Care ---
Author Name Unknown Organization [facility] Address [address] [place] [address] Phone [phone] Care Team Providers Care Physicist Astrophysics Name Role Phone Cornel Salgueroothy Primary Care Provid er Reason for Visit * Reason Comments Acute Encounter Details Date Type Department Care Team ([facility] Contact Info) Description 04/28/2023 10:00 AM EST Office Visit [address] [phone] Petra Marquez MD [address] [place] [phone] COPD exacerbation (HCC)*; Risk and functional assessment Allergies No known active allergiesdocumented as of this encounter (statuses as of 04/29/2023) Medications Medication Sig Dispensed Refills Start Date End Date Status SYMBICORT 160-4.5 MCG/ACT inhaler As needed 2 03/23/2019 Active Acetaminophen ER 650 MG Oral Tablet Extended Release Take 1 Tablet by mouth every 8 hours as needed for Pain, Moderate. 0 Active diphenhydrAMINE HCl 25 MG Oral Tablet Take 1 Tablet by mouth every 6 hours as needed for Itching. 0 Active Calcium Carbonate Antacid 500 MG Oral Tablet ChewableIndications :Hypocalcemia,Stage 3b chronic kidney disease (HCC) Take 3 Tablets by mouth in the morning and 3 Tablets before bedtime. 0 03/10/2022 Active Loratadine 10 MG Oral Tablet (Claritin)Indicatio ns:Dysfunction of Eustachian tube, bilateral Take 1 Tablet by mouth in the morning. 90 Tablet 3 07/07/2022 Active Levothyroxine Sodium 112 MCG Oral Tablet (Levoxyl)Indication s:Postoperative hypothyroidism Take 1 Tablet by mouth in the morning. (at least 30 min prior to breakfast or other meds). 30 Tablet 11 07/07/2022 Active Atorvastatin Calcium 20 MG Oral Tablet (Lipitor)Indication s:Dyslipidemia, goal LDL below 130 TAKE 1 TABLET BY MOUTH ONCE DAILY IN THE MORNING FOR cholesterol 90 Tablet 3 08/18/2022 Active Lisinopril 10 MG Oral Tablet (Prinivil)Indicatio ns:HTN, goal below 140/90 TAKE 1 TABLET BY MOUTH ONCE DAILY IN THE MORNING 90 Tablet 3 08/26/2022 Active Metoprolol Succinate ER 25 MG Oral Tablet Extended Release 24 Hour (Toprol XL) Take 1 Tablet by mouth every evening. 90 Tablet 3 09/03/2022 Active Metoprolol Succinate ER 100 MG Oral Tablet Extended Release 24 Hour (toPROL XL) Take 1 Tablet by mouth in the morning. 90 Tablet 3 09/16/2022 Active Apixaban 5 MG Oral Tablet (Eliquis) Take 1 Tablet by mouth in the morning and 1 Tablet before bedtime. 180 Tablet 3 09/16/2022 Active Vitamin D 25 MCG (1000 UT) Oral TabletIndications:H ypocalcemia,Chronic kidney disease, stage 3b (HCC) TAKE 1 TABLET BY MOUTH ONCE DAILY IN THE MORNING 30 Tablet 5 10/27/2022 Active Torsemide 10 MG Oral Tablet (Demadex) TAKE 1 TABLET BY MOUTH ONCE DAILY IN THE MORNING 90 Tablet 2 03/25/2023 Active Ventolin HFA 108 (90 Base) MCG/ACT Inhalation Aerosol SolutionIndications :Acute bronchitis, unspecified organism,COPD, mild (HCC) Inhale 2 Puffs by mouth every 4 hours as needed for Wheezing. 18 g 0 03/25/2023 Active Calcitriol 0.25 MCG Oral Capsule (Rocaltrol) TAKE 1 CAPSULE BY MOUTH ONCE DAILY IN THE MORNING 30 Capsule 5 04/12/2023 Active Doxycycline Hyclate 100 MG Oral CapsuleIndications: COPD exacerbation (HCC) Take 1 Capsule by mouth in the morning and 1 Capsule before bedtime. Do all this for 7 days. Until gone.. 14 Capsule 0 04/28/2023 Active predniSONE 20 MG Oral Tablet (Deltasone)Indicati ons:COPD exacerbation (HCC) Take 3 tabs for 3 days, 2 tabs for 3 days, 1 tab for 3 days, 1/2 tab for 3 days 20 Tablet 0 04/28/2023 Active Ipratropium-Albuter ol 0.5-2.5 (3) MG/3ML Inhalation Solution (Duoneb)Indications :COPD exacerbation (HCC) Inhale 3 mL via nebulizer every 4 hours as needed for Wheezing or Shortness of Breath. 360 mL 2 04/28/2023 4 Active Benzonatate 200 MG Oral Capsule Take 1 Capsule by mouth 3 times a day as needed for Cough. 30 Capsule 0 04/28/2023 Active Benzonatate 200 MG Oral CapsuleIndications: Acute bronchitis, unspecified organism,COPD, mild (HCC) Take 1 Capsule by mouth 3 times a day as needed for Cough. 30 Capsule 0 03/25/2023 4 Discontinu ed(Refill) documented as of this encounter (statuses as of 04/29/2023) Active Problems Problem Noted Date Diagnosed Date COPD, group A, by GOLD 2017 classification 12/06 Overview: Per COPD GOLD Classification Stage 3a chronic kidney disease 11/23/2022 Degenerative tear of left medial meniscus 2021 Lymphedema 11/24/2021 Atrial fibrillation, unspecified type 10/21/2021 B12 deficiency 08/03/2021 Essential hypertension with goal blood pressure less than 140/90 01/16/2021 Postoperative hypothyroidism 01/16/2021 Dyslipidemia, goal LDL below 130 01/16/2021 Dementia without behavioral disturbance 08/15/19 21 Overview: ICD-10 update of inactive term Chronic deep vein thrombosis (DVT) of proximal vein of left lower extremity 08/14/2020 Chronic anticoagulation 11/19/2019 Lymphedema of left leg 05/14/2019 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 documented as of this encounter (statuses as of 04/29/2023) Resolved Problems Problem Noted Date Diagnosed Date Resolved Date COPD, mild 08/14/2020 12/09/2022 Overview: Per COPD GOLD Classification Kidney disease, chronic, sta ge III (GFR 30-59 ml/min) 02/05/2019 05/14/2019 Overview: Per CKD protocol Menopause 06/12/2007 09/13/2018 Overview: Age 57yrs, hrt x 4 wks Anticoagulation management encounter 04/06/2006 09/13/2018 documented as of this encounter (statuses as of 04/29/2023) Immunizations Name Administration Dates Next Due COVID-19 mRNA, LNP-s, No Pre serve, 2-Dose Series (MediBeacon) 03/13/2021,06/19/2020,05/29/2020 Pneumococcal Conjugate Vacc, 13 Valent (Prevnar) 09/11/2015 Season Influenza, Quad, PF, Adjuvanted, 65+ Yrs, IM (FLUAD) 03/10/2020 Seasonal Influenza, PF, 6 M & above, IM , (FluLaval or Fluzone) 02/09/2018,02/03/2017 Seasonal Influenza, Quadriva lent Hd (Fluzone Hd) 02/23/2022,01/16/2021 Seasonal Influenza, Quadriva lent, No Preserve, IM 02/23/2016,02/12/2015 Seasonal Influenza, Split, I IV3, With Preserve, Inj 02/06/2014,02/02/2013,06/01/2012,2008(Deferred: Patient Refused) Seasonal Influenza, Trivalen t, Adjuvanted, 65+ yrs 03/29/2019 TDAP (age 10 and older)(Boostrix) 09/11/2015 documented as of this encounter Social History Tobacco Use Types Packs/Day Years Used Date Smoking Tobacco: Never Passive Smoke Exposure: Never Smokeless Tobacco: Never Comments:No passive smoke ex posure Alcohol Use Standard Drinks/Week Comments Yes 0 (1 standard drink = 0.6 oz pur e alcohol) rare PHQ-2 Answer Date Recorded PHQ Adult Total Score 0 03/25/2023 Hunger Vital Sign Answer Date Recorded Within the past 12 months, y ou worried that your food would run out before you got the money to buy more. Never true 11/24/19 23 Within the past 12 months, t he food you bought just didn't last and you didn't have money to get more. Never true 11/23/2022 Sex and Gender Information Value Date Recorded Sex Assigned at Female 09/15/2018 10:45 AM EDT Gender Identity Female 09/15/2018 10:45 AM EDT Sexual Orientation Straight 09/15/2018 10 :45 AM EDT Job Start Date Occupation Industry Not on file Not on file Not on file documented as of this encounter Last Filed Vital Signs Vital Sign Reading Time Taken Comments Blood Pressure 110/62 04/28/2023 9:48 AM EST Pulse 108 04/28/2023 9:48 AM EST Temperature 37.8 C (100.1 F) 04/28/2023 9:[address] Respiratory Rate 20 04/28/2023 9:48 AM EST Oxygen Saturation 91% 04/28/2023 9:48 AM EST Inhaled Oxygen Concentration - - Weight 75 kg (165 lb 6.4 oz) 04/28/2023 9:48 AM EST Height - - Body Mass Index 32.3 03/25/2023 11:34 AM EST documented in this encounter Functional Status Functional Status Response Date of Assess ment Are you deaf or do you have serious difficulty h earing? No 12/03/2019 Are you blind or do you have serious difficulty seeing, even when wearing glasses? No 12/03/2019 Do you have serious difficul ty walking or climbing stairs? (5 years old or older) No 12/03/2019 Do you have difficulty dress ing or bathing? (5 years old or older) No 12/03/2019 Because of a physical, menta l, or emotional condition, do you have difficulty doing errands alone such as visiting a doctor s office or shopping? (15 years old or older) No 12/03/19 20 Cognitive Status Response Date of Assessm ent Because of a physical, menta l, or emotional condition, do you have serious difficulty concentrating, remembering, or making decisions? (5 years old or older) No 12/03/2019 documented as of this encounter Patient Instructions * Patient Instructions* Chen Holt, MED ASSIST - 04/28/2023 9:49 AM EST Patient Instructions - Fall Prevention (This education is for all patients over 65 regardless of symptoms) Remember to take your current medications as prescribed. In order to prevent falls, you are encouraged to: Exercise Utilize assistive/adaptive devices Avoid multifocal lenses when walking Avoid hazards in home Maintain a regular toileting schedule Any questions please contact our office. Preventing Falls in the Home (This education is for all patients over 65 regardless of symptoms) As you get older, falls are more likely. Thats because your reaction time slows. Your muscles and joints may also get stiffer, making them less flexible. Illness, medications, and vision changes can also affect your balance. A fall could leave you unable to live on your own. To make your home safer, follow these tips: Floors Put nonskid pads under area rugs Remove throw rugs Replace worn floor coverings Tack carpets firmly to each step on carpeted stairs. Put nonskid strips on the edges of uncarpeted stairs Keep floors and stairs free of clutter and cords Arrange furniture so there are clear pathways Clean up any spills right away Bathrooms Install grab bars in the tub or shower Apply nonskid strips or put a nonskid rubber mat in the tub or shower Sit on a bath chair to bathe Use bathmats with nonskid backing Lighting Keep a flashlight in each room Put a nightlight along the pathway between the bedroom and the bathroom [employer] Patient Education Copyright 2008 - 2010 Kate except where otherwise noted Preventing Falls: Exercises to Improve Balance, Flexibility, Strength, and Staying Power (This education is for all patients over 65 regardless of symptoms) Certain types of exercises may help make you less likely to fall. Try the ones below. Or do other exercises that your healthcare provider suggests. Depending on your health, you may need to start slowly. Dont let that stop you. Even small amounts of exercise can help you. Be sure to talk to yourhealthcare provider before starting any exercise program. Improve Balance Many types of exercise can help improve balance. Graeme chi and yoga are good examples. Heres another one to try. You can do it anytime and almost anywhere. Stand next to a counter or solid support. Push yourself up onto your tiptoes. Hold for 5 seconds. If you start to lose your balance, hold on to the counter. Rest and repeat 5 times. Work up to holding for 20 to 30 seconds, if you can. Increase Flexibility Being more flexible makes it easier for you to move around safely. Try exercises like the seated hamstring stretch. Sit in a chair and put one foot on a stool. Straighten your leg and reach with both hands down either side of your leg. Reach as far down your leg as you can. Hold for about 20 seconds. Go back to the starting position. Then repeat 5 times. Switch legs. Build Strength Resistance exercises help build strength. You can do them without equipment. Or you can use weights, elastic bands, or special machines. One such exercise is called the biceps curl. You can hold a 1 pound weight or even a can of soup. Do this exercise at least 3 times a week. Strive for everyday. Sit up straight in a chair. Keep your elbow close to your body and your wrist straight. Bend your arm, moving your hand up to your shoulder. Then slowly lower your arm. Repeat 5 times. Switch to the other arm. Build Your Staying Power Aerobic exercises make your heart and lungs stronger so you can keep moving longer. Walking and swimming are two of the best types of exercises you can do. Using a stationary bike is great, too. Find an aerobic exercise that you enjoy. Start slowly and build up. Even 5 minutes is helpful. Aimfor a goal of 30 minutes, at least 3 times a week. You dont have to do 30 minutes in one session. Break it up and walk a little throughout the day. More Helpful Tips Start easy. Slowly work up to doing more. Talk with your healthcare provider about the best exercises for you. Call senior centers or health clubs about exercise programs. If needed, have a family member watch you walk every so often to check your stability. Exercise with a friend. Choose an activity you both enjoy. Try exercises that you can do anytime, anywhere. Here are two examples. Have someone with you when you first try these: Practice walking by placing one foot right in front of the other. Stand up and sit down 10 times. Repeat this throughout the day. [email or web address] Patient Education Copyright 2008 - 2010 [email or web address] except where otherwise noted. Preventing Falls: Moving Safely Using a Cane or Walker (This education is for all patients over 65 regardless of symptoms) Keep the cane away from your feet so you dont trip. A walking aid, such as a cane or walker, can help you stay more independent and avoid falls. Remember to keep your walking aid within easy reach when youre in a chair or in bed. And learn how to use it safely so you dont injure yourself. Using a Cane If you have a stronger side, hold the cane on that side. Get your balance. Move the cane and your weaker leg forward. Support your weight on both the cane and your weaker side. Step with your stronger leg. Start again from step 1. If youre using a folding walker, be sure you know how to lock it open. Check that its locked open before each use. Using a Walker Roll the walker (or lift it, if youre using one without wheels) forward about 12 inches. Step forward with your weaker leg first. Use the walker to help keep your balance. Bring your other foot forward to the center of the walker. Start again from step 1. Helpful Tips Check with your healthcare provider about the right walking aid to use. Ask about a walker with a seat attached. Check the tips of your cane or walker to make sure they have nonskid covers. Move slowly from room to room. Dont prado. Sit down to get dressed. Use a belinda pack or backpack to keep your hands free. Get help for jobs that mean climbing, even on a stepstool. Kate Patient Education Copyright 2008 - 2010 Kate except where otherwise noted. Urinary Incontinence Plan of Care Documentation: (This education is for all patients over 65 regardless of symptoms) Current medications reconciled. Patient encouraged to: Practice kegal exercises Provide education materials Use the restroom every 2 hours throughout the day Limit caffeine, alcohol, spicy foods and acidic foods Keep a bladder diary Limit fluid intake 3-4 hours before bed Lose weight Prevent constipation Take fluid pills at a time when you can get to the bathroom quickly Control sugar better if diabetic Limit fluid intake to 60 oz. per day Wear support stockings (TEDs)if you have edema Chen Holt, MED ASSIST 04/28/2023 Kegel Exercises Kegel exercises dont require special clothing or equipment. Theyre easy to learn and simple to do. And if you do them right, no one can tell youre doing them, so they can be done almost anywhere. Your doctor, nurse, or physical therapist can answer any questions you have and help you get started. A Weak Pelvic Floor The pelvic floor muscles may weaken due to aging, and vaginal childbirth, injury, surgery, chronic cough, or lack of exercise. If the pelvic floor is weak, your bladder and other pelvic organs may sag out of place. The urethra may also open too easily and allow urine to leak out. Kegel exercises can help you strengthen your pelvic floor muscles so they can better support the pelvic organs and control urine flow. How Kegel Exercises Are Done Try each of the Kegel exercises described below. When youre doing them, try not to move your leg, buttock, or stomach muscles. While youre urinating, try to stop the flow of urine. Start and stop it as often as you can. Contract as if you were stopping your urine stream, but do it when youre not urinating. Tighten your rectum as if trying not to pass gas. Contract your anus, but dont move your buttocks. Helpful Hints Do your Kegels as often as you can. The more you do them, the faster youll feel the results. Pick an activity you do often as a reminder. For instance, do your Kegels every time you sit down. Tighten your pelvic floor before you sneeze, get up from a chair, cough, laugh, or lift. This protects your pelvic floor from injury and can help prevent urine leakage. Try to hold each Kegel for a slow count to five. You probably wont be able to hold them for thatlong at first, but keep practicing. It will get easier as your pelvic floor gets stronger. Eventually, special weights that you place in your vagina may be recommended to help make your Kegels even more effective. Kate Patient Education Copyright 2009 - 2011 Kate except where otherwise noted. Here are some helpful tips for your urinary incontinence: (This education is for all patients over 65 regardless of symptoms) Practice Kegel exercises Use the restroom every 2 hours throughout the day Limit caffeine, alcohol, spicy foods, and acidic foods Keep a bladder diary Limit fluid intake 3-4 hours before bed Lose weight Prevent constipation Take fluid pills at a time when can get to the bathroom quickly Control sugar better if diabetic Limit fluid intake to 60 oz. per day Any questions, please feel free to contact our office. documented in this encounter Progress Notes * Petra Marquez MD - 04/28/2023 10:04 AM EST Images from the original note were not included. History of Present Illness Rosaura Charles is a 87 year old female with COPD, hypothyroidism, dyslipidemia, atrial fibrillation, chronic DVT on Eliquis, hypertension, CKD 3athat presents for Acute Was treated for COPD exacerbation 03/25/2023. Completely resolved and she was feeling more normal. Then Tuesday she started again with productive cough, wheezing, SOB, and low grade fevers. Using albuterol inhaler frequently, but daughter has concerns she has trouble coordinating her inhalation anddoesn't get enough. No known new sick contacts. No chest pain. No increased work of breathing. Physical Exam Vitals: 04/28/23 0948 Temp: 37.8 C (100.1 F) Pulse: 108 Resp: 20 SpO2: 91% BP: 110/62 Physical Exam Vitals and nursing note reviewed. Constitutional: General: She is not in acute distress. Appearance: Normal appearance. HENT: Head: Normocephalic and atraumatic. Nose: Congestion present. Mouth/Throat: Mouth: Mucous membranes are moist. Pharynx: Oropharynx is clear. Eyes: Conjunctiva/sclera: Conjunctivae normal. Cardiovascular: Rate and Rhythm: Normal rate and regular rhythm. Pulses: Normal pulses. Heart sounds: Normal heart sounds. No murmur heard. Pulmonary: Effort: Pulmonary effort is normal. No respiratory distress. Breath sounds: Wheezing and rhonchi present. Comments: Diffuse wheezing and rhonchi with poor air movement Musculoskeletal: Right lower leg: Edema present. Left lower leg: Edema present. Comments: Chronic lymphedema Skin: General: Skin is warm and dry. Capillary Refill: Capillary refill takes less than 2 seconds. Findings: No rash. Neurological: General: No focal deficit present. Mental Status: She is alert. Mental status is at baseline. I have reviewed the following results: chest xray Assessment and Plan COPD exacerbation (HCC) Trial duonebs Q4H in place of albuterol with trouble using. Doxy and prednisone taper. Call if worsening. If increased work of breathing, proceed to ED. With second exacerbation, could consider addition of LAMA to daily regimen at follow up. - Doxycycline Hyclate 100 MG Oral Capsule; Take 1 Capsule by mouth in the morning and 1 Capsule before bedtime. Do all this for 7 days. Until gone.. - predniSONE 20 MG Oral Tablet (Deltasone); Take 3 tabs for 3 days, 2 tabs for 3 days, 1 tab for 3 days, 1/2 tab for 3 days - Ipratropium-Albuterol 0.5-2.5 (3) MG/3ML Inhalation Solution (Duoneb); Inhale 3 mL via nebulizer every 4 hours as needed for Wheezing or Shortness of Breath. - AEROSOL MASK,W/DME NEBULIZER - INFLUENZA A/B RSV SARS-COV2,PCR; Future - INFLUENZA A/B RSV SARS-COV2,PCR Risk and functional assessment Wrap-Up Follow-up: Return if symptoms worsen or fail to improve. | Check-out note: Help with DME for nebulizer Time: I spent a total of 20-29 minutes (exact time 23 mins) on the date of service in preparation, delivery, and documentation of the care provided to Rosaura Charles excluding any time spent in the performance of separately billed services. documented in this encounter Nursing Notes * Chen Holt MED ASSIST - 04/28/2023 9:55 AM EST The patient has been properly identified by confirmation of name and date of . Chief Complaint Patient presents with Acute Pt SOB, she has a fever and a cough. Sx started Tuesday. documented in this encounter Plan of Treatment Upcoming Encounters Date Type Department Care Team (Late st Contact Info) Description 05/26/2023 11:00 AM EST Laboratory Laboratory Patient [address] [phone] [place], [facility] [address] [place] [id number] 05/31/2023 11:40 AM EST Office Visit [facility] [address] [place] [id number] Cornel Salguero DO [address] [place] [address] 07/08/2023 11:30 AM EDT Office Visit Cardiology, [facility] [address] [place] [address] Jc Pickard MD [address] [place] [id number] 10/26/2023 10:00 AM EDT Office Visit [facility]ph[facility], [facility] [address] [facility] [address] Olvin Peres MD [address] [facility] [address] Pending Results Name Type Priority Associated Diagnoses Date /Time INFLUENZA A/B RSV SARS-COV2,PCR Lab Routine COPD exacerbation (HCC) 04/28/2023 2:29 PM EST Scheduled Orders Name Type Priority Associated Diagnoses Orde r Schedule INFLUENZA A/B RSV SARS-COV2,PCR Lab Routine COPD exacerbation (HCC) Expected: 04/28/2023 (Approximate), Expires: 04/27/2024 Health Maintenance Due Date Last Done Comments *COPD SEVERITY VERIFIED BY PFT 08/17/2020 DXA Scan 03/19/2022 03/19/2015, 06/2011, 06/15/2008 COVID-19 Vaccine ( season) 2022 03/13/2021, 06/19/2020, 05/29/2020 Influenza Vaccine (FLU shot) (#1) 2022 02/23/2022, 01/16/2021, 03/10/2020, Additional history exists Albumin/Creatinine Ratio 06/07/2023 06/07/2022, 0612/2019 TSH 11/20/2023 11/19/2022, 0404/2022, 02/23/2022, Additional history exists Depression Screening 03/25/2024 03/25/2023 CKD HGB USE SMARTSET 14788 04/27/202404/27, 04/27/2023, 11/19/2022, Additional history exists CKD PHOS USE SMARTSET 40608 04/27/202406/2023, 08/09/2022, 08/03/2022, Additional history exists O2 ASSESSMENT COMPLETED IN PAST YEAR FOR COPD 04/28/2024 04/28/2023 DTaP,Tdap,and Td Vaccines (2 - Td or Tdap) 09/10/2025 09/11/2015 Pneumococcal Vaccine: 65+ Years Completed 09/11/2015, 03/02/2005 Alpha-1 Antitrypsin Completed 07/27/2021 GARDASIL-HPV IMMUNIZATION SERIES Aged Out No longer eligible based on patient's age to complete this topic Hepatitis B Aged Out No longer eligi ble based on patient's age to complete this topic MENINGOCOCCAL (MENACTRA/MENVEO) Aged Out No longer eligible based on patient's age to complete this topic Zoster Vaccines Discontinued documented as of this encounter Medical Devices Not on filedocumented as of this encounter Visit Diagnoses Diagnosis COPD exacerbation (HCC)- Primary Obstructive chronic bronchitis with exacerbation Risk and functional assessment Screening for unspecified condition documented in this encounter Advance Directives Latest Code Status on File Code Status Date Activated Date Inactivated Comments Full Code 12/03/2019 3:59 PM 12/05/2019 7:00 PM This order reflects the patients wishes and were consensually agreed upon. Question Answer Comments Discussion of Advance Directives occurred with: Not Discussed Care Teams Physicist Astrophysics Relationship Specialty Start Date End Date Cornel Salguero DO [address] [place] [id number] PCP - General Internal Medicine 11/03/22 documented as of this encounter"
--- OUTSIDE RECORDS SUMMARY | 2023-05-01 11:42 | External Medical Summary ---
Author Name Unknown Address Unknown Organization [id number]:[facility] [place] [address] [place] [address] Laboratory Report Ordering Provider Test Date Status AMADOU PERRY 04/27/2023 12:51:36 Final Normal: <150 mg/ g creatinine
High: 150-500 mg/g creatinine
Very High: >500 mg/g creatinine
Nephrotic: >3000 mg/g creatinine Observation Date Value Abnormality Reference (Units ) Status Protein/Creatinine [Ratio] in Urine 04/27/2023 12:51:36 258 Above high normal <150 (mg/g ) Final Protein, Urine 04/27/2023 12:51:36 42 (mg/dL) Final Creatinine, Urine 04/27/2023 12:51:36 163 (mg/dL) Final Performing Location [facility] [place] - [address] [place] [address]
--- OUTSIDE RECORDS SUMMARY | 2023-05-01 11:42 | External Medical Summary ---
Author Name Unknown Address Unknown Organization [id number][place] [place] [address] [facility] [place] [address] Laboratory Report Ordering Provider Test Date Status AMADOU PERRY 04/27/2023 12:51:36 Final Observation Date Value Abnormality Reference (Units ) Status SYNC LEUKOCYTES IN BLOOD BY AUTOMATED COUNT 04/27/2023 12:51:36 10.67 4.00-10.80 (K/uL) Final Segs 04/27/2023 12:51:36 71.7 40.0-75.0 (%) Final Lymphs % 04/27/2023 12:51:36 18.6 18.0-42.0 (%) Final Monos 04/27/2023 12:51:36 7.8 1.0-11.0 (%) Final Eosinophils 04/27/2023 12:51:36 0.5 0.0-6.0 (%) Final Basos 04/27/2023 12:51:36 0.7 0.0-2.0 (%) Final Immature Granulocyte, Percent 04/27/2023 12:51:36 0.7 0.0-2.0 (%) Final Absolute Segs 04/27/2023 12:51:36 7.67 1.80-7.70 (K/uL) Final Lymphs, absolute 04/27/2023 12:51:36 1.98 1.00-4.80 (K/ul) Final Monos, Abs 04/27/2023 12:51:36 0.83 0.00-1.10 (K/uL) Final Eos, Abs 04/27/2023 12:51:36 0.05 0.00-0.70 (K/uL) Final Basos, Abs 04/27/2023 12:51:36 0.07 0.00-0.20 (K/uL) Final Immature Granulocytes, Number 04/27/2023 12:51:36 0.07 0.00-0.20 (K/uL) Final Performing Location [facility] [place] [address] [facility] [place] [address]
--- OUTSIDE RECORDS SUMMARY | 2023-05-01 11:42 | External Medical Summary | Summary of Care ---
Author Name Unknown Organization [facility] Address [address] [place] [address] Phone [phone] Care Team Providers Care Drafter Engineering Name Role Phone Cornel Salgueroothy Primary Care Provid er Reason for Visit * Reason Comments Acute Encounter Details Date Type Department Care Team ([facility] Contact Info) Description 04/28/2023 10:00 AM EST Office Visit [address] [phone] Petra Marquez MD [address] [place] [phone] COPD exacerbation (HCC)*; Risk and functional assessment Allergies No known active allergiesdocumented as of this encounter (statuses as of 04/28/2023) Medications Medication Sig Dispensed Refills Start Date [...] as of this encounter (statuses as of 04/28/2023) Active Problems Problem Noted Date Diagnosed Date [...] as of this encounter (statuses as of 04/28/2023) Resolved Problems Problem Noted Date Diagnosed Date Resolved Date COPD, mild 08/14/2020 12/09/2022 Overview: Per COPD GOLD Classification Kidney disease, chronic, sta ge III (GFR 30-59 ml/min) 02/05/2019 05/14/2019 Overview: Per CKD protocol Menopause 06/12/2007 09/13/2018 Overview: Age 57yrs, hrt x 4 wks Anticoagulation management encounter 04/06/2006 09/13/2018 documented as of this encounter (statuses as of 04/28/2023) Immunizations Name Administration Dates Next Due COVID-19 mRNA, LNP-s, No Pre serve, 2-Dose Series (uromovie) 03/13/2021,06/19/2020,05/29/2020 Pneumococcal Conjugate Vacc, 13 Valent (Prevnar) [...] 10 times. Repeat this throughout the day. [employer] Patient Education Copyright 2008 - 2010 [employer] except where otherwise noted. Preventing Falls: Moving [...] 05/26/2023 11:00 AM EST Laboratory Laboratory Patient [address] [phone] [place], [facility] [address] [place] [address] 05/31/2023 11:40 AM EST Office Visit [facility] [address] [place] [phone] Cornel Salguero DO [address] [place] [address] 07/08/2023 11:30 AM EDT Office Visit Cardiology, [facility] [address] [place] [address] Jc Pickard MD [address] [place] [address] 10/26/2023 10:00 AM EDT [facility] [place] [address] Olvin Peres MD [address] [facility] [place] [address] Scheduled Orders Name Type Priority Associated Diagnoses [...] Additional history exists Albumin/Creatinine Ratio 06/07/2023 06/07/2022, 12/2019 TSH 11/20/2023 11/19/2022, 07/24, 02/23/2022, Additional history exists Depression Screening 03/25/2024 03/25/2023 CKD HGB USE SMARTSET 56066 04/27/202404/27, 04/27/2023, 11/19/2022, Additional history exists CKD PHOS USE SMARTSET 70049 04/27/202406/2023, 08/09/2022, 08/03/2022, Additional history exists O2 ASSESSMENT COMPLETED IN PAST YEAR FOR COPD 04/27/2024 04/27/2023 DTaP,Tdap,and Td Vaccines (2 - Td or [...] Directives occurred with: Not Discussed Care Teams Drafter Engineering Relationship Specialty Start Date End Date Cornel Salguero DO [address] [place] [address] PCP - General Internal Medicine 11/03/22 documented as of this encounter"
--- OUTSIDE RECORDS SUMMARY | 2023-05-01 11:42 | External Medical Summary | Summary of Care ---
Author Name Unknown Organization [facility] Address [address] [place] [address] Phone [phone] Care Team Providers Care It Security Consultant Name Role Phone Buzzearnest Cornel Juárez Primary Care Provid er Reason for Visit * Reason Comments Chronic Kidney Disease (CKD) Encounter Details Date Type Department Care Team ([facility] Contact Info) Description 04/27/2023 11:40 AM EST Office Visit Nephrology [address] [place] [address] Olvin Peres MD [address] [place] [address] Chronic kidney disease, stage 3b (HCC)*; Hypocalcemia; SOB (shortness of breath) Allergies No known active allergiesdocumented as of this encounter (statuses as of 04/27/2023) Medications Medication Sig Dispensed Refills Start Date [...] for Wheezing. 18 g 0 03/25/2023 Active Benzonatate 200 MG Oral CapsuleIndications: Acute bronchitis, unspecified organism,COPD, mild (HCC) Take 1 Capsule by mouth 3 times a day as needed for Cough. 30 Capsule 0 03/25/2023 Active Calcitriol 0.25 MCG Oral Capsule (Rocaltrol) TAKE 1 CAPSULE BY MOUTH ONCE DAILY IN THE MORNING 30 Capsule 5 04/12/2023 Active methylPREDNISolone 4 MG Oral Tablet Therapy Pack (Medrol Dosepack)Indication s:Acute bronchitis, unspecified organism,COPD, mild (HCC) follow package directions 21 Tablet 0 03/25/2023 4 Discontinu ed(End of Procedure) documented as of this encounter (statuses as of 04/27/2023) Active Problems Problem Noted Date Diagnosed Date [...] 130 01/16/2021 Dementia without behavioral disturbance 08/15/19 Overview: ICD-10 update of inactive term Chronic [...] as of this encounter (statuses as of 04/27/2023) Resolved Problems Problem Noted Date Diagnosed Date Resolved Date COPD, mild 08/14/2020 12/09/2022 Overview: Per COPD GOLD Classification Kidney disease, chronic, sta ge III (GFR 30-59 ml/min) 02/05/2019 05/14/2019 Overview: Per CKD protocol Menopause 06/12/2007 09/13/2018 Overview: Age 57yrs, hrt x 4 wks Anticoagulation management encounter 04/06/2006 09/13/2018 documented as of this encounter (statuses as of 04/27/2023) Immunizations Name Administration Dates Next Due COVID-19 mRNA, LNP-s, No Pre serve, 2-Dose Series (Pfizer) 03/13/2021,06/19/2020,05/29/2020 Pneumococcal Conjugate Vacc, 13 Valent (Prevnar) [...] Passive Smoke Exposure: Never Smokeless Tobacco: Never Tobacco Cessation:Counseling Given: Not Answered Comments:No passive smoke exposure Alcohol Use Standard Drinks/Week Comments Yes 0 [...] Sign Reading Time Taken Comments Blood Pressure 142/78 04/27/2023 11:34 AM EST Pulse 82 04/27/2023 11:34 AM EST Temperature 37.4 C (99.3 F) 04/27/2023 1 1:34 AM EST Respiratory Rate 22 04/27/2023 11:3 4 AM EST Oxygen Saturation 92% 04/27/2023 11: 34 AM EST Inhaled Oxygen Concentration - - Weight 75.2 kg (165 lb 11.2 oz) 024 11:34 AM EST Height - - Body Mass Index 32.36 03/25/2023 11:34 AM EST documented in this [...] No 12/03/2019 documented as of this encounter Progress Notes * Olvin Peres MD - 04/27/2023 11:50 AM EST Chief Complaint Patient presents with Chronic Kidney Disease (CKD) SUBJECTIVE: HPI:Patient is a 87 year old female with ongoing hx of low calcium levels. Recently in hospital for very low Ca++ sec to hypoparathyroidism post thyroid surgery. After lot of iv ca++ and Lotof PO supplements finally Ca++ was normal. Was Discharged on needed high dose of Ca++ Supplement + Calcitriol and Vit D. Schuyler noting that she has had low Ca++ for last 2 years though. Also recently admitted for CHF after the knee surgery. Currently on torsemide 10--lowered one week ago by PCP after Creat was up to 1.7. ARIEL event suspected possibly due to contrast Patient was also told to stop all ca++ supplement by PCP. Her daughter was not comfortable doing that so has Continued 2 tabs per day of Ca++ and Calcitriol and Vit d weekly. Since last visit 07/2022---Denies any recent hospitalizations, procedures or infections.Feels more SOB and Also wheezing. Has lot of edema but similar to previous. NSAID No Renal Stone No Herbal Medication Yes se above Urinary Complaints No HISTORY: Current Outpatient Medications Medication Sig Dispense Refill SYMBICORT 160-4.5 MCG/ACT inhaler As needed 2 Acetaminophen ER 650 MG Oral Tablet Extended Release Take 1 Tablet by mouth every 8 hours as neededfor Pain, Moderate. diphenhydrAMINE HCl 25 MG Oral Tablet Take 1 Tablet by mouth every 6 hours as needed for Itching. Calcium Carbonate Antacid 500 MG Oral Tablet Chewable Take 3 Tablets by mouth in the morning and 3 Tablets before bedtime. Loratadine 10 MG Oral Tablet (Claritin) Take 1 Tablet by mouth in the morning. 90 Tablet 3 Levothyroxine Sodium 112 MCG Oral Tablet (Levoxyl) Take 1 Tablet by mouth in the morning. (at least30 min prior to breakfast or other meds). 30 Tablet 11 Atorvastatin Calcium 20 MG Oral Tablet (Lipitor) TAKE 1 TABLET BY MOUTH ONCE DAILY IN THE MORNING FOR cholesterol 90 Tablet 3 Lisinopril 10 MG Oral Tablet (Prinivil) TAKE 1 TABLET BY MOUTH ONCE DAILY IN THE MORNING 90 Tablet 3 Metoprolol Succinate ER 25 MG Oral Tablet Extended Release 24 Hour (Toprol XL) Take 1 Tablet by mouth every evening. 90 Tablet 3 Metoprolol Succinate ER 100 MG Oral Tablet Extended Release 24 Hour (toPROL XL) Take 1 Tablet by mouth in the morning. 90 Tablet 3 Apixaban 5 MG Oral Tablet (Eliquis) Take 1 Tablet by mouth in the morning and 1 Tablet before bedtime. 180 Tablet 3 Vitamin D 25 MCG (1000 UT) Oral Tablet TAKE 1 TABLET BY MOUTH ONCE DAILY IN THE MORNING 30 Tablet 5 Torsemide 10 MG Oral Tablet (Demadex) TAKE 1 TABLET BY MOUTH ONCE DAILY IN THE MORNING 90 Tablet 2 Ventolin HFA 108 (90 Base) MCG/ACT Inhalation Aerosol Solution Inhale 2 Puffs by mouth every 4 hours as needed for Wheezing. 18 g 0 Benzonatate 200 MG Oral Capsule Take 1 Capsule by mouth 3 times a day as needed for Cough. 30 Capsule 0 Calcitriol 0.25 MCG Oral Capsule (Rocaltrol) TAKE 1 CAPSULE BY MOUTH ONCE DAILY IN THE MORNING 30 Capsule 5 No current facility-administered medications for this visit. 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 No Past Hx Brother Cancer Uncle (Unspecified) ? Family history of renal disease:No Social History Socioeconomic History Marital status: Spouse name: Not on file Number of children: Not on file Years of education: Not on file Highest education level: Not on file Occupational History Not on file Tobacco Use Smoking status: Never Passive exposure: Never Smokeless tobacco: Never Tobacco comments: No passive smoke exposure Vaping Use Vaping Use: Never used Substance and Sexual Activity Alcohol use: Yes Comment: rare Drug use: Never Sexual activity: Yes Partners: Male Comment: M 1954 Other Topics Concern Not on file Social History Narrative Not on file Social Determinants of Health Financial Resource Strain: Not on file Food Insecurity: No Food Insecurity (11/23/2022) Hunger Vital Sign Worried About Running Out of Food in the Last Year: Never true Ran Out of Food in the Last Year: Never true Transportation Needs: Not on file Physical Activity: Not on file Stress: Not on file Social Connections: Not on file Intimate Partner Violence: Not on file Housing Stability: Not on file Ambulation: Without assisted device REVIEW OF SYSTEMS General: No fatigue, No change in weight Head: No significant headache Respiratory: No cough,No wheezing, No shortness of breath Cardiovascular:No chest pain, No palpitations,+ CHF +Afib Gastrointestinal: No nausea, vomiting, diarrhea No blood in stools No abdominal pain Urinary: No dysuira, No hematuria. No flank pain Musculoskeletal: No muscle/joint pains , + edema chronic Skin: No itching All other systems were reviewed and were negative. OBJECTIVE: BP 142/78 (BP Site: Right Arm, BP Position: Sitting, BP Cuff Size: Regular) | Pulse 82 | Temp 37.4 C (99.3 F) (Tympanic) | Resp 22 | Wt 75.2 kg (165 lb 11.2 oz) | SpO2 92% | BMI 32.36 kg/m | BSA 1.78 m Wt Readings from Last 1 Encounters: 04/27/23 75.2 kg (165 lb 11.2 oz) General appearance: alert, no apparent distress. HEAD: Normocephalic, No masses, lesions, tenderness Respiratory: b/l rhonchi heard Heart: regular rate and regular rhythm Abdomen: abdomen soft, non-tender and no CVA tenderness EXTREMITIES: + bilateral edema, Skin: skin color, texture, turgor are normal NEURO: alert & oriented x 3 with fluent speech, no focal motor/sensory deficits No tremor Patient is a reliable historian of events Last 4 BP Readings: BP Readings from Last 4 Encounters: 04/27/23 142/78 03/25/23 132/88 11/23/22 142/78 09/16/22 136/76 Last 3 Weights: Wt Readings from Last 3 Encounters: 04/27/23 75.2 kg (165 lb 11.2 oz) 03/25/23 72.7 kg (160 lb 3.2 oz) 11/23/22 74.8 kg (165 lb) Estimated body mass index is 32.36 kg/m as calculated from the following: Height as of 03/25/23: 1.524 m (5'). Weight as of this encounter: 75.2 kg (165 lb 11.2 oz). LABS: Latest Reference Range & Units 01/29/22 12:12 02/23/22 12:45 03/04/22 11:09 03/08/22 11:58 03/17/22 11:46 04/14/22 14:57 Sodium 135 - 146 mmol/L 144 143 143 145 145 143 Potassium 3.5 - 5.1 mmol/L 4.8 5.1 4.9 4.8 4.6 4.8 Chloride 98 - 107 mmol/L 102 95 (L) 103 102 101 102 CO2 22 - 32 mmol/L 28 35 (H) 30 33 (H) 33 (H) 31 BUN 6 - 20 mg/dL 19 38 (H) 21 (H) 20 19 27 (H) Creatinine 0.5 - 1.0 mg/dL 0.9 1.7 (H) 1.2 (H) 1.2 (H) 1.3 (H) 1.3 (H) Estimated Glomerular Filtration Rate >=60 mL/min 65 29 (L) 44 (L) 43 (L) 41 (L) 39 (L) Anion Gap 7 - 15 mmol/L 14 13 10 10 11 10 Glucose 70 - 120 mg/dL 85 103 101 101 94 106 Calcium 8.4 - 10.2 mg/dL 7.4 (L) 10.1 9.2 8.9 9.8 8.9 Calcium, Ionized 1.13 - 1.32 mmol/L 1.19 1.19 1.12 (L) Magnesium 1.5 - 2.6 mg/dL 1.8 Phosphorus 2.5 - 4.8 mg/dL 3.6 4.7 4.9 (H) Latest Reference Range & Units 10/02/19 10:08 Albumin / Creatinine Ratio, Urine <30 mg/g creat 19 ALBUMIN / CREATININE RATIO, URINE Rpt Albumin, Random Urine mg/dL 2.38 Creatinine, Random Urine mg/dL 125 ASSESSMENT/PLAN: Chronic kidney disease, stage 3b (HCC) (Primary) CKD stage 3 B multifactorial sec to HTN, Age. Creat does fluctuate. No changes to meds at this time - will review after labs More concern is the SOb and b/l rhonchi she has. She has Lymphedema so not very responsive to diuretics but if Pulm congestion and/or pl eff will raise the dose of diuretics. labs as per CKD protocol and will be managed accordingly. Essential hypertension with goal blood pressure less than 140/90 At goal. Continue same. - CBC WITH WBC DIFFERENTIAL; Future; Expected date: 04/27/2023 - PTH; Future; Expected date: 04/27/2023 - PROTEIN/ CREATININE RATIO, URINE; Future; Expected date: 04/27/2023 - RENAL FUNCTION PANEL; Future; Expected date: 04/27/2023 - URINALYSIS WITH MICROSCOPIC EXAM; Future; Expected date: 04/27/2023 - 25-HYDROXY VITAMIN D; Future; Expected date: 04/27/2023 Hypocalcemia Ca++, Vit D, PTH are all within normal range. Phos slightly high. If continues to be higher then will lower the dose a bit of Vit D /calcitriol. SOB (shortness of breath) Has b/l rhonhci and will do CXR also. - XR CHEST 2 VIEWS Follow Up: Return in about 6 months (around 10/26/2023) for Clinic Visit. | For: Clinic Visit I spent a total of 40-54 minutes (exact time 42 mins) on the date of service in preparation, delivery, and documentation of the care provided to Rosaura Charles excluding any time spent in the performance of separately billed services. Olvin Peres MD documented in this encounter Nursing Notes * Rsehma Renteria LPN - 04/27/2023 11:32 AM EST Patient identified by verbal name and date of .Return visit No recent labs Pt states will get next week with PCP documented in this encounter Plan of Treatment Upcoming Encounters Date Type Department Care Team (Late st Contact Info) Description 04/28/2023 10:00 AM EST Office Visit [address] [phone] Petra Marquez MD [address] [place] [phone] 05/26/2023 11:00 AM EST Laboratory Laboratory Patient Service [place], [place] [address] [place] [phone] [place], [facility] [address] [place] [address] 05/31/2023 11:40 AM EST [facility] [phone] [place] Cornel JuárezDO [address] [place] [address] 07/08/2023 11:30 AM EDT Office Visit Cardiology, [facility] [address] [place] [address] Jc Pickard MD [address] [place] [address] 10/26/2023 10:00 AM EDT Office Visit Nephrology, [facility] 200 [place] [address] Olvin Peres MD [address] [place] [address] Pending Results Name Type Priority Associated Diagnoses Date /Time CBC WITH WBC DIFFERENTIAL Lab Routine Chronic kidney disease, stage 3b (HCC) 04/27/2023 12:51 PM EST PTH Lab Routine Chronic kidney disease, stage 3b (HCC) 04/27/2023 12:51 PM EST PROTEIN/ CREATININE RATIO, URINE Lab Routine Chronic kidney disease, stage 3b (HCC) 04/27/2023 12:51 PM EST RENAL FUNCTION PANEL Lab Routine Chronic kidney disease, stage 3b (HCC) 04/27/2023 12:51 PM EST URINALYSIS WITH MICROSCOPIC EXAM Lab Routine Chronic kidney disease, stage 3b (HCC) 04/27/2023 12:51 PM EST 25-HYDROXY VITAMIN D Lab Routine Chronic kidney disease, stage 3b (HCC) 04/27/2023 12:51 PM EST XR CHEST 2 VIEWS Medical Imaging Routine SOB (shortness of breath) 04/27/2023 12:37 PM EST Scheduled Orders Name Type Priority Associated Diagnoses Orde r Schedule CBC WITH WBC DIFFERENTIAL Lab Routine Chronic kidney disease, stage 3b (HCC) Expected: 04/27/2023 (Approximate), Expires: 10/24/2023 PTH Lab Routine Chronic kidney disease, stage 3b (HCC) Expected: 04/27/2023 (Approximate), Expires: 10/24/2023 PROTEIN/ CREATININE RATIO, URINE Lab Routine Chronic kidney disease, stage 3b (HCC) Expected: 04/27/2023 (Approximate), Expires: 10/24/2023 RENAL FUNCTION PANEL Lab Routine Chronic kidney disease, stage 3b (HCC) Expected: 04/27/2023 (Approximate), Expires: 10/24/2023 URINALYSIS WITH MICROSCOPIC EXAM Lab Routine Chronic kidney disease, stage 3b (HCC) Expected: 04/27/2023 (Approximate), Expires: 10/24/2023 25-HYDROXY VITAMIN D Lab Routine Chronic kidney disease, stage 3b (HCC) Expected: 04/27/2023 (Approximate), Expires: 10/24/2023 Health Maintenance Due Date Last Done Comments *COPD SEVERITY VERIFIED BY PFT 08/17/2020 DXA Scan 03/19/2022 03/19/2015, 08/0 06/2011, 06/15/2008 COVID-19 Vaccine ( season) 2022 03/13/2021, 06/19/2020, 05/29/2020 Influenza Vaccine (FLU shot) (#1) 2022 02/23/2022, 01/16/2021, 03/10/2020, Additional history exists Albumin/Creatinine Ratio 06/07/2023 06/07/2022, 06/0 12/2019 CKD PHOS USE SMARTSET 85384 08/10/202307/24, 08/03/2022, 05/27/2022, Additional history exists CKD HGB USE SMARTSET 09856 11/20/202311/19, 11/19/2022, 08/03/2022, Additional history exists TSH 11/20/2023 11/19/2022, 07/24, 02/23/2022, Additional history exists Depression Screening 03/25/2024 03/25/2023 O2 ASSESSMENT COMPLETED IN PAST YEAR FOR COPD 03/25/2024 04/27/2023 DTaP,Tdap,and Td Vaccines (2 - Td [...] as of this encounter Visit Diagnoses Diagnosis Chronic kidney disease, stage 3b (HCC)- Primary Hypocalcemia SOB (shortness of breath) Shortness of breath documented in this encounter Advance Directives Latest Code Status on File Code Status Date Activated Date Inactivated Comments Full Code 12/03/2019 3:59 PM 12/05/2019 7:00 PM This order reflects the patients wishes and were consensually agreed upon. Question Answer Comments Discussion of Advance Directives occurred with: Not Discussed Care Teams It Security Consultant Relationship Specialty Start Date End Date Cornel Salguero DO [address] [place] [phone] PCP - General Internal Medicine 11/03/22 documented as of this encounter"
--- OUTSIDE RECORDS SUMMARY | 2023-05-01 11:42 | External Medical Summary | Summary of Care ---
Author Name Unknown Organization [facility] Address [address] [place] [address] Phone [phone] Care Team Providers Care Cadence Specialists Name Role Phone Buzzearnest Cornel Juárez Primary Care Provid er Reason for Visit * Reason Comments eRx-Medication Refill Encounter Details Date Type Department Care Team ([facility] Contact Info) Description 04/10/2023 Refill Nephrology [address] [place] [address] [facility] [address] [facility] [address] Allergies No known active allergiesdocumented as of this encounter (statuses as of 04/12/2023) Medications Medication Sig Dispensed Refills Start Date End Date Status SYMBICORT 160-4.5 MCG/ACT inhaler As needed 2 9 Active Acetaminophen ER 650 MG Oral Tablet [...] morning and 3 Tablets before bedtime. 0 2 Active Loratadine 10 MG Oral Tablet (Claritin)Indicatio ns:Dysfunction of Eustachian tube, bilateral Take 1 Tablet by mouth in the morning. 90 Tablet 3 3 Active Levothyroxine Sodium 112 MCG Oral Tablet (Levoxyl)Indication s:Postoperative hypothyroidism Take 1 Tablet by mouth in the morning. (at least 30 min prior to breakfast or other meds). 30 Tablet 11 3 Active Atorvastatin Calcium 20 MG Oral Tablet (Lipitor)Indication s:Dyslipidemia, goal LDL below 130 TAKE 1 TABLET BY MOUTH ONCE DAILY IN THE MORNING FOR cholesterol 90 Tablet 3 3 Active Lisinopril 10 MG Oral Tablet (Prinivil)Indicatio ns:HTN, goal below 140/90 TAKE 1 TABLET BY MOUTH ONCE DAILY IN THE MORNING 90 Tablet 3 3 Active Metoprolol Succinate ER 25 MG Oral Tablet Extended Release 24 Hour (Toprol XL) Take 1 Tablet by mouth every evening. 90 Tablet 3 3 Active Metoprolol Succinate ER 100 MG Oral Tablet Extended Release 24 Hour (toPROL XL) Take 1 Tablet by mouth in the morning. 90 Tablet 3 3 Active Apixaban 5 MG Oral Tablet (Eliquis) Take 1 Tablet by mouth in the morning and 1 Tablet before bedtime. 180 Tablet 3 3 Active Vitamin D 25 MCG (1000 UT) Oral TabletIndications:H ypocalcemia,Chronic kidney disease, stage 3b (HCC) TAKE 1 TABLET BY MOUTH ONCE DAILY IN THE MORNING 30 Tablet 5 3 Active Torsemide 10 MG Oral Tablet (Demadex) TAKE 1 TABLET BY MOUTH ONCE DAILY IN THE MORNING 90 Tablet 2 3 Active methylPREDNISolone 4 MG Oral Tablet Therapy Pack (Medrol Dosepack)Indication s:Acute bronchitis, unspecified organism,COPD, mild (HCC) follow package directions 21 Tablet 0 3 Active Ventolin HFA 108 (90 Base) MCG/ACT Inhalation Aerosol SolutionIndications :Acute bronchitis, unspecified organism,COPD, mild (HCC) Inhale 2 Puffs by mouth every 4 hours as needed for Wheezing. 18 g 0 3 Active Benzonatate 200 MG Oral CapsuleIndications: Acute bronchitis, unspecified organism,COPD, mild (HCC) Take 1 Capsule by mouth 3 times a day as needed for Cough. 30 Capsule 0 3 Active Calcitriol 0.25 MCG Oral Capsule (Rocaltrol) TAKE 1 CAPSULE BY MOUTH ONCE DAILY IN THE MORNING 30 Capsule 5 3 Active Calcitriol 0.25 MCG Oral Capsule (Rocaltrol) TAKE 1 CAPSULE BY MOUTH ONCE DAILY IN THE MORNING 30 Capsule 5 3 04/12/20 23 Discontinued documented as of this encounter (statuses as of 04/12/2023) Active Problems Problem Noted Date Diagnosed Date [...] as of this encounter (statuses as of 04/12/2023) Resolved Problems Problem Noted Date Diagnosed Date Resolved Date COPD, mild 08/14/2020 12/09/2022 Overview: Per COPD GOLD Classification Kidney disease, chronic, sta ge III (GFR 30-59 ml/min) 02/05/2019 05/14/2019 Overview: Per CKD protocol Menopause 06/12/2007 09/13/2018 Overview: Age 57yrs, hrt x 4 wks Anticoagulation management encounter 04/06/2006 09/13/2018 documented as of this encounter (statuses as of 04/12/2023) Immunizations Name Administration Dates Next Due COVID-19 [...] Packs/Day Years Used Date Smoking Tobacco: Never Smokeless Tobacco: Never Alcohol Use Standard Drinks/Week Comments Yes 0 [...] on file documented as of this encounter Functional Status Functional Status Response [...] No 12/03/2019 documented as of this encounter Miscellaneous Notes * Telephone Encounter - Orlando Peres MD - 04/12/2023 10:01 AM ESTSigned Prescriptions: Disp Refills Calcitriol 0.25 MCG Oral Capsule (Rocaltro*30 Cap*5 Sig: TAKE 1 CAPSULE BY MOUTH ONCE DAILY IN THE MORNING Authorizing Provider: ORLANDO PERES * Telephone Encounter - Aida Briceño RN - 04/11/2023 2:37 PM ESTPending Prescriptions: Disp Refills Calcitriol 0.25 MCG Oral Capsule (Rocaltro*30 Cap*5 Sig: TAKE 1 CAPSULE BY MOUTH ONCE DAILY IN THE MORNING * Telephone Encounter - Aida Briceño RN - 04/11/2023 2:36 PM EST Prescription request received from pharmacy pending. Please authorize. Last OV 08/09/22 Next OV 04/27/23 documented in this encounter Plan of Treatment Upcoming Encounters Date Type Department Care Team ([facility] st Contact Info) Description 04/27/2023 11:40 AM EST Office Visit Nephrology [address] [place] [address] Orlando Peres MD [address] [place] [address] 05/26/2023 11:00 AM EST Laboratory [facility], [address] [phone] [place], [facility] [address] [place] [address] 05/31/2023 11:40 AM EST Office Visit Family Practice [facility] [address] [place] [address] Cornel Salguero DO [address] [place] [address] 07/08/2023 11:30 AM EDT Office Visit Cardiology, [facility] [address] [facility] [place] [address] Jc Pickard MD [address] [place] [address] Health Maintenance Due Date Last Done Comments *COPD SEVERITY VERIFIED BY PFT 08/17/2020 DXA Scan 03/19/2022 03/19/2015, 08/0 06/2011, 06/15/2008 COVID-19 Vaccine ( season) 2022 03/13/2021, 06/19/2020, 05/29/2020 Influenza Vaccine (FLU shot) (#1) 2022 02/23/2022, 01/16/2021, 03/10/2020, Additional history exists Albumin/Creatinine Ratio 06/07/2023 06/07/2022, 06/0 12/2019 CKD PHOS USE SMARTSET 55590 08/10/202307/24, 08/03/2022, 05/27/2022, Additional history exists CKD HGB USE SMARTSET 86616 11/20/202311/19, 11/19/2022, 08/03/2022, Additional history exists TSH 11/20/2023 11/19/2022, 07/24, 02/23/2022, Additional history exists Depression Screening 03/25/2024 03/25/2023 O2 ASSESSMENT COMPLETED IN PAST YEAR FOR COPD 03/25/2024 03/25/2023 DTaP,Tdap,and Td Vaccines (2 - Td or [...] Not on filedocumented as of this encounter Advance Directives Latest Code Status on File Code Status Date Activated Date Inactivated Comments Full Code 12/03/2019 3:59 PM 12/05/2019 7:00 PM This order reflects the patients wishes and were consensually agreed upon. Question Answer Comments Discussion of Advance Directives occurred with: Not Discussed Care Teams Cadence Specialists Relationship Specialty Start Date End Date Cornel Salguero DO [address] [place] [address] PCP - General Internal Medicine 11/03/22 documented as of this encounter
--- OUTSIDE RECORDS SUMMARY | 2023-05-01 11:42 | External Medical Summary ---
Author Name Unknown Address Unknown Organization [id number]:LABORATORY [facility] - [address] [facility] [address] Laboratory Report Ordering Provider Test Date Status NUNO EDWARDS 04/28/2023 14:29:00 Final Observation Date Value Abnormality Reference (Units ) Status SARS Coronavirus 2 04/28/2023 14:29:00 Negative N egative Final No SARS-CoV2 Coronavirus RNA detected by PCR (amplified probe).
This automated test was developed and its performance characteristics determined by [facility]. It has not been cleared or approved by the U.S. Food and Drug Administration (FDA). FDA does not require this test to go thru premarket FDA review. This test is used for clinical purposes. It should not be regarded as investigational or for research. This laboratory is certified under the Clinical Laboratory Improvement Amendments (CLIA) as qualified to perform high complexity clinical laboratory testing.

This test is a nucleic acid amplification test (NAAT), a reverse transcriptase polymerase chain reaction (RT-PCR) test, or a Centers for Disease Control-acceptable equivalent. The test is performed in a high complexity Clinical Laboratory Improvement Amendments-(CLIA) certified laboratory. The test is acceptable for SARS-CoV-2 diagnosis, surveillance, and travel within the [place] and to most countries. Please check with local testing authorities about requirements before travel.

The validation of bronchial specimens, tracheal aspirates, and sputum for this assay was developed and performance characteristics determined by [facility]. The validation of alternate specimen types has not been cleared or approved by the U.S. Food and Drug Administration (FDA). It has been determined that such clearance or approval is not necessary. Influenza virus A RNA [Prese nce] in Specimen by ANIKA with probe detection 04/28/2023 14:29:00 Negative Negative Final No Influenza A RNA detected by PCR (amplified probe) Influenza virus B RNA [Prese nce] in Specimen by ANIKA with probe detection 04/28/2023 14:29:00 Negative Negative Final No Influenza B RNA detected by PCR (amplified probe) Respiratory syncytial virus RNA [Identifier] in Specimen by ANIKA with probe detection 04/28/2023 14:29:00 Positive Abnormal Negative Final Respiratory Syncytial Virus RNA detected by PCR (amplified probe). Test results reported to [facility]. Performing Location LABORATORY [facility] - [address] [facility] [address]
--- OUTSIDE RECORDS SUMMARY | 2023-05-01 11:42 | External Medical Summary ---
Author Name Unknown Address Unknown Organization [id number]:LABORATORY [facility] [place] - [address] [facility] [place] [address] Laboratory Report Ordering Provider Test Date Status AMADOU PERRY 04/27/2023 12:51:36 Final Observation Date Value Abnormality Reference (Units ) Status Color of Urine by Auto 04/27/2023 12:51:36 Yellow Colorless, Light Yellow, Yellow, Dark Yellow Final Clarity, Urine 04/27/2023 12:51:36 Clear Clear Final Glucose [Mass/volume] in Urine by Automated test strip 04/27/2023 12:51:36 Negative Negative (mg/dL) Final Bilirubin.total [Presence] in Urine by Automated test strip 04/27/2023 12:51:36 Negative Negative Final Ketones [Mass/volume] in Urine by Automated test strip 04/27/2023 12:51:36 Negative Negative (mg/dL) Final Specific gravity, Urine 04/27/2023 12:51:36 1.024 1.003-1.030 Final Hemoglobin [Presence] in Urine by Automated test strip 04/27/2023 12:51:36 Negative Negative Final pH, Urine 04/27/2023 12:51:36 7.5 5.0-7.5 (Units) Final Protein [Mass/volume] in Urine by Automated test strip 04/27/2023 12:51:36 30 Abnormal Negative (mg/dL) Final Urobilinogen [Mass/volume] in Urine by Automated test strip 04/27/2023 12:51:36 Normal Normal (mg/dL) Final Nitrite [Presence] in Urine by Automated test strip 04/27/2023 12:51:36 Negative Negative Final Leukocyte esterase [Presence] in Urine by Automated test strip 04/27/2023 12:51:36 Negative Negative Final RBC, Urine 04/27/2023 12:51:36 0-2 0-2 (/HPF) Final WBC, Urine 04/27/2023 12:51:36 6-9 Abnormal 0-2 (/HPF) Final Bacteria [#/area] in Urine sediment by Microscopy high power field 04/27/2023 12:51:36 0-25 0-25 (/HPF) Final Performing Location LABORATORY [facility] - [facility] [address] [facility] [address]
--- OUTSIDE RECORDS SUMMARY | 2023-05-01 11:42 | External Medical Summary ---
Author Name Unknown Address Unknown Organization K01:LABORATORY [facility] - [address] [facility] [address] [place] [address] Laboratory Report Ordering Provider Test Date Status AMADOU PERRY 04/27/2023 12:51:36 Final Observation Date Value Abnormality Reference (Units ) Status BUN 04/27/2023 12:51:36 18 6-20 (mg/dL) Final Creatinine 04/27/2023 12:51:36 1.1 Above high normal 0.5-1.0 (mg/dL) Final Glomerular filtration rate/1.73 sq M.predicted [Volume Rate/Area] in Serum, Plasma or Blood by Creatinine-based formula (CKD-EPI) 04/27/2023 12:51:36 49 Below low normal >=60 (mL/min) Final eGFR is calculated based on the CKD-EPI 2020 equation SODIUM 04/27/2023 12:51:36 142 135-146 (m mol/L) Final Potassium 04/27/2023 12:51:36 4.4 3.5-5.1 (m mol/L) Final Cl 04/27/2023 12:51:36 97 Below low normal 98- 107 (mmol/L) Final CO2 04/27/2023 12:51:36 32 22-32 (mmo l/L) Final Anion gap 04/27/2023 12:51:36 13 7-15 (mmol /L) Final Glucose 04/27/2023 12:51:36 128 Above high normal 70 -120 (mg/dL) Final Calcium 04/27/2023 12:51:36 8.9 8.4-10.2 ( mg/dL) Final Albumin 04/27/2023 12:51:36 4.4 3.8-5.0 (g /dL) Final Phosphate 04/27/2023 12:51:36 4.4 2.5-4.8 (m g/dL) Final Performing Location LABORATORY [facility] - [address] [place] [address]
--- OUTSIDE RECORDS SUMMARY | 2023-05-01 11:42 | External Medical Summary | Summary of Care ---
Author Name Unknown Organization [facility] Address [address] [place] [address] Phone [phone] Care Team Providers Care Shipping Hand Name Role Phone LisabennieCornel Franck Primary Care Provid er Reason for Visit * Reason Comments Outpatient Testing Encounter Details Date Type Department Care Team ([facility] st Contact Info) Description 04/27/2023 12:50 PM [facility] Laboratory Laboratory Patient Service [address] [phone] [address] Chronic kidney disease, stage 3b (HCC) Allergies No known active allergiesdocumented as of [...] Calcium Carbonate Antacid 500 MG Oral Tablet ChewableIndications: Hypocalcemia,Stage 3b chronic kidney disease (HCC) Take 3 Tablets by mouth in the morning and 3 Tablets before bedtime. 0 03/10/2022 Active Loratadine 10 MG Oral Tablet (Claritin)Indication s:Dysfunction of Eustachian tube, bilateral Take 1 Tablet by mouth in the morning. 90 Tablet 3 07/07/2022 Active Levothyroxine Sodium 112 MCG Oral Tablet (Levoxyl)Indications :Postoperative hypothyroidism Take 1 Tablet by mouth in the morning. (at least 30 min prior to breakfast or other meds). 30 Tablet 11 07/07/2022 Active Atorvastatin Calcium 20 MG Oral Tablet (Lipitor)Indications :Dyslipidemia, goal LDL below 130 TAKE 1 TABLET BY MOUTH ONCE DAILY IN THE MORNING FOR cholesterol 90 Tablet 3 08/18/2022 Active Lisinopril 10 MG Oral Tablet (Prinivil)Indication s:HTN, goal below 140/90 TAKE 1 TABLET BY [...] Vitamin D 25 MCG (1000 UT) Oral TabletIndications:Hy pocalcemia,Chronic kidney disease, stage 3b (HCC) TAKE 1 TABLET BY MOUTH ONCE DAILY IN THE MORNING 30 Tablet 5 10/27/2022 Active Torsemide 10 MG Oral Tablet (Demadex) TAKE 1 TABLET BY MOUTH ONCE DAILY IN THE MORNING 90 Tablet 2 03/25/2023 Active Ventolin HFA 108 (90 Base) MCG/ACT Inhalation Aerosol SolutionIndications: Acute bronchitis, unspecified organism,COPD, mild (HCC) Inhale 2 Puffs by mouth every 4 hours as needed for Wheezing. 18 g 0 03/25/2023 Active Benzonatate 200 MG Oral CapsuleIndications:A cute bronchitis, unspecified organism,COPD, mild (HCC) Take 1 Capsule by mouth 3 times a day as needed for Cough. 30 Capsule 0 03/25/2023 Active Calcitriol 0.25 MCG Oral Capsule (Rocaltrol) TAKE 1 CAPSULE BY MOUTH ONCE DAILY IN THE MORNING 30 Capsule 5 04/12/2023 Active documented as of this encounter (statuses as of 04/27/2023) Active Problems Problem Noted Date Diagnosed Date COPD, group A, by GOLD 2017 classification 08/14 /2023 Overview: Per COPD GOLD Classification Stage 3a [...] No 12/03/2019 documented as of this encounter Plan of Treatment Upcoming Encounters Date Type Department Care Team ([facility] st Contact Info) Description 04/28/2023 10:00 AM EST Office Visit [address] [address] Petra Marquez MD [address] [place] [address] 05/26/2023 11:00 AM EST [facility] [address] [place], [facility] [address] [place] [address] 05/31/2023 11:40 AM EST Office Visit [address] [phone] Cornel Salguero DO [address] [place] [address] 07/08/2023 11:30 AM EDT Office Visit Cardiology, [facility] [address] [place] [address] Jc Pickard MD [address] [place] [address] 10/26/2023 10:00 AM EDT Office Visit Nephrology, [facility] [address] [place] [address] Olvin Peres MD [address] [place] [address] Pending Results Name Type Priority Associated Diagnoses [...] stage 3b (HCC) 04/27/2023 12:51 PM EST CBC Lab Routine Chronic kidney disease, stage 3b (HCC) 04/27/2023 12:51 PM EST DIFFERENTIAL, AUTOMATED Lab Routine Chronic kidney disease, stage 3b (HCC) 04/27/2023 12:51 PM EST Health Maintenance Due Date Last Done Comments *COPD SEVERITY VERIFIED BY PFT 08/17/2020 DXA Scan 03/19/2022 03/19/2015, 06/2011, 06/15/2008 COVID-19 Vaccine ( season) 2022 03/13/2021, 06/19/2020, 05/29/2020 Influenza Vaccine (FLU shot) (#1) 2022 02/23/2022, 01/16/2021, 03/10/2020, Additional history exists Albumin/Creatinine Ratio 06/07/2023 06/07/2022, 0612/2019 CKD PHOS USE SMARTSET 49565 08/10/202307/24, 08/03/2022, 05/27/2022, Additional history exists CKD HGB USE SMARTSET 58907 11/20/202311/19, 11/19/2022, 08/03/2022, Additional history exists TSH [...] Diagnoses Diagnosis Chronic kidney disease, stage 3b (HCC) documented in this encounter Advance Directives Latest Code Status on File Code Status Date Activated Date Inactivated Comments Full Code 12/03/2019 3:59 PM 12/05/2019 7:00 PM This order reflects the patients wishes and were consensually agreed upon. Question Answer Comments Discussion of Advance Directives occurred with: Not Discussed Care Teams Shipping Hand Relationship Specialty Start Date End Date Cornel Salguero DO [address] [place] [address] PCP - General Internal Medicine 11/03/22 documented as of this encounter
--- OUTSIDE RECORDS SUMMARY | 2023-05-01 11:42 | External Medical Summary | Summary of Care ---
Author Name Unknown Organization [facility] Address [address] [place] [address] Phone [phone] Care Team Providers Care Claims Configuration Analyst Name Role Phone Cornel Salguero DO Primary Care Provid er Reason for Visit * Reason Comments Acute Patient is here toda y for a illness symptoms.Symptoms: cough, phlegm, runny nose, SOB, Possible fever, wheezing.Patient states whatever she had turns into a cold. Patient states she was sick for 3 weeks end of January beginning of February was good for 1 week and then got this sickness Encounter Details Date Type Department Care Team ([facility] st Contact Info) Description 03/25/2023 11:40 AM EST Office Visit [address] [address] Cornel Salguero DO [address] [place] [id number] Acute bronchitis, unspecified organism*; Screening for depression; COPD, mild (HCC) Allergies No known active allergiesdocumented as of this encounter (statuses as of 03/25/2023) Medications Medication Sig Dispensed Refills Start Date [...] before bedtime. 180 Tablet 3 09/16/2022 Active Calcitriol 0.25 MCG Oral Capsule (Rocaltrol) TAKE 1 CAPSULE BY MOUTH ONCE DAILY IN THE MORNING 30 Capsule 5 09/23/2022 Active Vitamin D 25 MCG (1000 UT) Oral TabletIndications:H ypocalcemia,Chronic kidney disease, stage 3b (HCC) TAKE 1 TABLET BY MOUTH ONCE DAILY IN THE MORNING 30 Tablet 5 10/27/2022 Active Torsemide 10 MG Oral Tablet (Demadex) TAKE 1 TABLET BY MOUTH ONCE DAILY IN THE MORNING 90 Tablet 2 03/25/2023 Active methylPREDNISolone 4 MG Oral Tablet Therapy Pack (Medrol Dosepack)Indication s:Acute bronchitis, unspecified organism,COPD, mild (HCC) follow package directions 21 Tablet 0 03/25/2023 Active Ventolin HFA 108 (90 Base) MCG/ACT Inhalation Aerosol SolutionIndications :Acute bronchitis, unspecified organism,COPD, mild (HCC) Inhale 2 Puffs by mouth every 4 hours as needed for Wheezing. 18 g 0 03/25/2023 Active Benzonatate 200 MG Oral CapsuleIndications: Acute bronchitis, unspecified organism,COPD, mild (HCC) Take 1 Capsule by mouth 3 times a day as needed for Cough. 30 Capsule 0 03/25/2023 Active Cefuroxime Axetil 500 MG Oral Tablet (Ceftin)Indications :Acute bronchitis, unspecified organism,COPD, mild (HCC) Take 1 Tablet by mouth in the morning and 1 Tablet before bedtime. Do all this for 7 days. 14 Tablet 0 03/25/2023 3 Active Vitamin D3 25 MCG (1000 UT) Oral Capsule TAKE 1 TABLET BY MOUTH ONCE DAILY IN THE MORNING 0 03/14/2023 3 Discontinu ed(Patient preference /discontin uation) Hospital, Clinic, or Other Facility Administered Medication Ordered Dose Route Frequency Start Date End Date Status methylPREDNISolone sodium succ (SOLU-Medrol) inj 125 mgIndications:Acute bronchitis, unspecified organism,COPD, mild (HCC) 125 mg IM ONCE 03/25/2023 03/25/2023 Ended documented as of this encounter (statuses as of 03/25/2023) Active Problems Problem Noted Date Diagnosed Date [...] as of this encounter (statuses as of 03/25/2023) Resolved Problems Problem Noted Date Diagnosed Date Resolved Date COPD, mild 08/14/2020 12/09/2022 Overview: Per COPD GOLD Classification Kidney disease, chronic, sta ge III (GFR 30-59 ml/min) 02/05/2019 05/14/2019 Overview: Per CKD protocol Menopause 06/12/2007 09/13/2018 Overview: Age 57yrs, hrt x 4 wks Anticoagulation management encounter 04/06/2006 09/13/2018 documented as of this encounter (statuses as of 03/25/2023) Immunizations Name Administration Dates Next Due COVID-19 mRNA, LNP-s, No Pre serve, 2-Dose Series (Pfizer) 03/13/2021,06/19/2020,05/29/2020 Pneumococcal Conjugate Vacc, 13 Valent (Prevnar) 09/11/2015 SEASONAL INFLUENZA, PF, 6 M & Above, IM , (FLULAVAL or FLUZONE) 02/09/2018,02/03/2017 Season Influenza, Quad, PF, Adjuvanted, 65+ Yrs, IM (FLUAD) 03/10/2020 Seasonal Influenza, Quadriva lent Hd (Fluzone Hd) [...] Date Recorded PHQ Adult Total Score 0 01/16/2021 Hunger Vital Sign Answer Date Recorded Within [...] Sign Reading Time Taken Comments Blood Pressure 132/88 03/25/2023 11:34 AM EST Pulse 75 03/25/2023 11:34 AM EST Temperature 36.5 C (97.7 F) 03/25/2023 11:[address] Respiratory Rate 20 03/25/2023 11:34 AM EST Oxygen Saturation 94% 03/25/2023 11:34 AM EST Inhaled Oxygen Concentration - - Weight 72.7 kg (160 lb 3.2 oz) 03/25/2023 11:34 AM EST Height 152.4 cm (5') 03/25/2023 11:34 AM EST Body Mass Index 31.29 03/25/2023 11:34 AM EST documented in this [...] as of this encounter Progress Notes * Hyun Ma CCMA - 03/25/2023 12:02 PM EST Pre-Administration Time Out Procedure Performed: Yes Patient Identified (Ask Name/Date of ): Yes Does the patient have a fever greater than 101 degrees today? No Patient allergic to latex? No Has the patient ever fainted after receiving an injection? No VFC Stock: No Injection(s) verified: Yes, Injection Name: methylPREDNISolone Sodium Verified Side and Site: Yes Verified Shot(s) with Parent(s)/Patient: Yes * Cornel Salguero DO - 03/25/2023 11:43 AM EST Subjective Rosaura Charles is a 87 year old female. Chief Complaint Patient presents with Acute Patient is here today for a illness symptoms. Symptoms: cough, phlegm, runny nose, SOB, Possible fever, wheezing. Patient states whatever she had turns into a cold. Patient states she was sick for 3 weeks end of January beginning of February was good for 1 week and then got this sickness HPI: Patient presents to office for evaluation of upper respiratory infection. Symptoms have been going on for about 2 weeks. Initially started with cough, congestion, sore throat. More recently has had chest congestion, productive cough yellow/green mucus, wheezing. Has had bronchitis before. Was sick for about 3 weeks at the end of January/beginning in February. [place] okay for about 2 weeks and then got sick again. No known sick contacts or COVID-19 exposures. Is vaccinated. Feels tired. No obvious fever chills. 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 ([facility]) I82.5Y2 Essential hypertension with goal blood pressure less than 140/90 I10 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 180 Tablet 3 Calcitriol 0.25 MCG Oral Capsule (Rocaltrol) TAKE 1 CAPSULE BY MOUTH ONCE DAILY IN THE MORNING 30 Capsule 5 Vitamin D 25 MCG (1000 UT) Oral Tablet TAKE 1 TABLET BY MOUTH ONCE DAILY IN THE MORNING 30 Tablet 5 Torsemide 10 MG Oral Tablet (Demadex) TAKE 1 TABLET BY MOUTH ONCE DAILY IN THE MORNING 90 Tablet 2 Vitamin D3 25 MCG (1000 UT) Oral Capsule TAKE 1 TABLET BY MOUTH ONCE DAILY IN THE MORNING SYMBICORT 160-4.5 MCG/ACT inhaler As needed 2 Acetaminophen ER 650 MG Oral Tablet Extended Release Take 1 Tablet by mouth every 8 hours as neededfor Pain, Moderate. diphenhydrAMINE HCl 25 MG Oral Tablet Take 1 Tablet by mouth every 6 hours as needed for Itching. No current facility-administered medications for this visit. Past Medical History: Diagnosis Date Anticoagulation management encounter 04/06/2006 Menopause 06/12/2007 Age 57yrs, hrt x 4 wks Phlebitis and thrombophlebitis of other deep vessels of lower extremities 04/06/2006 Past Surgical History: Procedure Laterality Date BREAST LESION,OTHER,EXCISION 1985 fibroid REMOVAL OF THYROID GLAND Bilateral 12/03/2019 THYROIDECTOMY INCLUDING SUBSTERNAL THYROID CERVICAL APPROACH performed by Gabriele Valenzuela DO at [facility] 2006 left inguinal DVT Review of patient's allergies indicates: No Known Allergies Family History Problem Relation Age of Onset Other (Other) Father fell down cellar steps age 81 1 mo later Cancer Grandmother (Maternal) ? No Past Hx Brother Cancer Uncle (Unspecified) ? Family Status Relation Status Mo Alive Fa at age 81 fall MGMA (Not Specified) Bro (Not Specified) UNCLE (Not Specified) Social History Socioeconomic History Marital status: Spouse name: Not on file Number of children: Not on file Years of education: Not on file Highest education level: Not on file Occupational History Not on file Tobacco Use Smoking status: Never Smokeless tobacco: Never Vaping Use Vaping Use: Never used Substance and Sexual Activity Alcohol use: Yes Comment: rare Drug use: Never Sexual activity: Yes Partners: Male Comment: M 1955 Other Topics Concern Not on file Social [...] on file Housing Stability: Not on file Travel Screening Question 03/25/2023 11:21 AM EST - Filed by Patient Do you have any of the following new or worsening symptoms? Cough Have you recently been in contact with someone who was sick? No / Unsure Myc Visit Accident Related Question Question 03/25/2023 11:21 AM EST - Filed by Patient Is this visit related to an accident? (i.e work, motor vehicle) No Phq2 Adult-Depression Question 03/25/2023 11:48 AM EST - Filed by Cornel Salguero, DO Over the last two weeks, how often have you been bothered by any of the following problems? Little interest or pleasure in doing things Not at all Feeling down, depressed or hopeless Not at all Sum of the PHQ1 and PHQ2 questions (range: 0 - 6) 0 (Further screening not recommended) Review of Systems Constitutional: Negative for chills and fever. HENT: Negative for congestion, sore throat and trouble swallowing. Eyes: Negative for photophobia and itching. Respiratory: Positive for cough, shortness of breath and wheezing. Negative for apnea. Cardiovascular: Negative for chest pain and palpitations. Gastrointestinal: Negative for abdominal distention, abdominal pain, nausea and vomiting. Genitourinary: Negative for dysuria and frequency. Musculoskeletal: Negative for arthralgias and myalgias. Skin: Negative for pallor and rash. Neurological: Negative for dizziness, light-headedness and headaches. Psychiatric/Behavioral: Negative for sleep disturbance. The patient is not nervous/anxious. Objective BP 132/88 | Pulse 75 | Temp 36.5 C (97.7 F) (Tympanic) | Resp 20 | Ht 1.524 m (5') | Wt 72.7 kg(160 lb 3.2 oz) | SpO2 94% | BMI 31.29 kg/m | BSA 1.75 m Physical Exam Constitutional: General: She is not in acute distress. Appearance: She is not ill-appearing. HENT: Head: Normocephalic and atraumatic. Right Ear: Tympanic membrane, ear canal and external ear normal. Left Ear: Tympanic membrane, ear canal and external ear normal. Nose: Nose normal. No congestion or rhinorrhea. Mouth/Throat: Mouth: Mucous membranes are moist. Pharynx: Oropharynx is clear. Eyes: General: No scleral icterus. Extraocular Movements: Extraocular movements intact. Conjunctiva/sclera: Conjunctivae normal. Pupils: Pupils are equal, round, and reactive to light. Cardiovascular: Rate and Rhythm: Normal rate and regular rhythm. Pulses: Normal pulses. Heart sounds: Normal heart sounds. No murmur heard. No friction rub. No gallop. Pulmonary: Effort: Pulmonary effort is normal. No respiratory distress. Breath sounds: No stridor. Wheezing and rhonchi present. No rales. Chest: Chest wall: No tenderness. Abdominal: General: Bowel sounds are normal. There is no distension. Palpations: Abdomen is soft. There is no mass. Tenderness: There is no abdominal tenderness. There is no right CVA tenderness or left CVA tenderness. Musculoskeletal: General: No deformity. Normal range of motion. Cervical back: Normal range of motion and neck supple. Right lower leg: No edema. Left lower leg: No edema. Lymphadenopathy: Cervical: No cervical adenopathy. Skin: General: Skin is warm and dry. Coloration: Skin is not jaundiced. Findings: No rash. Neurological: General: No focal deficit present. Mental Status: She is oriented to person, place, and time. Cranial Nerves: No cranial nerve deficit. Sensory: No sensory deficit. Motor: No weakness. Psychiatric: Mood and Affect: Mood normal. Behavior: Behavior normal. ASSESSMENT/PLAN: Acute bronchitis, unspecified organism (Primary) - methylPREDNISolone 4 MG Oral Tablet Therapy Pack (Medrol Dosepack); follow package directions - Ventolin HFA 108 (90 Base) MCG/ACT Inhalation Aerosol Solution; Inhale 2 Puffs by mouth every 4 hours as needed for Wheezing. - Benzonatate 200 MG Oral Capsule; Take 1 Capsule by mouth 3 times a day as needed for Cough. - Cefuroxime Axetil 500 MG Oral Tablet (Ceftin); Take 1 Tablet by mouth in the morning and 1 Tabletbefore bedtime. Do all this for 7 days. - RESPIRATORY PATHOGEN PANEL, PCR; Future; Expected date: 03/25/2023 - methylPREDNISolone sodium succ (SOLU-Medrol) inj 125 mg - RESPIRATORY PATHOGEN PANEL, PCR Screening for depression - DEPRESSION SCREENING PERFORMED COPD, mild (HCC) - methylPREDNISolone 4 MG Oral Tablet Therapy Pack (Medrol Dosepack); follow package directions - Ventolin HFA 108 (90 Base) MCG/ACT Inhalation Aerosol Solution; Inhale 2 Puffs by mouth every 4 hours as needed for Wheezing. - Benzonatate 200 MG Oral Capsule; Take 1 Capsule by mouth 3 times a day as needed for Cough. - Cefuroxime Axetil 500 MG Oral Tablet (Ceftin); Take 1 Tablet by mouth in the morning and 1 Tabletbefore bedtime. Do all this for 7 days. - methylPREDNISolone sodium succ (SOLU-Medrol) inj 125 mg Plan: Patient presents to office with persistent respiratory symptoms. Suspect she is developed acute bronchitis, likely bacterial due to length of symptoms. Will start treatment as would like to avoid flare of her COPD Ceftin 500 mg twice daily for 7 days for antibiotic therapy. Counseled on common side effects whichto monitor Will give Solu-Medrol 125 mg IM in office. Start Medrol 4 mg oral Dosepak tomorrow. Again counseledon ADRs for which to monitor Ventolin HFA 2 puffs every 4 hours as needed for shortness of breaths/wheezing. Counseled on commonside effects Benzonatate 200 mg three times daily as needed for cough. Again counseled on side effects Will check respiratory pathogen panel PCR. Follow-up results Keep well hydrated Continue other meds/management Follow Up: Return if symptoms worsen or fail to improve, for Follow up next routine with PCP as scheduled. | For: Follow up next routine with PCP as scheduled | Check-out note: Follow up as needed Should get flu shot once better Cornel Salguero DO documented in this encounter Nursing Notes * Hyun Ma CCMA - 03/25/2023 11:41 AM EST The patient has been properly identified by confirmation of name and date of . Chief Complaint Patient presents with Acute Patient is here today for a illness symptoms. Symptoms: cough, phlegm, runny nose, SOB, Possible fever, wheezing. Patient states whatever she had turns into a cold. Patient states she was sick for 3 weeks end of January beginning of February was good for 1 week and then got this sickness documented in this encounter Plan of Treatment Upcoming Encounters Date Type Department Care Team (Late st Contact Info) Description 04/27/2023 11:40 AM EST Office Visit Nephrology [facility], [address] [place] [address] Olvin Peres MD [address] [facility] [place], [place] [address] 05/26/2023 11:00 AM EST Laboratory [facility] [place] [address] [place] [address] [facility] [address] [place] [address] 05/31/2023 11:40 AM EST Office Visit [facility] [address] [place] [address] Cornel Salguero, [address] [place] [address] 07/08/2023 11:30 AM EDT Office Visit [facility] [address] [facility] [place] [address] Jc Pickard MD [address] [place] [address] Scheduled Orders Name Type Priority Associated Diagnoses Orde r Schedule RESPIRATORY PATHOGEN PANEL, PCR Lab Routine Acute bronchitis, unspecified organism Expected: 03/25/2023 (Approximate), Expires: 03/24/2024 Health Maintenance Due Date Last Done Comments *COPD SEVERITY VERIFIED BY PFT 08/17/2020 Depression Screening 01/16/2022 03/25/2023 DXA Scan 03/19/2022 03/19/2015, 06/2011, 06/15/2008 COVID-19 Vaccine ( season) 2022 03/13/2021, 06/19/2020, 05/29/2020 Influenza Vaccine (FLU shot) (#1) 2022 02/23/2022, 01/16/2021, 03/10/2020, Additional history exists Albumin/Creatinine Ratio 06/07/2023 06/07/2022, 12/2019 CKD PHOS USE SMARTSET 85717 08/10/2023 0410/2022, 08/03/2022, 05/27/2022, Additional history exists CKD HGB USE SMARTSET 75403 11/20/202311/19, 11/19/2022, 08/03/2022, Additional history exists TSH 11/20/2023 11/19/2022, 07/24, 02/23/2022, Additional history exists O2 ASSESSMENT COMPLETED IN PAST YEAR FOR COPD 11/24/2023 03/25/2023 DTaP,Tdap,and Td Vaccines (2 - Td [...] as of this encounter Visit Diagnoses Diagnosis Acute bronchitis, unspecified organism- Primary Screening for depression COPD, mild (HCC) Chronic airway obstruction, not elsewhere classified documented in this encounter Administered Medications Inactive Administered Medications - up to 3 most recent administrations Medication Order MAR Action Action Date Dose Rate Site methylPREDNISolone sodium succ (SOLU-Medrol) inj 125 mg 125 mg, Intramuscular, ONCE, On Tue03/25/23 at 1230, For 1 dose Given 03/25/2023 11:56 AM EST 125 mg Dorsogluteal Left documented in this encounter Advance Directives Latest Code Status on File Code Status Date Activated Date Inactivated Comments Full Code 12/03/2019 3:59 PM 12/05/2019 7:00 PM This order reflects the patients wishes and were consensually agreed upon. Question Answer Comments Discussion of Advance Directives occurred with: Not Discussed Care Teams Claims Configuration Analyst Relationship Specialty Start Date End Date Cornel Salguero DO [address] [place] [id number] PCP - General Internal Medicine 11/03/22 documented as of this encounter"
--- OUTSIDE RECORDS SUMMARY | 2023-05-01 11:42 | External Medical Summary ---
Author Name Unknown Address Unknown Organization [id number]:[facility] [place] [address] [place] [address] Laboratory Report Ordering Provider Test Date Status AMADOU PERRY 04/27/2023 12:51:36 Final Deficient: <20 ng/mL
Ins ufficient: 20-29 ng/mL
Recommended/Optimum:30-50 ng/mL

Vitamin D intoxication is rare. If suspicious of Vitamin D toxicity, evaluation of serum Calcium and PTH is recommended. Observation Date Value Abnormality Reference (Units ) Status 25-OH Vitamin D total 04/27/2023 12:51:36 33 >19 (ng/mL) Final Performing Location [facility]ORY [facility] - [address] [place] [address]
--- OUTSIDE RECORDS SUMMARY | 2023-05-01 11:43 | External Medical Summary ---
Author Name Unknown Address Unknown Organization [id number][place] [place] [address] [place] [address] Laboratory Report Ordering Provider Test Date Status JULIETA GRAYSON 11/19/2022 12:20:33 Final Observation Date Value Abnormality Reference (Units ) Status LDL, (direct) 11/19/2022 12:20:33 74 <=129 (mg/dL) Final LDL Cholesterol Reference Ra nges (mg/dL):
<70 Target level for high risk ASCVD patient
<100 Optimal for general population
100-129 Near optimal for general population
130-159 Borderline high
160-189 High
>=190 Very high Performing Location [facility] - [address] [place] [address]
--- OUTSIDE RECORDS SUMMARY | 2023-05-01 11:43 | External Medical Summary ---
Author Name Unknown Address Unknown Organization [id number][place] [place] [address] [place] [address] Laboratory Report Ordering Provider Test Date Status JULIETA GRAYSON 03/25/2023 12:08:48 Final Observation Date Value Abnormality Reference (Units ) Status Adenovirus DNA [Presence] in Nasopharynx by ANIKA with non-probe detection 03/25/2023 12:08:48 Negative Negative Final Human coronavirus 229E RNA [Presence] in Nasopharynx by ANIKA with non-probe detection 03/25/2023 12:08:48 Negative Negative Final Human coronavirus HKU1 RNA [Presence] in Nasopharynx by ANIKA with non-probe detection 03/25/2023 12:08:48 Negative Negative Final Human coronavirus NL63 RNA [Presence] in Nasopharynx by ANIKA with non-probe detection 03/25/2023 12:08:48 Negative Negative Final Human coronavirus OC43 RNA [Presence] in Nasopharynx by ANIKA with non-probe detection 03/25/2023 12:08:48 Negative Negative Final SARS-CoV-2 (COVID-19) RNA [Presence] in Nasopharynx by ANIKA with non-probe detection 03/25/2023 12:08:48 Negative Negative Final Human metapneumovirus RNA [Presence] in Nasopharynx by ANIKA with non-probe detection 03/25/2023 12:08:48 Negative Negative Final Rhinovirus+Enterovirus RNA [Presence] in Nasopharynx by ANIKA with non-probe detection 03/25/2023 12:08:48 Negative Negative Final Influenza virus A RNA [Presence] in Nasopharynx by ANIKA with non-probe detection 03/25/2023 12:08:48 Negative Negative Final Influenza virus B RNA [Presence] in Nasopharynx by ANIKA with non-probe detection 03/25/2023 12:08:48 Negative Negative Final Parainfluenza virus 1 RNA [Presence] in Nasopharynx by ANIKA with non-probe detection 03/25/2023 12:08:48 Negative Negative Final Parainfluenza virus 2 RNA [Presence] in Nasopharynx by ANIKA with non-probe detection 03/25/2023 12:08:48 Negative Negative Final Parainfluenza virus 3 RNA [Presence] in Nasopharynx by ANIKA with non-probe detection 03/25/2023 12:08:48 Negative Negative Final Parainfluenza virus 4 RNA [Presence] in Nasopharynx by ANIKA with non-probe detection 03/25/2023 12:08:48 Negative Negative Final Respiratory syncytial virus RNA [Presence] in Nasopharynx by ANIKA with non-probe detection 03/25/2023 12:08:48 Negative Negative Final Bordetella pertussis.pertussis toxin promoter region [Presence] in Nasopharynx by ANIKA with non-probe detection 03/25/2023 12:08:48 Negative Negative Final Chlamydophila pneumoniae DNA [Presence] in Nasopharynx by ANIKA with non-probe detection 03/25/2023 12:08:48 Negative Negative Final Mycoplasma pneumoniae DNA [Presence] in Nasopharynx by ANIKA with non-probe detection 03/25/2023 12:08:48 Negative Negative Final Bordetella parapertussis [id number] DNA [Presence] in Nasopharynx by ANIKA with non-probe detection 03/25/2023 12:08:48 Negative Negative Final
The primers that detect Rhinovirus may cross react with some Enterorviruses. The validation of bronchial specimens, tracheal aspirates, and throats for this assay was developed and performance characteristics determined by [facility]. The validation of alternate specimen types has not been cleared or approved by the U.S. Food and Drug Administration (FDA). It has been determined that such clearance or approval is not necessary. Performing Location [facility] [place] [address] [facility] [place] [facility] [address]
--- OUTSIDE RECORDS SUMMARY | 2023-05-01 11:43 | External Medical Summary | Summary of Care ---
Author Name Unknown Organization [facility] Address [address] [place] [address] Phone [phone] Care Team Providers Care Control Electrician Name Role Phone Cornel Salguero DO Primary Care Provid er Reason for Visit * Reason Onset Date Comments Health Maintenance 03/15/2023 Encounter Details Date Type Department Care Team ([facility] Contact Info) Description 03/15/[address] [phone] Cornel Salguero DO [address] [place] [address] Health Maintenance Allergies No known active allergiesdocumented as of this encounter (statuses as of 03/15/2023) Medications Medication Sig Dispensed Refills Start Date End Date Status SYMBICORT 160-4.5 MCG/ACT inhaler As needed 2 03/23/2019 Active Acetaminophen ER 650 MG Oral Tablet Extended Release Take 1 Tablet by mouth every 8 hours as needed for Pain, Moderate. 0 Active Torsemide 10 MG Oral Tablet (Demadex) Take by mouth 1 Tablet in the morning. In the morning. 90 Tablet 2 02/23/2022 Active diphenhydrAMINE HCl 25 MG Oral Tablet [...] THE MORNING 30 Tablet 5 10/27/2022 Active documented as of this encounter (statuses as of 03/15/2023) Active Problems Problem Noted Date Diagnosed Date [...] as of this encounter (statuses as of 03/15/2023) Resolved Problems Problem Noted Date Diagnosed Date Resolved Date COPD, mild 08/14/2020 12/09/2022 Overview: Per COPD GOLD Classification Kidney disease, chronic, sta ge III (GFR 30-59 ml/min) 02/05/2019 05/14/2019 Overview: Per CKD protocol Menopause 06/12/2007 09/13/2018 Overview: Age 57yrs, hrt x 4 wks Anticoagulation management encounter 04/06/2006 09/13/2018 documented as of this encounter (statuses as of 03/15/2023) Immunizations Name Administration Dates Next Due COVID-19 mRNA, LNP-s, No Pre serve, 2-Dose Series ([employer]) 03/13/2021,06/19/2020,05/29/2020 Pneumococcal Conjugate Vacc, 13 Valent (Prevnar) [...] encounter Miscellaneous Notes * Telephone Encounter - Maggie Vivas LPN - 03/15/2023 1:32 PM EST Care Gaps Comprehensive Care Outreach Last Office/Telemedicine Visit: 11/23/2022 (in office), Visit date not found (telemedicine) Next Office Visit: 05/31/2023 Hemoglobin AIC Results: No results found for: "HEMOGLOBIN A1C" Reviewed Health Maintenance below: Health Maintenance Topic Date Due *COPD SEVERITY VERIFIED BY PFT Never done Depression Screening 01/16/2022 DXA Scan 03/19/2022 Influenza Vaccine (FLU shot) (1) 12/24/2022 COVID-19 Vaccine ( season) 2022 Care Gap Outreach Action Taken: Outreach not indicated documented in this encounter Plan of Treatment Upcoming Encounters Date Type Department Care Team ([facility] st Contact Info) Description 03/25/2023 10:20 AM EST Office Visit Nephrology [address] [place] [phone] Olvin Peres MD [address] [facility] [place] [address] 05/26/2023 11:00 AM EST Laboratory [facility], [address] [phone] [facility] [address] [place] [address] 05/31/2023 11:40 AM EST Office Visit Family Practice [facility] [address] [place] [phone] Cornel Salguero, [address] [place] [address] 07/08/2023 11:30 AM EDT Office Visit Cardiology, [facility] [address] [address] Jc Pickard MD [address] [address] Health Maintenance Due Date Last Done Comments *COPD SEVERITY VERIFIED BY PFT 08/17/2020 Depression Screening 01/16/2022 01/16/2021 DXA Scan 03/19/2022 03/19/2015, 080 06/2011, 06/15/2008 COVID-19 Vaccine ( season) 2022 03/13/2021, 06/19/2020, 05/29/2020 Influenza Vaccine (FLU shot) (#1) 2022 02/23/2022, 01/16/2021, 03/10/2020, Additional history exists Albumin/Creatinine Ratio 06/07/2023 06/07/2022, 12/2019 CKD PHOS USE SMARTSET 10415 08/10/202307/24, 08/03/2022, 05/27/2022, Additional history exists CKD HGB USE SMARTSET 84408 11/20/202311/19, 11/19/2022, 08/03/2022, Additional history exists TSH 11/20/2023 11/19/2022, 07/24, 02/23/2022, Additional history exists O2 ASSESSMENT COMPLETED IN PAST YEAR FOR COPD 11/24/2023 11/23/2022 DTaP,Tdap,and Td Vaccines (2 - Td or [...] Directives occurred with: Not Discussed Care Teams Control Electrician Relationship Specialty Start Date End Date Cornel Salguero DO [address] [place] [address] PCP - General Internal Medicine 11/03/22 documented as of this encounter
--- OUTSIDE RECORDS SUMMARY | 2023-05-01 11:43 | External Medical Summary | Summary of Care ---
Author Name Unknown Organization [facility] Address [address] [place] [address] Phone [phone] Care Team Providers Care Bridge Opener Name Role Phone LisabennieCornel Franck Primary Care Provid er Reason for Visit * Reason Comments Outpatient Testing Encounter Details Date Type Department Care Team Description 11/19/2022 Laboratory Laboratory Patient Service [address] [phone] Have, [facility] Lock [address] [place] [phone] Dyslipidemia, goal LDL below 130; Postoperative hypothyroidism; Dementia without behavioral disturbance (HCC) Allergies No known active allergiesdocumented as of this encounter (statuses as of 11/19/2022) Medications Medication Sig Dispensed Refills Start Date End Date Status albuterol (VENTOLIN HFA) 108 (90 BASE) MCG/ACT inhalerIndications:B ronchitis with bronchospasm Inhale 2 Puffs by mouth every 4 hours as needed for Wheezing. 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 01/01/2022 Lymphedema 11/24/2021 Atrial fibrillation, unspecified type B12 deficiency 08/03/2021 Essential hypertension with goal blood p ressure less than 140/90 01/16/2021 Postoperative hypothyroidism 01/16/2021 Dyslipidemia, goal LDL below 130 021 Dementia without behavioral disturbance 08/14/2020 Overview: ICD-10 update of inactive term COPD, mild 08/14/2020 Chronic deep vein thrombosis (DVT) of proximal [...] as of this encounter (statuses as of 11/19/2022) Resolved Problems Problem Noted Date Resolved Date Kidney disease, chronic, stage III (GFR 30-59 ml /min) 02/05/2019 05/14/2019 Overview: Per CKD protocol Menopause 06/12/2007 09/13/2018 Overview: Age 57yrs, hrt x 4 wks Anticoagulation management encounter 04/06/2006 09/13/2018 documented as of this encounter (statuses as of 11/19/2022) Immunizations Name Administration Dates Next Due COVID-19 mRNA, LNP-s, No Pre serve, 2-Dose Series ([employer]) 03/13/2021,06/19/2020,05/29/2020 Pneumococcal Conjugate Vacc, 13 Valent (Prevnar) 09/11/2015 Seasonal Influenza, Quadriva lent Hd (Fluzone Hd) 02/23/2022,01/16/2021 Seasonal Influenza, Quadriva lent, No Preserve, 6 Mons & Above, IM 02/09/2018,02/03/2017 Seasonal Influenza, Quadriva lent, No Preserve, Adjuvanted, 65+ Yrs, IM 03/10/2020 Seasonal Influenza, Quadriva lent, No Preserve, IM [...] = 0.6 oz pur e alcohol) rare Food Insecurity Answer Date Recorded Within the past 12 months, y ou worried that your food would run out before you got money to buy more. Never true 10/05/2019 Within the past 12 months, t he food you bought just didn't last and you didn't have money to get more. Never true 10/05/2019 Sex Assigned at Date Recorded Female 09/15/2018 10:45 AM EDT Job Start Date Occupation Industry [...] or making decisions? (5 years old or older No 12/03/2019 documented as of this encounter Plan of Treatment Upcoming Encounters Date Type Specialty Care Team Description 11/23/2022 Office Visit Family Medicine Cornel Salguero DO [address] [place] [address] 03/25/2023 Office Visit Nephrology Olvin Peres MD [address] [facility] [place] [address] 07/08/2023 Office Visit Cardiology Jc Pickard MD [address] [place] [address] Pending Results Name Type Priority Associated Diagnoses Date /Time COMPREHENSIVE METABOLIC PANEL Lab Routine Dyslipidemia, goal LDL below 130 Postoperative hypothyroidism Dementia without behavioral disturbance (HCC) 11/19/2022 12:20 PM EDT CBC WITH WBC DIFFERENTIAL Lab Routine Dyslipidemia, goal LDL below 130 Postoperative hypothyroidism Dementia without behavioral disturbance (HCC) 11/19/2022 12:20 PM EDT LIPID PANEL WITH DIRECT LDL IF TG IS HIGH Lab Routine Dyslipidemia, goal LDL below 130 Postoperative hypothyroidism Dementia without behavioral disturbance (HCC) 11/19/2022 12:20 PM EDT TSH WITH FREE T4 IF INDICATED Lab Routine Dyslipidemia, goal LDL below 130 Postoperative hypothyroidism Dementia without behavioral disturbance (HCC) 11/19/2022 12:20 PM EDT CBC Lab Routine Dyslipidemia, goal LDL below 130 Postoperative hypothyroidism Dementia without behavioral disturbance (HCC) 11/19/2022 12:20 PM EDT DIFFERENTIAL, AUTOMATED Lab Routine Dyslipidemia, goal LDL below 130 Postoperative hypothyroidism Dementia without behavioral disturbance (HCC) 11/19/2022 12:20 PM EDT Health Maintenance Due Date Last Done Comments *COPD SEVERITY VERIFIED BY PFT 08/17/2020 COVID-19 Vaccine (4 - Pfizer series) 05/08/2021 03/13/2021, 06/19/2020, 05/29/2020 Depression Screening, Annual for Pts 12 and Over 01/16/2022 01/16/2021 DXA Scan 03/19/2022 03/19/2015, 06/2011, 06/15/2008 Influenza Vaccine (FLU shot) (#1) 2022 02/23/2022, 01/16/2021, 03/10/2020, Additional history exists O2 ASSESSMENT COMPLETED IN PAST YEAR FOR COPD 07/01/2023 06/30/2022 TSH 08/04/2023 08/03/2022, 04/2021, 07/27/2021, Additional history exists Albumin/Creatinine Ratio 06/07/2025 06/07/2022, 0612/2019 DTaP,Tdap,and Td Vaccines (2 - Td or [...] as of this encounter Visit Diagnoses Diagnosis Dyslipidemia, goal LDL below 130 Other and unspecified hyperlipidemia Postoperative hypothyroidism Postsurgical hypothyroidism Dementia without behavioral disturbance (HCC) Dementia, unspecified, without behavioral disturbance documented in this encounter Advance Directives Latest Code Status on File Code Status Date Activated Date Inactivated Comments Full Code 12/03/2019 3:59 PM 12/05/2019 7:00 PM This order reflects the patients wishes and were consensually agreed upon. Question Answer Comments Discussion of Advance Directives occurred with: Not Discussed Care Teams Bridge Opener Relationship Specialty Start Date End Date Cornel Salguero, [address] [place] [address] [phone] PCP - General Internal Medicine 11/03/22 documented as of this encounter
--- OUTSIDE RECORDS SUMMARY | 2023-05-01 11:43 | External Medical Summary | Summary of Care ---
Author Name Unknown Organization [facility] Address [address] [place] [address] Phone [phone] Care Team Providers Care Retail Business Manager Name Role Phone LisabennieCornel Franck Primary Care Provid er Reason for Visit * Reason Comments Outpatient Testing Encounter Details Date Type Department Care Team Description 11/19/2022 Laboratory Laboratory Patient Service [address] [phone] [place], [facility] [address] [place] [address] Dyslipidemia, goal LDL below 130; Postoperative [...] mRNA, LNP-s, No Pre serve, 2-Dose Series ([employer]) 03/13/2021,06/19/2020,05/29/2020 Pneumococcal Conjugate Vacc, 13 Valent (Prevnar) [...] Office Visit Family Medicine Cornel Salguero DO [address] [place] [address] 03/25/2023 Office Visit Nephrology Olvin Peres MD 200 [facility] [place] [address] 07/08/2023 Office Visit Cardiology Jc Pickard MD [address] [place] [address] Pending Results Name Type Priority Associated Diagnoses [...] Directives occurred with: Not Discussed Care Teams Retail Business Manager Relationship Specialty Start Date End Date Cornel Salguero, [address] [place] [phone] PCP - General Internal Medicine 11/03/22 documented as of this encounter
--- OUTSIDE RECORDS SUMMARY | 2023-05-01 11:43 | External Medical Summary ---
Author Name Unknown Address Unknown Organization [id number]:LABORATORY [facility] [place] - [address] [place] [address] Laboratory Report Ordering Provider Test Date Status JULIETA GRAYSON 11/19/2022 12:20:33 Final Observation Date Value Abnormality Reference (Units ) Status Triglyceride 11/19/2022 12:20:33 274 Above high normal <=174 (mg/dL) Final Triglyceride Reference Range s (mg/dL):
<150 Acceptable
150-174 Borderline high
175-499 High
>=500 Very high Cholesterol 11/19/2022 12:20:33 159 <200 (mg /dL) Final Total Cholesterol Reference Ranges (mg/dL):
<200 Desirable
200-239 Borderline high
>=240 High HDL 11/19/2022 12:20:33 43 Below low normal >49 (mg/dL) Final HDL Cholesterol Reference Ra nges (mg/dL):
>=60 High (Desirable)
<50 Low (Undesirable) For Females
<40 Low (Undesirable) For Males NON-HDL CHOLESTEROL 11/19/2022 12:20:33 116 <=159 (mg/dL) Final Non-HDL Cholesterol Referenc e Range (mg/dL):
<100 Target level for high risk ASCVD patient
<130 Optimal for general population
130-159 Near optimal for general population
160-189 Borderline High
190-219 High
>=220 Very High Performing Location LABORATORY [facility] [place] - [address] [place] [address]
--- OUTSIDE RECORDS SUMMARY | 2023-05-01 11:43 | External Medical Summary | Summary of Care ---
Author Name Unknown Organization [facility] Address [address] [place] [address] Phone [phone] Care Team Providers Care Hand Turner Name Role Phone LisabennieCornel Franck Primary Care Provid er Reason for Visit * Reason Comments eRx-Medication Refill Encounter Details Date Type Department Care Team ([facility] st Contact Info) Description 03/25/[address] [phone] Gilda Craig MD [address] [place] [phone] Allergies No known active allergiesdocumented as of [...] before bedtime. 180 Tablet 3 3 Active Calcitriol 0.25 MCG Oral Capsule (Rocaltrol) TAKE 1 CAPSULE BY MOUTH ONCE DAILY IN THE MORNING 30 Capsule 5 3 Active Vitamin D 25 MCG (1000 UT) Oral TabletIndications:H ypocalcemia,Chronic kidney disease, stage 3b (HCC) TAKE 1 TABLET BY MOUTH ONCE DAILY IN THE MORNING 30 Tablet 5 3 Active Torsemide 10 MG Oral Tablet (Demadex) TAKE 1 TABLET BY MOUTH ONCE DAILY IN THE MORNING 90 Tablet 2 3 Active Torsemide 10 MG Oral Tablet (Demadex) Take by mouth 1 Tablet in the morning. In the morning. 90 Tablet 2 2 03/25/20 23 Discontinued documented as of this encounter [...] encounter Miscellaneous Notes * Telephone Encounter - Aman Song sahil - 03/25/2023 10:35 AM EST Signed Prescriptions: Disp Refills Torsemide 10 MG Oral Tablet (Demadex) 90 Tab*2 Sig: TAKE 1 TABLET BY MOUTH ONCE DAILY IN THE MORNINGAuthorizing Provider: CORNEL RENDON User: AMAN SONG documented in this encounter Plan of Treatment Upcoming Encounters Date Type Department Care Team ([facility] st Contact Info) Description 03/25/2023 11:40 AM EST Office Visit [address] [phone] Cornel Rendon DO [address] [place] [address] 04/27/2023 11:40 AM EST Office Visit Nephrology [address] [place] [address] Olvin Peres MD [address] [place] [address] 05/26/2023 11:00 AM EST Laboratory [facility], [address] [phone] [address] 05/31/2023 11:40 AM EST Office Visit [address] [phone] Cornel Rendon, DO [address] [place] [address], [place] [address] 07/08/2023 11:30 AM EDT Office Visit Cardiology, [facility] [address] [place] [address] Jc Pickard MD [address] [place] [address] Health Maintenance Due Date Last Done Comments *COPD SEVERITY VERIFIED BY PFT 08/17/2020 Depression Screening 01/16/2022 01/16/2021 DXA Scan 03/19/2022 03/19/2015, 06/2011, 06/15/2008 COVID-19 Vaccine ( season) 2022 03/13/2021, 06/19/2020, 05/29/2020 Influenza Vaccine (FLU shot) (#1) 2022 02/23/2022, 01/16/2021, 03/10/2020, Additional history exists Albumin/Creatinine Ratio 06/07/2023 06/07/2022, 0612/2019 CKD PHOS USE SMARTSET 77966 08/10/202307/24, 08/03/2022, 05/27/2022, Additional history exists CKD HGB USE SMARTSET 90880 11/20/202311/19, 11/19/2022, 08/03/2022, Additional history exists TSH [...] Directives occurred with: Not Discussed Care Teams Hand Turner Relationship Specialty Start Date End Date Cornel Rendon DO [address] [place] [address] PCP - General Internal Medicine 11/03/22 documented as of this encounter
--- OUTSIDE RECORDS SUMMARY | 2023-05-01 11:43 | External Medical Summary ---
Author Name Unknown Address Unknown Organization K01[place] [facility] [place] [address] [facility] [place] [address] Laboratory Report Ordering Provider Test Date Status JULIETA GRAYSON 11/19/2022 12:20:33 Final Observation Date Value Abnormality Reference (Units ) Status BUN 11/19/2022 12:20:33 22 Above high normal 6-20 (mg/dL) Final Creatinine 11/19/2022 12:20:33 1.3 Above high normal 0.5-1.0 (mg/dL) Final Glomerular filtration rate/1.73 sq M.predicted [Volume Rate/Area] in Serum, Plasma or Blood by Creatinine-based formula (CKD-EPI) 11/19/2022 12:20:33 42 Below low normal >=60 (mL/min) Final eGFR is calculated based on the CKD-EPI 2020 equation SODIUM 11/19/2022 12:20:33 143 135-146 (m mol/L) Final Potassium 11/19/2022 12:20:33 5.3 Above high normal 3. 5-5.1 (mmol/L) Final Result may be falsely elevat ed due to hemolysis. Cl 11/19/2022 12:20:33 100 98-107 (mm ol/L) Final CO2 11/19/2022 12:20:33 31 22-32 (mmo l/L) Final Anion gap 11/19/2022 12:20:33 12 7-15 (mmol /L) Final Glucose 11/19/2022 12:20:33 101 70-120 (mg /dL) Final Albumin 11/19/2022 12:20:33 4.2 3.8-5.0 (g /dL) Final AST (Aspartate aminotransferase) 11/19/2022 12:20:33 28 10-35 (U/L) Final Result may be falsely elevat ed due to hemolysis. Alk Phos 11/19/2022 12:20:33 99 35-130 (U/ L) Final Bilirubin, Total 11/19/2022 12:20:33 0.6 <=1 .2 (mg/dL) Final Calcium 11/19/2022 12:20:33 9.0 8.4-10.2 ( mg/dL) Final Protein 11/19/2022 12:20:33 6.6 6.0-8.3 (g /dL) Final ALT (Alanine aminotransferase) 11/19/2022 12:20:33 20 10-35 (U/L) Final Performing Location [facility] [facility] [place] [facility] [address] [facility] [address]
--- OUTSIDE RECORDS SUMMARY | 2023-05-01 11:43 | External Medical Summary ---
Author Name Unknown Address Unknown Organization K01:[facility]ATORY [facility] [place] - [address] [facility] [place] [address] Laboratory Report Ordering Provider Test Date Status JULIETA GRAYSON 11/19/2022 12:20:33 Final Observation Date Value Abnormality Reference (Units ) Status TSH 11/19/2022 12:20:33 0.88 0.27-4.20 (uIU/mL) Final Performing Location LABORATORY [facility] [place] - [address] [facility] [address]
--- OUTSIDE RECORDS SUMMARY | 2023-05-01 11:43 | External Medical Summary | Summary of Care ---
Author Name Unknown Organization [facility] Address [address] [place] [address] Phone [phone] Care Team Providers Care Raw Material Handler Name Role Phone Cornel Salguero DO Primary Care Provid er Reason for Visit * Reason Comments Follow Up Encounter Details Date Type Department Care Team Description 11/23/2022 Office Visit [address] [phone] Cornel Salguero DO [address] [place] [id number] Paroxysmal atrial fibrillation (HCC)*; Risk and functional assessment; Lymphedema of left leg; Chronic anticoagulation; Dementia without behavioral disturbance (HCC); COPD, mild (HCC); Chronic deep vein thrombosis (DVT) of proximal vein of left lower extremity (HCC); Essential hypertension with goal blood pressure less than 140/90; Postoperative hypothyroidism; Dyslipidemia, goal LDL below 130; Obesity, Class I, BMI 30.0-34.9 (see actual BMI); Osteoporosis, unspecified osteoporosis type, unspecified pathological fracture presence; Stage 3a chronic kidney disease (HCC) Allergies No known active allergiesdocumented as of this encounter (statuses as of 11/23/2022) Medications Medication Sig Dispensed Refills Start Date [...] THE MORNING 30 Tablet 5 10/27/2022 Active albuterol (VENTOLIN HFA) 108 (90 BASE) MCG/ACT inhalerIndications: Bronchitis with bronchospasm Inhale 2 Puffs by mouth every 4 hours as needed for Wheezing. 1 Inhaler 1 04/10/2018 3 Discontinu ed(Patient preference /discontin uation) documented as of this encounter (statuses as of 11/23/2022) Active Problems Problem Noted Date Stage 3a chronic kidney disease 11/24/19 23 Degenerative tear of left medial meniscu s [...] as of this encounter (statuses as of 11/23/2022) Resolved Problems Problem Noted Date Resolved Date Kidney disease, chronic, stage III (GFR 30-59 ml /min) 02/05/2019 05/14/2019 Overview: Per CKD protocol Menopause 06/12/2007 09/13/2018 Overview: Age 57yrs, hrt x 4 wks Anticoagulation management encounter 04/06/2006 09/13/2018 documented as of this encounter (statuses as of 11/23/2022) Immunizations Name Administration Dates Next Due COVID-19 mRNA, LNP-s, No Pre serve, 2-Dose Series (Seratis) 03/13/2021,06/19/2020,05/29/2020 Pneumococcal Conjugate Vacc, 13 Valent (Prevnar) [...] got money to buy more. Never true 11/23/2022 Within the past 12 months, t he food you bought just didn't last and you didn't have money to get more. Never true 11/23/2022 Sex Assigned at Date Recorded Female 09/15/2018 10:45 AM EDT Job Start Date Occupation Industry Not on file Not on file Not on file documented as of this encounter Last Filed Vital Signs Vital Sign Reading Time Taken Comments Blood Pressure 142/78 11/23/2022 11:12 AM EDT Pulse 72 11/23/2022 11:12 AM EDT Temperature 36.7 C (98.1 F) 11/23/2022 11:12 AM E DT Respiratory Rate 18 11/23/2022 11:12 AM EDT Oxygen Saturation 96% 11/23/2022 11:12 AM EDT Inhaled Oxygen Concentration - - Weight 74.8 kg (165 lb) 11/23/2022 11:12 AM EDT Height - - Body Mass Index 32.22 08/09/2022 11:13 AM EDT documented in this encounter Functional Status Functional [...] this encounter Patient Instructions * Patient Instructions* Otilia Fowler LPN - 11/23/2022 11:12 AM EDT Patient Instructions - Fall Prevention (This education [...] 10 times. Repeat this throughout the day. Kate Patient Education Copyright 2008 - 2010 Ktae except where otherwise noted. Preventing Falls: Moving [...] side, hold the cane on that side. 17. Get your balance. 18. Move the cane and your weaker leg forward. 19. Support your weight on both the cane and your weaker side. 20. Step with your stronger leg. 21. Start again from step 1. If youre using a folding walker, be sure you know how to lock it open. Check that its locked open before each use. Using a Walker 7. Roll the walker (or lift it, if youre using one without wheels) forward about 12 inches. 8. Step forward with your weaker leg first. 9. Use the walker to help keep your balance. 10. Bring your other foot forward to the center of the walker. 11. Start again from step 1. Helpful Tips Check with your healthcare provider about the right walking aid to use. Ask about a walker with a seat attached. Check the tips of your cane or walker to make sure they have nonskid covers. Move slowly from room to room. Christina prado. Sit down to get dressed. Use [...] Wear support stockings (TEDs)if you have edema Otilia Fowler LPN 11/23/2022 Kegel Exercises Kegel exercises dont require special [...] effective. Kate Patient Education Copyright 2009 - 2010 Kate except where otherwise noted. Here are [...] please feel free to contact our office. BMI (Body Mass Index) is the number obtained by dividing a person's weight in kilograms by his or her height in meters squared. BMI is used in determining obesity. BMI is not used to determine a person's actual percentage of body fat, but it is a good tool to otr tanker truck driver weight in terms of what is healthy and unhealthy. It is used to identify adults at increased risk for developing weight related medical problems. Estimated body mass index is 32.22 kg/m as calculated from the following: Height as of 08/09/22: 1.524 m (5'). Weight as of this encounter: 74.8 kg (165 lb). Obesity - BMI 30 kg/m2 to 34.9 kg/mg - Obese individuals are at risk for developing: * Heart disease * Stroke * Diabetes * High Blood Pressure * High Cholesterol * GERD (acid reflux) * Sleep Apnea * Osteoarthritis * Fatty Liver Disease * Certain Types of Cancers * Gout * Gall Bladder Disease - Weight loss has been shown to decrease weight related medical problems. - Each additional 5 unit increase in BMI at/above 25 kg/m2 is linked to a 40% increase in from heart and coronary artery disease. - The lifespan of those with a BMI of 30-35 kg/m2 is reduced by two to four years compared to thosewith a normal BMI. - A 12-week weight management text message program is also available. Go to [employer] and seethe message under '[employer]' for more information and enrollment. Patient is Instructed to: Diet: * Limit total fat intake to no more than 40 grams per day (low fat diet). * Increase fruits and vegetables to 5 servings per day, combined. * Limited starches (breads, pasta, rice, potatoes, corn, cereals) to 4 servings per day. Avoid Calorie Containing Drinks: * No fruit juices, regular sodas or sweetened drinks. * Water is preferred - 64 ounces per day unless advised of a fluid restriction. * Diet sodas and drinks permitted. Keep Honest, Accurate Food logs: * www.[employer].Linkpass * www.[employer]or[employer]te * If you bite it - write it! Weigh Yourself Weekly: * Morning is best. * Try to do this outside your home. * Have a friend/spouse remind you to weigh yourself, accountability to others helps. Perform 30 minutes of physical activity daily: * Can do all at once or 5 minutes 6 times per day * 8, 000-10,000 steps per day using a pedometer * Make it fun! documented in this encounter Progress Notes * Cornel Salguero DO - 11/23/2022 11:26 AM EDT Subjective Rosaura Charles is a 87 year old female. Chief Complaint Patient presents with Follow Up HPI: Patient presents to office for routine follow-up. First time in consultation with myself as PCP. Is a former patient of Dr. Craig in our office. Lab work done recently, results reviewed with patient. Previous documentation including notes, radiographic studies and medication list personally reviewed. Patient's daughter Elida also participated in visit over the phone. Patient is on anticoagulation with Eliquis 5 mg twice daily. Tolerating without side effects or bleeding complication. Has history of significant DVT in the left lower extremity that was unprovoked. Also diagnosed with paroxysmal AFib in 2021. Does still have chronic lymphedema in the left lower extremity but no evidence of fluid overload. Is on metoprolol 125 mg daily for rate control. No current palpitations, chest pain or dyspnea. Follows with [facility] cardiology in regards to AFib Has history hypertension with resultant CKD 3. Most recent creatinine 1.3. Also has a history of associated hypocalcemia. Follows with [facility] Nephrology in regards to this. Calcium levels have been improved. No acute urinary symptoms. Tolerating current hypertensive regimen. No symptoms noted beconsistent with elevation of baseline blood pressure History hypothyroidism tolerating current levothyroxine dose without ADRs. Recent TSH within normallimits/stable overall. 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 Chronic anticoagulation Z79.01 Dementia without behavioral disturbance ([facility]) F03.90 COPD, mild ([facility]) J44.9 Chronic deep vein thrombosis (DVT) of proximal vein of left lower extremity ([facility]) I82.5Y2 Essential hypertension with goal blood pressure less than 140/90 I10 Postoperative hypothyroidism E89.0 Dyslipidemia, goal LDL below 130 E78.5 B12 deficiency E53.8 Atrial fibrillation, unspecified type ([facility]) I48.91 Degenerative tear of left medial meniscus M23.204 Lymphedema I89.0 Current Outpatient Medications Medication Sig Dispense Refill albuterol (VENTOLIN HFA) 108 (90 BASE) MCG/ACT inhaler Inhale 2 Puffs by mouth every 4 hours asneeded for Wheezing. (Patient not taking: Reported on 08/09/2022) 1 Inhaler 1 SYMBICORT 160-4.5 MCG/ACT inhaler As needed 2 Acetaminophen ER 650 MG Oral Tablet Extended Release Take 1 Tablet by mouth every 8 hours as needed for Pain, Moderate. Torsemide 10 MG Oral Tablet (Demadex) Take by mouth 1 Tablet in the morning. In the morning. 90Tablet 2 diphenhydrAMINE HCl 25 MG Oral Tablet Take [...] 24 Hour (Toprol XL) Take 1 Tablet bymouth every evening. 90 Tablet 3 Metoprolol Succinate [...] DAILY IN THE MORNING 30 Tablet 5 No current facility-administered medications for this [...] Gabriele Valenzuela DO at [facility] 2006 left inguinal DVT [...] Sexual activity: Yes Partners: Male Comment: M 195 Other Topics Concern Not on file Social History Narrative Not on file Social Determinants of Health Financial Resource Strain: Not on file Food Insecurity: No Food Insecurity Worried About Running Out of Food in the Last Year: Never true Ran Out of Food in the Last Year: Never true Transportation Needs: Not on file Physical Activity: Not on file Stress: Not on file Social Connections: Not on file Intimate Partner Violence: Not on file Housing Stability: Not on file Travel Screening Question 11/23/2022 11:16 AM EDT - Filed by Otilia Fowler LPN Do you have any of the following new or worsening symptoms? None of these Have you recently been in contact with someone who was sick? No / Unsure Mmrc Cat Question 11/23/2022 11:17 AM EDT - Filed by Otilia Fowler LPN When do you become breathless? (0) I only get breathless with strenuous exercise How frequently do you cough? (0) - I never cough Do you have phlegm in your chest? (0) - I have no phlegm (mucus) in my chest Is your chest tight? (0) - My chest does not feel tight at all How breathless do you become when walking up a hill or steps? (0) - When I walk up a hill or one flight of stairs I am not breathless How limited are you doing activities at home? (0) - I am not limited doing any activities at home How confident are you leaving home with your lung condition? (0) - I am confident leaving my home despite my condition How soundly do you sleep? (0) - I sleep soundly How much energy do you have? (0) - I have lots of energy Total MMRC Score (range: 0 - 4) 0 Total CAT Score (range: 0 - 40) 0 Social Needs Screening Question 11/23/2022 11:18 AM EDT - Filed by Otilia Fowler LPN We want to ensure that you can live your healthiest life, part of that is ensuring you have can find resources when you need them. We know that if you have trouble accessing things like food, housing, or transportation, it can impact your health. We encourage you to take a couple minutes to fill out this social needs questionnaire. Your care team will go over the screening with you at your upcoming visit and can connect you to local resources. Within the past 12 months, you worried that your food would run out before you got the money to buymore. Never true Within the past 12 months, the food you bought just didnt last and you didnt have money to get more. Never true Do you need food for this week? No Do you currently live in a mcfp or have no steady place to sleep at night? No Do you think you are at risk of becoming homeless? No Do you have trouble getting a ride to medical visits or work? Never True Do you have any trouble paying for your medications, or do you think you might in the future? No How often do you feel lonely or isolated from those around you? Never Do you feel unsafe or have concerns for your safety? No Do you feel overwhelmed with taking care of a child, family member or friend? No Have you been unable to get clothing when it was really needed? No Do you have trouble paying your heating, water, or electric bill? No Are you unemployed or without regular income? No About Me Question 11/23/2022 11:18 AM EDT - Filed by Otilia Fowler LPN Demographics Section: I identify my ethnicity as: Not or I identify my race as: White My preferred language is: Ethiopian I need an clinical trial data manager to communicate with you: I identify my gender as: Female My pronouns are: she/her/hers My sex assigned at and orginally recorded on my certificate was: Female My sexual orientation is: Straight Have you ever served in the ? Never Served (Not a [place]) [employer] Question 11/23/2022 11:19 AM EDT - Filed by Otilia Fowler LPN Have you used an antibiotic (e.g., azithromycin, doxycycline, augmentin) in the last 12 months because of your breathing or lung problem? No Have you added or increased the dose of a steroid (e.g., prednisone, solumedrol) in the last 12 months because of your breathing or lung problem? No Did you go to the ED, or were you hospitalized in the last 12 months because of your breathing or lung problem? No Myc Visit Accident Related Question Question 11/23/2022 11:19 AM EDT - Filed by Otilia Fowler LPN Is this visit related to an accident? (i.e work, motor vehicle) No Review of Systems Constitutional: Negative for chills and fever. HENT: Negative for congestion, sore throat and trouble swallowing. Eyes: Negative for photophobia and itching. Respiratory: Negative for apnea, cough, shortness of breath and wheezing. Cardiovascular: Positive for leg swelling. Negative for chest pain and palpitations. Gastrointestinal: Negative for abdominal distention, abdominal pain, nausea and vomiting. Genitourinary: Negative for dysuria and frequency. Musculoskeletal: Negative for arthralgias and myalgias. Skin: Negative for pallor and rash. Neurological: Negative for dizziness, light-headedness and headaches. Psychiatric/Behavioral: Negative for sleep disturbance. The patient is not nervous/anxious. Objective BP 142/78 | Pulse 72 | Temp 36.7 C (98.1 F) (Tympanic) | Resp 18 | Wt 74.8 kg (165 lb) | SpO2 96% | BMI 32.22 kg/m | BSA 1.78 m Physical Exam Constitutional: General: She is [...] gallop. Pulmonary: Effort: Pulmonary effort is normal. Breath sounds: Normal breath sounds. No wheezing, rhonchi or rales. Abdominal: General: Bowel sounds are normal. There is no distension. Palpations: Abdomen is soft. There is no mass. Tenderness: There is no abdominal tenderness. Musculoskeletal: General: No deformity. Normal range of motion. Cervical back: Normal range of motion and neck supple. Right lower leg: No edema. Left lower leg: Edema present. Comments: Chronic, known lymphedema left lower extremity. Lymphadenopathy: Cervical: No cervical adenopathy. Skin: General: Skin is warm and dry. Coloration: Skin is not jaundiced. Findings: No rash. Neurological: General: No focal deficit present. Mental Status: She is oriented to person, place, and time. Cranial Nerves: No cranial nerve deficit. Sensory: No sensory deficit. Motor: No weakness. Psychiatric: Mood and Affect: Mood normal. Behavior: Behavior normal. Latest Reference Range & Units 11/19/22 12:20 Triglycerides <=174 mg/dL 274 (H) Cholesterol <200 mg/dL 159 Non-HDL Cholesterol <=159 mg/dL 116 HDL Cholesterol >49 mg/dL 43 (L) LDL Cholesterol (Direct Measure) <=129 mg/dL 74 Sodium 135 - 146 mmol/L 143 Potassium 3.5 - 5.1 mmol/L 5.3 (H) Chloride 98 - 107 mmol/L 100 CO2 22 - 32 mmol/L 31 BUN 6 - 20 mg/dL 22 (H) Creatinine 0.5 - 1.0 mg/dL 1.3 (H) Estimated Glomerular Filtration Rate >=60 mL/min 42 (L) Anion Gap 7 - 15 mmol/L 12 Glucose 70 - 120 mg/dL 101 Calcium 8.4 - 10.2 mg/dL 9.0 Protein 6.0 - 8.3 g/dL 6.6 TSH 0.27 - 4.20 uIU/mL 0.88 TSH WITH FREE T4 IF INDICATED Rpt CBC Rpt CBC WITH WBC DIFFERENTIAL Rpt WBC 4.00 - 10.80 K/uL 10.78 HGB 12.0 - 15.3 g/dL 13.1 HCT 36.0 - 45.2 % 40.7 MCV 81.5 - 97.5 fL 97.8 PLT 140 - 400 K/uL 166 Absolute Neutrophils 1.80 - 7.70 K/uL 6.29 Absolute Lymphocytes 1.00 - 4.80 K/ul 3.51 Absolute Monocytes 0.00 - 1.10 K/uL 0.69 Absolute Eosinophils 0.00 - 0.70 K/uL 0.14 Absolute Basophils 0.00 - 0.20 K/uL 0.07 Albumin 3.8 - 5.0 g/dL 4.2 AST 10 - 35 U/L 28 ALT 10 - 35 U/L 20 Alkaline Phosphatase 35 - 130 U/L 99 Bilirubin, Total <=1.2 mg/dL 0.6 (H): Data is abnormally high (L): Data is abnormally low Rpt: View report in Results Review for more information ASSESSMENT/PLAN: Paroxysmal atrial fibrillation (HCC) (Primary) - COMPREHENSIVE METABOLIC PANEL; Future; Expected date: 05/26/2023 - CBC WITH WBC DIFFERENTIAL; Future; Expected date: 05/26/2023 - LIPID PANEL WITH DIRECT LDL IF TG IS HIGH; Future; Expected date: 05/26/2023 - TSH WITH FREE T4 IF INDICATED; Future; Expected date: 05/26/2023 Risk and functional assessment Lymphedema of left leg Chronic anticoagulation Dementia without behavioral disturbance (HCC) COPD, mild (HCC) Chronic deep vein thrombosis (DVT) of proximal vein of left lower extremity (HCC) Essential hypertension with goal blood pressure less than 140/90 - COMPREHENSIVE METABOLIC PANEL; Future; Expected date: 05/26/2023 - CBC WITH WBC DIFFERENTIAL; Future; Expected date: 05/26/2023 - LIPID PANEL WITH DIRECT LDL IF TG IS HIGH; Future; Expected date: 05/26/2023 - TSH WITH FREE T4 IF INDICATED; Future; Expected date: 05/26/2023 Postoperative hypothyroidism - COMPREHENSIVE METABOLIC PANEL; Future; Expected date: 05/26/2023 - CBC WITH WBC DIFFERENTIAL; Future; Expected date: 05/26/2023 - LIPID PANEL WITH DIRECT LDL IF TG IS HIGH; Future; Expected date: 05/26/2023 - TSH WITH FREE T4 IF INDICATED; Future; Expected date: 05/26/2023 Dyslipidemia, goal LDL below 130 Obesity, Class I, BMI 30.0-34.9 (see actual BMI) Osteoporosis, unspecified osteoporosis type, unspecified pathological fracture presence - DEXA SCAN/BONE MINERAL AXIAL Stage 3a chronic kidney disease (HCC) - ALBUMIN / CREATININE RATIO, URINE; Future; Expected date: 05/26/2023 Plan: Patient presents to office for routine follow-up. First visit with myself as PCP. No acute concerns. Continue current medications. Continue metoprolol ER 100 mg a.m., 25 mg p.m. for rate control of AFib. Continue Eliquis 5 mg twice daily for anticoagulation. No medication refills needed at this time Repeat labs prior to next follow-up. Current results show stable renal function electrolytes. Thyroid at goal Due for DEXA scan. Patient agreeable to have this done. Ordered for Shiloh Mujica Depression screening done. No evidence of current symptoms. PHQ 2 noted 0 Follow Up: Return in about 6 months (around 05/26/2023), or if symptoms worsen or fail to improve, for Return with Physician. | For: Return with Physician | Check-out note: 6 month follow up, sooner ifneeded Fasting labs 1 week prior DEXA ordered [facility] Cornel Salguero DO Patient counseling on weight management given. documented in this encounter Nursing Notes * Otilia Fowler LPN - 11/23/2022 11:14 AM EDT Chief Complaint Patient presents with Follow Up documented in this encounter Plan of Treatment Upcoming Encounters Date Type Specialty Care Team Description 02/07/2023 Imaging Radiology 03/25/2023 [facility] [address] [facility] [phone] 05/26/2023 Laboratory [facility] [address] [place] [address] 05/31/2023 Office Visit Family Medicine Cornel Salguero DO [address] [place] [address] 07/08/2023 Office Visit Cardiology Jc Pickard MD [address] [id number] Scheduled Orders Name Type Priority Associated Diagnoses Orde r Schedule COMPREHENSIVE METABOLIC PANEL Lab Routine Paroxysmal atrial fibrillation (HCC) Essential hypertension with goal blood pressure less than 140/90 Postoperative hypothyroidism Expected: 05/26/2023 (Approximate), Expires: 11/23/2023 CBC WITH WBC DIFFERENTIAL Lab Routine Paroxysmal atrial fibrillation (HCC) Essential hypertension with goal blood pressure less than 140/90 Postoperative hypothyroidism Expected: 05/26/2023 (Approximate), Expires: 11/24/2023 LIPID PANEL WITH DIRECT LDL IF TG IS HIGH Lab Routine Paroxysmal atrial fibrillation (HCC) Essential hypertension with goal blood pressure less than 140/90 Postoperative hypothyroidism Expected: 05/26/2023, Expires: 11/24/2023 TSH WITH FREE T4 IF INDICATED Lab Routine Paroxysmal atrial fibrillation (HCC) Essential hypertension with goal blood pressure less than 140/90 Postoperative hypothyroidism Expected: 05/26/2023 (Approximate), Expires: 11/23/2023 ALBUMIN / CREATININE RATIO, URINE Lab Routine Stage 3a chronic kidney disease (HCC) Expected: 05/26/2023 (Approximate), Expires: 11/23/2023 DEXA SCAN/BONE MINERAL AXIAL Medical Imaging Routine Osteoporosis, unspecified osteoporosis type, unspecified pathological fracture presence Ordered: 11/23/2022 Health Maintenance Due Date Last Done Comments *COPD SEVERITY VERIFIED BY PFT 08/17/2020 COVID-19 Vaccine (4 - Pfizer series) 05/08/2021 03/13/2021, 06/19/2020, 05/29/2020 Depression Screening, Annual for Pts 12 and Over 01/16/2022 01/16/2021 DXA Scan 03/19/2022 03/19/2015, 06/2011, 06/15/2008 Influenza Vaccine (FLU shot) (#1) 2022 02/23/2022, 01/16/2021, 03/10/2020, Additional history exists O2 ASSESSMENT COMPLETED IN PAST YEAR FOR COPD 07/01/2023 06/30/2022 TSH 11/20/2023 11/19/2022, 07/24, 02/23/2022, Additional history exists Albumin/Creatinine Ratio 06/07/2025 06/07/2022, 12/2019 DTaP,Tdap,and Td Vaccines (2 - Td or [...] as of this encounter Visit Diagnoses Diagnosis Paroxysmal atrial fibrillation (HCC)- Primary Atrial fibrillation Risk and functional assessment Screening for unspecified condition Lymphedema of left leg Other lymphedema Chronic anticoagulation Long-term (current) use of anticoagulants Dementia without behavioral disturbance (HCC) Dementia, unspecified, without behavioral disturbance COPD, mild (HCC) Chronic airway obstruction, not elsewhere classified Chronic deep vein thrombosis (DVT) of proximal vein of left lower extremity (HCC) Essential hypertension with goal blood pressure less than 140/90 Postoperative hypothyroidism Postsurgical hypothyroidism Dyslipidemia, goal LDL below 130 Other and unspecified hyperlipidemia Obesity, Class I, BMI 30.0-34.9 (see actual BMI) Obesity, unspecified Osteoporosis, unspecified osteoporosis type, unspecified pathological fracture presence Stage 3a chronic kidney disease (HCC) documented in this encounter Advance Directives Latest Code Status on File Code Status Date Activated Date Inactivated Comments Full Code 12/03/2019 3:59 PM 12/05/2019 7:00 PM This order reflects the patients wishes and were consensually agreed upon. Question Answer Comments Discussion of Advance Directives occurred with: Not Discussed Care Teams Raw Material Handler Relationship Specialty Start Date End Date Cornel Salguero, DO [address] [place] [id number] PCP - General Internal Medicine 11/03/22 documented as of this encounter"
--- OUTSIDE RECORDS SUMMARY | 2023-05-01 11:43 | External Medical Summary ---
Author Name Unknown Address Unknown Organization K01:[facility] [place] [address] [facility] [id number] Laboratory Report Ordering Provider Test Date Status JULIETA GRAYSON 11/19/2022 12:20:33 Final Observation Date Value Abnormality Reference (Units ) Status WBC, Total 11/19/2022 12:20:33 10.78 4.00-10.80 (K/uL) Final RBC 11/19/2022 12:20:33 4.16 3.85-5.15 (M/uL) Final Hemoglobin 11/19/2022 12:20:33 13.1 12.0-15.3 (g/dL) Final HCT 11/19/2022 12:20:33 40.7 36.0-45.2 (%) Final MCV 11/19/2022 12:20:33 97.8 81.5-97.5 (fL) Final MCH 11/19/2022 12:20:33 31.5 27.0-34.0 (pg) Final MCHC 11/19/2022 12:20:33 32.2 32.0-36.0 (g/dL) Final RDW 11/19/2022 12:20:33 13.1 11.5-15.5 (%) Final Platelets 11/19/2022 12:20:33 166 140-400 (K/uL) Final MPV 11/19/2022 12:20:33 12.1 6.6-11.1 (fL) Final Nucleated erythrocytes/100 leukocytes [Ratio] in Blood by Automated count 11/19/2022 12:20:33 0 <=0 (/100 WBCs) Final Performing Location [facility] [place] [address] [place] [address]
--- OUTSIDE RECORDS SUMMARY | 2023-05-01 11:43 | External Medical Summary | Summary of Care ---
Author Name Unknown Organization [facility] Address [address] [place] [address] Phone [phone] Care Team Providers Care Parliamentary Librarian Name Role Phone LisabennieCornel Franck Primary Care Provid er Reason for Visit * Reason Comments Outpatient Testing Encounter Details Date Type Department Care Team Description 11/19/2022 Laboratory Laboratory Patient Service [address] [id number] Have, [facility] [address] [place] [id number] Dyslipidemia, goal LDL below 130; Postoperative [...] mRNA, LNP-s, No Pre serve, 2-Dose Series ([employer]Vault) 03/13/2021,06/19/2020,05/29/2020 Pneumococcal Conjugate Vacc, 13 Valent (Prevnar) [...] Office Visit Family Medicine Cornel Salguero DO [address] [place] [address] 03/25/2023 Office Visit Nephrology Olvin Peres MD [address] [facility] [place] [address] 07/08/2023 Office Visit Cardiology Jc Pickard MD [address] [place] [address] Pending Results Name Type Priority Associated Diagnoses [...] Directives occurred with: Not Discussed Care Teams Parliamentary Librarian Relationship Specialty Start Date End Date Cornel Salguero, [address] [place] [address] [phone] PCP - General Internal Medicine 11/03/22 documented as of this encounter
[2023-05-01] MEDS ORDERED: DOXYCYCLINE HYCLATE 100 MG in DEXTROSE 5% MINI-B 100 ML IV STA (12:17)
[2023-05-01] MEDS ORDERED: cefTRIAXone SODIUM 2,000 MG/50 ML BAG IV STA (12:17)
--- NOTE | 2023-05-01 12:42 | Emergency Department Note ---
Impression & Plan Pneumonia ED Provider Note NAME: KATELYNN CRAIN AGE: 87 SEX: F : 1935 ARRIVES VIA: Ambulance INFORMANT: Patient, ED PROVIDER(S): Gissell Dubose MD CHIEF COMPLAINT: Respiratory distress HPI: This is an 87-year-old female presenting for respiratory distress. Patient was diagnosed with RSV on . Daughter provides all history as patient is significantly altered at this time. Daughter states that patient has been generally well, living alone and doing daily activities is as usual. No acute disturbances until today when the call out was for feeling worse and also having trouble breathing. Upon arrival to ER, patient had already received 1.5 neb treatments via ambulance as well as 125 Solu-Medrol. Patient initially had a oxygen saturation of 55% on room air. Placed on 15 L nonrebreather via ambulance and had improvement to 97%. Switch to high flow as cannula as 6 L nasal cannula was not sufficient. ROS: See above HPI for pertinent positives & negatives. A total of 10 systems reviewed and were otherwise negative. PAST MEDICAL HISTORY: See Below PAST SURGICAL HISTORY: See Below FAMILY HISTORY: See Below SOCIAL HISTORY: See Below HOME MEDICATIONS: See Below ALLERGIES: See Below VITALS: See Below PHYSICAL EXAMINATION: General: Pleasantly confused in stretcher Head: Normocephalic and atraumatic Eyes: Normal inspection, extraocular muscles intact Ear, nose, throat: Normal external exam Neck: Normal range of motion Respiratory: Rales, wheezing Cardiovascular: Regular rate/rhythm, no murmur GI: soft, nontender, no guarding or rebound Extremities: nontender, moves all extremities, 2+ edema Neuro: The patient awake and alert, appropriately conversive, no focal deficits, symmetric faces Skin: Warm, dry, and intact MEDICAL DECISION MAKING: This is an 87-year-old female with history of lymphedema, CHF, COPD, hyperlipidemia presenting for respiratory stress. Patient is RSV +4 days ago. Now having respiratory stress. Consider pneumonia, CHF, COPD and lab previous history. -Chest x-ray as independently interpreted by me shows focal opacities in the right middle and lower lobe consistent with pneumonia, no pneumothorax, no pleural effusions. -Patient stabilized on high flow nasal cannula, low hypoxic. -Initially patient was significantly tachycardic with A-fib RVR into the 150s to 170s -After oxygenation and time, patient's rates improved into the 90s to 100 -Currently resting comfortably, will do gentle fluids as patient is history of CHF with pitting edema at this time. -VBG reviewed showing acidosis to 7.17 as well as hypercarbia to 90. This will require BiPAP to help rule out for CO2 -Significant leukocytosis to 18. -Lactate was 4.4 -Patient continues to be RSV positive -At this time patient appears much better upon reevaluation, mentating much better, still slightly confused but is otherwise able to converse, hold a conversation, appears to have improved oxygenation and respiratory status upon my exam Differential diagnosis: Pneumonia, PE, pneumothorax, viral syndrome ER treatment provided: See below Diagnostics interpreted by me: ECG: ECG independently interpreted by me with atrial fibrillation with RVR, rate of 142, normal QRS, normal QTc, no ST segment elevations consistent with STEMI criteria Cardiac Monitoring: An order was placed for continuous cardiac monitoring. The monitor shows a rate of 98 with atrial fibrillation rhythm. Laboratory studies: As stated above and show below. Imaging studies: See below. Critical Care Note: I have personally spent 45 minutes of critical care time in the direct management of this patient. This includes bedside care, interpretation of diagnostic studies, and testing, discussion with consultants, patient, and family members, and other required patient management activities. This 45 minutes is in excess of all separately billable procedures. Past Med/Surg History Medical History (Updated 05/01/23 @ 19:14 by Gissell Dubose MD) Acute renal failure Pneumonia Weakness History of DVT (deep vein thrombosis) History of anesthesia complications per dtr, voice has changed since thyroidectomy. informed by surgeon voice change is probably r/t intubation. Enlarged thyroid Nodular thyroid disease TANGIRNAQ (hard of hearing) HLD (hyperlipidemia) HTN (hypertension) Lymphedema BLLE History of thrombosis Atrial fibrillation Dx/d September 2021 -- on coumadin -- follows with Dr. Pickard Reactive airway disease Chronic anticoagulation Chronic airway disease Surgical History (Updated 03/07/22 @ 00:09 by Kusum Ovalle) S/P left knee arthroscopy S/P IVC filter History of cataract surgery History of thyroidectomy History of tubal ligation History of breast biopsy LEFT - 1985 Family History Other No family history of adverse response to anesthesia No family history of allergies No family history of bleeding disorder Denies family history of Hearing loss Heart disease Cancer Hypertension Stroke Asthma Social History Smoking Status: Never smoker Second Hand Exposure: No; Do You Dip or Chew Tobacco: No; Hx Alcohol Use: No Hx Substance Use: No Preferred Language: Guamanian Communication Ability: Effective [employer] Glassware Replacer Required: No Beliefs That Will Affect Care: None marital status: / Current Living Situation: Alone current occupational status: retired How many Children do You have: 4 Feels Safe at Home: Yes Assistive Devices: Cane and Walker Allergies Allergies Allergy/AdvReac Type Severity Reaction Status Date / Time No Known Drug Allergies Allergy Unknown Verified 02/07/22 15:43 Home Meds Home Medications Medication Instructions Recorded Confirmed loratadine 10 mg tablet (Claritin) 10 mg PO QAM 01/26/19 05/01/23 levothyroxine 112 mcg tablet 112 mcg PO DAILYBB 10/16/21 05/01/23 atorvastatin 20 mg tablet (Lipitor) 20 mg PO QAM 10/20/21 05/01/23 lisinopril 10 mg tablet (Zestril) 10 mg PO QAM 10/20/21 05/01/23 albuterol sulfate 90 mcg/actuation 1 inh inhalation QID PRN sob 01/28/22 05/01/23 aerosol inhaler metoprolol succinate 100 mg 100 mg PO QAM 01/28/22 05/01/23 tablet,extended release 24 hr acetaminophen 500 mg tablet 1,000 mg PO BID PRN Pain 02/07/22 05/01/23 metoprolol succinate 25 mg 25 mg PO HS 02/07/22 05/01/23 tablet,extended release 24 hr apixaban 5 mg tablet (Eliquis) 5 mg PO BID 05/01/23 05/01/23 calcitriol 0.25 mcg capsule 0.25 mcg PO QAM 05/01/23 05/01/23 calcium carbonate 500 mg-vitamin 3 tab PO BID 05/01/23 05/01/23 D3 15 mcg (600 unit) tablet (Os-Chris 500 + D3) torsemide 10 mg tablet 10 mg PO QAM 05/01/23 05/01/23 Previous Rx's Medication Instructions Recorded cholecalciferol (vitamin D3) 25 1,000 unit PO QAM #30 caps 02/17/22 mcg (1,000 unit) capsule Results & Data (ED) Vital Signs Vital Signs - 24 hr 05/01/23 12:02 05/01/23 12:06 05/01/23 12:06 Temperature 36.9 C 36.9 C Temperature Source Oral Oral Pulse Rate 157 H 118 H Pulse Rate [Apical] 118 H Pulse Rate [Right Finger] Respiratory Rate 28 H 24 Respiratory Effort / Characteristics Labored Short of Breath Blood Pressure 187/110 H Blood Pressure [Left Arm] 187/110 H Blood Pressure Mean 135 Blood Pressure Mean [Left Arm] 135 Blood Pressure Position Semi-fowlers Pulse Oximetry 55 L 98 Oxygen Delivery Method Room Air Non-rebreather Oxygen Flow Rate 15 Fraction of Inspired Oxygen Sepsis Recent Fever Within 48 Hours No Sepsis New/Unexplained Change in Mental Status N/A Sepsis Action Taken by Nursing Physician Notified 05/01/23 12:10 05/01/23 13:50 Temperature Temperature Source Pulse Rate Pulse Rate [Apical] Pulse Rate [Right Finger] 163 H Respiratory Rate 27 H Respiratory Effort / Characteristics Spontaneous Blood Pressure Blood Pressure [Left Arm] Blood Pressure Mean Blood Pressure Mean [Left Arm] Blood Pressure Position Pulse Oximetry 93 92 Oxygen Delivery Method High Flow Nasal Cannula High Flow Nasal Cannula Oxygen Flow Rate 25 25 Fraction of Inspired Oxygen 50 Sepsis Recent Fever Within 48 Hours Sepsis New/Unexplained Change in Mental Status Sepsis Action Taken by Nursing Laboratory Data 05/01/23 13:21 05/01/23 13:21 Lab Results 05/01/23 05/01/23 Range/Units 13:21 13:25 WBC 18.71 H (4.8-10.8) K/ul RBC 4.42 (4.20-5.40) M/uL Hgb 13.4 (12.0-16.0) g/dl Hct 42.8 (37.0-47.0) % MCV 96.8 (80.0-100.0) fL MCH 30.3 (25.0-34.0) pg MCHC 31.3 L (32.0-36.0) g/dL RDW Std Deviation 47.2 H (36.4-46.3) fL RDW Coeff of Juan 13.1 (11.5-14.5) % Plt Count 225 (130-400) K/uL MPV 10.2 (9.4-12.4) fL Immature Gran % (Auto) 1.7 % Neut % (Auto) 81.2 % Lymph % (Auto) 10.8 % [place] % (Auto) 5.8 % Eos % (Auto) 0.1 % Baso % (Auto) 0.4 % Neut # (Auto) 15.18 H (1.40-6.50) K/uL Lymph # (Auto) 2.03 (1.20-3.40) K/uL [place] # (Auto) 1.09 H (0.11-0.59) K/uL Eos # (Auto) 0.02 (0.00-0.50) K/uL Baso # (Auto) 0.07 (0.00-0.20) K/uL Immature Gran # (Auto) 0.32 H (0.01-0.20) K/uL VBG pH 7.17 L (7.36-7.41) VBG pCO2 92 H (38-50) mmHg VBG pO2 33 mmHg VBG HCO3 34 mmol/L VBG O2 Saturation < 60.0 % VBG Base Excess 2.1 mEq/L Sodium 142 (136-145) mmol/L Potassium 4.6 (3.5-5.1) mmol/L Chloride 101 (98-107) mmol/L Carbon Dioxide 31 (21-32) mmol/L Anion Gap 10 (3-11) BUN 44 H (6-23) mg/dl Creatinine 1.33 H (0.6-1.2) mg/dl Est Cr Clr Drug Dosing Not Reportable Est GFR ( Amer) 42.1 ml/min Est GFR (Non-Af Amer) 36.4 ml/min BUN/Creatinine Ratio 33.1 H (10-20) Glucose 200 H (70-99(Fasting)) mg/dl Calcium 7.9 L (8.6-10.3) mg/dl Magnesium 1.6 L (1.7-2.4) mg/dl Total Bilirubin 0.6 (0.2-1.0) mg/dl AST 30 (13-39) U/L ALT 27 (7-52) U/L Alkaline Phosphatase 91 (34-104) U/L Troponin I High Sens 33.5 H (0-14) pg/ml B-Natriuretic Peptide 151 H (0-100) pg/ml Total Protein 6.9 (6.0-8.3) gm/dl Albumin 3.9 (3.4-5.0) gm/dl Globulin 3.0 (2.5-4.0) gm/dl Albumin/Globulin Ratio 1.3 (0.9-2) Adenovirus (PCR) Not Detected (NotDetected) B. pertussis DNA (PCR) Not Detected (NotDetected) B.parapertussis DNA PCR Not Detected (NotDetected) C. pneumoniae DNA (PCR) Not Detected (NotDetected) Coronavirus OC43 (PCR) Not Detected (NotDetected) Coronavirus HKU1 (PCR) Not Detected (NotDetected) Coronavirus 229E (PCR) Not Detected (NotDetected) SARS-CoV-2 (PCR) Not Detected (NotDetected) Coronavirus NL63 (PCR) Not Detected (NotDetected) Human Metapneumovir PCR Not Detected (NotDetected) Influenza Type A (PCR) Not Detected (NotDetected) Influenza Type B (PCR) Not Detected (NotDetected) M. pneumoniae (PCR) Not Detected (NotDetected) Parainfluenza 1 (PCR) Not Detected (NotDetected) Parainfluenza 2 (PCR) Not Detected (NotDetected) Parainfluenza 3 (PCR) Not Detected (NotDetected) Parainfluenza 4 (PCR) Not Detected (NotDetected) RSV (PCR) DETECTED A* (NotDetected) Entero/Rhino (PCR) Not Detected (NotDetected) Administered Medications Sodium Chloride (Nss) 1,000 mls @ 75 mls/hr IV .[id number] [facility] Stop: 05/02/23 19:10 Last Admin: 05/01/23 18:07 Dose: 75 mls/hr Documented By: ANIL Methylprednisolone 60 mg/ (Syringe) 0.96 mls @ 1.5 mls/min IV DAILY [facility] Stop: 05/31/23 16:59 Last Admin: 05/01/23 18:04 Dose: 1.5 mls/min Documented By: ANIL Discontinued Medications Magnesium Sulfate/Dextrose (Magnesium Sulfate / D5w) 1 gm in 100 mls @ 100 mls/hr IV Q1H [facility] Stop: 05/01/23 14:14 Last Infusion: 05/01/23 16:59 Dose: Infused Documented By: Admin: 05/01/23 15:33 Dose: 100 mls/hr Documented By: Infusion: 05/01/23 15:19 Dose: Infused Documented By: Admin: 05/01/23 14:19 Dose: 100 mls/hr Documented By: AMANDEEP Ceftriaxone Sodium (Rocephin) 2,000 mg in 50 mls @ 100 mls/hr IV NOW STA Stop: 05/01/23 12:46 Last Infusion: 05/01/23 14:04 Dose: Infused Documented By: Admin: 05/01/23 13:20 Dose: 100 mls/hr Documented By: AMANDEEP Doxycycline Hyclate 100 mg/ (Dextrose) 100 mls @ 50 mls/hr IV NOW STA Stop: 05/01/23 14:16 Last Infusion: 05/01/23 18:53 Dose: Infused Documented By: Admin: 05/01/23 15:56 Dose: 50 mls/hr Documented By: ANIL Sodium Chloride (Nss) 500 mls @ 999 mls/hr IV .Q31M ONE Stop: 05/01/23 17:04 Last Infusion: 05/01/23 18:38 Dose: Infused Documented By: Admin: 05/01/23 18:07 Dose: 999 mls/hr Documented By: ANIL Piperacillin Sod/Tazobactam (Sod 4.5 gm/ Dextrose) 100 mls @ 200 mls/hr IV NOW ONE; Protocol Stop: 05/01/23 17:29 Last Infusion: 05/01/23 18:53 Dose: Infused Documented By: Admin: 05/01/23 18:13 Dose: 200 mls/hr Documented By: ANIL Miscellaneous (Patient's Height Needed) 1 each N/A Q30M [facility] Stop: 05/31/23 16:52 Last Admin: 05/01/23 18:37 Dose: Not Given Documented By: Admin: 05/01/23 18:37 Dose: Not Given Documented By: Admin: 05/01/23 17:07 Dose: 1 each Documented By: ANIL Imaging Data Radiologist's Impression: Chest X-Ray 05/01/23 12:03 XR chest 1V portable HISTORY: Shortness of breath. COMPARISON: Chest CT 02/15/2022. FINDINGS: No pneumothorax. No pleural effusions. The cardiac silhouette is borderline enlarged. There are calcifications within the aortic knob. There is mild diffuse interstitial thickening which is likely chronic. A few left basilar linear densities favor subsegmental atelectasis. Patchy right mid to lower lung zone airspace opacities are new compared the prior study. There is also a 3.2 cm right suprahilar nodular density. IMPRESSION: 1. Patchy right mid to lower lung zone airspace opacities are new compared the prior study. This favors a pneumonia. 2. There is also a 3.2 cm right suprahilar nodular density. This could also represent a component of the suspected pneumonia. However, one to 2 month chest x-ray follow-up recommended to exclude the possibility of a pulmonary mass. ACT 112: Positive. There are findings on this exam that require communication between the performing entity and the patient following Patient Test Result Information Act ([place] Act 112) guidelines. Electronically signed by: Kayden Perez M.D. 05/01/2023 1:27 PM Discharge Plan Visit Data Chief Complaint: Shortness of Breath/Dyspnea Stated Complaint: SOB ED Provider: Gissell Dubose Discharge Problem: Pneumonia Discharge Instructions Interventions: ED Discharge Assessment Last Done: 05/01/23 16:32
--- NOTE | 2023-05-01 13:29 | XRay Report ---
XR chest 1V portable HISTORY: Shortness of breath. COMPARISON: Chest CT 02/15/2022. FINDINGS: No pneumothorax. No pleural effusions. The cardiac silhouette is borderline enlarged. There are calcifications within the aortic knob. There is mild diffuse interstitial thickening which is li mary chronic. A few left basilar linear densities favor subsegmental atelectasis. Patchy right mid to lower lung zone airspace opacities are new compared the prior study. There is also a 3.2 cm right candelaria prahilar nodular density. IMPRESSION: 1. Patchy right mid to lower lung zone airspace opacities are new compared the prior study. This favo rs a pneumonia. 2. There is also a 3.2 cm right suprahilar nodular density. This could also represent a component of the suspected pneumonia. However, one to 2 month chest x-ray follow-up recommended to exclude the pos sibility of a pulmonary mass. ACT 112: Positive. There are findings on this exam that require communication between the performing entity and the patient following Patient Test Result Information Act ([place] Act 112) guidelines. Electronically signed by: Kayden Perez M.D. 05/01/2023 1:27 PM
[2023-05-01 13:32] LABS: Basophils # (auto) 0.07 K/uL (0.00-0.20); Basophils % (auto) 0.4 %; Eosinophils # (auto) 0.02 K/uL (0.00-0.50); Eosinophils % (auto) 0.1 %; Hematocrit (blood only) 42.8 % (37.0-47.0); Hemoglobin 13.4 g/dl (12.0-16.0); Immature Granulocytes # (auto) 0.32 K/uL (0.01-0.20); Immature Granulocytes % (auto) 1.7 %; Lymphocytes # (auto) 2.03 K/uL (1.20-3.40); Lymphocytes % (auto) 10.8 %; Mean Corpuscular Hemoglobin 30.3 pg (25.0-34.0); Mean Corpuscular Hgb Conc 31.3 g/dL (32.0-36.0); Mean Corpuscular Volume 96.8 fL (80.0-100.0); Mean Platelet Volume 10.2 fL (9.4-12.4); Monocytes # (auto) 1.09 K/uL (0.11-0.59); Monocytes % (auto) 5.8 %; Neutrophils # (auto) 15.18 K/uL (1.40-6.50); Neutrophils % (auto) 81.2 %; Platelet Count 225 K/uL (130-400); RDW Coefficient of Variation 13.1 % (11.5-14.5); RDW Standard Deviation 47.2 fL (36.4-46.3); Red Blood Count 4.42 M/uL (4.20-5.40); White Blood Count 18.71 K/ul (4.8-10.8)
[2023-05-01 13:33] LABS: Base Excess VBG 2.1 mEq/L; HCO3 VBG 34 mmol/L; Oxygen Saturation VBG < 60.0 %; PCO2 VBG 92 mmHg (38-50); PO2 VBG 33 mmHg; pH VBG 7.17 (7.36-7.41)
[2023-05-01 13:46] LABS: Albumin Level 3.9 gm/dl (3.4-5.0); Anion Gap 10 (3-11); Bilirubin,Total 0.6 mg/dl (0.2-1.0); Calcium 7.9 mg/dl (8.6-10.3); Carbon Dioxide 31 mmol/L (21-32); Chloride 101 mmol/L (98-107); Magnesium 1.6 mg/dl (1.7-2.4); Potassium 4.6 mmol/L (3.5-5.1); Sodium 142 mmol/L (136-145)
[2023-05-01 13:52] LABS: Alanine Aminotransferase 27 U/L (7-52); Albumin Globulin Ratio 1.3 (0.9-2); Alkaline Phosphatase 91 U/L (34-104); Aspartate Aminotransferase 30 U/L (13-39); BUN Creatinine Ratio 33.1 (10-20); Blood Urea Nitrogen 44 mg/dl (6-23); Est GFR (African American) 42.1 ml/min; Est GFR (Non-African American) 36.4 ml/min; Glucose 200 mg/dl (70-99(Fasting)); Total Protein 6.9 gm/dl (6.0-8.3)
[2023-05-01 13:57] LABS: Troponin I High Sensitivity 33.5 pg/ml (0-14)
[2023-05-01] MEDS: MAGNESIUM SULFATE / D5W 1 GM/100 ML BAG IV SCH ×2 (14:19→15:33)
[2023-05-01 14:32] LABS: Adenovirus PCR Not Detected (NotDetected); Bordetella parapertussis PCR Not Detected (NotDetected); Bordetella pertussis PCR Not Detected (NotDetected); Chlamydia pneumoniae PCR Not Detected (NotDetected); Coronavirus 229E PCR Not Detected (NotDetected); Coronavirus CoV-2 (COVID19)PCR Not Detected (NotDetected); Coronavirus HKU1 PCR Not Detected (NotDetected); Coronavirus NL63 PCR Not Detected (NotDetected); Coronavirus OC43PCR Not Detected (NotDetected); Human Metapneumovirus PCR Not Detected (NotDetected); Influenza A PCR Not Detected (NotDetected); Influenza B PCR Not Detected (NotDetected); Mycoplasma pneumoniae PCR Not Detected (NotDetected); Parainfluenza Virus 1 PCR Not Detected (NotDetected); Parainfluenza Virus 2 PCR Not Detected (NotDetected); Parainfluenza Virus 3 PCR Not Detected (NotDetected); Parainfluenza Virus 4 PCR Not Detected (NotDetected); Rhinovirus/Enterovirus PCR Not Detected (NotDetected)
[2023-05-01 14:37] LABS: Respiratory Syncytial VirusPCR DETECTED (NotDetected)
--- NOTE | 2023-05-01 14:41 | History & Physical Report ---
Date of Service May 01, 2023 Assessment & Plan (1) Sepsis: (2) Acute hypoxic respiratory failure: (3) AMS (altered mental status): (4) RSV (respiratory syncytial virus infection): (5) Acute on chronic kidney failure: (6) CHF (congestive heart failure): (7) Hypomagnesemia: (8) Elevated troponin: (9) Hyperglycemia: Plan Pt is an 87yoF with PMHx significant for CHF, paroxysmal atrial fibrillation, history of DVT on chronic anticoagulation with Eliquis currently, HTN, HLD, COPD, h/o thyroidectomy and hypoparathyroidism, chronic lymphedema admitted with acute hypoxic respiratory failure in the setting of an RSV infection and RML/RLL pneumonia. Acute hypoxic respiratory failure AMS RSV infection RML/RLL Pneumonia COPD Sepsis Pt tested positive for RSV on 04/28, per daughter was at baseline until yesterday even doing laundry Today, told daughter she was not doing well. Reportedly EMS noted hypoxia to the 50s, pt confused on arrival Requiring hi-milind oxygen and eventually bipap in the ED VBG noting pH of 7.17, pCO2 of 92, repeat q4h (3rd repeat currently scheduled for 9pm, consider ICU admission if no significant improvement). Appreciate pulmonology recs WBC elevated >18K, tachycardic, tachypneic on arrival Chest xray noting RML/RLL pneumonia with noted suprahilar lesion that followup is recommended for to r/o possible mass Chest CT w/o contrast ordered (in setting of ARIEL, pt also on daily Eliquis walter ng PE less likely) Biofire repeated and confirms RSV infection Procalcitonin pending, lactate pending Blood Cx x2 pending Duonebs scheduled, flutter valve Supportive treatment for RSV infection (mucinex, tessalon, cough syrup) Received Rocephin and doxycycline in the ED for right sided pneumonia Continue with Zosyn and azithromycin in the setting of COPD and possible aspiration. MRSA nares pending, consider adding Vancomycin if positive, with close renal monitoring IV Solumedrol 60mg daily Continue with bipap Pulm consult- appreciate recs ARIEL in setting of CKD Pt with noted Cr with slight elevation at 1.33 Per EPIC review, Cr on 04/27 was 1.1 Fluid resuscitation as noted above Continue with IV NSS x 2 bags @75 Holding home torsemide and lisinopril- resume per cardiology recs Pt follows with nephrology Avoid nephrotoxic meds and contrast as able Trend with AM labs CHF Elevated trop BNP elevated at 151, chronic elevation Trop elevated at 33.5, trend to peak, likely demand EKG with noted sinus tach Echo Jan 2022 reviewed Repeat echo ordered and pending in this setting Cardiology consult- appreciate recs Paroxysmal atrial fibrillation Paroxysmal, pt's daughter notes she was in sinus a week ago Pt on metoprolol 100mg qAM and 25mg qhs and Eliquis for anticoagulation Cardiology consult as above Hyperglycemia Pt with no known dx of DM Glucose elevated at 200 Could be due to recent outpatient steroid use AM [id number] -follow If diabetic consider ISS especially in the setting of steroid use while hospitalized BSG ACHS Hypomagnesemia Replete as needed Hypocalcemia Hypoparathyroidism s/p thyroid surgery Follows with nephrology On Calcitriol, Vit D and calcium tabs Ionized mary in AM Hypothyroidism s/p thyroid surgery/thyroidectomy Continue levothyroxine Continue other home medications as ordered DVT prophylaxis: On Eliquis Diet: HH, low sodium CODE STATUS: Full code Dispo: PCU/tele, might need transfer to ICU if condition worsens History of Present Illness Chief Complaint: SOB Primary Care Provider: Gilda Craig MD Pt is an 87yoF with PMHx significant for CHF, paroxysmal atrial fibrillation, history of DVT on chronic anticoagulation with Eliquis currently, HTN, HLD, COPD, h/o thyroidectomy and hypoparathyroidism, chronic lymphedema admitted with acute hypoxic respiratory failure in the setting of an RSV infection and RML/RLL pneumonia. Pt's daughter and son at bedside providing the history with pt occasionally supplementing through the bipap mask. States that she was in her usual state of health, able to drive and do her ADLs, living alone before today. Daughter states she tested positive for RSV on 04/27. Even then she was still at baseline, daughter states she was doing laundry yesterday. Today she called her daughter and advised she was not doing well. Daughter states she went over and noticed that she was having trouble breathing, leaning forward, using accessory muscles to breathe. EMS was called and she reportedly was saturating in the 50s. They note that upon arrival, pt was very confused. They state that she was babbling and restless. Extensive discussion about code status. Per daughter, pt has living will that states her wishes. Pt alert and oriented x 3 at the time of admission. Originally stating that she was unsure what she wanted but with further discussion with her family states that she would want to be a full code with further decisions to be made by her family/POA afterwards. Allergies Allergy/AdvReac Type Severity Reaction Status Date / Time No Known Drug Allergies Allergy Unknown Verified 02/07/22 15:43 Home Medications Medication Instructions Recorded Confirmed Type loratadine 10 mg tablet (Claritin) 10 mg PO QAM 01/26/19 05/01/23 History levothyroxine 112 mcg tablet 112 mcg PO DAILYBB 10/16/21 05/01/23 History atorvastatin 20 mg tablet (Lipitor) 20 mg PO QAM 10/20/21 05/01/23 History lisinopril 10 mg tablet (Zestril) 10 mg PO QAM 10/20/21 05/01/23 History albuterol sulfate 90 mcg/actuation 1 inh inhalation QID PRN sob 01/28/22 05/01/23 History aerosol inhaler metoprolol succinate 100 mg 100 mg PO QAM 01/28/22 05/01/23 History tablet,extended release 24 hr acetaminophen 500 mg tablet 1,000 mg PO BID PRN Pain 02/07/22 05/01/23 History metoprolol succinate 25 mg 25 mg PO HS 02/07/22 05/01/23 History tablet,extended release 24 hr cholecalciferol (vitamin D3) 25 1,000 unit PO QAM #30 caps 02/17/22 05/01/23 Rx mcg (1,000 unit) capsule apixaban 5 mg tablet (Eliquis) 5 mg PO BID 05/01/23 05/01/23 History calcitriol 0.25 mcg capsule 0.25 mcg PO QAM 05/01/23 05/01/23 History calcium carbonate 500 mg-vitamin 3 tab PO BID 05/01/23 05/01/23 History D3 15 mcg (600 unit) tablet (Os-Mary 500 + D3) torsemide 10 mg tablet 10 mg PO QAM 05/01/23 05/01/23 History Past Med/Surg History Medical History (Updated 05/01/23 @ 17:42 by Sera Segovia MD) Acute renal failure Pneumonia Weakness History of DVT (deep vein thrombosis) History of anesthesia complications per dtr, voice has changed since thyroidectomy. informed by surgeon voice change is probably r/t intubation. Enlarged thyroid Nodular thyroid disease [place] (hard of hearing) HLD (hyperlipidemia) HTN (hypertension) Lymphedema BLLE History of thrombosis Atrial fibrillation Dx/d September 2021 -- on coumadin -- follows with Dr. Pickard Reactive airway disease Chronic anticoagulation Chronic airway disease Surgical History (Updated 03/07/22 @ 00:09 by Kusum Ovalle) S/P left knee arthroscopy S/P IVC filter History of cataract surgery History of thyroidectomy History of tubal ligation History of breast biopsy LEFT - 1985 Family History Other No family history of adverse response to anesthesia No family history of allergies No family history of bleeding disorder Denies family history of Hearing loss Heart disease Cancer Hypertension Stroke Asthma Social History Smoking Status: Never smoker Second Hand Exposure: No; Do You Dip or Chew Tobacco: No; Hx Alcohol Use: No Hx Substance Use: No Preferred Language: Amharic Communication Ability: Effective [employer] Analyst Required: No Beliefs That Will Affect Care: None marital status: / Current Living Situation: Alone current occupational status: retired How many Children do You have: 4 Feels Safe at Home: Yes Assistive Devices: Cane and Walker Review of Systems Review of Systems: All systems reviewed & are unremarkable except as noted in HPI & below Physical Exam Physical Exam: General: Alert, orientedx3. No acute distress with bipap on her face Psych: Appropriate mood and affect Neuro: difficulty with sitting up in bed HEENT: NC/AT, bipap on face Chest: Nontender to palpation. CV: RRR, Normal s1, s2. No murmurs appreciated Resp: Breath sounds clear bilaterally, no increased effort of breathing. No crackles/rhonchi/rales. Abdomen: BS+. Soft, nontender, nondistended. No guarding. No organomegaly appreciated. Extremities: No edema in lower extremities bilaterally. Results & Data Results & Data Vital Signs (Past 12 Hours) Vital Signs Temp Pulse Pulse Pulse Resp BP BP 05/01/23 13:50 05/01/23 12:10 163 H 27 H 05/01/23 12:06 36.9 C 118 H 24 187/110 H 05/01/23 12:06 36.9 C 118 H 28 H 187/110 H 05/01/23 12:02 157 H Pulse Ox O2 Del Method O2 Flow Rate FiO2 05/01/23 13:50 92 High Flow Nasal Cannula 25 05/01/23 12:10 93 High Flow Nasal Cannula 25 50 05/01/23 12:06 98 Non-rebreather 15 05/01/23 12:06 55 L Room Air 05/01/23 12:02 Diagnostic Findings Chest X-Ray 05/01/23 12:03 XR chest 1V portable HISTORY: Shortness of breath. COMPARISON: Chest CT 02/15/2022. FINDINGS: No pneumothorax. No pleural effusions. The cardiac silhouette is borderline enlarged. There are calcifications within the aortic knob. There is mild diffuse interstitial thickening which is likely chronic. A few left basilar linear densities favor subsegmental atelectasis. Patchy right mid to lower lung zone airspace opacities are new compared the prior study. There is also a 3.2 cm right suprahilar nodular density. IMPRESSION: 1. Patchy right mid to lower lung zone airspace opacities are new compared the prior study. This favors a pneumonia. 2. There is also a 3.2 cm right suprahilar nodular density. This could also represent a component of the suspected pneumonia. However, one to 2 month chest x-ray follow-up recommended to exclude the possibility of a pulmonary mass. ACT 112: Positive. There are findings on this exam that require communication between the performing entity and the patient following Patient Test Result Information Act ([place] Act 112) guidelines. Electronically signed by: Kayden Perez M.D. 05/01/2023 1:27 PM
[2023-05-01 16:27] LABS: Base Excess VBG 1.4 mEq/L; HCO3 VBG 33 mmol/L; Oxygen Saturation VBG < 60.0 %; PCO2 VBG 90 mmHg (38-50); PO2 VBG 38 mmHg; pH VBG 7.17 (7.36-7.41)
[2023-05-01] MEDS ORDERED: guaiFENesin/DEXTROM SYRUP 100MG/10MG 5ML UDC PO PRN (16:31)
[2023-05-01] MEDS ORDERED: ACETAMINOPHEN 500 MG TAB PO PRN (16:31)
[2023-05-01] MEDS ORDERED: BENZONATATE 100 MG CAPSULE PO PRN (16:31)
[2023-05-01] MEDS ORDERED: methylPREDNISolone 125 MG/2 ML VIAL IV SCH (16:31)
[2023-05-01] MEDS ORDERED: ALBUTEROL HFA 8 GM INHALER INH PRN (16:31)
[2023-05-01] MEDS ORDERED: SODIUM CHLORIDE 0.9% 500 ML IV ONE (16:34)
[2023-05-01 16:40] LABS: Prothrombin Time 11.4 Seconds (9.0-12.0)
[2023-05-01] MEDS ORDERED: PIPER/TAZO 4.5g in D5W MINI-B 100 ML IV ONE (17:00)
[2023-05-01] MEDS: Patient's HEIGHT Needed SCH ×2 (17:07→18:37)
--- NOTE | 2023-05-01 17:34 | CT Scan Report ---
CT OF THE CHEST WITHOUT IV CONTRAST CLINICAL HISTORY: hypoxia, pneumonia, possible mass COMPARISON STUDY: Chest CT February 15, 2022. Chest radiograph performed earlier today. CT DOSE: 392.79 mGy.cm TECHNIQUE: Axial images of the chest were obtained without IV contrast. Images were reviewed in the axial, sagittal, and coronal planes. IV contrast was not administered for this examination. Automat ed exposure control was utilized for the study. A dose lowering technique was utilized adhering to t he principles of ALARA. FINDINGS: There is moderate cardiomegaly. No pericardial effusion is present. Dilatation of the cent ral pulmonary arteries is noted. Main pulmonary artery measures 4 cm in caliber. Mildly enlarged subc arinal lymph node has increased in size since prior CT. This measures 1.2 cm in short axis diameter. Narrowing of the trachea is noted as well as narrowing of bilateral mainstem bronchi. Bronchial wall thickening is present. Small right and trace left pleural effusions are present. There is no pneumoth orax. Interlobular septal thickening is noted. Moderate alveolar opacities throughout the lungs are p resent. These account for the right suprahilar abnormality on chest radiograph from earlier today. No cavitation is present. There is no central obstructing mass. Several old thoracic spine compression fractures are unchanged. There is an old sternal fracture. A density within the left breast is unchan ged from earlier exams. This is likely benign given stability. IMPRESSION: 1. Extensive alveolar opacities throughout the lungs, several of which are nodular in configuration. These account for the right suprahilar abnormality on chest radiograph. The findings favor multifocal pneumonia. Alveolar pulmonary edema could appear similar although is considered less likely. Consoli dation with adjacent groundglass opacity raises the possibility of pulmonary hemorrhage although this is also considered less likely. 2. Interlobular septal thickening consistent with interstitial pulmonary edema. 3. Small right and trace left pleural effusions. 4. Moderate cardiomegaly and dilatation of the central pulmonary arteries. 5. Tracheobronchial narrowing which raises the possibility of tracheobronchomalacia. Scattered secret ions within the airways with bronchial wall thickening. ACT 112: Negative or not required by law. Electronically signed by: Johny Peace M.D. 05/01/2023 5:32 PM
[2023-05-01] MEDS: methylPREDNISolone 60 MG in SYRINGE 0 ML IV SCH (18:04)
[2023-05-01] MEDS: SODIUM CHLORIDE 0.9% 1,000 ML IV SCH (18:07)
[2023-05-01 18:54] LABS: Appearance Urine Cloudy (Clear); Bacteria Urine Automated Negative (Negative); Bilirubin Urine Negative (Negative); Blood Urine Negative (Negative); Color Urine Yellow; Glucose Urine UA Negative (Negative); Ketones Urine Negative (Negative); Leukocyte Esterase Urine Negative (Negative); Nitrite Urine Negative (Negative); Protein Urine 1+ (Negative); RBC Urine Automated 0-4 /hpf (0-4); Specific Gravity Urine 1.023 (1.000-1.030); Urobilinogen Urine Negative (Negative)
[2023-05-01] MEDS: AZITHROMYCIN 250 MG TAB PO SCH (19:09)
[2023-05-01] MEDS ORDERED: DEXTROSE 50% 50 ML SYRINGE IV PRN (19:49)
[2023-05-01] MEDS ORDERED: GLUCAGON FOR INJ 1 MG VIAL SQ PRN (19:49)
[2023-05-01] MEDS ORDERED: CARBOHYDRATES FOR HYPOGLYCEMIA PO PRN (19:49)
[2023-05-01] MEDS ORDERED: GLUCOSE 40% GEL 15 GM TUBE PO PRN (19:49)
[2023-05-01] MEDS ORDERED: GLUCOSE 10 TAB/TUBE PO PRN (19:49)
[2023-05-01] MEDS ORDERED: PHARMACY GLYCEMIC MGMT CONSULT PRN (19:50)
[2023-05-01] MEDS: SODIUM CHLORIDE 0.9% 500 ML IV ONE ×2 (20:01→20:08)
[2023-05-01] MEDS ORDERED: CEFEPIME 2,000 MG in SYRINGE 0 ML IV SCH (20:15)
--- NOTE | 2023-05-01 20:15 | Communication Note ---
Date of Service: May 01, 2023 CT chest results reviewed- concern for trace R an L pleural effusions, interstitial pulm edema, ? alveolar pulm edema/pulm hemorrhage Lactate on repeat elevated to 4.4 from 4.2. Second fluid bolus held and not given in setting of CT chest findings noted above. Pt previously received one 500ml NSS bolus. Continue with NSS running at 75mls for 2 bags. Zosyn switched to Cefepime as fluid laden as well. Daughter notes low suspicion for aspiration. Continue with azithromycin 500mg daily for 3 days. MRSA nares negative. CT chest also concerning for possible tracheobronchomalacia, cardiomegaly with dilatation of central pulm arteries. Pulmonology and Cardiology previously consulted- appreciate recs. Family still at bedside, updated.
[2023-05-01] MEDS: ALBUT/IPRATROP 3MG/0.5MG NEB 3 ML VIAL NEB SCH ×2 (20:37→23:12)
[2023-05-01] MEDS ORDERED: CALCIUM CARBONATE 1250MG TAB PO SCH (21:00)
[2023-05-01 21:14] LABS: Base Excess VBG 1.8 mEq/L; HCO3 VBG 31 mmol/L; Oxygen Saturation VBG 70.7 %; PCO2 VBG 71 mmHg (38-50); PO2 VBG 43 mmHg; pH VBG 7.25 (7.36-7.41)
[2023-05-01] MEDS: APIXABAN 5 MG TABLET PO SCH (21:43)
[2023-05-01] MEDS: guaiFENesin 600 MG TABCR PO SCH (21:44)
[2023-05-01] MEDS: METOPROLOL SUCC 25MG EXT REL TAB PO SCH (21:46)
[2023-05-01] MEDS: INSULIN ASPART PER UNIT CHARGE SC SCH (21:53)
[2023-05-01 23:39] LABS: Base Excess VBG -0.3 mEq/L; HCO3 VBG 30 mmol/L; Oxygen Saturation VBG < 60.0 %; PCO2 VBG 74 mmHg (38-50); PO2 VBG 35 mmHg; pH VBG 7.21 (7.36-7.41)
[2023-05-02] MEDS ORDERED: PIPERACILLIN/TAZOBACTAM 4.5 GM in DEXTROSE 5% MINI-B 100 ML IV SCH
[2023-05-02] MEDS ORDERED: FORMOTEROL 20 MCG/2 ML VIAL NEB ONE (00:53)
[2023-05-02] MEDS ORDERED: BUDESONIDE 0.5 MG/2 ML VIAL (PULMICORT) NEB ONE (00:53)
[2023-05-02] MEDS ORDERED: CEFEPIME 2,000 MG in SYRINGE 0 ML IV SCH (01:00)
[2023-05-02 01:28] LABS: iSTAT Arterial Blood Gas HCO3 28 meg/L (19-24); iSTAT Arterial Blood Gas pCO2 58 mmHg (35-46); iSTAT Arterial Blood Gas pH 7.28 (7.35-7.45); iSTAT Arterial Blood Gas pO2 146 mmHg (80-95); iSTAT Carbon Dioxide 29 mmol/L (24-31); iSTAT Hematocrit 35 % (37-47); iSTAT Hemoglobin 11.9 g/dl (12.0-16.0); iSTAT Sodium 139 mmol/L (135-144)
[2023-05-02] MEDS: SODIUM CHLORIDE 0.9% 1,000 ML IV SCH (01:50)
[2023-05-02] MEDS ORDERED: INSULIN ASPART PER UNIT CHARGE SC ONE (02:00)
--- NOTE | 2023-05-02 02:05 | Critical Care Consultation ---
Date of Consultation May 02, 2023 Assessment & Plan (1) Respiratory failure with hypoxia and hypercapnia: (2) Pneumonia: (3) Encephalopathy: (4) Elevated troponin: (5) Hypomagnesemia: (6) CHF (congestive heart failure): (7) Acute on chronic kidney failure: (8) RSV (respiratory syncytial virus infection): (9) Tracheal anomaly: (10) Abnormal CT scan, chest: (11) Chronic bronchitis: Plan Reason Critically Ill: 88 YOF with acute hypoxic and hypercarbic respiratory failure in setting of RSV infection complicated by tracheal narrowing. Neuro - Encephalopathy [facility] ICU: ALVIN - Hypercarbic encephalopathy- that resolved with clearing of CO2 and now fully awake, conversant moving all extremities and laughing with her family - No acute concerns at this time for infectious etiology - No focal deficits Cardiac - HFrEF, PAF, Chronic anticoagulation, Elevated HScTNI, - ECG is witout stemi and she is back in NSR with rate controlled- elevation of HScTNI is likely demand type II in the setting of respiratory failure - She is with some pulmonary edema on CT scan- unsure of how much HF is playing a role in her overall respiratory failure, will diurese as hemodyanmics allow - Continue with Apixaban - however pending further pulmonary evaluation may need to hold Respiratory - Hypercarbic with hypoxic respiratory failure, RSV, Chronic Bronchitis, Viral/bacterial pneumonia, Abnormal CT scan of chest - Multifocal hypercarbic respiratory failure- with RSV complicated by what appears as worsening 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 - Continue with NIVPPV with attempt to wean pending continued improvement - Evaluated on CT scan - may need consider bronchoscopy for full evaluation however will need to see how she progresses - Further treatment options pending the above - For her respiratory failure - she is on chronic anticoagulation and her PaO2 increased with delivery so doubt that PE at this time - She is not coughing up any blood in regards to her GG opactiies- this is likely from her RSV and infective in nature - PCT in morning, sputum sample if able to obtain- continue with Cefepime, Azithromycin - Continue with RANJIT/LABA/ICS for the above - Continue with methylpred for time being - Mildly enlarged subcarinal lymph node has increased in size since prior CT. This measures 1.2 cm in short axis diameter- from chart review has not had this followed or evaluated in the past. GI - No acute needs RENAL/LYTES - Respiratory acidosis, electrolyte disturbance - Acidosis as above - ICU electrolyte protocol - No acute needs ENDO - Hypothyroidism secondary to thyroidectomy - Continue synthroid- convert to IV if unable to take PO is prolonged HEME - NO acute needs ID - Bacterial and viral pneumonia - Elevated WBC with elevated lactate and SIRS criteria on presnetation to EMD - Continue with Cefepime and Azithromycin, Pending MRSA swab on arrival to ICU - Follow biomarkers and clinical presentation - Blood cultures are pending - Sputum sample if able to obtain LINES/IV ACCESS - PIV, Continue use of these lines- consideration of Street[place] if failure of BiPAP DVT PROPHYLAXIS - SCDS, Apixaban DISPO: ICU until respiratory and hemodynamics proven stable I have personally spent 65 minutes of critical care time in the direct management of this patient. This is a life/limb threatening event. This includes time spent evaluating patient, direct bedside care, chart review, placing orders, interpretation of diagnostic studies, discussion with consultants, patient, and family members, as well as other required patient management activities. This time is exclusive of all separately billable procedures, and teaching time and separate from and in addition to any other critical care service time. Thank you for allowing us to participate in the care of this patient. Please refer to my attending physician's documentation for any further recommendations. Supervising Physician Co-Signing Physician Notes Patient seen and examined. EMR reviewed. Discussed with LOIR. Agree with assessment plan as noted. Please refer to my progress note from 05/02/2023 for additional details. History of Present Illness Reason for Consultation: Hypercarbic Respiratory Failure Requesting Physician: Jerry Stewart MD Attending Physician: Sera Segovia MD History of Present Illness 87 YOF with medical history of: Thyroidectomy 11/2019 for multinodular goiter, PAF (on apixaban), HFrEF (EF 45-50%)) 10/14, HTN, DVT s/p thrombectomy and IVC filter while on coumadin, lymphedema, COPD(chronic bronchitis), CKD. Patient is normally with normal mentation and very independent living at home. She was diagnosed with RSV on 04/27/23. Patient was brought to the EMD today after the patient called her daughter and told her she was not doing well, she was found to be tripod positioning with difficulty breathing. EMS was notified and reportedly with spo2 in the 50s on arrival and confused- she was given nebulizer treatments, given 125mg of Solumederol and NRB. Upon arrival to the [facility] at 12:37 on 05/01/23, the patient had a CXR completed with opacities in right and lower lobe, she was noted to be in Afib to the 150s, had a VBG performed that was with PH 7.17 and CO2 in the 90s and placed to BiPAP her CO2 trended down from 90-70s. She was on BiPAP 18/8. I was notified by primary team at midnight that the patient was somnolent and with repeat VBG with Co2 increasing to the mid 70s. Went to [facility] where patient was inpatient hold to B8, patient was with head down and to the side, HR fixed at 60s, required multiple modes of stimulation to ar ouse patient and was now obtunded. Increased her BiPAP settings to 20/10 and increased her RR to 24 backup. She was given Pulmicort nebulizer as well as Formoterol, which resulted in improved air moving. CT scan was reviewed noting worsening of her tracheal narrowing that appears to also extend into right bronchus as well as ground glass opacities. 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 She is not on any CPAP or BiPAP at home normally and is on Albuterol and Loratadine for chronic bronchitis. I did call and discuss her current status with her daughter as she may require intubation if CO2 continues to increase as well as unsure of how much her tracheal narrowing is effecting her overall picture and this may complicate her getting off the ventilatory or re-intubation. Her daughter and Son came to bedside. Following above interventions the patient is now with PH 7.28, CO2 58, and Pa02 146 with HCO3 28. Currently will continue with NIPPV as she has the ability to improve on it. Will have to evaluate her tracheomalacia if this would require further therapy/treatment other than PPV. Currently will continue with full code status. Daughter is a nurse and will discuss termination clerk plans with her brother moving forward once more information becomes available as her hospital stay progresses. Allergies Allergy/AdvReac Type Severity Reaction Status Date / Time No Known Drug Allergies Allergy Unknown Verified 02/07/22 15:43 Home Medications Medication Instructions Recorded Confirmed Type loratadine 10 mg tablet (Claritin) 10 mg PO QAM 01/26/19 05/01/23 History levothyroxine 112 mcg tablet 112 mcg PO DAILYBB 10/16/21 05/01/23 History atorvastatin 20 mg tablet (Lipitor) 20 mg PO QAM 10/20/21 05/01/23 History lisinopril 10 mg tablet (Zestril) 10 mg PO QAM 10/20/21 05/01/23 History albuterol sulfate 90 mcg/actuation 1 inh inhalation QID PRN sob 01/28/22 05/01/23 History aerosol inhaler metoprolol succinate 100 mg 100 mg PO QAM 01/28/22 05/01/23 History tablet,extended release 24 hr acetaminophen 500 mg tablet 1,000 mg PO BID PRN Pain 02/07/22 05/01/23 History metoprolol succinate 25 mg 25 mg PO HS 02/07/22 05/01/23 History tablet,extended release 24 hr cholecalciferol (vitamin D3) 25 1,000 unit PO QAM #30 caps 02/17/22 05/01/23 Rx mcg (1,000 unit) capsule apixaban 5 mg tablet (Eliquis) 5 mg PO BID 05/01/23 05/01/23 History calcitriol 0.25 mcg capsule 0.25 mcg PO QAM 05/01/23 05/01/23 History calcium carbonate 500 mg-vitamin 3 tab PO BID 05/01/23 05/01/23 History D3 15 mcg (600 unit) tablet (Os-Chris 500 + D3) torsemide 10 mg tablet 10 mg PO QAM 05/01/23 05/01/23 History Patient History Medical History Acute renal failure Pneumonia Weakness History of DVT (deep vein thrombosis) History of anesthesia complications per dtr, voice has changed since thyroidectomy. informed by surgeon voice change is probably r/t intubation. Enlarged thyroid Nodular thyroid disease [place] (hard of hearing) HLD (hyperlipidemia) HTN (hypertension) Lymphedema BLLE History of thrombosis Atrial fibrillation Dx/d September 2021 -- on coumadin -- follows with Dr. Pickard Reactive airway disease Chronic anticoagulation Chronic airway disease Surgical History S/P left knee arthroscopy S/P IVC filter History of cataract surgery History of thyroidectomy History of tubal ligation History of breast biopsy LEFT - 1985 Family History Other No family history of adverse response to anesthesia No family history of allergies No family history of bleeding disorder Denies family history of Hearing loss Heart disease Cancer Hypertension Stroke Asthma Social History Smoking Status: Never smoker Second Hand Exposure: No; Do You Dip or Chew Tobacco: No; Hx Alcohol Use: No Hx Substance Use: No Preferred Language: Tamazight Communication Ability: Effective 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 Beliefs That Will Affect Care: None marital status: / Current Living Situation: Alone current occupational status: retired How many Children do You have: 4 Feels Safe at Home: Yes Safety Concerns: Feels Safe At This Time Assistive Devices: BiPap, Hospital Bed and Oxygen - Continuous Review of Systems Review of Systems: REVIEW OF SYSTEMS: Unable to perform secondary to encephalopathy Physical Exam Physical Exam: PHYSICAL EXAM: General: obtunded Head: Normocephalic, atraumatic ENT: PERRLA, EOMI, no pharyngeal exudate, mucous membranes dry Neuro: AAO x 1, speech confused , strength intact bilaterally 5/5, sensation intact, no pronator drift Chest: equal rise and fall of the chest, now without accessory muscle use, decreased throughout with expiratory wheeze, Cardiac: Regular rate and rhythm, telemetry reviewed- NSR no ectopy, skin warm dry, cap refill <3 seconds, peripheral pulses +2 no JVD, no murmur, lymphedema bilaateral lower extremities GI: NABS x 4 quadrants, soft, nontender to palpation, no rebound, guarding or tenderness : Spontaneously voiding Skin: chronic venous insufficiency, no rash or erythema Results & Data Results & Data Vital Signs (Past 12 Hours) Vital Signs Pulse Pulse Pulse Resp BP BP Pulse Ox 05/02/23 01:16 70 143/93 H 98 05/02/23 00:39 66 25 H 91 05/01/23 23:51 63 20 126/94 100 05/01/23 23:20 54 L 05/01/23 23:13 61 16 97 05/01/23 23:12 66 17 97 05/01/23 20:39 63 16 100 05/01/23 20:38 63 16 100 05/01/23 18:18 71 72 18 124/65 97 05/01/23 16:24 73 05/01/23 16:06 75 20 94 05/01/23 15:24 95 H 95 H 22 111/65 95 05/01/23 13:50 92 O2 Del Method O2 Flow Rate FiO2 05/02/23 01:16 CPAP 05/02/23 00:39 40 05/01/23 23:51 CPAP 05/01/23 23:20 05/01/23 23:13 40 05/01/23 23:12 BiPAP 40 05/01/23 20:39 BiPAP 40 05/01/23 20:38 40 05/01/23 18:18 BiPAP 05/01/23 16:24 05/01/23 16:06 BiPAP 05/01/23 15:24 BiPAP 05/01/23 13:50 High Flow Nasal Cannula 25 Laboratory Results Abnormal lab results 05/01/23 05/01/23 05/01/23 Range/Units 13:21 13:25 15:45 WBC 18.71 H (4.8-10.8) K/ul POC Hgb (12.0-16.0) g/dl POC Hct (37-47) % MCHC 31.3 L (32.0-36.0) g/dL RDW Std Deviation 47.2 H (36.4-46.3) fL Neut # (Auto) 15.18 H (1.40-6.50) K/uL Stanley # (Auto) 1.09 H (0.11-0.59) K/uL Immature Gran # (Auto) 0.32 H (0.01-0.20) K/uL POC pH (7.35-7.45) POC pCO2 (35-46) mmHg POC pO2 (80-95) mmHg POC HCO3 (19-24) rajan/L POC ABG O2 Sat (90-95) % VBG pH 7.17 L (7.36-7.41) VBG pCO2 92 H (38-50) mmHg BUN 44 H (6-23) mg/dl Creatinine 1.33 H (0.6-1.2) mg/dl BUN/Creatinine Ratio 33.1 H (10-20) Glucose 200 H (70-99(Fasting)) mg/dl POC Glucose (70-99) mg/dl Lactate (0.4-2.0) mmol/L Calcium 7.9 L (8.6-10.3) mg/dl Magnesium 1.6 L (1.7-2.4) mg/dl Troponin I High Sens 33.5 H 39.7 H (0-14) pg/ml B-Natriuretic Peptide 151 H (0-100) pg/ml Urine Appearance (Clear) Urine Protein (Negative) U Epithel Cells (Auto) (0-5) /lpf RSV (PCR) DETECTED A* (NotDetected) 05/01/23 05/01/23 05/01/23 Range/Units 16:17 18:37 18:46 WBC (4.8-10.8) K/ul POC Hgb (12.0-16.0) g/dl POC Hct (37-47) % MCHC (32.0-36.0) g/dL RDW Std Deviation (36.4-46.3) fL Neut # (Auto) (1.40-6.50) K/uL Stanley # (Auto) (0.11-0.59) K/uL Immature Gran # (Auto) (0.01-0.20) K/uL POC pH (7.35-7.45) POC pCO2 (35-46) mmHg POC pO2 (80-95) mmHg POC HCO3 (19-24) rajan/L POC ABG O2 Sat (90-95) % VBG pH 7.17 L (7.36-7.41) VBG pCO2 90 H (38-50) mmHg BUN (6-23) mg/dl Creatinine (0.6-1.2) mg/dl BUN/Creatinine Ratio (10-20) Glucose (70-99(Fasting)) mg/dl POC Glucose 222 H (70-99) mg/dl Lactate 4.2 H* 4.4 H* (0.4-2.0) mmol/L Calcium (8.6-10.3) mg/dl Magnesium (1.7-2.4) mg/dl Troponin I High Sens 42.2 H (0-14) pg/ml B-Natriuretic Peptide (0-100) pg/ml Urine Appearance (Clear) Urine Protein (Negative) U Epithel Cells (Auto) (0-5) /lpf RSV (PCR) (NotDetected) 05/01/23 05/01/23 05/01/23 Range/Units 21:07 21:34 23:13 WBC (4.8-10.8) K/ul POC Hgb (12.0-16.0) g/dl POC Hct (37-47) % MCHC (32.0-36.0) g/dL RDW Std Deviation (36.4-46.3) fL Neut # (Auto) (1.40-6.50) K/uL Stanley # (Auto) (0.11-0.59) K/uL Immature Gran # (Auto) (0.01-0.20) K/uL POC pH (7.35-7.45) POC pCO2 (35-46) mmHg POC pO2 (80-95) mmHg POC HCO3 (19-24) rajan/L POC ABG O2 Sat (90-95) % VBG pH 7.25 L (7.36-7.41) VBG pCO2 71 H (38-50) mmHg BUN (6-23) mg/dl Creatinine (0.6-1.2) mg/dl BUN/Creatinine Ratio (10-20) Glucose (70-99(Fasting)) mg/dl POC Glucose 224 H (70-99) mg/dl Lactate 3.2 H* (0.4-2.0) mmol/L Calcium (8.6-10.3) mg/dl Magnesium (1.7-2.4) mg/dl Troponin I High Sens (0-14) pg/ml B-Natriuretic Peptide (0-100) pg/ml Urine Appearance (Clear) Urine Protein (Negative) U Epithel Cells (Auto) (0-5) /lpf RSV (PCR) (NotDetected) 05/01/23 05/01/23 05/02/23 Range/Units 23:31 Unknown 00:41 WBC (4.8-10.8) K/ul POC Hgb (12.0-16.0) g/dl POC Hct (37-47) % MCHC (32.0-36.0) g/dL RDW Std Deviation (36.4-46.3) fL Neut # (Auto) (1.40-6.50) K/uL Stanley # (Auto) (0.11-0.59) K/uL Immature Gran # (Auto) (0.01-0.20) K/uL POC pH (7.35-7.45) POC pCO2 (35-46) mmHg POC pO2 (80-95) mmHg POC HCO3 (19-24) rajan/L POC ABG O2 Sat (90-95) % VBG pH 7.21 L (7.36-7.41) VBG pCO2 74 H (38-50) mmHg BUN (6-23) mg/dl Creatinine (0.6-1.2) mg/dl BUN/Creatinine Ratio (10-20) Glucose (70-99(Fasting)) mg/dl POC Glucose (70-99) mg/dl Lactate (0.4-2.0) mmol/L Calcium (8.6-10.3) mg/dl Magnesium (1.7-2.4) mg/dl Troponin I High Sens 32.9 H (0-14) pg/ml B-Natriuretic Peptide (0-100) pg/ml Urine Appearance Cloudy A (Clear) Urine Protein 1+ H (Negative) U Epithel Cells (Auto) 5-10 H (0-5) /lpf RSV (PCR) (NotDetected) 05/02/23 05/02/23 Range/Units 01:13 01:46 WBC (4.8-10.8) K/ul POC Hgb 11.9 L (12.0-16.0) g/dl POC Hct 35 L (37-47) % MCHC (32.0-36.0) g/dL RDW Std Deviation (36.4-46.3) fL Neut # (Auto) (1.40-6.50) K/uL Stanley # (Auto) (0.11-0.59) K/uL Immature Gran # (Auto) (0.01-0.20) K/uL POC pH 7.28 L (7.35-7.45) POC pCO2 58 H (35-46) mmHg POC pO2 146 H (80-95) mmHg POC HCO3 28 H (19-24) rajan/L POC ABG O2 Sat 99.0 H (90-95) % VBG pH (7.36-7.41) VBG pCO2 (38-50) mmHg BUN (6-23) mg/dl Creatinine (0.6-1.2) mg/dl BUN/Creatinine Ratio (10-20) Glucose (70-99(Fasting)) mg/dl POC Glucose 198 H (70-99) mg/dl Lactate (0.4-2.0) mmol/L Calcium (8.6-10.3) mg/dl Magnesium (1.7-2.4) mg/dl Troponin I High Sens (0-14) pg/ml B-Natriuretic Peptide (0-100) pg/ml Urine Appearance (Clear) Urine Protein (Negative) U Epithel Cells (Auto) (0-5) /lpf RSV (PCR) (NotDetected) Diagnostic Findings Chest X-Ray 05/01/23 12:03 XR chest 1V portable HISTORY: Shortness of breath. COMPARISON: Chest CT 02/15/2022. FINDINGS: No pneumothorax. No pleural effusions. The cardiac silhouette is borderline enlarged. There are calcifications within the aortic knob. There is mild diffuse interstitial thickening which is likely chronic. A few left basilar linear densities favor subsegmental atelectasis. Patchy right mid to lower lung zone airspace opacities are new compared the prior study. There is also a 3.2 cm right suprahilar nodular density. IMPRESSION: 1. Patchy right mid to lower lung zone airspace opacities are new compared the prior study. This favors a pneumonia. 2. There is also a 3.2 cm right suprahilar nodular density. This could also represent a component of the suspected pneumonia. However, one to 2 month chest x-ray follow-up recommended to exclude the possibility of a pulmonary mass. ACT 112: Positive. There are findings on this exam that require communication between the performing entity and the patient following Patient Test Result Information Act ([place] Act 112) guidelines. Electronically signed by: Kayden Perez M.D. 05/01/2023 1:[address] 05/01/23 16:31 CT OF THE CHEST WITHOUT IV CONTRAST CLINICAL HISTORY: hypoxia, pneumonia, possible mass COMPARISON STUDY: Chest CT February 15, 2022. Chest radiograph performed earlier today. CT DOSE: 392.79 mGy.cm TECHNIQUE: Axial images of the chest were obtained without IV contrast. Images were reviewed in the axial, sagittal, and coronal planes. IV contrast was not administered for this examination. Automated exposure control was utilized for the study. A dose lowering technique was utilized adhering to the principles of ALARA. FINDINGS: There is moderate cardiomegaly. No pericardial effusion is present. Dilatation of the central pulmonary arteries is noted. Main pulmonary artery measures 4 cm in caliber. Mildly enlarged subcarinal lymph node has increased in size since prior CT. This measures 1.2 cm in short axis diameter. Narrowing of the trachea is noted as well as narrowing of bilateral mainstem bronchi. Bronchial wall thickening is present. Small right and trace left pleural effusions are present. There is no pneumothorax. Interlobular septal thickening is noted. Moderate alveolar opacities throughout the lungs are present. These account for the right suprahilar abnormality on chest radiograph from earlier today. No cavitation is present. There is no central obstructing mass. Several old thoracic spine compression fractures are unchanged. There is an old sternal fracture. A density within the left breast is unchanged from earlier exams. This is likely benign given stability. IMPRESSION: 1. Extensive alveolar opacities throughout the lungs, several of which are nodular in configuration. These account for the right suprahilar abnormality on chest radiograph. The findings favor multifocal pneumonia. Alveolar pulmonary edema could appear similar although is considered less likely. Consolidation with adjacent groundglass opacity raises the possibility of pulmonary hemorrhage although this is also considered less likely. 2. Interlobular septal thickening consistent with interstitial pulmonary edema. 3. Small right and trace left pleural effusions. 4. Moderate cardiomegaly and dilatation of the central pulmonary arteries. 5. Tracheobronchial narrowing which raises the possibility of tracheobronchomalacia. Scattered secretions within the airways with bronchial wall thickening. ACT 112: Negative or not required by law. Electronically signed by: Johny Peace M.D. 05/01/2023 5:32 PM Medications Administered Albuterol (Albut/Ipratrop 3mg/0.5mg Neb 3 Ml Vial) 3 ml NEB Q4R PENDING SALE TO [facility]; Protocol Stop: 05/31/23 18:59 Last Admin: 05/01/23 23:12 Dose: 3 ml Documented By: Admin: 05/01/23 20:37 Dose: 3 ml Documented By: Jamal Apixaban (Apixaban 5 Mg Tablet) 5 mg PO BID PENDING SALE TO [facility] Stop: 05/31/23 20:59 Last Admin: 05/01/23 21:43 Dose: 5 mg Documented By: ANIL Azithromycin (Azithromycin 250 Mg Tab) 500 mg PO QAM PENDING SALE TO [facility] Stop: 05/03/23 09:01 Last Admin: 05/01/23 19:09 Dose: 500 mg Documented By: ANIL Calcium Carbonate (Calcium Carbonate 1250mg Tab) 1,500 mg PO BID PENDING SALE TO [facility] Stop: 05/31/23 20:59 Last Admin: 05/01/23 21:47 Dose: 1,500 mg Documented By: ANIL Guaifenesin (Guaifenesin 600 Mg Tabcr) 1,200 mg PO Q12 PENDING SALE TO [facility] Stop: 05/31/23 20:59 Last Admin: 05/01/23 21:44 Dose: 1,200 mg Documented By: ANIL Sodium Chloride (Nss) 1,000 mls @ 75 mls/hr IV .[id number] PENDING SALE TO [facility] Stop: 05/02/23 19:10 Last Admin: 05/02/23 01:50 Dose: 75 mls/hr Documented By: Infusion: 05/02/23 01:50 Dose: Infused Documented By: Admin: 05/01/23 18:07 Dose: 75 mls/hr Documented By: ANIL Methylprednisolone 60 mg/ (Syringe) 0.96 mls @ 1.5 mls/min IV DAILY PENDING SALE TO [facility] Stop: 05/31/23 16:59 Last Admin: 05/01/23 18:04 Dose: 1.5 mls/min Documented By: ANIL Cefepime HCl 2,000 mg/ Syringe 20 mls @ 5 mls/min IV Q12H PENDING SALE TO [facility]; Protocol Stop: 05/09/23 00:59 Last Admin: 05/02/23 01:49 Dose: 5 mls/min Documented By: JAMES Insulin Aspart (Insulin Aspart Per Unit Charge) 0 units SC ACHS PENDING SALE TO [facility] Stop: 05/31/23 20:59 Last Admin: 05/01/23 21:53 Dose: 3 units Documented By: ANIL Co-signed By: KEYON Insulin Aspart (Insulin Aspart Per Unit Charge) 0 units SC 0200 ONE Stop: 05/02/23 02:01 Last Admin: 05/02/23 01:49 Dose: 2 units Documented By: JAMES Co-signed By: CRICKET Metoprolol Succinate (Metoprolol Succ 25mg Ext Rel Tab) 25 mg PO HS PENDING SALE TO [facility] Stop: 05/31/23 20:59 Last Admin: 05/01/23 21:46 Dose: 25 mg Documented By: ANIL Discontinued Medications Budesonide (Budesonide 0.5 Mg/2 Ml Vial (Pulmicort)) 0.5 mg NEB ONCE ONE Stop: 05/02/23 00:54 Last Admin: 05/02/23 01:09 Dose: 0.5 mg Documented By: WILLIAM Formoterol Fumarate (Formoterol 20 Mcg/2 Ml Vial) 20 mcg NEB ONCE ONE Stop: 05/02/23 00:54 Last Admin: 05/02/23 01:09 Dose: 20 mcg Documented By: WILLIAM Magnesium Sulfate/Dextrose (Magnesium Sulfate / D5w) 1 gm in 100 mls @ 100 mls/hr IV Q1H WILFREDO Stop: 05/01/23 14:14 Last Infusion: 05/01/23 16:59 Dose: Infused Documented By: Admin: 05/01/23 15:33 Dose: 100 mls/hr Documented By: Infusion: 05/01/23 15:19 Dose: Infused Documented By: Admin: 05/01/23 14:19 Dose: 100 mls/hr Documented By: AMANDEEP Ceftriaxone Sodium (Rocephin) 2,000 mg in 50 mls @ 100 mls/hr IV NOW STA Stop: 05/01/23 12:46 Last Infusion: 05/01/23 14:04 Dose: Infused Documented By: Admin: 05/01/23 13:20 Dose: 100 mls/hr Documented By: AMANDEEP Doxycycline Hyclate 100 mg/ (Dextrose) 100 mls @ 50 mls/hr IV NOW STA Stop: 05/01/23 14:16 Last Infusion: 05/01/23 18:53 Dose: Infused Documented By: Admin: 05/01/23 15:56 Dose: 50 mls/hr Documented By: ANIL Sodium Chloride (Nss) 500 mls @ 999 mls/hr IV .Q31M ONE Stop: 05/01/23 17:04 Last Infusion: 05/01/23 18:38 Dose: Infused Documented By: Admin: 05/01/23 18:07 Dose: 999 mls/hr Documented By: ANIL Piperacillin Sod/Tazobactam (Sod 4.5 gm/ Dextrose) 100 mls @ 200 mls/hr IV NOW ONE; Protocol Stop: 05/01/23 17:29 Last Infusion: 05/01/23 18:53 Dose: Infused Documented By: Admin: 05/01/23 18:13 Dose: 200 mls/hr Documented By: ANIL Sodium Chloride (Nss) 500 mls @ 999 mls/hr IV .Q31M ONE Stop: 05/01/23 20:17 Last Admin: 05/01/23 20:08 Dose: Not Given Documented By: ANIL Miscellaneous (Patient's Height Needed) 1 each N/A Q30M WILFREDO Stop: 05/31/23 16:52 Last Admin: 05/01/23 18:37 Dose: Not Given Documented By: Admin: 05/01/23 18:37 Dose: Not Given Documented By: Admin: 05/01/23 17:07 Dose: 1 each Documented By: ANIL ECG Additional Comments: Sinus tachycardia Nonspecific ST and T wave abnormality Abnormal ECG When compared with ECG of 13-FEB-2022 05:52, Vent. 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
[2023-05-02] MEDS ORDERED: INFLUENZA VACCINE HIGH-DOSE (HD-IIV4) PF 65+ 0.7mL SYR IM ONE (02:28)
[2023-05-02] MEDS ORDERED: PNEUMOCOCCAL VACCINE (PCV20) 20-VAL CONJ-DIP CRM/PF 0.5 ML SYR IM ONE (02:28)
[2023-05-02] MEDS ORDERED: FUROSEMIDE INJ 20 MG/2 ML VIAL IV ONE (02:28)
[2023-05-02] MEDS: ALBUT/IPRATROP 3MG/0.5MG NEB 3 ML VIAL NEB SCH ×3 (02:42→11:24)
[2023-05-02 04:51] LABS: Basophils # (auto) 0.03 K/uL (0.00-0.20); Basophils % (auto) 0.2 %; Hematocrit (blood only) 38.2 % (37.0-47.0); Hemoglobin 11.9 g/dl (12.0-16.0); Immature Granulocytes # (auto) 0.18 K/uL (0.01-0.20); Immature Granulocytes % (auto) 1.3 %; Lymphocytes # (auto) 1.31 K/uL (1.20-3.40); Lymphocytes % (auto) 9.7 %; Mean Corpuscular Hemoglobin 30.4 pg (25.0-34.0); Mean Corpuscular Hgb Conc 31.2 g/dL (32.0-36.0); Mean Corpuscular Volume 97.7 fL (80.0-100.0); Mean Platelet Volume 10.1 fL (9.4-12.4); Monocytes # (auto) 0.52 K/uL (0.11-0.59); Monocytes % (auto) 3.8 %; Neutrophils # (auto) 11.48 K/uL (1.40-6.50); Platelet Count 204 K/uL (130-400); RDW Coefficient of Variation 13.2 % (11.5-14.5); RDW Standard Deviation 47.2 fL (36.4-46.3); Red Blood Count 3.91 M/uL (4.20-5.40); White Blood Count 13.52 K/ul (4.8-10.8)
[2023-05-02 05:06] LABS: BUN Creatinine Ratio 28.5 (10-20); Calcium 7.3 mg/dl (8.6-10.3); Creatinine Clr Calc Pharmacy 27.1 ml/min; Est GFR (African American) 40.7 ml/min; Est GFR (Non-African American) 35.1 ml/min; Magnesium 2.1 mg/dl (1.7-2.4); Phosphorus 4.9 mg/dl (2.5-4.9)
[2023-05-02 06:28] LABS: Base Excess VBG -0.4 mEq/L; HCO3 VBG 30 mmol/L; Oxygen Saturation VBG < 60.0 %; PCO2 VBG 76 mmHg (38-50); PO2 VBG 29 mmHg; pH VBG 7.23 (7.36-7.41)
[2023-05-02] MEDS: LEVOTHYROXINE SODIUM 112 MCG TABLET PO SCH (06:41)
[2023-05-02 06:50] LABS: Troponin I High Sensitivity 26.7 pg/ml (0-14)
[2023-05-02 07:37] LABS: Estimated Average Glucose 160 mg/dl; Hemoglobin A1C 7.2 % (4.5-5.6)
[2023-05-02] MEDS: FORMOTEROL 20 MCG/2 ML VIAL NEB SCH ×2 (08:11→19:52)
[2023-05-02] MEDS: BUDESONIDE 0.5 MG/2 ML VIAL (PULMICORT) NEB SCH ×2 (08:11→19:52)
--- NOTE | 2023-05-02 08:18 | Electrocardiogram Report ---
Test Reason : Blood Pressure : / mmHG Vent. Rate : 142 BPM Atrial Rate : 142 BPM P-R Int : 154 ms QRS Dur : 070 ms QT Int : 308 ms P-R-T Axes : 032 086 041 degrees QTc Int : 473 ms Poor data quality, interpretation may be adversely affected Atrial flutter vs. Sinus Tach with frequqnt PACs ST depression in Anterolateral leads , consider ischemia Abnormal ECG When compared with ECG of 13-FEB-2022 05:52, Vent. rate has increased BY 71 BPM Rhythm no longer clearly sinus Criteria for Inferior-posterior infarct are no longer Present ST now depressed in Anterolateral leads Nonspecific T wave abnormality no longer evident in Anterior leads Confirmed by Usman Leon ([id number]) on 05/02/2023 8:18:30 AM Referred By: Confirmed By:Usman Leon
[2023-05-02] MEDS: methylPREDNISolone 60 MG in SYRINGE 0 ML IV SCH (08:31)
[2023-05-02] MEDS: INSULIN ASPART PER UNIT CHARGE SC SCH ×3 (08:40→22:02)
[2023-05-02] MEDS ORDERED: lisinopril 10 MG TAB PO SCH (09:00)
[2023-05-02] MEDS: CALCIUM CARBONATE 1250MG TAB PO SCH ×2 (09:05→20:44)
[2023-05-02] MEDS: APIXABAN 5 MG TABLET PO SCH ×2 (09:05→20:44)
[2023-05-02] MEDS: ATORVASTATIN 20 MG TAB PO SCH (09:05)
[2023-05-02] MEDS: METOPROLOL SUCC 50MG EXT REL TAB PO SCH (09:05)
[2023-05-02] MEDS: CALCITRIOL 0.25 MCG CAPSULE PO SCH (09:06)
[2023-05-02] MEDS: AZITHROMYCIN 250 MG TAB PO SCH (09:06)
[2023-05-02] MEDS: guaiFENesin 600 MG TABCR PO SCH ×2 (09:06→20:44)
[2023-05-02] MEDS: CHOLECALCIFEROL 1,000 UNITS 25 MCG TAB PO SCH (09:06)
[2023-05-02] MEDS: LORATADINE 10 MG TAB PO SCH (09:07)
--- NOTE | 2023-05-02 09:43 | Cardiology Consultation ---
Date of Consultation May 02, 2023 Assessment & Plan (1) Pneumonia: (2) RSV (respiratory syncytial virus infection): (3) Respiratory failure with hypoxia and hypercapnia: (4) Tracheal anomaly: (5) Atrial fibrillation: (6) (HFpEF) heart failure with preserved ejection fraction: Plan -Patient presents with several days of progressive shortness of breath. Leukocytosis noted on presentation as well as atrial fibrillation with rapid ventricular response and associated ST segment depression consistent with demand related ischemia while hypoxic and tachycardic. She has since converted to sinus rhythm and sinus rhythm in the 60s is noted on telemetry. Echocardiogram performed today reveals mild concentric left ventricular hypertrophy, with ejection fraction in the range of 60 to 65%, moderate mitral gravitation present, mild tricuspid regurgitation, pulmonary systolic pressure 47 mmHg (mildly elevated. Compared to the previous study performed in September,, there has been interval improvement in the LV systolic function, moderate mitral regurgitation noted at this time as compared to mild to moderate mitral regurgitation. Patient received a dose of IV furosemide at 2:44 AM. Respiratory status improved with positive pressure ventilation. At this time I recommend repeating EKG in follow-up of the previously noted ST segment depression. The patient has a mild and relatively flat troponin elevation likely consistent with demand ischemia. Continue prior to hospital treatment with metoprolol and Eliquis. Agree with holding her prior to hospital treatment with torsemide. Patient to receive corticosteroids, antibiotics. Hold off on additional furosemide for now but anticipate she will need additional doses to try to keep her intake and output balanced especially given administration of IV antibiotics. History of Present Illness Attending Physician: Dario Rey MD History of Present Illness Rosaura Charles is a 7-year-old female seen in cardiology consultation per the request of Dr. Segovia for the evaluation of respiratory insufficiency with noted past medical history of congestive heart failure and paroxysmal atrial fibrillation.Patient is seen in the intensive care unit, room 110. She is currently comfortable on positive pressure ventilation. The patient presented to the emergency department on 05/01/2023 with progressive dyspnea. The patient had tested positive for RSV on 04/27/2023 as an outpatient. The patient was noted to have severe hypoxia when she initially presented which improved with supplemental oxygen. Patient was initially to be admitted to telemetry, but developed hypercapnia overnight last night, with CO2 as measured on arterial blood gas performed on 05/02/2023 at 1:13 AM of [address] of the chest had been performed with findings concerning for tracheal narrowing. Patient subsequently transferred to the intensive care unit and has been improved on positive pressure ventilation in the interim. Allergies Allergy/AdvReac Type Severity Reaction Status Date / Time No Known Drug Allergies Allergy Unknown Verified 02/07/22 15:43 Home Medications Medication Instructions Recorded Confirmed Type loratadine 10 mg tablet (Claritin) 10 mg PO QAM 01/26/19 05/01/23 History levothyroxine 112 mcg tablet 112 mcg PO DAILYBB 10/16/21 05/01/23 History atorvastatin 20 mg tablet (Lipitor) 20 mg PO QAM 10/20/21 05/01/23 History lisinopril 10 mg tablet (Zestril) 10 mg PO QAM 10/20/21 05/01/23 History albuterol sulfate 90 mcg/actuation 1 inh inhalation QID PRN sob 01/28/22 05/01/23 History aerosol inhaler metoprolol succinate 100 mg 100 mg PO QAM 01/28/22 05/01/23 History tablet,extended release 24 hr acetaminophen 500 mg tablet 1,000 mg PO BID PRN Pain 02/07/22 05/01/23 History metoprolol succinate 25 mg 25 mg PO HS 02/07/22 05/01/23 History tablet,extended release 24 hr cholecalciferol (vitamin D3) 25 1,000 unit PO QAM #30 caps 02/17/22 05/01/23 Rx mcg (1,000 unit) capsule apixaban 5 mg tablet (Eliquis) 5 mg PO BID 05/01/23 05/01/23 History calcitriol 0.25 mcg capsule 0.25 mcg PO QAM 05/01/23 05/01/23 History calcium carbonate 500 mg-vitamin 3 tab PO BID 05/01/23 05/01/23 History D3 15 mcg (600 unit) tablet (Os-Chris 500 + D3) torsemide 10 mg tablet 10 mg PO QAM 05/01/23 05/01/23 History Patient History Medical History Acute renal failure Pneumonia Weakness History of DVT (deep vein thrombosis) History of anesthesia complications per dtr, voice has changed since thyroidectomy. informed by surgeon voice change is probably r/t intubation. Enlarged thyroid Nodular thyroid disease [place] (hard of hearing) HLD (hyperlipidemia) HTN (hypertension) Lymphedema BLLE History of thrombosis Atrial fibrillation Dx/d September 2021 -- on coumadin -- follows with Dr. Pickard Reactive airway disease Chronic anticoagulation Chronic airway disease Surgical History S/P left knee arthroscopy S/P IVC filter History of cataract surgery History of thyroidectomy History of tubal ligation History of breast biopsy LEFT - 1985 Family History Other No family history of adverse response to anesthesia No family history of allergies No family history of bleeding disorder Denies family history of Hearing loss Heart disease Cancer Hypertension Stroke Asthma Social History Smoking Status: Never smoker Second Hand Exposure: No; Do You Dip or Chew Tobacco: No; Hx Alcohol Use: No Hx Substance Use: No Preferred Language: Maltese Communication Ability: Effective Electrical Assembler Required: No Beliefs That Will Affect Care: None marital status: / Current Living Situation: Alone current occupational status: retired How many Children do You have: 4 Feels Safe at Home: Yes Safety Concerns: Feels Safe At This Time Assistive Devices: BiPap, Hospital Bed and Oxygen - Continuous Review of Systems Review of Systems: Other (Comprehensive review of systems unobtainable as patient was on BiPAP.) Physical Exam Physical Exam: Temp Pulse Resp BP Pulse Ox O2 Del Method O2 Flow Rate 36.8 C 60 24 105/69 96 BiPAP 25 05/02/23 04:00 05/02/23 08:17 05/02/23 08:17 05/02/23 06:00 05/02/23 08:17 05/02/23 08:17 05/01/23 13:50 FiO2 35 05/02/23 08:17 Constitutional: + ill appearing; no acute distress Eyes: PERRL, conjunctivae normal, anicteric sclerae Respiratory: Auscultation: + diminished lung sounds (Decreased breath sounds at the bases); no crackles and no rales Cardiovascular: Rate/Rhythm: regular rhythm Heart Sounds: + murmur (1/6 sm) Extremities: no edema Gastrointestinal (Abdomen): normal bowel sounds, soft, nontender, no hepatosplenomegaly Neurologic: PERRL, EOMI, accommodation nl, no face palsy, no dysarthria Results & Data Laboratory Results Cardiac Enzymes 05/01/23 05/01/23 05/01/23 Range/Units 13:21 15:45 18:37 AST 30 (13-39) U/L Troponin I High Sens 33.5 H 39.7 H 42.2 H (0-14) pg/ml B-Natriuretic Peptide 151 H (0-100) pg/ml 05/02/23 05/02/23 Range/Units 00:41 04:30 AST (13-39) U/L Troponin I High Sens 32.9 H 26.7 H (0-14) pg/ml B-Natriuretic Peptide (0-100) pg/ml Coagulation 05/01/23 05/01/23 Range/Units 13:21 15:45 PT 11.4 (9.0-12.0) Seconds B-Natriuretic Peptide 151 H (0-100) pg/ml CBC 05/01/23 05/02/23 Range/Units 13:21 04:30 WBC 18.71 H 13.52 H (4.8-10.8) K/ul RBC 4.42 3.91 L (4.20-5.40) M/uL Hgb 13.4 11.9 L (12.0-16.0) g/dl Hct 42.8 38.2 (37.0-47.0) % Plt Count 225 204 (130-400) K/uL Neut # (Auto) 15.18 H 11.48 H (1.40-6.50) K/uL Lymph # (Auto) 2.03 1.31 (1.20-3.40) K/uL [place] # (Auto) 1.09 H 0.52 (0.11-0.59) K/uL Eos # (Auto) 0.02 0.00 (0.00-0.50) K/uL Baso # (Auto) 0.07 0.03 (0.00-0.20) K/uL Comprehensive Metabolic Panel 05/01/23 05/02/23 Range/Units 13:21 04:30 Sodium 142 142 (136-145) mmol/L Potassium 4.6 4.0 (3.5-5.1) mmol/L Chloride 101 102 (98-107) mmol/L Carbon Dioxide 31 29 (21-32) mmol/L BUN 44 H 39 H (6-23) mg/dl Creatinine 1.33 H 1.37 H (0.6-1.2) mg/dl Glucose 200 H 173 H (70-99(Fasting)) mg/dl Calcium 7.9 L 7.3 L (8.6-10.3) mg/dl AST 30 (13-39) U/L ALT 27 (7-52) U/L Alkaline Phosphatase 91 (34-104) U/L Total Protein 6.9 (6.0-8.3) gm/dl Albumin 3.9 (3.4-5.0) gm/dl Intake and Output 05/01/23 05/02/23 05/02/23 22:59 06:59 14:59 Intake Total 900 / 1528.75 578.75 / 1528.75 Output Total 450 / 450 Balance 900 / 1078.75 128.75 / 1078.75 Intake: IV 900 / 1528.75 578.75 / 1528.75 Doxycycline Hyclate 100 mg In 100 / 100 Dextrose 5% Mini-B 100 ml @ 50 mls/hr IV NOW STA Rx#:[id number] Magnesium Sulfate / D5w 1 gm In 200 / 200 100 ml @ 100 mls/hr IV Q1H [facility] Rx#:[id number] Piperacillin/Tazobactam 4.5 gm 100 / 100 In Dextrose 5% Mini-B 100 ml @ 200 mls/hr IV NOW ONE Rx#: [id number] Sodium Chloride 0.9% 1,000 ml @ 500 / 1078.75 578.75 / 1078.75 75 mls/hr IV .[id number] [facility] Rx#: [id number] Output: Urine 450 / 450 Other: # Unmeasured Voids 1 Weight 74.8 kg Weight Measurement Method Built in [facility] Diagnostic Findings Cardiac Enzymes 05/01/23 05/01/23 05/01/23 Range/Units 13:21 15:45 18:37 AST 30 (13-39) U/L Troponin I High Sens 33.5 H 39.7 H 42.2 H (0-14) pg/ml B-Natriuretic Peptide 151 H (0-100) pg/ml 05/02/23 05/02/23 Range/Units 00:41 04:30 AST (13-39) U/L Troponin I High Sens 32.9 H 26.7 H (0-14) pg/ml B-Natriuretic Peptide (0-100) pg/ml Coagulation 05/01/23 05/01/23 Range/Units 13:21 15:45 PT 11.4 (9.0-12.0) Seconds B-Natriuretic Peptide 151 H (0-100) pg/ml CBC 05/01/23 05/02/23 Range/Units 13:21 04:30 WBC 18.71 H 13.52 H (4.8-10.8) K/ul RBC 4.42 3.91 L (4.20-5.40) M/uL Hgb 13.4 11.9 L (12.0-16.0) g/dl Hct 42.8 38.2 (37.0-47.0) % Plt Count 225 204 (130-400) K/uL Neut # (Auto) 15.18 H 11.48 H (1.40-6.50) K/uL Lymph # (Auto) 2.03 1.31 (1.20-3.40) K/uL [place] # (Auto) 1.09 H 0.52 (0.11-0.59) K/uL Eos # (Auto) 0.02 0.00 (0.00-0.50) K/uL Baso # (Auto) 0.07 0.03 (0.00-0.20) K/uL Comprehensive Metabolic Panel 05/01/23 05/02/23 Range/Units 13:21 04:30 Sodium 142 142 (136-145) mmol/L Potassium 4.6 4.0 (3.5-5.1) mmol/L Chloride 101 102 (98-107) mmol/L Carbon Dioxide 31 29 (21-32) mmol/L BUN 44 H 39 H (6-23) mg/dl Creatinine 1.33 H 1.37 H (0.6-1.2) mg/dl Glucose 200 H 173 H (70-99(Fasting)) mg/dl Calcium 7.9 L 7.3 L (8.6-10.3) mg/dl AST 30 (13-39) U/L ALT 27 (7-52) U/L Alkaline Phosphatase 91 (34-104) U/L Total Protein 6.9 (6.0-8.3) gm/dl Albumin 3.9 (3.4-5.0) gm/dl Intake and Output 05/01/23 05/02/23 05/02/23 22:59 06:59 14:59 Intake Total 900 / 1528.75 578.75 / 1528.75 Output Total 450 / 450 Balance 900 / 1078.75 128.75 / 1078.75 Intake: IV 900 / 1528.75 578.75 / 1528.75 Doxycycline Hyclate 100 mg In 100 / 100 Dextrose 5% Mini-B 100 ml @ 50 mls/hr IV NOW STA Rx#:[id number] Magnesium Sulfate / D5w 1 gm In 200 / 200 100 ml @ 100 mls/hr IV Q1H [facility] Rx#:[id number] Piperacillin/Tazobactam 4.5 gm 100 / 100 In Dextrose 5% Mini-B 100 ml @ 200 mls/hr IV NOW ONE Rx#: [id number] Sodium Chloride 0.9% 1,000 ml @ 500 / 1078.75 578.75 / 1078.75 75 mls/hr IV .[id number] [facility] Rx#: [id number] Output: Urine 450 / 450 Other: # Unmeasured Voids 1 Weight 74.8 kg Weight Measurement Method Built in [facility] Lactate level: 3.2 --> 4.1 Medications Administered EKG performed on presentation 05/01/2023 at 11:49 AM revealed atrial fibrillation with rapid ventricular sponsor [address] segment depression in the anterolateral leads consistent with ischemia. Summary of radiology report, CT of the chest, performed 05/01/2023: 1. Extensive alveolar opacities throughout the lungs, several of which are nodular in configuration. These account for the right suprahilar abnormality on chest radiograph. The findings favor multifocal pneumonia. Alveolar pulmonary edema could appear similar although is considered less likely. Consolidation with adjacent groundglass opacity raises the possibility of pulmonary hemorrhage although this is also considered less likely. 2. Interlobular septal thickening consistent with interstitial pulmonary edema. 3. Small right and trace left pleural effusions. 4. Moderate cardiomegaly and dilatation of the central pulmonary arteries. 5. Tracheobronchial narrowing which raises the possibility of tracheobronchomalacia. Scattered secretions within the airways with bronchial wall thickening. (5) Atrial fibrillation Atrial fibrillation type: paroxysmal Qualified Code(s): I48.0 - Paroxysmal atrial fibrillation (6) (HFpEF) heart failure with preserved ejection fraction Heart failure chronicity: acute on chronic Qualified Code(s): I50.33 - Acute on chronic diastolic (congestive) heart failure
[2023-05-02 10:30] LABS: iSTAT Allen Test Pass; iSTAT Art Bld Gas pCO2 Correct 56 mmHg (35-46); iSTAT Art Bld Gas pH Corrected 7.339 (7.35-7.45); iSTAT Arterial Blood Gas HCO3 30 meg/L (19-24); iSTAT Arterial Blood Gas pCO2 56 mmHg (35-46); iSTAT Arterial Blood Gas pH 7.34 (7.35-7.45); iSTAT Arterial Blood Gas pO2 87 mmHg (80-95); iSTAT Arterial Blood Gas pO2 C 87; iSTAT Carbon Dioxide 32 mmol/L (24-31); iSTAT FiO2 35 %; iSTAT Hematocrit 32 % (37-47); iSTAT Hemoglobin 10.9 g/dl (12.0-16.0); iSTAT Potassium 3.9 mmol/L (3.3-5.0); iSTAT Site R Radial; iSTAT Sodium 140 mmol/L (135-144)
--- NOTE | 2023-05-02 11:08 | XRay Report ---
SINGLE VIEW CHEST CLINICAL HISTORY: Pneumonia FINDINGS: An AP, portable, upright chest radiograph is compared to chest x-ray and chest CT dated 05/01. The examination is degraded by portable technique and patient rotation. The heart is mildly e nlarged noting atherosclerotic calcification of the thoracic aorta. Pulmonary vasculature is nonconge sted. Multifocal airspace consolidation throughout the right lung is similar to previous. There are a lso mild right basilar opacities. No large pleural effusion or pneumothorax is seen. The skeletal str uctures are osteopenic. The bony thorax is grossly intact. An IVC filter is partially visualized in t he upper abdomen. IMPRESSION: Multifocal airspace consolidation throughout the right lung and mild left basilar opaciti es are similar to previous. The appearance is typical for pneumonia. Clinical correlation will be req uired and radiographic follow-up to resolution is recommended. ACT 112: Negative or not required by law. Electronically signed by: Olayinka Conde M.D. 05/02/2023 11:07 AM
[2023-05-02] MEDS ORDERED: ACETAMINOPHEN 325 MG TAB PO PRN (11:51)
[2023-05-02] MEDS ORDERED: ALBUT/IPRATROP 3MG/0.5MG NEB 3 ML VIAL NEB PRN (11:51)
--- NOTE | 2023-05-02 11:55 | Critical Care Progress Note ---
Date of Service May 02, 2023 Assessment & Plan (1) Respiratory failure with hypoxia and hypercapnia: (2) Pneumonia: (3) Encephalopathy: (4) Elevated troponin: (5) Hypomagnesemia: (6) CHF (congestive heart failure): (7) Acute on chronic kidney failure: (8) RSV (respiratory syncytial virus infection): (9) Tracheal anomaly: (10) Abnormal CT scan, chest: (11) Chronic bronchitis: Plan Impression: 88 YOF with acute hypoxic and hypercarbic respiratory failure in setting of RSV infection complicated by tracheomalacia 24-hour events: The patient has been weaned off of noninvasive positive pressure ventilation. Her encephalopathy has resolved. She is doing well clinically. Recommendations: Neuro -encephalopathy resolved. Likely secondary to acute hypercarbic respiratory failure. Continue to follow clinically. PT and OT evaluations will be initiated. Out of bed to chair as tolerated. Will assess whether or not rehab is required for the patient. Cardiac -echo with preserved ejection fraction. History of atrial fibrillation on apixaban. Appreciate cardiology consultation. EKG pending given the small increase in troponin, likely supply/demand mismatch. 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 Nocturnal positive airway pressure limited ventilation with CPAP or BiPAP would be recommended. Recommend avoiding steroids if at all possible. Reviewed prior PFTs which were suggestive of more of a restrictive pattern than an obstruction pattern. Continue bronchodilators if needed. Outpatient sleep study may be required to qualify the patient for nocturnal positive airway pressure ventilation. GI - No acute needs. Advancing diet as tolerated RENAL/LYTES -ICU electrolyte replacement protocol. Acute respiratory acidosis resolving. Continue to follow clinically. Agree with diuresis as noted by cardiology when feasible. - No acute needs ENDO - continue oral Synthroid HEME - NO acute needs ID -RSV with potential aspiration pneumonia. Discontinue cefepime and replace with Augmentin. To de-escalate azithromycin to 250 mg daily for an additional day or 2 which should be adequate atypical coverage. Will need follow-up chest x-ray in 2 to 3 weeks. LINES/IV ACCESS - PIV, DVT PROPHYLAXIS - SCDS, Apixaban DISPO: ICU until respiratory and hemodynamics proven stable Discussed with patient and daughter at bedside as well as with critical care nurse and on multidisciplinary rounds. The patient is showing clinical improvement. Will see how she responds over the next 24 hours and if she continues to do well, can likely dismiss out of the intensive care unit to the floor in the a.m.. Admission and Anticipated Discharge Date Admission Date: May 01, 2023 Subjective Patient seen and examined on multiple occasions this morning. Discussed on multidisciplinary rounds and with critical care LORI. Reviewed with family at bedside. The patient is now off BiPAP. She is awake alert conversant and oriented to person place and time. She states she is doing well. She is not complaining of any respiratory difficulties. She states that she slept poorly prior to coming to the hospital and had a cough which was keeping her up at night and she felt like she did not sleep for several days. She is not having any fevers chills night sweats or other constitutional symptoms. She overall feels like her breathing is significantly improved. Review of Systems Review of Systems: All systems reviewed & are unremarkable except as noted in Subjective Physical Exam Constitutional: WD/WN, vitals as above Neck: trachea midline, no thyromegaly Respiratory: normal respiratory effort, lungs clear to auscultation Cardiovascular: RRR, no murmur, no edema Gastrointestinal (Abdomen): normal bowel sounds, soft, nontender, no hepa tosplenomegaly Musculoskeletal: Extremities: extremities normal to inspection Skin: no rashes, warm and dry Neurologic: Nonfocal exam Lymphatic: no cervical lymphadenopathy Results & Data Results & Data Vital Signs (Past 12 Hours) Vital Signs Temp Pulse Pulse Pulse Resp BP BP 05/02/23 11:27 80 22 05/02/23 10:30 67 24 05/02/23 10:00 64 28 H 05/02/23 10:00 109/68 05/02/23 09:30 60 24 05/02/23 09:00 99/55 L 05/02/23 09:00 64 4 L 05/02/23 08:50 36.9 C 05/02/23 08:30 69 18 05/02/23 08:17 60 24 05/02/23 08:17 60 24 05/02/23 08:05 05/02/23 08:00 106/57 L 05/02/23 08:00 60 21 05/02/23 07:30 62 0 L 05/02/23 07:00 101/60 05/02/23 07:00 63 14 05/02/23 06:00 67 24 105/69 05/02/23 05:30 66 20 05/02/23 05:00 117/64 05/02/23 05:00 66 22 05/02/23 04:30 70 19 05/02/23 04:00 36.8 C 107/61 05/02/23 04:00 66 25 H 05/02/23 03:31 73 28 H 05/02/23 03:30 65 24 05/02/23 03:00 110/53 L 05/02/23 03:00 69 15 05/02/23 02:54 110/56 L 05/02/23 02:54 74 24 05/02/23 02:50 73 28 H 05/02/23 02:37 80 25 H 05/02/23 02:07 78 05/02/23 02:01 05/02/23 02:00 125/79 05/02/23 02:00 71 15 05/02/23 01:59 74 19 05/02/23 01:59 109/73 05/02/23 01:45 35.8 C L 75 20 05/02/23 01:38 78 17 05/02/23 01:16 70 143/93 H 05/02/23 01:01 68 19 05/02/23 01:01 143/93 H 05/02/23 01:00 69 22 05/02/23 00:39 66 25 H 05/01/23 23:51 63 20 126/94 BP Pulse Ox O2 Del Method O2 Flow Rate FiO2 05/02/23 11:27 98 Nasal Cannula 3 05/02/23 10:30 95 05/02/23 10:00 94 05/02/23 10:00 05/02/23 09:30 97 05/02/23 09:00 05/02/23 09:00 93 05/02/23 08:50 05/02/23 08:30 96 05/02/23 08:17 96 35 05/02/23 08:17 97 BiPAP 35 05/02/23 08:05 BiPAP 0.35 05/02/23 08:00 05/02/23 08:00 97 05/02/23 07:30 93 05/02/23 07:00 05/02/23 07:00 92 05/02/23 06:00 97 05/02/23 05:30 97 05/02/23 05:00 05/02/23 05:00 95 05/02/23 04:30 98 05/02/23 04:00 05/02/23 04:00 95 05/02/23 03:31 100 30 05/02/23 03:30 93 05/02/23 03:00 05/02/23 03:00 92 05/02/23 02:54 05/02/23 02:54 96 05/02/23 02:50 100 BiPAP 30 05/02/23 02:37 100 05/02/23 02:07 05/02/23 02:01 BiPAP 40 05/02/23 02:00 05/02/23 02:00 96 05/02/23 01:59 98 05/02/23 01:59 05/02/23 01:45 109/73 100 BiPAP 40 05/02/23 01:38 100 05/02/23 01:16 98 CPAP 05/02/23 01:01 100 05/02/23 01:01 05/02/23 01:00 100 05/02/23 00:39 91 40 05/01/23 23:51 100 CPAP Coding Level of Care Code 77420 SUB INP/OBS CARE 3/50MIN Diagnoses Respiratory failure with hypoxia and hypercapnia J96.91; J96.92 Pneumonia J18.9 Encephalopathy G93.40 Elevated troponin R79.89 Hypomagnesemia E83.42 CHF (congestive heart failure) I50.9 Acute on chronic kidney failure N17.9; N18.9 RSV (respiratory syncytial virus infection) B33.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
[2023-05-02] MEDS ORDERED: INSULIN ASPART PER UNIT CHARGE SC SCH ×2 (12:00→18:00)
--- NOTE | 2023-05-02 12:03 | Pharmacy Report ---
Pharmacy Glycemic Short Note 2 - Date of Service May 02, 2023 - Glycemic Short BSG Results (Last 24 hours): 05/01/23 05/01/23 05/01/23 13:21 18:46 21:34 Glucose 200 H POC Glucose 222 H 224 H 05/02/23 05/02/23 05/02/23 01:46 04:30 08:34 Glucose 173 H POC Glucose 198 H 161 H OUTPATIENT ANTIDIABETIC REGIMEN: * n/a HbA1C: 7.2% ASSESSMENT: * Pt is an 87 year old female admitted with respiratory failure in setting of RSV. Pharmacy consulted to assist with glycemic control. * BSGs [phone]/dL since admission. Was receiving IV methylprednisolone (which has since been discontinued). Received 3 units of bolus insulin last evening. * Currently NPO, steroids D/c'd, and receiving antibiotics * Hold basal for now- continue Novolog moderate stress scale q6 while NPO. PLAN FOR INPATIENT GLYCEMIC CONTROL: * Hold outpatient oral diabetes medications * Basal insulin * - * Bolus insulin * NovoLog per scale ACHS or Q6hrs while NPO * Goal Range: Low 110 mg/dL - High 140 mg/dL * Correction Factor: 35 mg/dL/unit * Nutritional / Prandial insulin per carb ratio of 1 unit per 11 grams CHO consumed
--- NOTE | 2023-05-02 13:38 | Hospitalist Progress Note ---
Date of Service May 02, 2023 Assessment & Plan (1) Sepsis: (2) Acute hypoxic respiratory failure: (3) AMS (altered mental status): (4) RSV (respiratory syncytial virus infection): (5) Acute on chronic kidney failure: (6) CHF (congestive heart failure): (7) Hypomagnesemia: (8) Elevated troponin: (9) Hyperglycemia: Plan Pt is an 87yoF with PMHx significant for CHF, paroxysmal atrial fibrillation, history of DVT on chronic anticoagulation with Eliquis currently, HTN, HLD, COPD, h/o thyroidectomy and hypoparathyroidism, chronic lymphedema admitted with acute hypoxic respiratory failure in the setting of an RSV infection and RML/RLL pneumonia. 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 These account for the right suprahilar abnormality on chest radiograph. The findings favor multifocal pneumonia. Alveolar pulmonary edema could appear similar although is considered less likely. Consolidation with adjacent groundglass opacity raises the possibility of pulmonary hemorrhage although this is also considered less likely. Interlobular septal thickening consistent with interstitial pulmonary edema. Small right and trace left pleural effusions. Moderate cardiomegaly and dilatation of the central pulmonary arteries. Tracheobronchial narrowing which raises the possibility of tracheobronchomalacia. Scattered secretions within the airways with bronchial wall thickening. -- BioFire positive for RSV Normal procalcitonin Weaned off of BiPAP Currently requiring minimal supplemental oxygen to maintain saturations Continue empiric antibiotics Needs outpatient sleep study Appreciate pulmonary critical care input Will need repeat chest x-ray in 2 to 3 weeks Acute on chronic heart failure with preserved EF --ECHO: Mild concentric LVH. No further wall motion is normal. EF 60 to 65%. Right ventricle is normal in size and function. 1 diastolic dysfunction. Moderate mitral regurgitation. Mild tricuspid regurgitation. Pulmonary artery systolic pressure is estimated to be 47 mmHg. --Received IV Lasix Monitor volume status Continue metoprolol Resume lisinopril as able Appreciate cardiology input Troponin elevation Likely demand ischemia secondary to hypoxia, tachycardia Echo as above ARIEL on CKD III Cr 1.3 Lisinopril on hold Monitor renal function Avoid nephrotoxic agents as able Paroxysmal atrial fibrillation Continue metoprolol On apixaban for anticoagulation Cardiology on board DM II HbA1C: 7.2 Recent steroid use Continue insulin while hospitalized Monitor blood glucose levels Hypomagnesemia Replete as needed Hypocalcemia Hypoparathyroidism s/p thyroid surgery Follows with nephrology On Calcitriol, Vit D and calcium tabs Hypothyroidism s/p thyroid surgery/thyroidectomy Continue levothyroxine DVT Px: Eliquis CODE STATUS: Full code Admission and Anticipated Discharge Date Admission Date: May 01, 2023 Subjective Patient is seen and examined at bedside States feeling much better today Confusion resolved Off BiPAP today Still has some cough Denies any significant dyspnea, dizziness, nausea, vomiting, abdominal pain Discussed with patient's daughter at bedside Saturating well on 3 L supplemental oxygen Review of Systems Review of Systems: All systems reviewed & are unremarkable except as noted in Subjective Physical Exam Physical Exam: Physical Exam: Vitals signs as noted above General Appearance:Obese, no apparent distress Head: normocephalic, Atraumatic Eyes: normal inspection, EOMI Neck: supple, Trachea midline Respiratory/Chest: Decreased breath sounds, CTA, No accessory muscle use Cardiovascular: S1, S2, No murmur Abdomen/GI:Soft, Non tender, Bowel sounds present Extremities/Musculoskeletal:normal inspection, chronic lymphedema Neurologic/Psych:AAOX3, grossly no focal neurological deficits Skin: normal color, warm Results & Data Results & Data Vital Signs (Past 12 Hours) Vital Signs Temp Pulse Pulse Pulse Resp BP BP 05/02/23 12:03 97 H 22 05/02/23 12:00 110/64 05/02/23 12:00 78 22 05/02/23 12:00 36.9 C 05/02/23 11:27 80 22 05/02/23 11:00 116/60 05/02/23 11:00 74 29 H 05/02/23 10:30 67 24 05/02/23 10:00 64 28 H 05/02/23 10:00 109/68 05/02/23 09:30 60 24 05/02/23 09:00 99/55 L 05/02/23 09:00 64 4 L 05/02/23 08:50 36.9 C 05/02/23 08:30 69 18 05/02/23 08:17 60 24 05/02/23 08:17 60 24 05/02/23 08:05 05/02/23 08:00 106/57 L 05/02/23 08:00 60 21 05/02/23 07:30 62 0 L 05/02/23 07:00 101/60 05/02/23 07:00 63 14 05/02/23 06:00 67 24 105/69 05/02/23 05:30 66 20 05/02/23 05:00 117/64 05/02/23 05:00 66 22 05/02/23 04:30 70 19 05/02/23 04:00 36.8 C 107/61 05/02/23 04:00 66 25 H 05/02/23 03:31 73 28 H 05/02/23 03:30 65 24 05/02/23 03:00 110/53 L 05/02/23 03:00 69 15 05/02/23 02:54 110/56 L 05/02/23 02:54 74 24 05/02/23 02:50 73 28 H 05/02/23 02:37 80 25 H 05/02/23 02:07 78 05/02/23 02:01 05/02/23 02:00 125/79 05/02/23 02:00 71 15 05/02/23 01:59 74 19 05/02/23 01:59 109/73 05/02/23 01:45 35.8 C L 75 20 109/73 05/02/23 01:38 78 17 Pulse Ox O2 Del Method O2 Flow Rate FiO2 05/02/23 12:03 92 Trach Collar 20 55 05/02/23 12:00 99 Nasal Cannula 3 05/02/23 12:00 100 05/02/23 12:00 05/02/23 11:27 98 Nasal Cannula 3 05/02/23 11:00 05/02/23 11:00 100 05/02/23 10:30 95 05/02/23 10:00 94 05/02/23 10:00 05/02/23 09:30 97 05/02/23 09:00 05/02/23 09:00 93 05/02/23 08:50 05/02/23 08:30 96 05/02/23 08:17 96 35 05/02/23 08:17 97 BiPAP 35 05/02/23 08:05 BiPAP 0.35 05/02/23 08:00 05/02/23 08:00 97 05/02/23 07:30 93 05/02/23 07:00 05/02/23 07:00 92 05/02/23 06:00 97 05/02/23 05:30 97 05/02/23 05:00 05/02/23 05:00 95 05/02/23 04:30 98 05/02/23 04:00 05/02/23 04:00 95 05/02/23 03:31 100 30 05/02/23 03:30 93 05/02/23 03:00 05/02/23 03:00 92 05/02/23 02:54 05/02/23 02:54 96 05/02/23 02:50 100 BiPAP 30 05/02/23 02:37 100 05/02/23 02:07 05/02/23 02:01 BiPAP 40 05/02/23 02:00 05/02/23 02:00 96 05/02/23 01:59 98 05/02/23 01:59 05/02/23 01:45 100 BiPAP 40 05/02/23 01:38 100 Laboratory Results Short CBC 05/02/23 Range/Units 04:30 WBC 13.52 H (4.8-10.8) K/ul Hgb 11.9 L (12.0-16.0) g/dl Hct 38.2 (37.0-47.0) % Plt Count 204 (130-400) K/uL BMP 05/01/23 05/02/23 13:21 04:30 Sodium 142 142 Potassium 4.6 4.0 Chloride 101 102 Carbon Dioxide 31 29 BUN 44 H 39 H Creatinine 1.33 H 1.37 H Glucose 200 H 173 H Calcium 7.9 L 7.3 L Liver Function 05/01/23 Range/Units 13:21 Total Bilirubin 0.6 (0.2-1.0) mg/dl AST 30 (13-39) U/L ALT 27 (7-52) U/L Alkaline Phosphatase 91 (34-104) U/L Albumin 3.9 (3.4-5.0) gm/dl Urine 05/01/23 Range/Units Unknown Urine Color Yellow Urine Appearance Cloudy A (Clear) Urine pH 5.0 (4.5-7.5) Ur Specific [place] 1.023 (1.000-1.030) Urine Protein 1+ H (Negative) Urine Glucose (UA) Negative (Negative)
--- NOTE | 2023-05-02 13:43 | Electrocardiogram Report ---
Test Reason : Blood Pressure : / mmHG Vent. Rate : 066 BPM Atrial Rate : 066 BPM P-R Int : 158 ms QRS Dur : 082 ms QT Int : 470 ms P-R-T Axes : 075 044 036 degrees QTc Int : 492 ms Sinus rhythm with Premature supraventricular complexes Prolonged QT Abnormal ECG When compared with ECG of 01-MAY-2023 11:49, Sinus rhythm has replaced Atrial flutter Vent. rate has decreased BY [address] depression in Anterolateral leads no longer present Confirmed by Usman Leon ([id number]) on 05/02/2023 1:43:22 PM Referred By: REFERRED SELF Confirmed By:Usman Leon
[2023-05-02] MEDS ORDERED: CEFEPIME 1,000 MG in SYRINGE 0 ML IV SCH (14:00)
[2023-05-02] MEDS: AMOXICILLIN/CLAVULANATE 500 MG TAB PO SCH (16:35)
[2023-05-02] MEDS: METOPROLOL SUCC 25MG EXT REL TAB PO SCH (20:44)
[2023-05-03 05:17] LABS: Hematocrit (blood only) 33.6 % (37.0-47.0); Mean Corpuscular Hemoglobin 30.8 pg (25.0-34.0); Mean Corpuscular Hgb Conc 32.7 g/dL (32.0-36.0); Mean Corpuscular Volume 94.1 fL (80.0-100.0); Mean Platelet Volume 10.6 fL (9.4-12.4); Platelet Count 200 K/uL (130-400); RDW Coefficient of Variation 13.3 % (11.5-14.5); RDW Standard Deviation 46.3 fL (36.4-46.3); Red Blood Count 3.57 M/uL (4.20-5.40); White Blood Count 16.06 K/ul (4.8-10.8)
[2023-05-03 05:35] LABS: BUN Creatinine Ratio 35.7 (10-20); Calcium 7.6 mg/dl (8.6-10.3); Creatinine Clr Calc Pharmacy 29.5 ml/min; Est GFR (Non-African American) 38.8 ml/min; Magnesium 2.2 mg/dl (1.7-2.4); Potassium 4.4 mmol/L (3.5-5.1)
[2023-05-03] MEDS: LEVOTHYROXINE SODIUM 112 MCG TABLET PO SCH (06:27)
--- NOTE | 2023-05-03 07:37 | Critical Care Progress Note ---
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 Continue to follow clinically Cardiac -echo with preserved ejection fraction. History of atrial fibrillation on apixaban. Appreciate cardiology consultation. EKG pending given the small increase in troponin, likely supply/demand mismatch. 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 Continue nightly PAP. Patient may require outpatient sleep study to get home CPAP or BiPAP set up. She is currently receiving budesonide and Pulmicort. Unclear if she will require these in the long-term. Continue DuoNebs as needed as well as Mucinex. GI - No acute needs. Tolerating diet RENAL/LYTES -ICU electrolyte replacement protocol. Diuresis as tolerated - No acute needs ENDO - continue oral Synthroid HEME -no acute issues ID -RSV with potential aspiration pneumonia. Continue Augmentin/azithromycin. Azithromycin can be discontinued after tomorrow's dose and would complete 7 days coverage of Augmentin. Follow-up chest x-ray in 2 to 3 weeks to document resolution. LINES/IV ACCESS - PIV, DVT PROPHYLAXIS - SCDS, Apixaban DISPO: Stable to transfer to floor. Critical care services will sign off. Will continue to follow the patient for pulmonary issues. Will discuss with hospitalist and transfer out of the ICU Admission and Anticipated Discharge Date Admission Date: May 01, 2023 Subjective Patient seen and examined. EMR reviewed. Discussed with critical care nurse at the bedside as well as on multidisciplinary rounds. The patient states that she is feeling well clinically. Her breathing is much improved. She was able to tolerate noninvasive positive pressure ventilation all night last night. She states she slept well with the device in place. She is unclear if she feels that she is sleeping better with CPAP in place or if she is just so fatigued that she is sleeping fairly continuously during the night. She denies any significant coughing sputum production chest pain palpitations fevers chills or night sweats. She is tolerating a diet and has been out of bed to use the commode. No dyspnea with exertion. Review of Systems Review of Systems: All systems reviewed & are unremarkable except as noted in Subjective Physical Exam Constitutional: WD/WN, vitals as above Neck: trachea midline, no thyromegaly Respiratory: normal respiratory effort, lungs clear to auscultation Cardiovascular: RRR, no murmur, no edema Gastrointestinal (Abdomen): normal bowel sounds, soft, nontender, no hepatosplenomegaly Musculoskeletal: Extremities: extremities normal to inspection Skin: no rashes, warm and dry Lymphatic: no cervical lymphadenopathy Results & Data Results & Data Vital Signs (Past 12 Hours) Vital Signs Pulse Pulse Resp BP Pulse Ox O2 Del Method O2 Flow Rate 05/03/23 07:00 68 24 100 05/03/23 06:30 66 25 H 100 05/03/23 06:01 72 25 H 87 L 05/03/23 06:01 102/62 05/03/23 06:00 80 23 73 L 05/03/23 05:32 123/78 05/03/23 05:32 68 21 100 05/03/23 05:30 69 24 100 05/03/23 05:00 81 23 96 05/03/23 04:30 65 26 H 100 05/03/23 04:04 75 27 H 100 05/03/23 04:00 72 25 H 99 05/03/23 04:00 126/87 05/03/23 03:30 64 25 H 100 05/03/23 03:00 121/62 05/03/23 03:00 63 24 100 05/03/23 02:30 67 21 100 05/03/23 02:00 96/59 L 05/03/23 02:00 70 23 100 05/03/23 01:30 69 23 99 05/03/23 01:28 68 26 H 100 05/03/23 01:00 72 25 H 100 05/03/23 01:00 110/78 05/03/23 00:30 66 18 100 05/03/23 00:00 72 20 100 05/03/23 00:00 112/77 05/03/23 00:00 114 H 05/02/23 23:30 70 17 100 05/02/23 23:00 114/66 05/02/23 23:00 71 23 100 05/02/23 22:30 71 20 100 05/02/23 22:00 117/65 05/02/23 22:00 76 17 100 05/02/23 21:30 76 19 98 05/02/23 21:00 102/60 05/02/23 21:00 80 20 97 05/02/23 21:00 71 25 H 100 05/02/23 20:51 115/71 05/02/23 20:51 86 21 100 05/02/23 20:30 80 17 100 05/02/23 20:00 77 16 100 05/02/23 20:00 BiPAP 05/02/23 19:54 84 18 96 Nasal Cannula 3 FiO2 05/03/23 07:00 05/03/23 06:30 05/03/23 06:01 05/03/23 06:01 05/03/23 06:00 05/03/23 05:32 05/03/23 05:32 05/03/23 05:30 05/03/23 05:00 05/03/23 04:30 05/03/23 04:04 35 05/03/23 04:00 05/03/23 04:00 05/03/23 03:30 05/03/23 03:00 05/03/23 03:00 05/03/23 02:30 05/03/23 02:00 05/03/23 02:00 05/03/23 01:30 05/03/23 01:28 35 05/03/23 01:00 05/03/23 01:00 05/03/23 00:30 05/03/23 00:00 05/03/23 00:00 05/03/23 00:00 05/02/23 23:30 05/02/23 23:00 05/02/23 23:00 05/02/23 22:30 05/02/23 22:00 05/02/23 22:00 05/02/23 21:30 05/02/23 21:00 05/02/23 21:00 05/02/23 21:00 35 05/02/23 20:51 05/02/23 20:51 05/02/23 20:30 05/02/23 20:00 05/02/23 20:00 05/02/23 19:54 Critical Care Results & Data Vital Signs (Past 12 Hours) Vital Signs Pulse Pulse Resp BP Pulse Ox O2 Del Method O2 Flow Rate 05/03/23 07:00 68 24 100 05/03/23 06:30 66 25 H 100 05/03/23 06:01 72 25 H 87 L 05/03/23 06:01 102/62 05/03/23 06:00 80 23 73 L 05/03/23 05:32 123/78 05/03/23 05:32 68 21 100 05/03/23 05:30 69 24 100 05/03/23 05:00 81 23 96 05/03/23 04:30 65 26 H 100 05/03/23 04:04 75 27 H 100 05/03/23 04:00 72 25 H 99 05/03/23 04:00 126/87 05/03/23 03:30 64 25 H 100 05/03/23 03:00 121/62 05/03/23 03:00 63 24 100 05/03/23 02:30 67 21 100 05/03/23 02:00 96/59 L 05/03/23 02:00 70 23 100 05/03/23 01:30 69 23 99 05/03/23 01:28 68 26 H 100 05/03/23 01:00 72 25 H 100 05/03/23 01:00 110/78 05/03/23 00:30 66 18 100 05/03/23 00:00 72 20 100 05/03/23 00:00 112/77 05/03/23 00:00 114 H 05/02/23 23:30 70 17 100 05/02/23 23:00 114/66 05/02/23 23:00 71 23 100 05/02/23 22:30 71 20 100 05/02/23 22:00 117/65 05/02/23 22:00 76 17 100 05/02/23 21:30 76 19 98 05/02/23 21:00 102/60 05/02/23 21:00 80 20 97 05/02/23 21:00 71 25 H 100 05/02/23 20:51 115/71 05/02/23 20:51 86 21 100 05/02/23 20:30 80 17 100 05/02/23 20:00 77 16 100 05/02/23 20:00 BiPAP 05/02/23 19:54 84 18 96 Nasal Cannula 3 FiO2 05/03/23 07:00 05/03/23 06:30 05/03/23 06:01 05/03/23 06:01 05/03/23 06:00 05/03/23 05:32 05/03/23 05:32 05/03/23 05:30 05/03/23 05:00 05/03/23 04:30 05/03/23 04:04 35 05/03/23 04:00 05/03/23 04:00 05/03/23 03:30 05/03/23 03:00 05/03/23 03:00 05/03/23 02:30 05/03/23 02:00 05/03/23 02:00 05/03/23 01:30 05/03/23 01:28 35 05/03/23 01:00 05/03/23 01:00 05/03/23 00:30 05/03/23 00:00 05/03/23 00:00 05/03/23 00:00 05/02/23 23:30 05/02/23 23:00 05/02/23 23:00 05/02/23 22:30 05/02/23 22:00 05/02/23 22:00 05/02/23 21:30 05/02/23 21:00 05/02/23 21:00 05/02/23 21:00 35 05/02/23 20:51 05/02/23 20:51 05/02/23 20:30 05/02/23 20:00 05/02/23 20:00 05/02/23 19:54 Lab & Micro Results (Past 24 Hours) RBC 3.57 M/uL (4.20-5.40) L 05/03/23 WBC 16.06 K/ul (4.8-10.8) H 05/03/23 Hgb 11.0 g/dl (12.0-16.0) L 05/03/23 Hct 33.6 % (37.0-47.0) L 05/03/23 MCV 94.1 fL (80.0-100.0) 05/03/23 MCH 30.8 pg (25.0-34.0) 05/03/23 MCHC 32.7 g/dL (32.0-36.0) 05/03/23 RDW Standard Deviation 46.3 fL (36.4-46.3) 05/03/23 RDW Coefficient of Variation 13.3 % (11.5-14.5) 05/03/23 Plt Count 200 K/uL (130-400) 05/03/23 MPV 10.6 fL (9.4-12.4) 05/03/23 Na 142 mmol/L (136-145) 05/03/23 K 4.4 mmol/L (3.5-5.1) 05/03/23 Cl 105 mmol/L (98-107) 05/03/23 CO2 32 mmol/L (21-32) 05/03/23 Anion Gap 5 (3-11) 05/03/23 BUN 45 mg/dl (6-23) H 05/03/23 Creatinine 1.26 mg/dl (0.6-1.2) H 05/03/23 Estimated GFR ( Amer) 45.0 ml/min 05/03/23 Estimated GFR (Non-Af Amer) 38.8 ml/min 05/03/23 BUN/Creatinine Ratio 35.7 (10-20) H 05/03/23 Glu 155 mg/dl (70-99(Fasting)) H 05/03/23 Ca 7.6 mg/dl (8.6-10.3) L 05/03/23 Mg 2.2 mg/dl (1.7-2.4) 05/03/23 05:03 Calcium Level 7.6 mg/dl (8.6-10.3) L 05/03/23 05:03 [place] Test Pass 05/02/23 10:10 Microbiology 05/01/23 15:45 Aerobic Blood Culture - Preliminary Blood No growth in Aerobic bottle after 24 hours. Anaerobic Blood Culture - Preliminary No growth in Anaerobic bottle after 24 hours. 05/01/23 15:45 Aerobic Blood Culture - Preliminary Blood No growth in Aerobic bottle after 24 hours. Anaerobic Blood Culture - Preliminary No growth in Anaerobic bottle after 24 hours. Diagnostic Findings (Past 24 Hours) Chest X-Ray 05/02/23 09:39 SINGLE VIEW CHEST CLINICAL HISTORY: Pneumonia FINDINGS: An AP, portable, upright chest radiograph is compared to chest x-ray and chest CT dated 05/01/2023. The examination is degraded by portable technique and patient rotation. The heart is mildly enlarged noting atherosclerotic calcification of the thoracic aorta. Pulmonary vasculature is noncongested. Multifocal airspace consolidation throughout the right lung is similar to previous. There are also mild right basilar opacities. No large pleural effusion or pneumothorax is seen. The skeletal structures are osteopenic. The bony thorax is grossly intact. An IVC filter is partially visualized in the upper abdomen. IMPRESSION: Multifocal airspace consolidation throughout the right lung and mild left basilar opacities are similar to previous. The appearance is typical for pneumonia. Clinical correlation will be required and radiographic follow-up to resolution is recommended. ACT 112: Negative or not required by law. Electronically signed by: Olayinka Conde M.D. 05/02/2023 11:07 AM I & O Totals 24 Hours 05/02/23 05/03/23 05/04/23 06:59 06:59 06:59 Intake Total 1528.75 / 1528.75 1150 / 1150 Output Total 450 / 450 0 / 0 Balance 1078.75 / 1078.75 1150 / 1150 Cumulative 05/01/23 11:30 thru 05/03/23 06:17 Intake Total 2678.75 Output Total 450 Balance 2228.75 RT Ventilator Mngmt (Last Documented) Ventilator Ordered Settings Respiratory Rate 24 05/03/23 07:00 Fraction of Inspired Oxygen 35 05/03/23 04:04 Ventilator - PT Measurements Respiratory Rate 24 Coding Level of Care Code 52930 SUB INP/OBS CARE 2/35MIN Diagnoses Respiratory failure with hypoxia and hypercapnia J96.91; J96.92 Pneumonia J18.9 Encephalopathy G93.40 Elevated troponin R79.89 Hypomagnesemia E83.42 CHF (congestive heart failure) I50.9 Acute on chronic kidney failure N17.9; N18.9 RSV (respiratory syncytial virus infection) B33.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
[2023-05-03] MEDS: AMOXICILLIN/CLAVULANATE 500 MG TAB PO SCH ×2 (07:53→16:43)
[2023-05-03] MEDS: APIXABAN 5 MG TABLET PO SCH ×2 (07:53→20:34)
[2023-05-03] MEDS: guaiFENesin 600 MG TABCR PO SCH ×2 (07:53→20:34)
[2023-05-03] MEDS: ATORVASTATIN 20 MG TAB PO SCH (07:54)
[2023-05-03] MEDS: CHOLECALCIFEROL 1,000 UNITS 25 MCG TAB PO SCH (07:54)
[2023-05-03] MEDS: CALCIUM CARBONATE 1250MG TAB PO SCH ×2 (07:54→20:34)
[2023-05-03] MEDS: CALCITRIOL 0.25 MCG CAPSULE PO SCH (07:54)
[2023-05-03] MEDS: LORATADINE 10 MG TAB PO SCH (07:54)
[2023-05-03] MEDS: METOPROLOL SUCC 50MG EXT REL TAB PO SCH (07:55)
[2023-05-03] MEDS: INSULIN ASPART PER UNIT CHARGE SC SCH ×4 (07:58→20:44)
[2023-05-03] MEDS: BUDESONIDE 0.5 MG/2 ML VIAL (PULMICORT) NEB SCH ×2 (08:28→20:50)
[2023-05-03] MEDS: FORMOTEROL 20 MCG/2 ML VIAL NEB SCH ×2 (08:28→20:50)
[2023-05-03] MEDS ORDERED: AZITHROMYCIN 250 MG TAB PO SCH (09:00)
--- NOTE | 2023-05-03 14:12 | Hospitalist Progress Note ---
Date of Service May 03, 2023 Assessment & Plan (1) Sepsis: (2) Acute hypoxic respiratory failure: (3) AMS (altered mental status): (4) RSV (respiratory syncytial virus infection): (5) Acute on chronic kidney failure: (6) CHF (congestive heart failure): (7) Hypomagnesemia: (8) Elevated troponin: (9) Hyperglycemia: Plan Pt is an 87yoF with PMHx significant for CHF, paroxysmal atrial fibrillation, history of DVT on chronic anticoagulation with Eliquis currently, HTN, HLD, COPD, h/o thyroidectomy and hypoparathyroidism, chronic lymphedema admitted with acute hypoxic respiratory failure in the setting of an RSV infection and RML/RLL pneumonia. 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 These account for the right suprahilar abnormality on chest radiograph. The findings favor multifocal pneumonia. Alveolar pulmonary edema could appear similar although is considered less likely. Consolidation with adjacent groundglass opacity raises the possibility of pulmonary hemorrhage although this is also considered less likely. Interlobular septal thickening consistent with interstitial pulmonary edema. Small right and trace left pleural effusions. Moderate cardiomegaly and dilatation of the central pulmonary arteries. Tracheobronchial narrowing which raises the possibility of tracheobronchomalacia. Scattered secretions within the airways with bronchial wall thickening. -- BioFire positive for RSV Normal procalcitonin Continue BiPAP at bedtime Continue empiric antibiotics Needs outpatient sleep study Appreciate pulmonary critical care input Will need repeat chest x-ray in 2 to 3 weeks Will need outpatient sleep study Less supplemental oxygen requirement. Wean off of supplemental oxygen as able Continue PT OT Acute on chronic heart failure with preserved EF --ECHO: Mild concentric LVH. No further wall motion is normal. EF 60 to 65%. Right ventricle is normal in size and function. 1 diastolic dysfunction. Moderate mitral regurgitation. Mild tricuspid regurgitation. Pulmonary artery systolic pressure is estimated to be 47 mmHg. --Received IV Lasix Monitor volume status Continue metoprolol Plan to resume torsemide tomorrow Resume lisinopril when BP more stable Appreciate cardiology input Troponin elevation Likely demand ischemia secondary to hypoxia, tachycardia Echo as above ARIEL on CKD III Cr 1.3 on presentation Lisinopril on hold Monitor renal function Avoid nephrotoxic agents as able Paroxysmal atrial fibrillation Continue metoprolol On apixaban for anticoagulation Cardiology on board DM II HbA1C: 7.2 Recent steroid use Continue insulin while hospitalized Monitor blood glucose levels Hypomagnesemia Replete as needed Hypocalcemia Hypoparathyroidism s/p thyroid surgery Follows with nephrology On Calcitriol, Vit D and calcium tabs Hypothyroidism s/p thyroid surgery/thyroidectomy Continue levothyroxine DVT Px: Eliquis CODE STATUS: Full code Disposition PT OT prior to discharge Admission and Anticipated Discharge Date Admission Date: May 01, 2023 Subjective Patient is seen and examined at bedside Requiring less supplemental oxygen today Cough continues to improve Feels tired Sitting in chair during my encounter Tolerated noninvasive positive pressure ventilation overnight Denies any chest pain, dyspnea, dizziness, nausea, vomiting, abdominal pain Plan to be transferred out of ICU today Review of Systems Review of Systems: All systems reviewed & are unremarkable except as noted in Subjective Physical Exam Physical Exam: Physical Exam: Vitals signs as noted above General Appearance:Obese, no apparent distress Head: normocephalic, Atraumatic Eyes: normal inspection, EOMI Neck: supple, Trachea midline Respiratory/Chest: Decreased breath sounds, CTA, No accessory muscle use Cardiovascular: S1, S2, No murmur Abdomen/GI:Soft, Non tender, Bowel sounds present Extremities/Musculoskeletal:normal inspection, chronic lymphedema Neurologic/Psych:AAOX3, grossly no focal neurological deficits Skin: normal color, warm Results & Data Results & Data Vital Signs (Past 12 Hours) Vital Signs Temp Pulse Pulse Resp BP Pulse Ox O2 Del Method 05/03/23 11:00 122/61 05/03/23 11:00 122/61 05/03/23 11:00 68 22 100 05/03/23 11:00 36.8 C 05/03/23 10:00 104/67 05/03/23 10:00 68 23 92 05/03/23 09:01 125/72 05/03/23 09:01 87 22 98 05/03/23 09:00 88 19 05/03/23 08:28 84 20 99 Nasal Cannula 05/03/23 08:00 91 H 22 100 05/03/23 08:00 125/71 05/03/23 08:00 Nasal Cannula 05/03/23 08:00 68 05/03/23 07:38 36.8 C 05/03/23 07:00 113/57 L 05/03/23 07:00 68 24 100 05/03/23 06:30 66 25 H 100 05/03/23 06:01 72 25 H 87 L 05/03/23 06:01 102/62 05/03/23 06:00 80 23 73 L 05/03/23 05:32 123/78 05/03/23 05:32 68 21 100 05/03/23 05:30 69 24 100 05/03/23 05:00 81 23 96 05/03/23 04:30 65 26 H 100 05/03/23 04:04 75 27 H 100 05/03/23 04:00 72 25 H 99 05/03/23 04:00 126/87 05/03/23 03:30 64 25 H 100 05/03/23 03:00 121/62 05/03/23 03:00 63 24 100 05/03/23 02:30 67 21 100 O2 Flow Rate FiO2 05/03/23 11:00 05/03/23 11:00 05/03/23 11:00 05/03/23 11:00 05/03/23 10:00 05/03/23 10:00 05/03/23 09:01 05/03/23 09:01 05/03/23 09:00 05/03/23 08:28 2 05/03/23 08:00 05/03/23 08:00 05/03/23 08:00 2 05/03/23 08:00 05/03/23 07:38 05/03/23 07:00 05/03/23 07:00 05/03/23 06:30 05/03/23 06:01 05/03/23 06:01 05/03/23 06:00 05/03/23 05:32 05/03/23 05:32 05/03/23 05:30 05/03/23 05:00 05/03/23 04:30 05/03/23 04:04 35 05/03/23 04:00 05/03/23 04:00 05/03/23 03:30 05/03/23 03:00 05/03/23 03:00 05/03/23 02:30 Laboratory Results Short CBC 05/03/23 Range/Units 05:03 WBC 16.06 H (4.8-10.8) K/ul Hgb 11.0 L (12.0-16.0) g/dl Hct 33.6 L (37.0-47.0) % Plt Count 200 (130-400) K/uL BMP 05/03/23 05:03 Sodium 142 Potassium 4.4 Chloride 105 Carbon Dioxide 32 BUN 45 H Creatinine 1.26 H Glucose 155 H Calcium 7.6 L
--- NOTE | 2023-05-03 14:52 | Cardiology Progress Note ---
Date of Service May 03, 2023 Assessment & Plan (1) Pneumonia: (2) RSV (respiratory syncytial virus infection): (3) Respiratory failure with hypoxia and hypercapnia: (4) Tracheal anomaly: (5) Atrial fibrillation: (6) (HFpEF) heart failure with preserved ejection fraction: Plan -Continue Eliquis -Resume SOUP MIXER torsemide 10 mg daily am of 05/04/23. -Plan for positive pressure ventilation to start daily at bedtime. Admission and Anticipated Discharge Date Admission Date: May 01, 2023 Subjective Patient seen in cardiology follow-up. Clinically, much improved. She remains in the intensive care unit but she has been downgraded to a telemetry overflow patient. She is no longer on positive pressure ventilation, and is currently resting comfortably, oxygen saturation 100% on 2 L nasal cannula. Telemetry reveals sinus rhythm in the 70s. She converted from atrial fibrillation to sinus rhythm on 05/01/2023 at 12:20 PM Physical Exam Physical Exam: Temp Pulse Resp BP Pulse Ox O2 Del Method O2 Flow Rate 36.8 C 68 22 122/61 100 Nasal Cannula 2 05/03/23 11:00 05/03/23 11:00 05/03/23 11:00 05/03/23 11:00 05/03/23 11:00 05/03/23 08:28 05/03/23 08:28 FiO2 35 05/03/23 04:04 Constitutional: + ill appearing; no acute distress Eyes: PERRL, conjunctivae normal, anicteric sclerae Respiratory: Auscultation: + diminished lung sounds (Decreased breath sounds at the bases); no crackles and no rales Cardiovascular: Rate/Rhythm: regular rhythm Heart Sounds: + murmur (1/6 sm) Extremities: no edema Gastrointestinal (Abdomen): normal bowel sounds, soft, nontender, no hepatosplenomegaly Neurologic: PERRL, EOMI, accommodation nl, no face palsy, no dysarthria Results & Data Diagnostic Findings CBC 05/03/23 Range/Units 05:03 WBC 16.06 H (4.8-10.8) K/ul RBC 3.57 L (4.20-5.40) M/uL Hgb 11.0 L (12.0-16.0) g/dl Hct 33.6 L (37.0-47.0) % Plt Count 200 (130-400) K/uL Comprehensive Metabolic Panel 05/03/23 Range/Units 05:03 Sodium 142 (136-145) mmol/L Potassium 4.4 (3.5-5.1) mmol/L Chloride 105 (98-107) mmol/L Carbon Dioxide 32 (21-32) mmol/L BUN 45 H (6-23) mg/dl Creatinine 1.26 H (0.6-1.2) mg/dl Glucose 155 H (70-99(Fasting)) mg/dl Calcium 7.6 L (8.6-10.3) mg/dl Intake and Output 05/02/23 05/03/23 05/03/23 22:59 06:59 14:59 Intake Total 1000 / 1150 450 / 450 Output Total 201 / 201 Balance 1000 / 1150 249 / 249 Intake: IV 1000 / 1000 Sodium Chloride 0.9% 1,000 ml @ 1000 / 1000 75 mls/hr IV .[id number] [facility] Rx#: [id number] Oral 450 / 450 Output: Urine 200 / 200 # Bowel Movements Other: # Unmeasured Voids 2 2 Repeat EKG performed 05/02/2023 at 10:19 AM and interpreted independently by the undersigned: Sinus rhythm at 66 bpm, QT interval elevated to 490 ms. Compared to the previous tracing, sinus rhythm has replaced atrial fibrillation, previously noted anterolateral ST segment depression has resolved. (5) Atrial fibrillation Atrial fibrillation type: paroxysmal Qualified Code(s): I48.0 - Paroxysmal atrial fibrillation (6) (HFpEF) heart failure with preserved ejection fraction Heart failure chronicity: acute on chronic Qualified Code(s): I50.33 - Acute on chronic diastolic (congestive) heart failure
[2023-05-03] MEDS: METOPROLOL SUCC 25MG EXT REL TAB PO SCH (20:34)
[2023-05-04] MEDS: LEVOTHYROXINE SODIUM 112 MCG TABLET PO SCH (05:45)
[2023-05-04 06:20] LABS: Hematocrit (blood only) 38.5 % (37.0-47.0); Hemoglobin 12.3 g/dl (12.0-16.0); Mean Corpuscular Hemoglobin 31.1 pg (25.0-34.0); Mean Corpuscular Hgb Conc 31.9 g/dL (32.0-36.0); Mean Corpuscular Volume 97.2 fL (80.0-100.0); Mean Platelet Volume 10.1 fL (9.4-12.4); Platelet Count 212 K/uL (130-400); RDW Coefficient of Variation 13.4 % (11.5-14.5); RDW Standard Deviation 48.5 fL (36.4-46.3); Red Blood Count 3.96 M/uL (4.20-5.40); White Blood Count 17.19 K/ul (4.8-10.8)
[2023-05-04 06:45] LABS: Calcium 7.9 mg/dl (8.6-10.3); Magnesium 1.9 mg/dl (1.7-2.4); Potassium 4.6 mmol/L (3.5-5.1)
[2023-05-04 06:55] LABS: BUN Creatinine Ratio 39.8 (10-20); Creatinine Clr Calc Pharmacy 40.5 ml/min
[2023-05-04] MEDS: BUDESONIDE 0.5 MG/2 ML VIAL (PULMICORT) NEB SCH ×2 (07:53→20:40)
[2023-05-04] MEDS: FORMOTEROL 20 MCG/2 ML VIAL NEB SCH ×2 (07:53→20:40)
[2023-05-04] MEDS: CALCIUM CARBONATE 1250MG TAB PO SCH ×2 (08:39→21:06)
[2023-05-04] MEDS: APIXABAN 5 MG TABLET PO SCH ×2 (08:40→21:07)
[2023-05-04] MEDS: guaiFENesin 600 MG TABCR PO SCH ×2 (08:40→21:07)
[2023-05-04] MEDS: ATORVASTATIN 20 MG TAB PO SCH (08:40)
[2023-05-04] MEDS: METOPROLOL SUCC 50MG EXT REL TAB PO SCH (08:40)
[2023-05-04] MEDS: CHOLECALCIFEROL 1,000 UNITS 25 MCG TAB PO SCH (08:40)
[2023-05-04] MEDS: CALCITRIOL 0.25 MCG CAPSULE PO SCH (08:41)
[2023-05-04] MEDS: LORATADINE 10 MG TAB PO SCH (08:41)
[2023-05-04] MEDS: AMOXICILLIN/CLAVULANATE 500 MG TAB PO SCH ×2 (08:41→16:26)
[2023-05-04] MEDS: INSULIN ASPART PER UNIT CHARGE SC SCH ×4 (09:00→20:36)
[2023-05-04] MEDS ORDERED: LANTUS PER UNIT CHARGE SC SCH ×2 (09:00→21:00)
[2023-05-04] MEDS: TORSEMIDE 10 MG TAB PO SCH (09:02)
--- NOTE | 2023-05-04 10:01 | Pharmacy Report ---
Pharmacy Glycemic Short Note 2 - Date of Service May 04, 2023 - Glycemic Short BSG Results (Last 24 hours): 05/03/23 05/03/23 05/03/23 11:03 15:56 20:39 Glucose POC Glucose 119 H 90 135 H 05/04/23 05/04/23 05:59 08:28 Glucose 151 H POC Glucose 140 H OUTPATIENT ANTIDIABETIC REGIMEN: * n/a HbA1C: 7.2% ASSESSMENT: 05/04/23: * BSGs ranging 90-144 mg/dL yesterday w/ fasting BSG of 140 mg/dL this AM * Received 16 units of prandial/correctional bolus insulin yesterday (no basal) * Will initiate low-dose basal insulin today and slightly loosen carb ratio * Antibiotics de-escalated to Augmentin on 05/0205/02/23: * Pt is an 87 year old female admitted with respiratory failure in setting of RSV. Pharmacy consulted to assist with glycemic control. * BSGs [phone]/dL since admission. Was receiving IV methylprednisolone (which has since been discontinued). Received 3 units of bolus insulin last evening. * Currently NPO, steroids D/c'd, and receiving antibiotics * Hold basal for now- continue Novolog moderate stress scale q6 while NPO. PLAN FOR INPATIENT GLYCEMIC CONTROL: * Basal insulin * 5 units SC daily * Bolus insulin * NovoLog per scale ACHS or Q6hrs while NPO * Goal Range: Low 120 mg/dL - High 150 mg/dL * Correction Factor: 35 mg/dL/unit * Nutritional / Prandial insulin per carb ratio of 1 unit per 15 grams CHO consumed
[2023-05-04] MEDS ORDERED: INFLUENZA VACCINE HIGH-DOSE (HD-IIV4) PF 65+ 0.7mL SYR IM ONE (14:00)
--- NOTE | 2023-05-04 14:17 | Pulmonology Progress Note ---
Date of Service May 04, 2023 Assessment & Plan (1) Tracheomalacia: (2) RSV (respiratory syncytial virus infection): (3) Acute hypoxic respiratory failure: Plan Impression: 88-year-old female with acute hypoxemic and hypercarbic respiratory failure secondary to RSV with concomitant tracheobronchial malacia. She is significantly improved with application of nocturnal BiPAP. Recommendations: 1. RSV infection: Continue supportive care. 2. Tracheomalacia: Continue nocturnal positive airway pressure. If this can be set up as an outpatient that would be preferable. She may require outpatient polysomnography. Continue nebulized budesonide and Perforomist for now. Would avoid systemic steroids 3. Hypoxemic respiratory failure: Continue supplemental oxygen titrated to keep oxygen saturations at or above 88%. 4. Probable concomitant pneumonia. Currently on Augmentin. Can discontinue azithromycin. Would complete total of 7 days of Augmentin and plan on follow-up chest x-ray in 2 to 4 weeks. Patient is showing clinical improvement. Discussed with patient and family at bedside. Would be happy to follow this patient clinically in the outpatient setting when she is dismissed from the hospital. Admission and Anticipated Discharge Date Admission Date: May 01, 2023 Subjective Patient seen and examined. EMR reviewed. The patient is sitting up at the bedside. She used positive airway pressure last evening and tolerated it well. She continues to have episodes of cough which are intermittently productive of clear to whitish phlegm. She has not noted any wheezing. She denies any chest pain. No fevers chills night sweats or other constitutional symptoms. She continues to use supplemental oxygen. She feels she is improving but definitely not back to baseline as of yet. Review of Systems 2 Review of Systems: All systems reviewed & are unremarkable except as noted in Subjective Physical Exam 2 Constitutional: WD/WN, vitals as above Neck: trachea midline, no thyromegaly Respiratory: + cough; no labored breathing and not ta chypneic Auscultation: + rhonchi and + wheezes Cardiovascular: RRR, no murmur, no edema Gastrointestinal (Abdomen): normal bowel sounds, soft, nontender, no hepatosplenomegaly Musculoskeletal: Extremities: extremities normal to inspection Skin: no rashes, warm and dry Lymphatic: no cervical lymphadenopathy Results & Data Results & Data Vital Signs (Past 12 Hours) Vital Signs Temp Pulse Pulse Resp BP BP Pulse Ox 05/04/23 11:08 36.8 C 82 18 108/78 98 05/04/23 10:15 05/04/23 08:36 37.2 C 89 20 136/64 98 05/04/23 07:53 87 18 95 05/04/23 07:32 83 05/04/23 04:24 37.4 C 82 20 131/83 95 O2 Del Method O2 Flow Rate 05/04/23 11:08 Nasal Cannula 1 05/04/23 10:15 Nasal Cannula 2 05/04/23 08:36 Nasal Cannula 2 05/04/23 07:53 Nasal Cannula 2 05/04/23 07:32 05/04/23 04:24 Nasal Cannula 2 Laboratory Results 05/04/23 05:59 05/04/23 05:59 Diagnostic Findings No new imaging PG Care Time/CCT Total # of Minutes Spent Total Time Spent with Patient: Total time spent is greater than 50% in coordination of care (as documented) at patient's floor/unit and/or counseling patient: Coding Level of Care Code 00491 SUB INP/OBS CARE 2/35MIN Diagnoses 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
[2023-05-04] MEDS ORDERED: predniSONE 20 MG TAB PO SCH (14:45)
--- NOTE | 2023-05-04 17:06 | Hospitalist Progress Note ---
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 These account for the right suprahilar abnormality on chest radiograph. The findings favor multifocal pneumonia. Alveolar pulmonary edema could appear similar although is considered less likely. Consolidation with adjacent groundglass opacity raises the possibility of pulmonary hemorrhage although this is also considered less likely. Interlobular septal thickening consistent with interstitial pulmonary edema. Small right and trace left pleural effusions. Moderate cardiomegaly and dilatation of the central pulmonary arteries. Tracheobronchial narrowing which raises the possibility of tracheobronchomalacia. Scattered secretions within the airways with bronchial wall thickening. -- BioFire positive for RSV Normal procalcitonin Continue BiPAP at bedtime Continue empiric antibiotics Needs outpatient sleep study Appreciate pulmonary critical care input Will need repeat chest x-ray in 2 to 3 weeks Will need outpatient sleep study Continue PT OT Weaned off of supplemental oxygen Avoid systemic steroids as recommended by pulmonology plan to complete 7-day course of Augmentin. Acute on chronic heart failure with preserved EF --ECHO: Mild concentric LVH. No further wall motion is normal. EF 60 to 65%. Right ventricle is normal in size and function. 1 diastolic dysfunction. Moderate mitral regurgitation. Mild tricuspid regurgitation. Pulmonary artery systolic pressure is estimated to be 47 mmHg. --Received IV Lasix Monitor volume status Continue metoprolol Resumed torsemide Resume lisinopril when BP more stable Appreciate cardiology input BP low, Monitor Troponin elevation Likely demand ischemia secondary to hypoxia, tachycardia Echo as above ARIEL on CKD III Cr 1.3 on presentation Lisinopril on hold Monitor renal function Avoid nephrotoxic agents as able Renal function back to baseline Paroxysmal atrial fibrillation Continue metoprolol On apixaban for anticoagulation Cardiology on board DM II HbA1C: 7.2 Recent steroid use Continue insulin while hospitalized Monitor blood glucose levels Hypomagnesemia Replete as needed Hypocalcemia Hypoparathyroidism s/p thyroid surgery Follows with nephrology On Calcitriol, Vit D and calcium tabs Check ionized calcium Will consider IV calcium supplement if needed Calcium 7.9 today Hypothyroidism s/p thyroid surgery/thyroidectomy Continue levothyroxine DVT Px: Eliquis CODE STATUS: Full code Disposition PT OT prior to discharge Admission and Anticipated Discharge Date Admission Date: May 01, 2023 Subjective Patient is seen and examined at bedside Cough continues to improve Saturating well on room air today Discussed with patient's daughter Denies any chest pain, dyspnea, dizziness, nausea, vomiting, abdominal pain Review of Systems Review of Systems: All systems reviewed & are unremarkable except as noted in Subjective Physical Exam Physical Exam: Physical Exam: Vitals signs as noted above General Appearance:Obese, no apparent distress Head: normocephalic, Atraumatic Eyes: normal inspection, EOMI Neck: supple, Trachea midline Respiratory/Chest: Decreased breath sounds, scattered wheezes, No accessory muscle use Cardiovascular: S1, S2, No murmur Abdomen/GI:Soft, Non tender, Bowel sounds present Extremities/Musculoskeletal:normal inspection, chronic lymphedema Neurologic/Psych:AAOX3, grossly no focal neurological deficits Skin: normal color, warm Results & Data Results & Data Vital Signs (Past 12 Hours) Vital Signs Temp Pulse Pulse Resp BP BP Pulse Ox 05/04/23 16:47 36.5 C 75 20 101/63 95 05/04/23 11:08 36.8 C 82 18 108/78 98 05/04/23 10:15 05/04/23 08:36 37.2 C 89 20 136/64 98 05/04/23 07:53 87 18 95 05/04/23 07:32 83 O2 Del Method O2 Flow Rate 05/04/23 16:47 Room Air 05/04/23 11:08 Nasal Cannula 1 05/04/23 10:15 Nasal Cannula 2 05/04/23 08:36 Nasal Cannula 2 05/04/23 07:53 Nasal Cannula 2 05/04/23 07:32 Laboratory Results Short CBC 05/04/23 Range/Units 05:59 WBC 17.19 H (4.8-10.8) K/ul Hgb 12.3 (12.0-16.0) g/dl Hct 38.5 (37.0-47.0) % Plt Count 212 (130-400) K/uL BMP 05/04/23 05:59 Sodium 140 Potassium 4.6 Chloride 104 Carbon Dioxide 28 BUN 37 H Creatinine 0.93 D Glucose 151 H Calcium 7.9 L
[2023-05-04] MEDS: METOPROLOL SUCC 25MG EXT REL TAB PO SCH (21:07)
[2023-05-05] MEDS: LEVOTHYROXINE SODIUM 112 MCG TABLET PO SCH (06:31)
[2023-05-05] MEDS: FORMOTEROL 20 MCG/2 ML VIAL NEB SCH ×2 (07:38→18:33)
[2023-05-05] MEDS: BUDESONIDE 0.5 MG/2 ML VIAL (PULMICORT) NEB SCH ×2 (07:39→18:33)
[2023-05-05 08:10] LABS: Hematocrit (blood only) 33.1 % (37.0-47.0); Mean Corpuscular Hemoglobin 30.9 pg (25.0-34.0); Mean Corpuscular Hgb Conc 33.2 g/dL (32.0-36.0); Mean Platelet Volume 10.8 fL (9.4-12.4); Platelet Count 219 K/uL (130-400); RDW Coefficient of Variation 13.3 % (11.5-14.5); RDW Standard Deviation 45.7 fL (36.4-46.3); Red Blood Count 3.56 M/uL (4.20-5.40); White Blood Count 11.46 K/ul (4.8-10.8)
[2023-05-05 08:11] LABS: BUN Creatinine Ratio 35.1 (10-20); Calcium 8.2 mg/dl (8.6-10.3); Est GFR (African American) 64.1 ml/min; Est GFR (Non-African American) 55.3 ml/min; Potassium 4.2 mmol/L (3.5-5.1)
[2023-05-05] MEDS: guaiFENesin 600 MG TABCR PO SCH ×2 (08:39→22:03)
[2023-05-05] MEDS: CALCIUM CARBONATE 1250MG TAB PO SCH ×2 (08:39→22:04)
[2023-05-05] MEDS: APIXABAN 5 MG TABLET PO SCH ×2 (08:39→22:04)
[2023-05-05] MEDS: TORSEMIDE 10 MG TAB PO SCH (08:40)
[2023-05-05] MEDS: LORATADINE 10 MG TAB PO SCH (08:40)
[2023-05-05] MEDS: ATORVASTATIN 20 MG TAB PO SCH (08:40)
[2023-05-05] MEDS: CALCITRIOL 0.25 MCG CAPSULE PO SCH (08:40)
[2023-05-05] MEDS: AMOXICILLIN/CLAVULANATE 500 MG TAB PO SCH ×2 (08:40→17:49)
[2023-05-05] MEDS: CHOLECALCIFEROL 1,000 UNITS 25 MCG TAB PO SCH (08:40)
[2023-05-05] MEDS: INSULIN ASPART PER UNIT CHARGE SC SCH ×4 (08:45→21:49)
[2023-05-05] MEDS: METOPROLOL SUCC 50MG EXT REL TAB PO SCH (08:47)
[2023-05-05] MEDS ORDERED: STAT IV/IM STA (09:18)
[2023-05-05] MEDS ORDERED: CALCIUM GLUCONATE 10% 1,000 MG in SODIUM CHLOR 0.9% MINI-B 50 ML IV ONE (09:30)
--- NOTE | 2023-05-05 13:06 | Pulmonology Progress Note ---
Date of Service May 05, 2023 Assessment & Plan (1) Tracheomalacia: (2) RSV (respiratory syncytial virus infection): (3) Acute hypoxic respiratory failure: Plan Impression: 88-year-old female with acute hypoxemic and hypercarbic respiratory failure secondary to RSV with concomitant tracheobronchial malacia. She is significantly improved with application of nocturnal BiPAP. Recommendations: 1. RSV infection: Continue supportive care. 2. Tracheomalacia: Continue nocturnal positive airway pressure. If this can be set up as an outpatient that would be preferable. She may require outpatient polysomnography. Continue nebulized budesonide and Perforomist for now. Would avoid systemic steroids 3. Hypoxemic respiratory failure: Continue supplemental oxygen titrated to keep oxygen saturations at or above 88%. Patient can likely be transitioned off oxygen at rest. 4. Probable concomitant pneumonia. Would complete total of 7 days of Augmentin and plan on follow-up chest x-ray in 2 to 4 weeks. Patient appears to be achieving maximal benefit from inpatient hospitalization. She can go home and I would be happy to follow her up in clinic in 1 to 2 weeks and discuss outpatient polysomnography if needed. Pulmonary will sign off at this point in time. Feel free to contact us with questions or concerns Admission and Anticipated Discharge Date Admission Date: May 01, 2023 Subjective Patient seen and examined. EMR reviewed. She states she is doing well clinically. She continues to use positive airway pressure at night and tolerated it well. She was coughing and expectorated some phlegm this morning. She feels better after doing this. She is ambulatory around her room. She is not interested in going to a skilled rehab facility and would like to go home. Review of Systems 2 Review of Systems: All systems reviewed & are unremarkable except as noted in Subjective Physical Exam 2 Constitutional: WD/WN, vitals as above Neck: trachea midline, no thyromegaly Respiratory: normal respiratory effort, lungs clear to auscultation + cough; no labored breathing and not tachypneic Auscultation: no rhonchi and no wheezes Cardiovascular: RRR, no murmur, no edema Gastrointestinal (Abdomen): normal bowel sounds, soft, nontender, no hepatosplenomegaly Musculoskeletal: Extremities: extremities normal to inspection Skin: no rashes, warm and dry Lymphatic: no cervical lymphadenopathy Results & Data Results & Data Vital Signs (Past 12 Hours) Vital Signs Temp Pulse Pulse Resp BP BP Pulse Ox 05/05/23 11:40 36.8 C 68 20 127/72 99 05/05/23 09:13 05/05/23 08:47 138/79 05/05/23 07:42 36.2 C L 68 20 91/56 L 99 05/05/23 07:39 68 18 86 L 05/05/23 06:00 78 05/05/23 04:00 36.7 C 64 20 111/72 97 05/05/23 03:35 70 16 96 O2 Del Method O2 Flow Rate FiO2 05/05/23 11:40 Nasal Cannula 1 05/05/23 09:13 Nasal Cannula 1 05/05/23 08:47 05/05/23 07:42 Nebulizer 6 05/05/23 07:39 Room Air 05/05/23 06:00 05/05/23 04:00 BiPAP 05/05/23 03:35 35 Laboratory Results 05/05/23 07:02 05/05/23 07:02 Diagnostic Findings No new imaging PG Care Time/CCT Total # of Minutes Spent Total Time Spent with Patient: Total time spent is greater than 50% in coordination of care (as documented) at patient's floor/unit and/or counseling patient: Coding Level of Care Code 98056 SUB INP/OBS CARE 2/35MIN Diagnoses 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
--- NOTE | 2023-05-05 16:58 | Hospitalist Progress Note ---
Date of Service May 05, 2023 Assessment & Plan (1) Sepsis: (2) Acute hypoxic respiratory failure: (3) AMS (altered mental status): (4) RSV (respiratory syncytial virus infection): (5) Acute on chronic kidney failure: (6) CHF (congestive heart failure): (7) Hypomagnesemia: (8) Elevated troponin: (9) Hyperglycemia: Plan Pt is an 87yoF with PMHx significant for CHF, paroxysmal atrial fibrillation, history of DVT on chronic anticoagulation with Eliquis currently, HTN, HLD, COPD, h/o thyroidectomy and hypoparathyroidism, chronic lymphedema admitted with acute hypoxic respiratory failure in the setting of an RSV infection and RML/RLL pneumonia. 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 These account for the right suprahilar abnormality on chest radiograph. The findings favor multifocal pneumonia. Alveolar pulmonary edema could appear similar although is considered less likely. Consolidation with adjacent groundglass opacity raises the possibility of pulmonary hemorrhage although this is also considered less likely. Interlobular septal thickening consistent with interstitial pulmonary edema. Small right and trace left pleural effusions. Moderate cardiomegaly and dilatation of the central pulmonary arteries. Tracheobronchial narrowing which raises the possibility of tracheobronchomalacia. Scattered secretions within the airways with bronchial wall thickening. -- BioFire positive for RSV Normal procalcitonin Continue BiPAP at bedtime Continue empiric antibiotics Needs outpatient sleep study Appreciate pulmonary critical care input Will need repeat chest x-ray in 2 to 3 weeks Will need outpatient sleep study Continue PT OT Avoid systemic steroids as recommended by pulmonology Plan to complete 7-day course of Augmentin. Wean off of supplemental oxygen to keep saturations 88% or greater Will consider 2 step prior to discharge Acute on chronic heart failure with preserved EF --ECHO: Mild concentric LVH. No further wall motion is normal. EF 60 to 65%. Right ventricle is normal in size and function. 1 diastolic dysfunction. Moderate mitral regurgitation. Mild tricuspid regurgitation. Pulmonary artery systolic pressure is estimated to be 47 mmHg. --Received IV Lasix Monitor volume status Continue metoprolol, torsemide Resume lisinopril when BP more stable Appreciate cardiology input Monitor BP Troponin elevation Likely demand ischemia secondary to hypoxia, tachycardia Echo as above ARIEL on CKD III Cr 1.3 on presentation Lisinopril on hold Monitor renal function Avoid nephrotoxic agents as able Renal function back to baseline Paroxysmal atrial fibrillation Continue metoprolol On apixaban for anticoagulation Cardiology on board DM II HbA1C: 7.2 Recent steroid use Continue insulin while hospitalized Monitor blood glucose levels Hypomagnesemia Replete as needed Hypocalcemia Hypoparathyroidism s/p thyroid surgery Follows with nephrology On Calcitriol, Vit D and calcium tabs Check ionized calcium Will consider IV calcium supplement if needed Calcium 7.9 today Hypothyroidism s/p thyroid surgery/thyroidectomy Continue levothyroxine DVT Px: Eliquis CODE STATUS: Full code Disposition Patient not interested in rehab placement Admission and Anticipated Discharge Date Admission Date: May 01, 2023 Subjective Patient is seen and examined at bedside Subjectively feels better today Saturating well on 1 L supplemental oxygen Cough much improved Denies any significant dyspnea Denies any chest pain, dyspnea, dizziness, nausea, vomiting, abdominal pain Review of Systems Review of Systems: All systems reviewed & are unremarkable except as noted in Subjective Physical Exam Physical Exam: Physical Exam: Vitals signs as noted above General Appearance:Obese, no apparent distress Head: normocephalic, Atraumatic Eyes: normal inspection, EOMI Neck: supple, Trachea midline Respiratory/Chest: Decreased breath sounds, scattered wheezes, rhonchi, no accessory muscle use Cardiovascular: S1, S2, No murmur Abdomen/GI:Soft, Non tender, Bowel sounds present Extremities/Musculoskeletal:normal inspection, chronic lymphedema Neurologic/Psych:AAOX3, grossly no focal neurological deficits Skin: normal color, warm Results & Data Results & Data Vital Signs (Past 12 Hours) Vital Signs Temp Pulse Pulse Resp BP BP Pulse Ox 05/05/23 15:09 36.6 C 66 18 96/58 L 98 05/05/23 14:35 71 05/05/23 11:40 36.8 C 68 20 127/72 99 05/05/23 09:13 05/05/23 08:47 138/79 05/05/23 07:42 36.2 C L 68 20 91/56 L 99 05/05/23 07:39 68 18 86 L 05/05/23 06:00 78 O2 Del Method O2 Flow Rate 05/05/23 15:09 Nasal Cannula 1 05/05/23 14:35 05/05/23 11:40 Nasal Cannula 1 05/05/23 09:13 Nasal Cannula 1 05/05/23 08:47 05/05/23 07:42 Nebulizer 6 05/05/23 07:39 Room Air 05/05/23 06:00 Laboratory Results Short CBC 05/05/23 Range/Units 07:02 WBC 11.46 H (4.8-10.8) K/ul Hgb 11.0 L (12.0-16.0) g/dl Hct 33.1 L (37.0-47.0) % Plt Count 219 (130-400) K/uL BMP 05/05/23 07:02 Sodium 142 Potassium 4.2 Chloride 101 Carbon Dioxide 35 H BUN 33 H Creatinine 0.94 Glucose 92 Calcium 8.2 L
[2023-05-05] MEDS: METOPROLOL SUCC 25MG EXT REL TAB PO SCH (22:03)
[2023-05-06] MEDS: LEVOTHYROXINE SODIUM 112 MCG TABLET PO SCH (05:39)
[2023-05-06 07:18] LABS: Hematocrit (blood only) 36.1 % (37.0-47.0); Hemoglobin 11.9 g/dl (12.0-16.0); Mean Corpuscular Hemoglobin 30.7 pg (25.0-34.0); Mean Platelet Volume 10.7 fL (9.4-12.4); Platelet Count 218 K/uL (130-400); RDW Coefficient of Variation 13.2 % (11.5-14.5); RDW Standard Deviation 45.1 fL (36.4-46.3); Red Blood Count 3.88 M/uL (4.20-5.40); White Blood Count 12.33 K/ul (4.8-10.8)
[2023-05-06] MEDS: BUDESONIDE 0.5 MG/2 ML VIAL (PULMICORT) NEB SCH (07:27)
[2023-05-06] MEDS: FORMOTEROL 20 MCG/2 ML VIAL NEB SCH (07:27)
[2023-05-06 08:10] LABS: BUN Creatinine Ratio 33.7 (10-20); Calcium 8.6 mg/dl (8.6-10.3); Creatinine Clr Calc Pharmacy 36.1 ml/min; Est GFR (African American) 56.7 ml/min; Magnesium 1.8 mg/dl (1.7-2.4); Potassium 4.1 mmol/L (3.5-5.1)
--- NOTE | 2023-05-06 08:50 | Pharmacy Report ---
Pharmacy Glycemic Sign Off Nt - Date of Service May 06, 2023 - Assessment & Plan ASSESSMENT: * Pharmacy was consulted by Dr Segovia on 05/01/23 for glycemic control and to write orders per [facility] inpatient glycemic control protocol. * Major changes made by pharmacy to antidiabetic regimen include: * added novolog scale * Patient has been receiving/requiring <15 units per day of correctional insulin * Please see recommendations for outpatient antidiabetic regimen below. PLAN FOR INPATIENT GLYCEMIC CONTROL: No changes needed to current regimen. * Hold basal insulin * Continue NovoLog per scale ACHS/Q6hrs while NPO * Goal range = 120-160 mg/dl * CF = 35 mg/dl/unit * CR = 1 unit for ever 12 g CHO consumed * Pharmacy is signing off of glycemic consult and will no longer be making adjustments to inpatient regimen. Please feel free to re-consult if needed. Thank you.
[2023-05-06] MEDS: CHOLECALCIFEROL 1,000 UNITS 25 MCG TAB PO SCH (09:02)
[2023-05-06] MEDS: METOPROLOL SUCC 50MG EXT REL TAB PO SCH (09:02)
[2023-05-06] MEDS: APIXABAN 5 MG TABLET PO SCH (09:02)
[2023-05-06] MEDS: CALCIUM CARBONATE 1250MG TAB PO SCH (09:03)
[2023-05-06] MEDS: AMOXICILLIN/CLAVULANATE 500 MG TAB PO SCH (09:03)
[2023-05-06] MEDS: CALCITRIOL 0.25 MCG CAPSULE PO SCH (09:03)
[2023-05-06] MEDS: guaiFENesin 600 MG TABCR PO SCH (09:03)
[2023-05-06] MEDS: LORATADINE 10 MG TAB PO SCH (09:03)
[2023-05-06] MEDS: TORSEMIDE 10 MG TAB PO SCH (09:03)
[2023-05-06] MEDS: ATORVASTATIN 20 MG TAB PO SCH (09:03)
[2023-05-06] MEDS: INSULIN ASPART PER UNIT CHARGE SC SCH ×2 (09:06→13:27)
--- NOTE | 2023-05-06 13:37 | Hospitalist Progress Note ---
Date of Service May 06, 2023 Assessment & Plan (1) Sepsis: (2) Acute hypoxic respiratory failure: (3) AMS (altered mental status): (4) RSV (respiratory syncytial virus infection): (5) Acute on chronic kidney failure: (6) CHF (congestive heart failure): (7) Hypomagnesemia: (8) Elevated troponin: (9) Hyperglycemia: Plan Pt is an 87yoF with PMHx significant for CHF, paroxysmal atrial fibrillation, history of DVT on chronic anticoagulation with Eliquis currently, HTN, HLD, COPD, h/o thyroidectomy and hypoparathyroidism, chronic lymphedema admitted with acute hypoxic respiratory failure in the setting of an RSV infection and RML/RLL pneumonia. 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 These account for the right suprahilar abnormality on chest radiograph. The findings favor multifocal pneumonia. Alveolar pulmonary edema could appear similar although is considered less likely. Consolidation with adjacent groundglass opacity raises the possibility of pulmonary hemorrhage although this is also considered less likely. Interlobular septal thickening consistent with interstitial pulmonary edema. Small right and trace left pleural effusions. Moderate cardiomegaly and dilatation of the central pulmonary arteries. Tracheobronchial narrowing which raises the possibility of tracheobronchomalacia. Scattered secretions within the airways with bronchial wall thickening. -- BioFire positive for RSV Normal procalcitonin Continue BiPAP at bedtime Continue empiric antibiotics Needs outpatient sleep study Appreciate pulmonary critical care input Will need repeat chest x-ray in 2 to 3 weeks Will need outpatient sleep study Continue PT OT Avoid systemic steroids as recommended by pulmonology Plan to complete 7-day course of Augmentin. 2 step: Needs 2 L supplemental oxygen at rest and with activity Plan to be discharged home today Acute on chronic heart failure with preserved EF --ECHO: Mild concentric LVH. No further wall motion is normal. EF 60 to 65%. Right ventricle is normal in size and function. 1 diastolic dysfunction. Moderate mitral regurgitation. Mild tricuspid regurgitation. Pulmonary artery systolic pressure is estimated to be 47 mmHg. --Received IV Lasix Monitor volume status Continue metoprolol, torsemide Resume lisinopril when BP more stable Appreciate cardiology input Monitor BP Troponin elevation Likely demand ischemia secondary to hypoxia, tachycardia Echo as above ARIEL on CKD III Cr 1.3 on presentation Lisinopril on hold Monitor renal function Avoid nephrotoxic agents as able Renal function back to baseline Paroxysmal atrial fibrillation Continue metoprolol On apixaban for anticoagulation Cardiology on board DM II HbA1C: 7.2 Recent steroid use Continue insulin while hospitalized Monitor blood glucose levels Hypomagnesemia Replete as needed Hypocalcemia Hypoparathyroidism s/p thyroid surgery Follows with nephrology On Calcitriol, Vit D and calcium tabs Resolved Hypothyroidism s/p thyroid surgery/thyroidectomy Continue levothyroxine DVT Px: Eliquis CODE STATUS: Full code Disposition Patient not interested in rehab placement Home Admission and Anticipated Discharge Date Admission Date: May 01, 2023 Subjective Patient is seen and examined at bedside Doing well No new complaints Updated patient's daughter today Cough, dyspnea much improved Saturating well on minimal supplemental oxygen Denies any chest pain, dyspnea, dizziness, nausea, vomiting, abdominal pain Had 2 step earlier today Review of Systems Review of Systems: All systems reviewed & are unremarkable except as noted in Subjective Physical Exam Physical Exam: Physical Exam: Vitals signs as noted above General Appearance:Obese, no apparent distress Head: normocephalic, Atraumatic Eyes: normal inspection, EOMI Neck: supple, Trachea midline Respiratory/Chest: Decreased breath sounds, minimal wheezes, no accessory muscle use Cardiovascular: S1, S2, No murmur Abdomen/GI:Soft, Non tender, Bowel sounds present Extremities/Musculoskeletal:normal inspection, chronic lymphedema Neurologic/Psych:AAOX3, grossly no focal neurological deficits Skin: normal color, warm Results & Data Results & Data Vital Signs (Past 12 Hours) Vital Signs Temp Pulse Pulse Pulse Pulse Pulse Resp 05/06/23 11:56 37.0 C 71 18 05/06/23 11:50 86 80 81 05/06/23 10:26 05/06/23 07:39 67 05/06/23 07:33 36.6 C 66 20 05/06/23 07:28 88 18 05/06/23 04:23 36.4 C L 77 20 05/06/23 02:07 85 19 Resp Resp Resp BP Pulse Ox Pulse Ox Pulse Ox 05/06/23 11:56 115/62 98 05/06/23 11:50 19 18 18 97 93 05/06/23 10:26 05/06/23 07:39 05/06/23 07:33 113/76 100 05/06/23 07:28 94 05/06/23 04:23 117/77 98 05/06/23 02:07 90 Pulse Ox O2 Del Method O2 Flow Rate O2 Flow Rate O2 Flow Rate FiO2 05/06/23 11:56 Nasal Cannula 1 05/06/23 11:50 85 L 2 2 05/06/23 10:26 Nasal Cannula 1 05/06/23 07:39 05/06/23 07:33 Nasal Cannula 2 05/06/23 07:28 Nasal Cannula 2 05/06/23 04:23 Room Air, High Flow Nasal Cannula 05/06/23 02:07 35 Laboratory Results Short CBC 05/06/23 Range/Units 06:26 WBC 12.33 H (4.8-10.8) K/ul Hgb 11.9 L (12.0-16.0) g/dl Hct 36.1 L (37.0-47.0) % Plt Count 218 (130-400) K/uL BMP 05/06/23 06:26 Sodium 143 Potassium 4.1 Chloride 99 Carbon Dioxide 37 H BUN 35 H Creatinine 1.04 Glucose 100 H Calcium 8.6
--- NOTE | 2023-05-06 13:57 | Discharge Summary ---
Date of Service May 06, 2023 Admission HPI Per Admitting Provider Pt is an 87yoF with PMHx significant for CHF, paroxysmal atrial fibrillation, history of DVT on chronic anticoagulation with Eliquis currently, HTN, HLD, COPD, h/o thyroidectomy and hypoparathyroidism, chronic lymphedema admitted with acute hypoxic respiratory failure in the setting of an RSV infection and RML/RLL pneumonia. Pt's daughter and son at bedside providing the history with pt occasionally supplementing through the bipap mask. States that she was in her usual state of health, able to drive and do her ADLs, living alone before today. Daughter states she tested positive for RSV on 04/27. Even then she was still at baseline, daughter states she was doing laundry yesterday. Today she called her daughter and advised she was not doing well. Daughter states she went over and noticed that she was having trouble breathing, leaning forward, using accessory muscles to breathe. EMS was called and she reportedly was saturating in the 50s. They note that upon arrival, pt was very confused. They state that she was babbling and restless. Extensive discussion about code status. Per daughter, pt has living will that states her wishes. Pt alert and oriented x 3 at the time of admission. Originally stating that she was unsure what she wanted but with further discussion with her family states that she would want to be a full code with further decisions to be made by her family/POA afterwards. Admission Exam Per Admitting Provider General: Alert, orientedx3. No acute distress with bipap on her face Psych: Appropriate mood and affect Neuro: difficulty with sitting up in bed HEENT: NC/AT, bipap on face Chest: Nontender to palpation. CV: RRR, Normal s1, s2. No murmurs appreciated Resp: Breath sounds clear bilaterally, no increased effort of breathing. No crackles/rhonchi/rales. Abdomen: BS+. Soft, nontender, nondistended. No guarding. No organomegaly appreciated. Extremities: No edema in lower extremities bilaterally. Principal Diagnosis Acute hypoxic, hypercapnic respiratory failure Acute metabolic encephalopathy RSV infection Aspiration pneumonia Tracheomalacia Acute on chronic heart failure with preserved EF ARIEL on CKD stage III Hypocalcemia Discharge Data Allergies Allergy/AdvReac Type Severity Reaction Status Date / Time No Known Drug Allergies Allergy Unknown Verified 02/07/22 15:43 Consultations 05/01/23 14:38 ED Decision to Admit Stat 05/01/23 16:31 Consult Cardiology Routine 05/02/23 00:24 Consult Postdoctoral Research Associate Routine Procedures Performed Laboratory Results WBC 12.33 K/ul (4.8-10.8) H 05/06/23 06:26 RBC 3.88 M/uL (4.20-5.40) L 05/06/23 06:26 Hgb 11.9 g/dl (12.0-16.0) L 05/06/23 06:26 POC Hgb 10.9 g/dl (12.0-16.0) L 05/02/23 10:10 Hct 36.1 % (37.0-47.0) L 05/06/23 06:26 POC Hct 32 % (37-47) L 05/02/23 10:10 MCV 93.0 fL (80.0-100.0) 05/06/23 06:26 MCH 30.7 pg (25.0-34.0) 05/06/23 06:26 MCHC 33.0 g/dL (32.0-36.0) 05/06/23 06:26 RDW Std Deviation 45.1 fL (36.4-46.3) 05/06/23 06:26 RDW Coeff of Juan 13.2 % (11.5-14.5) 05/06/23 06:26 Plt Count 218 K/uL (130-400) 05/06/23 06:26 MPV 10.7 fL (9.4-12.4) 05/06/23 06:26 Immature Gran % (Auto) 1.3 % 05/02/23 04:30 Neut % (Auto) 85.0 % 05/02/23 04:30 Lymph % (Auto) 9.7 % 05/02/23 04:30 [place] % (Auto) 3.8 % 05/02/23 04:30 Eos % (Auto) 0.0 % 05/02/23 04:30 Baso % (Auto) 0.2 % 05/02/23 04:30 Neut # (Auto) 11.48 K/uL (1.40-6.50) H 05/02/23 04:30 Lymph # (Auto) 1.31 K/uL (1.20-3.40) 05/02/23 04:30 [place] # (Auto) 0.52 K/uL (0.11-0.59) 05/02/23 04:30 Eos # (Auto) 0.00 K/uL (0.00-0.50) 05/02/23 04:30 Baso # (Auto) 0.03 K/uL (0.00-0.20) 05/02/23 04:30 Immature Gran # (Auto) 0.18 K/uL (0.01-0.20) 05/02/23 04:30 PT 11.4 Seconds (9.0-12.0) 05/01/23 15:45 INR 1.0 (0.9-1.1) 05/01/23 15:45 Sample Site R Radial 05/02/23 10:10 POC pH 7.34 (7.35-7.45) L 05/02/23 10:10 POC pCO2 56 mmHg (35-46) H 05/02/23 10:10 POC pO2 87 mmHg (80-95) 05/02/23 10:10 POC HCO3 30 rajan/L (19-24) H 05/02/23 10:10 POC Total CO2 32 mmol/L (24-31) H 05/02/23 10:10 POC Base Excess 4.0 rajan/L (-9-1.8) H 05/02/23 10:10 ABG pH (Temp Correct) 7.339 (7.35-7.45) L 05/02/23 10:10 ABG pCO2 (Temp Corrct 56 mmHg (35-46) H 05/02/23 10:10 POC ABG pO2 at Pt Temp 87 05/02/23 10:10 POC ABG O2 Sat 96.0 % (90-95) H 05/02/23 10:10 [place] Test Pass 05/02/23 10:10 VBG pH 7.23 (7.36-7.41) L 05/02/23 04:30 VBG pH Cancelled 05/02/23 04:30 VBG pCO2 76 mmHg (38-50) H 05/02/23 04:30 VBG pO2 29 mmHg 05/02/23 04:30 VBG HCO3 30 mmol/L 05/02/23 04:30 VBG O2 Saturation < 60.0 % 05/02/23 04:30 VBG Base Excess -0.4 mEq/L 05/02/23 04:30 O2 Delivery Device BIPAP 05/02/23 10:10 POC O2 Rate 24 05/02/23 10:10 POC FiO2 35 % 05/02/23 10:10 IPAP 14 05/02/23 10:10 POC Sodium 140 mmol/L (135-144) 05/02/23 10:10 Sodium 143 mmol/L (136-145) 05/06/23 06:26 POC Potassium 3.9 mmol/L (3.3-5.0) 05/02/23 10:10 Potassium 4.1 mmol/L (3.5-5.1) 05/06/23 06:26 Chloride 99 mmol/L (98-107) 05/06/23 06:26 Carbon Dioxide 37 mmol/L (21-32) H 05/06/23 06:26 Anion Gap 7 (3-11) 05/06/23 06:26 BUN 35 mg/dl (6-23) H 05/06/23 06:26 Creatinine 1.04 mg/dl (0.6-1.2) 05/06/23 06:26 Est Cr Clr Drug Dosing 36.1 ml/min 05/06/23 06:26 Est GFR ( Amer) 56.7 ml/min 05/06/23 06:26 Est GFR (Non-Af Amer) 49.0 ml/min 05/06/23 06:26 BUN/Creatinine Ratio 33.7 (10-20) H 05/06/23 06:26 Glucose 100 mg/dl (70-99(Fasting)) H 05/06/23 06:26 POC Glucose 139 mg/dl (70-99) H 05/06/23 12:12 Estimat Average Glucose 160 mg/dl 05/02/23 04:30 Hemoglobin A1c 7.2 % (4.5-5.6) H 05/02/23 04:30 Lactate 4.1 mmol/L (0.4-2.0) H* 05/02/23 04:30 Calcium 8.6 mg/dl (8.6-10.3) 05/06/23 06:26 Ionized Calcium 1.08 mmol/L (1.12-1.32) L 05/05/23 07:02 Phosphorus 4.9 mg/dl (2.5-4.9) 05/02/23 04:30 Magnesium 1.8 mg/dl (1.7-2.4) 05/06/23 06:26 Total Bilirubin 0.6 mg/dl (0.2-1.0) 05/01/23 13:21 AST 30 U/L (13-39) 05/01/23 13:21 ALT 27 U/L (7-52) 05/01/23 13:21 Alkaline Phosphatase 91 U/L (34-104) 05/01/23 13:21 Troponin I High Sens 20.9 pg/ml (0-14) H 05/02/23 12:16 B-Natriuretic Peptide 151 pg/ml (0-100) H 05/01/23 13:21 Total Protein 6.9 gm/dl (6.0-8.3) 05/01/23 13:21 Albumin 3.9 gm/dl (3.4-5.0) 05/01/23 13:21 Globulin 3.0 gm/dl (2.5-4.0) 05/01/23 13:21 Albumin/Globulin Ratio 1.3 (0.9-2) 05/01/23 13:21 Procalcitonin 0.09 ng/ml (0-0.5) 05/05/23 07:02 Urine Color Yellow 05/01/23 Unknown Urine Appearance Cloudy (Clear) A 05/01/23 Unknown Urine pH 5.0 (4.5-7.5) 05/01/23 Unknown Ur Specific [place] 1.023 (1.000-1.030) 05/01/23 Unknown Urine Protein 1+ (Negative) H 05/01/23 Unknown Urine Glucose (UA) Negative (Negative) 05/01/23 Unknown Urine Ketones Negative (Negative) 05/01/23 Unknown Urine Blood Negative (Negative) 05/01/23 Unknown Urine Nitrite Negative (Negative) 05/01/23 Unknown Urine Bilirubin Negative (Negative) 05/01/23 Unknown Urine Urobilinogen Negative (Negative) 05/01/23 Unknown Ur Leukocyte Esterase Negative (Negative) 05/01/23 Unknown Urine WBC (Auto) 1-5 /hpf (0-5) 05/01/23 Unknown Urine RBC (Auto) 0-4 /hpf (0-4) 05/01/23 Unknown U Hyaline Cast (Auto) 1-5 /lpf (0-5) 05/01/23 Unknown U Epithel Cells (Auto) 5-10 /lpf (0-5) H 05/01/23 Unknown Urine Bacteria (Auto) Negative (Negative) 05/01/23 Unknown Nasal Screen MRSA (PCR) Negative (Negative) 05/01/23 Unknown Adenovirus (PCR) Not Detected (NotDetected) 05/01/23 13:25 B. pertussis DNA (PCR) Not Detected (NotDetected) 05/01/23 13:25 B.parapertussis DNA PCR Not Detected (NotDetected) 05/01/23 13:25 C. pneumoniae DNA (PCR) Not Detected (NotDetected) 05/01/23 13:25 Coronavirus OC43 (PCR) Not Detected (NotDetected) 05/01/23 13:25 Coronavirus HKU1 (PCR) Not Detected (NotDetected) 05/01/23 13:25 Coronavirus 229E (PCR) Not Detected (NotDetected) 05/01/23 13:25 SARS-CoV-2 (PCR) Not Detected (NotDetected) 05/01/23 13:25 Coronavirus NL63 (PCR) Not Detected (NotDetected) 05/01/23 13:25 Human Metapneumovir PCR Not Detected (NotDetected) 05/01/23 13:25 Influenza Type A (PCR) Not Detected (NotDetected) 05/01/23 13:25 Influenza Type B (PCR) Not Detected (NotDetected) 05/01/23 13:25 M. pneumoniae (PCR) Not Detected (NotDetected) 05/01/23 13:25 Parainfluenza 1 (PCR) Not Detected (NotDetected) 05/01/23 13:25 Parainfluenza 2 (PCR) Not Detected (NotDetected) 05/01/23 13:25 Parainfluenza 3 (PCR) Not Detected (NotDetected) 05/01/23 13:25 Parainfluenza 4 (PCR) Not Detected (NotDetected) 05/01/23 13:25 RSV (PCR) DETECTED (NotDetected) A* 01/07/24 13:25 Entero/Rhino (PCR) Not Detected (NotDetected) 05/01/23 13:[address] 05/01/23 16:31 CT OF THE CHEST WITHOUT IV CONTRAST CLINICAL HISTORY: hypoxia, pneumonia, possible mass COMPARISON STUDY: Chest CT February 15, 2022. Chest radiograph performed earlier today. CT DOSE: 392.79 mGy.cm TECHNIQUE: Axial images of the chest were obtained without IV contrast. Images were reviewed in the axial, sagittal, and coronal planes. IV contrast was not administered for this examination. Automated exposure control was utilized for the study. A dose lowering technique was utilized adhering to the principles of ALARA. FINDINGS: There is moderate cardiomegaly. No pericardial effusion is present. Dilatation of the central pulmonary arteries is noted. Main pulmonary artery measures 4 cm in caliber. Mildly enlarged subcarinal lymph node has increased in size since prior CT. This measures 1.2 cm in short axis diameter. Narrowing of the trachea is noted as well as narrowing of bilateral mainstem bronchi. Bronchial wall thickening is present. Small right and trace left pleural effusions are present. There is no pneumothorax. Interlobular septal thickening is noted. Moderate alveolar opacities throughout the lungs are present. These account for the right suprahilar abnormality on chest radiograph from earlier today. No cavitation is present. There is no central obstructing mass. Several old thoracic spine compression fractures are unchanged. There is an old sternal fracture. A density within the left breast is unchanged from earlier exams. This is likely benign given stability. IMPRESSION: 1. Extensive alveolar opacities throughout the lungs, several of which are nodular in configuration. These account for the right suprahilar abnormality on chest radiograph. The findings favor multifocal pneumonia. Alveolar pulmonary edema could appear similar although is considered less likely. Consolidation with adjacent groundglass opacity raises the possibility of pulmonary hemorrhage although this is also considered less likely. 2. Interlobular septal thickening consistent with interstitial pulmonary edema. 3. Small right and trace left pleural effusions. 4. Moderate cardiomegaly and dilatation of the central pulmonary arteries. 5. Tracheobronchial narrowing which raises the possibility of tracheobronchomalacia. Scattered secretions within the airways with bronchial wall thickening. ACT 112: Negative or not required by law. Electronically signed by: Johny Peace M.D. 05/01/2023 5:32 PM Chest X-Ray 05/02/23 09:39 SINGLE VIEW CHEST CLINICAL HISTORY: Pneumonia FINDINGS: An AP, portable, upright chest radiograph is compared to chest x-ray and chest CT dated 05/01/2023. The examination is degraded by portable technique and patient rotation. The heart is mildly enlarged noting atherosclerotic calcification of the thoracic aorta. Pulmonary vasculature is noncongested. Multifocal airspace consolidation throughout the right lung is similar to previous. There are also mild right basilar opacities. No large pleural effusion or pneumothorax is seen. The skeletal structures are osteopenic. The bony thorax is grossly intact. An IVC filter is partially visualized in the upper abdomen. IMPRESSION: Multifocal airspace consolidation throughout the right lung and mild left basilar opacities are similar to previous. The appearance is typical for pneumonia. Clinical correlation will be required and radiographic follow-up to resolution is recommended. ACT 112: Negative or not required by law. Electronically signed by: Olayinka Conde M.D. 05/02/2023 11:07 AM Ordered Studies 05/01/23 16:31 CT chest without contrast [CT chest diagnostic wo con] Urgent Hospital Course (1) Sepsis: (2) Acute hypoxic respiratory failure: (3) AMS (altered mental status): (4) RSV (respiratory syncytial virus infection): (5) Acute on chronic kidney failure: (6) CHF (congestive heart failure): (7) Hypomagnesemia: (8) Elevated troponin: (9) Hyperglycemia: Plan Pt is an 87yoF with PMHx significant for CHF, paroxysmal atrial fibrillation, history of DVT on chronic anticoagulation with Eliquis currently, HTN, HLD, COPD, h/o thyroidectomy and hypoparathyroidism, chronic lymphedema admitted with acute hypoxic respiratory failure in the setting of an RSV infection and RML/RLL pneumonia. 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 These account for the right suprahilar abnormality on chest radiograph. The findings favor multifocal pneumonia. Alveolar pulmonary edema could appear similar although is considered less likely. Consolidation with adjacent groundglass opacity raises the possibility of pulmonary hemorrhage although this is also considered less likely. Interlobular septal thickening consistent with interstitial pulmonary edema. Small right and trace left pleural effusions. Moderate cardiomegaly and dilatation of the central pulmonary arteries. Tracheobronchial narrowing which raises the possibility of tracheobronchomalacia. Scattered secretions within the airways with bronchial wall thickening. -- BioFire positive for RSV Normal procalcitonin Continue BiPAP at bedtime Continue empiric antibiotics Needs outpatient sleep study Appreciate pulmonary critical care input Will need repeat chest x-ray in 2 to 3 weeks Will need outpatient sleep study Continue PT OT Avoid systemic steroids as recommended by pulmonology Plan to complete 7-day course of Augmentin. 2 step: Needs 2 L supplemental oxygen at rest and with activity Plan to be discharged home today Acute on chronic heart failure with preserved EF --ECHO: Mild concentric LVH. No further wall motion is normal. EF 60 to 65%. Right ventricle is normal in size and function. 1 diastolic dysfunction. Moderate mitral regurgitation. Mild tricuspid regurgitation. Pulmonary artery systolic pressure is estimated to be 47 mmHg. --Received IV Lasix Monitor volume status Continue metoprolol, torsemide Resume lisinopril when BP more stable Appreciate cardiology input Monitor BP Troponin elevation Likely demand ischemia secondary to hypoxia, tachycardia Echo as above ARIEL on CKD III Cr 1.3 on presentation Lisinopril on hold Monitor renal function Avoid nephrotoxic agents as able Renal function back to baseline Paroxysmal atrial fibrillation Continue metoprolol On apixaban for anticoagulation Cardiology on board DM II HbA1C: 7.2 Recent steroid use Continue insulin while hospitalized Monitor blood glucose levels Hypomagnesemia Replete as needed Hypocalcemia Hypoparathyroidism s/p thyroid surgery Follows with nephrology On Calcitriol, Vit D and calcium tabs Resolved Hypothyroidism s/p thyroid surgery/thyroidectomy Continue levothyroxine DVT Px: Eliquis CODE STATUS: Full code Disposition Patient not interested in rehab placement Home Total Time Total Time Spent Total Time Spent (In Minutes): 56 minutes Discharge Plan Discharge Items Patient Disposition: Home - Self-Care Reason For Visit: SOB Discharge Diagnosis: Acute hypoxic, hypercapnic respiratory failure Acute metabolic encephalopathy RSV infection Aspiration pneumonia Tracheomalacia Acute on chronic heart failure with preserved EF ARIEL on CKD stage III Hypocalcemia Activity: Per Instructions section Exercise/Sports: Wait until after follow-up appointment Non-emergency contact: Primary Care Provider and Awning Maker And Installer Call non-emergency contact if: you have any medication questions, your symptoms worsen, your pain is concerning for you and you have a fever Follow-up/Referrals: Cornel Salguero MD [Primary Care Provider] - (Date & Time 05/10/2023 11:00 [facility] Diet: Carb Consistent or DM2, Heart Healthy and Low Sodium (2gm) Addtl Attending Provider Instructions: Follow-up with your primary care physician Dr. Salguero on 05/10/2023 11:00 AM Follow-up with your screw machine operator single spindle Dr. Baron in 3-4 weeks -- Complete the antibiotic course Augmentin as prescribed. -- You are started on budesonide and performance nebulizers. Discussed with your primary care physician and screw machine operator single spindle regarding duration of medication use needed. -- Use supplemental oxygen 3 L at rest and with activity as advised. -- Obtain sleep study as outpatient as recommended by your screw machine operator single spindle --Obtain chest x-ray in 2 to 3 weeks and follow-up with your physician with results. --Monitor your blood pressure regularly at home. Discuss with your physician for further adjustment of medications as needed. Seek immediate medical attention if your symptoms reoccur or worsen Please take all medications as instructed on discharge list below. Please call if you have any questions or problems. You can reach a [facility] hospitalist on duty at [facility] 24 hours a day by calling [phone] Pending Studies at Discharge: No Stand-Alone Forms: My [facility], Smoking Cessation Medications and DC Order Prescriptions: New amoxicillin-pot clavulanate 500-125 mg Tablet 1 tab PO BIDM Qty: 7 0RF formoterol fumarate [Perforomist] 20 mcg/2 mL Solution For Nebulization 20 mcg NEB BIDR Qty: 60 0RF benzonatate 100 mg Capsule 100 mg PO Q8H PRN (Reason: cough) Qty: 30 0RF budesonide 0.5 mg/2 mL Suspension For Nebulization 0.5 mg NEB BIDR 14 Days Qty: 60 0RF Continued loratadine [Claritin] 10 mg tablet 10 mg PO QAM levothyroxine 112 mcg tablet 112 mcg PO DAILYBB atorvastatin [Lipitor] 20 mg tablet 20 mg PO QAM metoprolol succinate 100 mg tablet extended release 24 hr 100 mg PO QAM torsemide 10 mg tablet 10 mg PO QAM calcitriol 0.25 mcg capsule 0.25 mcg PO QAM calcium carbonate-vitamin D3 [Os-Chris 500 + D3] 500 mg-15 mcg (600 unit) tablet 3 tab PO BID Eliquis 5 mg tablet 5 mg PO BID albuterol sulfate 90 mcg/actuation Hfa Aerosol Inhaler 1 inh INHALATION QID PRN (Reason: sob) Qty: 8.5 0RF acetaminophen 500 mg Tablet 1,000 mg PO BID PRN (Reason: Pain) metoprolol succinate 25 mg tablet extended release 24 hr 25 mg PO HS cholecalciferol (vitamin D3) 25 mcg (1,000 unit) Capsule 1,000 unit PO QAM Qty: 30 0RF Held lisinopril [Zestril] 10 mg tablet 10 mg PO QAM Hold Instructions: After follow-up with your primary care physician with recommendations. Discharge Orders: Discharge Order (Routine); Ordered 05/06/23 Ordered By: Dario Rey Admission Data Admit Date/Time: 05/01/23 14:38 Attending Provider: Dario Rey Admit Provider: Sera Segovia Primary Care Provider: Cornel Salguero Other Providers: Sera Segovia; Zay Benedict; Enrike Morel
== END 2023-05-06 16:41 | disposition home or self-care (01) | DRG 871 ==
LOC: ED 11:35 → SUATTDRO 14:38 → EDINP 14:38 → 1E 05-02 01:16 → 2N 05-03 21:27

== ENCOUNTER 2024-04-17 10:33 | Observation (INO) ==
--- NOTE | 2024-04-17 10:52 | Emergency Department Note ---
Impression & Plan Exertional shortness of breath, Leukocytosis, Elevated blood sugar ED Provider Note NAME: KATELYNN CRAIN AGE: 88 SEX: F : 1935 ARRIVES VIA: Walk-In INFORMANT: Patient ED PROVIDER(S): Damon Arriaga DO CHIEF COMPLAINT: Shortness of breath HPI: Patient is a 88-year-old female who presents ER for exertional shortness of breath. She notes this been present for the past week. Has been getting significantly worse. She normally can walk down the driveway without difficulty. Now she can only walk about 10 feet without getting significant short of breath. Denies any chest pain. No headache or change in vision. No cough or congestion. No dysuria, urgency, or frequency. No focal weakness in the arms or legs. No other exacerbating or remitting factors. Daughter present at bedside provides additional history and notes that she is on a blood thinner and has not missed any doses. ADDITIONAL HISTORY OBTAINED: Per HPI Chronic Medical/Social Conditions Affecting Care: Per HPI PAST MEDICAL HISTORY:See Below PAST SURGICAL HISTORY:See Below FAMILY HISTORY:See Below SOCIAL HISTORY:See Below HOME MEDICATIONS:See Below ALLERGIES:See Below VITALS:See Below PHYSICAL EXAMINATION: GENERAL: Sitting up in bed, alert, well appearing, well nourished, no distress, non-toxic EYE EXAM: normal conjunctiva. OROPHARYNX: no exudate, no erythema, lips, buccal mucosa, and tongue normal and mucous membranes are moist NECK: supple, no nuchal rigidity, no adenopathy, non-tender LUNGS: Clear to auscultation. Normal chest wall mechanics HEART: no murmurs, S1 normal and S2 normal ABDOMEN: abdomen soft, non-tender, normo-active bowel sounds, no masses, no rebound or guarding. UPPER EXTREMITIES: upper extremities are grossly normal. LOWER EXTREMITIES: No pitting edema. Calves are equal bilaterally NEURO EXAM: Normal sensorium, cranial nerves II-XII grossly intact, normal speech, no gross weakness of arms, no gross weakness of legs. MEDICAL DECISION MAKING: Patient is an 88-year-old female who presents to the ER for exertional shortness of breath who presents to the ER for the above-stated complaint. IV was established blood work was obtained. Labs show mild leukocytosis of 13,000. No significant anemia. VBG with a pH of 7.35 and a CO2 of 70 slightly better than previous. BMP along with LFTs bilirubin was unremarkable. proBNP mildly elevated 202. Trope negative. Pro-Chris was normal. Viral panel was negative. Chest x-ray was clean. Patient was given neb treatment as well as steroids. She was updated at bedside and discussed case with the hospitalist for further evaluation management treatment. Consults/Care Managements Discussions: Per MDM Triage Nursing notes reviewed. Limited review of prior medical records performed Vital Signs: reviewed and remarkable for no significant abnormalities Differential diagnosis: Differential diagnoses includes but is not limited to pneumonia, bronchitis, COPD/Asthma exacerbation, pneumothorax, pulmonary embolism, congestive heart failure, acute coronary syndrome ER treatment provided: See below Diagnostics interpreted by me include EKG and cardiac monitoring as listed below: -Cardiac Monitoring: An order was placed for continuous cardiac monitoring. The monitor shows a rate of 82 with sinus rhythm. -ECG: Sinus rhythm rate 75 Normal axis No PVCs QTc 466 -Laboratory studies:Interpreted by me as stated above in MDM and shown below. 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 informed by surgeon voice change is probably r/t intubation. Enlarged thyroid Nodular thyroid disease TAKOTNA (hard of hearing) HTN (hypertension) Lymphedema BLLE History of thrombosis Reactive airway disease Surgical History S/P IVC filter History of cataract surgery History of thyroidectomy History of tubal ligation History of breast biopsy LEFT - 1985 Family History Other No family history of adverse response to anesthesia No family history of allergies No family history of bleeding disorder Denies family history of Hearing loss Heart disease Cancer Hypertension Stroke Asthma Social History Smoking Status: Never smoker Second Hand Exposure: No; Do You Dip or Chew Tobacco: No; Hx Alcohol Use: No Hx Substance Use: No Preferred Language: Senegalese Communication Ability: Effective Video Tape Transferrer Required: No Beliefs That Will Affect Care: None marital status: / Current Living Situation: Alone current occupational status: retired How many Children do You have: 4 Feels Safe at Home: Yes Assistive Devices: None Allergies Allergies Allergy/AdvReac Type Severity Reaction Status Date / Time No Known Drug Allergies Allergy Unknown Verified 08/09/23 11:21 Home Meds Home Medications Medication Instructions Recorded Confirmed loratadine 10 mg tablet (Claritin) 10 mg PO QAM 01/26/19 04/17/24 levothyroxine 112 mcg tablet 112 mcg PO DAILYBB 10/16/21 04/17/24 atorvastatin 20 mg tablet (Lipitor) 20 mg PO QAM 10/20/21 04/17/24 lisinopril 10 mg tablet (Zestril) 2.5 mg PO DAILY@1200 10/20/21 04/17/24 metoprolol succinate 100 mg 100 mg PO QAM 01/28/22 04/17/24 tablet,extended release 24 hr acetaminophen 500 mg tablet 1,000 mg PO BID PRN Pain 02/07/22 04/17/24 metoprolol succinate 25 mg 25 mg PO HS 02/07/22 04/17/24 tablet,extended release 24 hr apixaban 5 mg tablet (Eliquis) 5 mg PO BID 05/01/23 04/17/24 calcitriol 0.25 mcg capsule 0.25 mcg PO QAM 05/01/23 04/17/24 calcium 500 mg (as 3 tab PO BID 05/01/23 04/17/24 carbonate)-vitamin D3 15 mcg (600 unit) tablet (Os-Chris 500 + D3) torsemide 10 mg tablet 10 mg PO QAM 05/01/23 04/17/24 budesonide 1 mg/2 mL suspension 0.5 mg inhalation BID 06/02/23 04/17/24 for nebulization diphenhydramine HCl 25 mg capsule 25 mg PO .qhs PRN Insomnia 06/02/23 04/17/24 (Benadryl) guaifenesin 600 mg tablet, 600 mg PO ONCE 06/02/23 04/17/24 extended release 12 hr (Mucinex) Previous Rx's Medication Instructions Recorded cholecalciferol (vitamin D3) 25 1,000 unit PO QAM #30 caps 02/17/22 mcg (1,000 unit) capsule albuterol sulfate 90 mcg/actuation 1 inh inhalation QID PRN sob #8.5 05/06/23 aerosol inhaler grams benzonatate 100 mg capsule 100 mg PO Q8H PRN cough #30 caps 05/06/23 ipratropium 0.5 mg-albuterol 3 mg 3 ml NEB Q4R PRN shortness of 05/06/23 (2.5 mg base)/3 mL nebulization breath or wheezing #90 mL soln Results & Data (ED) Vital Signs Vital Signs - 24 hr 04/17/24 10:40 04/17/24 10:57 04/17/24 11:03 Temperature 36.8 C Temperature Source Temporal Artery Scan Pulse Rate 78 82 79 Pulse Rhythm Respiratory Rate 20 20 Respiratory Effort / Characteristics Non-Labored Spontaneous Respiratory Depth Normal Blood Pressure 157/74 H 132/56 L Blood Pressure Mean 101 81 Pulse Oximetry 91 Oxygen Delivery Method Room Air Oxygen Flow Rate Sepsis Recent Fever Within 48 Hours No Sepsis New/Unexplained Change in Mental Status N/A Sepsis Action Taken by Nursing No Action Required 04/17/24 11:09 04/17/24 11:25 04/17/24 11:30 Temperature Temperature Source Pulse Rate 74 76 Pulse Rhythm Regular Respiratory Rate 12 17 Respiratory Effort / Characteristics Respiratory Depth Blood Pressure 118/85 Blood Pressure Mean 91 Pulse Oximetry 94 93 94 Oxygen Delivery Method Room Air Room Air Oxygen Flow Rate 0 Sepsis Recent Fever Within 48 Hours Sepsis New/Unexplained Change in Mental Status Sepsis Action Taken by Nursing 04/17/24 12:01 04/17/24 12:30 Temperature Temperature Source Pulse Rate 76 80 Pulse Rhythm Respiratory Rate 23 22 Respiratory Effort / Characteristics Respiratory Depth Blood Pressure 130/62 117/68 Blood Pressure Mean 88 75 Pulse Oximetry 95 94 Oxygen Delivery Method Oxygen Flow Rate Sepsis Recent Fever Within 48 Hours Sepsis New/Unexplained Change in Mental Status Sepsis Action Taken by Nursing Laboratory Data 04/17/24 11:11 04/17/24 11:11 Lab Results 04/17/24 04/17/24 04/17/24 Range/Units 11:11 11:46 12:43 WBC 13.30 H (4.8-10.8) K/ul RBC 4.32 (4.20-5.40) M/uL Hgb 13.3 (12.0-16.0) g/dl Hct 40.0 (37.0-47.0) % MCV 92.6 (80.0-100.0) fL MCH 30.8 (25.0-34.0) pg MCHC 33.3 (32.0-36.0) g/dL RDW Std Deviation 43.2 (36.4-46.3) fL RDW Coeff of Juan 12.7 (11.5-14.5) % Plt Count 226 (130-400) K/uL MPV 10.1 (9.4-12.4) fL Immature Gran % (Auto) 0.5 % Neut % (Auto) 74.3 % Lymph % (Auto) 19.2 % [place] % (Auto) 5.3 % Eos % (Auto) 0.5 % Baso % (Auto) 0.2 % Neut # (Auto) 9.88 H (1.40-6.50) K/uL Lymph # (Auto) 2.55 (1.20-3.40) K/uL [place] # (Auto) 0.71 H (0.11-0.59) K/uL Eos # (Auto) 0.07 (0.00-0.50) K/uL Baso # (Auto) 0.03 (0.00-0.20) K/uL Immature Gran # (Auto) 0.06 (0.01-0.20) K/uL VBG pH 7.35 L (7.36-7.41) VBG pCO2 70 H (38-50) mmHg VBG pO2 48 mmHg VBG HCO3 39 mmol/L VBG O2 Saturation 78.8 % VBG Base Excess 10.2 mEq/L Sodium 143 (136-145) mmol/L Potassium 4.3 (3.5-5.1) mmol/L Chloride 100 (98-107) mmol/L Carbon Dioxide 34 H (21-32) mmol/L Anion Gap 9 (3-11) BUN 22 (6-23) mg/dl Creatinine 1.17 (0.6-1.2) mg/dl Est Cr Clr Drug Dosing 32.1 ml/min eGFR 45.44 BUN/Creatinine Ratio 18.8 (10-20) Glucose 139 H (70-99(Fasting)) mg/dl Calcium 9.2 (8.6-10.3) mg/dl Total Bilirubin 1.2 H (0.2-1.0) mg/dl AST 14 (13-39) U/L ALT 11 (7-52) U/L Alkaline Phosphatase 99 (34-104) U/L Troponin I High Sens 10.4 (0-14) pg/ml B-Natriuretic Peptide 202 H (0-100) pg/ml Total Protein 7.3 (6.0-8.3) gm/dl Albumin 4.4 (3.4-5.0) gm/dl Globulin 2.9 (2.5-4.0) gm/dl Albumin/Globulin Ratio 1.5 (0.9-2) Lipase 39 (11-82) U/L Procalcitonin < 0.02 (0-0.5) ng/ml Adenovirus (PCR) Not Detected (NotDetected) B. pertussis DNA (PCR) Not Detected (NotDetected) B.parapertussis DNA PCR Not Detected (NotDetected) C. pneumoniae DNA (PCR) Not Detected (NotDetected) Coronavirus OC43 (PCR) Not Detected (NotDetected) Coronavirus HKU1 (PCR) Not Detected (NotDetected) Coronavirus 229E (PCR) Not Detected (NotDetected) SARS-CoV-2 (PCR) Not Detected (NotDetected) Coronavirus NL63 (PCR) Not Detected (NotDetected) Human Metapneumovir PCR Not Detected (NotDetected) Influenza Type A (PCR) Not Detected (NotDetected) Influenza Type B (PCR) Not Detected (NotDetected) M. pneumoniae (PCR) Not Detected (NotDetected) Parainfluenza 1 (PCR) Not Detected (NotDetected) Parainfluenza 2 (PCR) Not Detected (NotDetected) Parainfluenza 3 (PCR) Not Detected (NotDetected) Parainfluenza 4 (PCR) Not Detected (NotDetected) RSV (PCR) Not Detected (NotDetected) Entero/Rhino (PCR) Not Detected (NotDetected) Administered Medications Discontinued Medications Albuterol (Albuterol 0.083% Nebu Soln 3 Ml Vial) 2.5 mg NEB NOW STA; Protocol Stop: 04/17/24 10:53 Last Admin: 04/17/24 11:23 Dose: 2.5 mg Documented By: ANT Albuterol (Albut/Ipratrop 3mg/0.5mg Neb 3 Ml Vial) 3 ml NEB NOW STA; Protocol Stop: 04/17/24 12:28 Last Admin: 04/17/24 12:32 Dose: 3 ml Documented By: ANT Apixaban (Apixaban 5 Mg Tablet) 5 mg PO ONE ONE Stop: 04/17/24 12:56 Last Admin: 04/17/24 13:15 Dose: 5 mg Documented By: ANT Furosemide (Furosemide 40 Mg/4 Ml Vial) 40 mg IV ONE ONE Stop: 04/17/24 12:53 Last Admin: 04/17/24 13:15 Dose: 40 mg Documented By: ANT Methylprednisolone (Methylprednisolone 125 Mg/2 Ml Vial) 40 mg IV NOW STA Stop: 04/17/24 12:28 Last Admin: 04/17/24 12:32 Dose: 40 mg Documented By: ANT Metoprolol Succinate (Metoprolol Succ 50mg Ext Rel Tab) 100 mg PO NOW STA Stop: 04/17/24 12:56 Last Admin: 04/17/24 13:15 Dose: 100 mg Documented By: ANT Imaging Data Radiologist's Impression: Chest X-Ray 04/17/24 10:52 XR chest 1V portable CLINICAL HISTORY: Chest pain, nonspecific COMPARISON STUDY: Chest radiograph April 2023. Chest CT July 22, 2023. FINDINGS: There is no pneumothorax or pleural effusion. Moderate cardiomegaly is unchanged. There is pulmonary vascular congestion without overt pulmonary edema. There is no consolidation to suggest pneumonia. IMPRESSION: Cardiomegaly with pulmonary vascular congestion. ACT 112: Negative or not required by law. Electronically signed by: Johny Peace M.D. 04/17/2024 11:37 AM Discharge Plan Visit Data Chief Complaint: Shortness of Breath/Dyspnea Stated Complaint: SOB/TROUBLE BREATHING ED Provider: Damon Arriaga Discharge Problem: Exertional shortness of breath, Leukocytosis, Elevated blood sugar Forms Stand Alone Forms: My [facility] [employer] Prescriptions Prescriptions: No Action diphenhydramine HCl [Benadryl] 25 mg capsule 25 mg PO .qhs PRN (Reason: Insomnia) budesonide 1 mg/2 mL suspension for nebulization 0.5 mg inhalation BID guaifenesin [Mucinex] 600 mg tablet extended release 12hr 600 mg PO ONCE loratadine [Claritin] 10 mg tablet 10 mg PO QAM levothyroxine 112 mcg tablet 112 mcg PO DAILYBB atorvastatin [Lipitor] 20 mg tablet 20 mg PO QAM lisinopril [Zestril] 10 mg tablet 2.5 mg PO DAILY@1200 Hold Instructions: After follow-up with your primary care physician with recommendations. metoprolol succinate 100 mg tablet extended release 24 hr 100 mg PO QAM torsemide 10 mg tablet 10 mg PO QAM calcitriol 0.25 mcg capsule 0.25 mcg PO QAM calcium carbonate-vitamin D3 [Os-Chris 500 + D3] 500 mg-15 mcg (600 unit) tablet 3 tab PO BID Eliquis 5 mg tablet 5 mg PO BID benzonatate 100 mg Capsule 100 mg PO Q8H PRN (Reason: cough) Qty: 30 0RF albuterol sulfate 90 mcg/actuation Hfa Aerosol Inhaler 1 inh INHALATION QID PRN (Reason: sob) Qty: 8.5 0RF ipratropium-albuterol 0.5 mg-3 mg(2.5 mg base)/3 mL Solution For Nebulization 3 ml NEB Q4R PRN (Reason: shortness of breath or wheezing) Qty: 90 0RF acetaminophen 500 mg Tablet 1,000 mg PO BID PRN (Reason: Pain) metoprolol succinate 25 mg tablet extended release 24 hr 25 mg PO HS cholecalciferol (vitamin D3) 25 mcg (1,000 unit) Capsule 1,000 unit PO QAM Qty: 30 0RF Referrals Referrals: Cornel Salguero MD [Outside Practitioners] - Discharge Problem: Leukocytosis Qualifiers: Leukocytosis type: unspecified Qualified Code(s): D72.829 - Elevated white blood cell count, unspecified
[2024-04-17] MEDS: ALBUTEROL 0.083% NEBU SOLN 3 ML VIAL NEB STA (11:23)
[2024-04-17 11:36] LABS: Basophils # (auto) 0.03 K/uL (0.00-0.20); Basophils % (auto) 0.2 %; Eosinophils # (auto) 0.07 K/uL (0.00-0.50); Eosinophils % (auto) 0.5 %; Hemoglobin 13.3 g/dl (12.0-16.0); Immature Granulocytes # (auto) 0.06 K/uL (0.01-0.20); Immature Granulocytes % (auto) 0.5 %; Lymphocytes # (auto) 2.55 K/uL (1.20-3.40); Lymphocytes % (auto) 19.2 %; Mean Corpuscular Hemoglobin 30.8 pg (25.0-34.0); Mean Corpuscular Hgb Conc 33.3 g/dL (32.0-36.0); Mean Corpuscular Volume 92.6 fL (80.0-100.0); Mean Platelet Volume 10.1 fL (9.4-12.4); Monocytes # (auto) 0.71 K/uL (0.11-0.59); Monocytes % (auto) 5.3 %; Neutrophils # (auto) 9.88 K/uL (1.40-6.50); Neutrophils % (auto) 74.3 %; Platelet Count 226 K/uL (130-400); RDW Coefficient of Variation 12.7 % (11.5-14.5); RDW Standard Deviation 43.2 fL (36.4-46.3); Red Blood Count 4.32 M/uL (4.20-5.40)
--- NOTE | 2024-04-17 11:38 | XRay Report ---
XR chest 1V portable CLINICAL HISTORY: Chest pain, nonspecific COMPARISON STUDY: Chest radiograph April 2023. Chest CT July 22, 2023. FINDINGS: There is no pneumothorax or pleural effusion. Moderate cardiomegaly is unchanged. There is pulmonary vascular congestion without overt pulmonary edema. There is no consolidation to suggest pne umonia. IMPRESSION: Cardiomegaly with pulmonary vascular congestion. ACT 112: Negative or not required by law. Electronically signed by: Johny Peace M.D. 04/17/2024 11:37 AM
[2024-04-17 11:49] LABS: Albumin Globulin Ratio 1.5 (0.9-2); Albumin Level 4.4 gm/dl (3.4-5.0); BUN Creatinine Ratio 18.8 (10-20); Bilirubin,Total 1.2 mg/dl (0.2-1.0); Calcium 9.2 mg/dl (8.6-10.3); Creatinine Clr Calc Pharmacy 32.1 ml/min; Globulin 2.9 gm/dl (2.5-4.0); Potassium 4.3 mmol/L (3.5-5.1); Total Protein 7.3 gm/dl (6.0-8.3)
[2024-04-17 11:54] LABS: Troponin I High Sensitivity 10.4 pg/ml (0-14)
[2024-04-17 12:14] LABS: Adenovirus PCR Not Detected (NotDetected); Bordetella parapertussis PCR Not Detected (NotDetected); Bordetella pertussis PCR Not Detected (NotDetected); Chlamydia pneumoniae PCR Not Detected (NotDetected); Coronavirus 229E PCR Not Detected (NotDetected); Coronavirus CoV-2 (COVID19)PCR Not Detected (NotDetected); Coronavirus HKU1 PCR Not Detected (NotDetected); Coronavirus NL63 PCR Not Detected (NotDetected); Coronavirus OC43PCR Not Detected (NotDetected); Human Metapneumovirus PCR Not Detected (NotDetected); Influenza A PCR Not Detected (NotDetected); Influenza B PCR Not Detected (NotDetected); Mycoplasma pneumoniae PCR Not Detected (NotDetected); Parainfluenza Virus 1 PCR Not Detected (NotDetected); Parainfluenza Virus 2 PCR Not Detected (NotDetected); Parainfluenza Virus 3 PCR Not Detected (NotDetected); Parainfluenza Virus 4 PCR Not Detected (NotDetected); Respiratory Syncytial VirusPCR Not Detected (NotDetected); Rhinovirus/Enterovirus PCR Not Detected (NotDetected)
--- OUTSIDE RECORDS SUMMARY | 2024-04-17 12:28 | External Medical Summary | Summary of Care ---
Author Name Unknown Organization [facility] Address [address] [place] [address] Phone [phone] Care Team Providers Care Educational Diagnostician Name Role Phone Petra Reina MD Primary Care Provi rebecca Reason for Visit * Reason Comments eRx-Medication Refill Encounter Details Date Type Department Care Team ([facility] Contact Info) Description 04/12/[address] [phone] Cornel Salguero, DO [address] [place] [address] Allergies No known active allergiesdocumented as of this encounter (statuses as of 04/13/2024) Medications Acetaminophen ER 650 MG Oral Tablet Extended Release Take 1 Tablet by mouth every 8 hours as needed for Pain, Moderate. Active Calcium Carbonate Antacid 500 MG Oral Tablet ChewableIndicatio ns:Hypocalcemia,S tage 3b chronic kidney disease (HCC) Take 3 Tablets by mouth in the morning and 3 Tablets before bedtime. 022 Active Ventolin HFA 108 (90 Base) MCG/ACT Inhalation Aerosol SolutionIndicatio ns:Acute bronchitis, unspecified organism,COPD, mild (HCC) Inhale 2 Puffs by mouth every 4 hours as needed for Wheezing. 18 g 023 Active Ipratropium-Albut guanaco 0.5-2.5 (3) MG/3ML Inhalation Solution (Duoneb)Indicatio ns:COPD exacerbation (HCC) Inhale 3 mL via nebulizer every 4 hours as needed for Wheezing or Shortness of Breath. 360 mL 024 Active Budesonide 0.5 MG/2ML Inhalation Suspension (Pulmicort)Indica tions:COPD exacerbation (HCC),Chronic hypoxic respiratory failure (HCC) Inhale 0.5 mg via nebulizer in the morning and 0.5 mg in the evening. 120 mL 024 Active Formoterol Fumarate 20 MCG/2ML Inhalation Nebulization SolutionIndicatio ns:COPD exacerbation (HCC),Chronic hypoxic respiratory failure (HCC) Inhale 20 mcg by mouth in the morning and 20 mcg in the evening. 120 mL 024 Active Metoprolol Succinate ER 100 MG Oral Tablet Extended Release 24 Hour (toPROL XL)Indications:At rial fibrillation, unspecified type (HCC) Take 1 Tablet by mouth in the morning. 90 Tablet 024 Active Levothyroxine Sodium 112 MCG Oral Tablet (Levoxyl)Indicati ons:Postoperative hypothyroidism TAKE 1 TABLET BY MOUTH ONCE DAILY AT LEAST 30 MINUTES PRIOR TO BREAKFAST AND OTHER MEDS 30 Tablet 024 Active Budesonide-Formot guanaco Fumarate 160-4.5 MCG/ACT Inhalation Aerosol (Symbicort) Inhale 2 Puffs by mouth in the morning and 2 Puffs before bedtime. Active diphenhydrAMINE HCl 25 MG Oral Capsule (Benadryl Allergy) Take 1 Capsule by mouth every 6 hours as needed for Itching. Active Metoprolol Succinate ER 25 MG Oral Tablet Extended Release 24 Hour (Toprol XL)Indications:At rial fibrillation, unspecified type (HCC) Take 1 Tablet by mouth every evening. 90 Tablet 024 Active Lisinopril 2.5 MG Oral Tablet (Prinivil) Take 1 Tablet by mouth in the morning. 90 Tablet 024 Active Loratadine 10 MG Oral Tablet (Claritin)Indicat ions:Dysfunction of Eustachian tube, bilateral TAKE 1 TABLET BY MOUTH ONCE DAILY IN THE MORNING 90 Tablet 024 Active Atorvastatin Calcium 20 MG Oral Tablet (Lipitor)Indicati ons:Dyslipidemia, goal LDL below 130 TAKE 1 TABLET BY MOUTH ONCE DAILY IN THE MORNING FOR CHOLESTEROL 90 Tablet 024 Active Eliquis 5 MG Oral Tablet (Apixaban)Indicat ions:Atrial fibrillation, unspecified type (HCC) TAKE 1 TABLET BY MOUTH TWICE DAILY (MORNING AND BEDTIME) 180 Tablet 3 024 Active Calcitriol 0.25 MCG Oral Capsule (Rocaltrol) TAKE 1 CAPSULE BY MOUTH ONCE DAILY IN THE MORNING 30 Capsule 5 024 Active Cholecalciferol 25 MCG (1000 UT) Oral TabletIndications :Hypocalcemia,Chr onic kidney disease, stage 3b (HCC) TAKE 1 TABLET BY MOUTH ONCE DAILY IN THE MORNING 30 Tablet 11 024 Active Torsemide 10 MG Oral Tablet (Demadex) TAKE 1 TABLET BY MOUTH ONCE DAILY IN THE MORNING 90 Tablet 1 024 Active Torsemide 10 MG Oral Tablet (Demadex) TAKE 1 TABLET BY MOUTH ONCE DAILY IN THE MORNING 90 Tablet 2 023 2023 Discontinued documented as of this encounter (statuses as of 04/13/2024) Active Problems Problem Noted Date Diagnosed Date HFrEF (heart failure with reduced ejection fract ion) 10/14/2023 Chronic heart failure with preserved ejection fr action 10/08/2023 Type 2 diabetes mellitus wit h hemoglobin A1c goal of less than 8.0% 05/11/2023 Chronic diastolic congestive heart failure 05/11 COPD, group C, by GOLD 2017 classification 05/02 Overview: Per COPD GOLD Classification Stage 3a chronic kidney disease 11/23/2022 Degenerative tear of left medial meniscus 2021 Lymphedema 11/24/2021 Paroxysmal atrial fibrillation 10/21/2021 B12 deficiency 08/03/2021 HTN, goal below 140/90 01/16/2021 Postoperative hypothyroidism 01/16/2021 Dyslipidemia, goal LDL below 100 01/16/2021 Chronic deep vein thrombosis (DVT) of proximal vein of left lower extremity 08/14/2020 Chronic anticoagulation 11/19/2019 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 documented as of this encounter (statuses as of 04/13/2024) Resolved Problems Problem Noted Date Diagnosed Date Resolved Date COPD, group A, by GOLD 2017 classification 12/06/2022 05/05/2023 Overview: Per COPD GOLD Classification Dementia without behavioral disturbance 08/14/2020 10/08/2023 Overview (01/25/2022): ICD-10 update of inactive term COPD, mild 08/14/2020 12/09/2022 Overview: Per COPD GOLD Classification Lymphedema of left leg 05/14/201906/30 Kidney disease, chronic, sta ge III (GFR 30-59 ml/min) 02/05/2019 05/14/2019 Overview: Per CKD protocol Edema 09/11/2015 07/01/2023 DVT (deep venous thrombosis) (HCC) (aka DVT (DEEP VENOUS THROMBOSIS) (HCC)) 11/15/2014 07/01/19 24 Menopause 06/12/2007 09/13/2018 Overview (06/12/2007): Age 57yrs, hrt x 4 wks DEEP PHLEBITIS-LEG NEC 04/06/200606/30 Anticoagulation management encounter 04/06/2006 09/13/2018 ADVANCE DIRECTIVE INFORMATION 03/02/2005 02/27/2024 Overview (03/02/2005): No, Advance Directive brochure given to patient at prior appointment. documented as of this encounter (statuses as of 04/13/2024) Immunizations Name Administration Dates Next Due COVID-19 mRNA, LNP-s, No Pre serve, 2-Dose Series ([place]) 03/13/2021,06/19/2020,05/29/2020 COVID-19, MRNA-LNP, PF, 30 M CG/0.3 mL, 12 YRS AND ABOVE, IM (SIMI-Comirnaty) 07/01/2023 Pneumococcal Conjugate Vacc, 13 Valent (Prevnar) 09/11/2015 Pneumococcal Conjugate Vacci ne, 20-valent ([id number]) 10/07/2023 Season Influenza, Quad, PF, Adjuvanted, 65+ Yrs, IM (FLUAD) 03/10/2020 Seasonal Influenza Vac., MDV , IM, 0.5 mL (Fluzone) 02/06/2014,02/02/2013,06/01/2012,2008(Deferred: Patient Refused) Seasonal Influenza, PF, 6 M & above, IM , (FluLaval or Fluzone) 02/09/2018,02/03/2017 Seasonal Influenza, Quadriva lent Hd (Fluzone Hd) 02/23/2022,01/16/2021 Seasonal Influenza, Quadriva lent, No Preserve, IM 02/23/2016,02/12/2015 Seasonal Influenza, Trivalen t, Adjuvanted, 65+ YRS, PF, (Fluad) 01/09/2024,03/29/2019 TDAP (age 10 and older)(Boostrix) 09/11/2015 documented as of this encounter Social History Tobacco Use Types Packs/Day Years Used Date Smoking Tobacco: Never Passive Smoke Exposure: Never Smokeless Tobacco: Never Comments:No passive smoke ex posure Alcohol Use Standard Drinks/Week Comments Not Currently 0 (1 standard drink = 0.6 oz [...] money to get more. Never true 11/23/2022 Childcare Answer Date Recorded Do you feel overwhelmed with taking care of a child, family member or friend? No 11/23/2022 Does your family need help f inding childcare? (Household - for ages 0-17 years) Not on file 11/23/2022 Clothing Answer Date Recorded Have you been unable to get clothing when it was really needed? No 11/23/2022 Is your family able to get c lothes or diapers when needed? (Household - for ages 0-17 years) Not on file 11/23/2022 Personal Safety Answer Date Recorded Do you feel unsafe or have concerns for your saf ety? No 11/23/2022 Do you have concerns for you r family's safety? (Household - for ages 0-17 years) Not on file 11/23/2022 Utilities Answer Date Recorded Do you have trouble paying y our heating, water, or electric bill? (Adult - for ages 18 years and over) Not on file 11/25/2023 Is your family able to pay t he heat, water, or electric bill? (Household - for ages 0-17 years) Not on file 11/25/2023 Does your family have access to good internet? (Household - for ages 0-17 years) Not on file 11/25/2023 Employment Status Answer Date Recorded Are you unemployed or without regular income? No 11/23/2022 Does the household have a re gular source of income? (Household - for ages 0-17 years) Not on file 11/23/2022 Social Connections Answer Date Recorded How often do you feel lonely or isolated from those around you? (Adult - for ages 18 years and over) Not on file 11/25/2023 Financial Resource Strain Answer Date R ecorded Do you have any trouble payi ng for your medications, or do you think you might in the future? No 11/23/2022 Does your family have troubl e paying for medicine? (Household - for ages 0-17 years) Not on file 11/23/2022 Transportation Needs Answer Date Record ed READ ONLY Do you have troubl e getting a ride to medical visits or work? Never True 11/23/2022 Does your family have a hard time getting a ride to doctors visits? (Household - for ages 0-17 years) Not on file 11/23/2022 Has lack of transportation k ept you from medical appointments, meetings, work, or from getting things needed for daily living? Check all that apply. (Adult - for ages 18 years and over) Not on file 11/23/2022 Do you (or your family) have trouble finding or paying for a ride (transportation)? (Household - for ages 0-17 years) Not on file 11/23/2022 Housing Stability Answer Date Recorded Do you currently live in a s helter or have no steady place to sleep at night? No 11/23/2022 READ ONLY Do you think you a re at risk of becoming homeless? No 11/23/2022 Does your family worry about paying for your home or becoming homeless? (Household - for ages 0-17 years) Not on file 0 11/23/2022 Are you homeless or worried that you might be in the future? (Adult - for ages 18 years and over) Not on file 3 Are you (or your family) hui eless or worried that you might be in the future? (Household - for ages 0-17 years) Not on file Food Insecurity Answer Date Recorded Do you need food for this week? No 11/23/2022 Are you able to get enough f ood for your family? (Household - for ages 0-17 years) Not on file 11/23/2022 Does your family need food t his week? (Household - for ages 0-17 years) Not on file 11/23/2022 Do you always have enough fo od for your family? (Household - for ages 0-17 years) Not on file 11/23/2022 Comments No Sex and Gender Information Value Date Recorded Sex Assigned at Female 09/15/2018 10:45 AM EDT Legal Sex Female 7:02 AM EST Gender Identity Female 09/15/2018 10:45 AM EDT Sexual Orientation Straight 09/15/2018 10 :45 AM EDT documented as of this encounter Functional Status * Are you deaf or do you have serious difficulty hearing? Answer Date of Assessment Author No 12/03/2019 9:20 PM EDT Maia Dill RN * Are you blind or do you have serious difficulty seeing, even when wearing glasses? Answer Date of Assessment Author No 12/03/2019 9:20 PM EDT Maia Dill RN * Do you have serious difficulty walking or climbing stairs? (5 years old or older) Answer Date of Assessment Author No 12/03/2019 9:20 PM EDT Maia Dill RN * Do you have difficulty dressing or bathing? (5 years old or older) Answer Date of Assessment Author No 12/03/2019 9:20 PM EDT Maia Dill RN * Because of a physical, mental, or emotional condition, do you have difficulty doing errands alone such as visiting a doctors office or shopping? (15 years old or older) Answer Date of Assessment Author No 12/03/2019 9:20 PM EDT Maia Dill RN documented as of this encounter Mental Status * Because of a physical, mental, or emotional condition, do you have serious difficulty concentrating, remembering, or making decisions? (5 years old or older) Answer Entry Date Author No 12/03/2019 9:20 PM EDT Shavonne reyna, Maia Omalley RN documented in this encounter Miscellaneous Notes * Telephone Encounter - Jessica Guo [facility] - 04/13/2024 10:46 AM ESTSigned Prescriptions: Disp Refills Torsemide 10 MG Oral Tablet (Demadex) 90 Tab*1 Sig: TAKE 1 TABLET BY MOUTH ONCE DAILY IN THE MORNINGAuthorizing Provider: PETRA REINA User: JESSICA GUO documented in this encounter Plan of Treatment Upcoming Encounters Date Type Department Care Team ([facility] st Contact Info) Description 04/27/2024 11:00 AM EST Laboratory Laboratory Patient Service [address] [phone] [address] 05/04/2024 1:30 PM EST Office Visit Cardiology, [facility] [address] [facility] [place] [address] Cr Pan PA-C [address] [facility] [place] [address] 06/05/2024 3:40 PM EST Office Visit [address] [phone] Petra eRina MD [address] [place] [phone] 08/23/2024 11:00 AM EDT [facility] [address] [place] [address] [address] [place] [phone] Olvin Peres MD 200 [facility] [place] [address] Health Maintenance Due Date Last Done Comments Diabetic Foot Exam 1953 Adult Wellness Visit 2003 *COPD SEVERITY VERIFIED BY PFT 08/17/2020 DXA Scan 03/19/2022 03/19/2015, 080 06/2011, 06/15/2008 COVID-19 Vaccine ( season) 2023 07/01/2023, 03/13/2021, 06/19/2020, Additional history exists Depression Screening 03/25/2024 03/25/2023 HbA1c 03/31/2024 09/30/2023 CKD PHOS USE SMARTSET 84404 04/27/202406/2023, 08/09/2022, 08/03/2022, Additional history exists Albumin/Creatinine Ratio 05/25/2024 024, 06/07/2022, 10/02/2019 TSH 05/25/2024 05/25/2023, 10/24, 08/03/2022, Additional history exists CKD HGB USE SMARTSET 66931 09/29/202409/29, 09/30/2023, 05/25/2023, Additional history exists O2 ASSESSMENT COMPLETED IN PAST YEAR FOR COPD 10/06/2024 10/07/2023 Diabetic Eye Exam 10/18/2024 10/19/2023, , 03/03/2021 DTap/Tdap Vaccines (2 - Td or Tdap) 09/10/2025 09/11/2015 Alpha-1 Antitrypsin Completed 07/27/2021 Pneumococcal Vaccine: 65+ Years Completed 10/07/2023, 09/11/2015, 03/02/2005 Influenza Vaccine (FLU shot) Completed 01/09/2024, 02/23/2022, 01/16/2021, Additional history exists HPV (Gardasil) Vaccine Aged Out No lo nger eligible based on patient's age to complete this topic Hepatitis B Vaccine Aged Out No longe r eligible based on patient's age to complete this topic MENINGOCOCCAL (MENACTRA/MENVEO) Aged Out No longer eligible based on patient's age to complete this topic Zoster Vaccines Discontinued documented as of this encounter Medical Devices Not on filedocumented as of this encounter Advance Directives * Full Code (Latest Code Status on File) Date Activated Date Inactivated Comments 12/03/2019 3:59 PM 12/05/2019 7:00 PM This order r eflects the patients wishes and were consensually agreed upon. Question Answer Comments Discussion of Advance Directives occurred with: Not Discussed Care Teams Educational Diagnostician Relationship Specialty Start Date End Date Petra Reina MD [address] [place] [phone] PCP - General Family Medicine 07/01/23 documented as of this encounter
--- OUTSIDE RECORDS SUMMARY | 2024-04-17 12:28 | External Medical Summary | Summary of Care ---
Author Name Unknown Organization [facility] Address [address] [place] [address] Phone [phone] Care Team Providers Care Histology Manager Name Role Phone Petra Marquez MD Primary Care Provi rebecca Reason for Visit * Reason Onset Date Comments Health Maintenance 03/19/2024 Encounter Details Date Type Department Care Team ([facility] Contact Info) Description 03/19/2024 Telephone Family [address] [phone] Petra Marquez MD [address] [place] [phone] Health Maintenance Allergies No known active allergiesdocumented as of this encounter (statuses as of 03/19/2024) Medications Acetaminophen ER 650 MG Oral Tablet Extended Release Take 1 Tablet by mouth every 8 hours as needed for Pain, Moderate. Active Calcium Carbonate Antacid 500 MG Oral Tablet ChewableIndication s:Hypocalcemia,Sta ge 3b chronic kidney disease (HCC) Take 3 Tablets by mouth in the morning and 3 Tablets before bedtime. 03/10/20 22 Active Torsemide 10 MG Oral Tablet (Demadex) TAKE 1 TABLET BY MOUTH ONCE DAILY IN THE MORNING 90 Tablet 2 03/25/20 23 Active Ventolin HFA 108 (90 Base) MCG/ACT Inhalation Aerosol SolutionIndication s:Acute bronchitis, unspecified organism,COPD, mild (HCC) Inhale 2 Puffs by mouth every 4 hours as needed for Wheezing. 18 g 03/25/20 23 Active Ipratropium-Albute rol 0.5-2.5 (3) MG/3ML Inhalation Solution (Duoneb)Indication s:COPD exacerbation (HCC) Inhale 3 mL via nebulizer every 4 hours as needed for Wheezing or Shortness of Breath. 360 mL 05/11/19 24 Active Budesonide 0.5 MG/2ML Inhalation Suspension (Pulmicort)Indicat ions:COPD exacerbation (HCC),Chronic hypoxic respiratory failure (HCC) Inhale 0.5 mg via nebulizer in the morning and 0.5 mg in the evening. 120 mL 2 05/11/19 24 Active Formoterol Fumarate 20 MCG/2ML Inhalation Nebulization SolutionIndication s:COPD exacerbation (HCC),Chronic hypoxic respiratory failure (HCC) Inhale 20 mcg by mouth in the morning and 20 mcg in the evening. 120 mL 05/11/19 24 Active Metoprolol Succinate ER 100 MG Oral Tablet Extended Release 24 Hour (toPROL XL)Indications:Atr ial fibrillation, unspecified type (HCC) Take 1 Tablet by mouth in the morning. 90 Tablet 3 07/01/19 24 Active Levothyroxine Sodium 112 MCG Oral Tablet (Levoxyl)Indicatio ns:Postoperative hypothyroidism TAKE 1 TABLET BY MOUTH ONCE DAILY AT LEAST 30 MINUTES PRIOR TO BREAKFAST AND OTHER MEDS 30 Tablet 07/06/19 24 Active Budesonide-Formote rol Fumarate 160-4.5 MCG/ACT Inhalation Aerosol (Symbicort) Inhale 2 Puffs by mouth in the morning and 2 Puffs before bedtime. Active diphenhydrAMINE HCl 25 MG Oral Capsule (Benadryl Allergy) Take 1 Capsule by mouth every 6 hours as needed for Itching. Active Metoprolol Succinate ER 25 MG Oral Tablet Extended Release 24 Hour (Toprol XL)Indications:Atr ial fibrillation, unspecified type (HCC) Take 1 Tablet by mouth every evening. 90 Tablet 07/15/19 24 Active Lisinopril 2.5 MG Oral Tablet (Prinivil) Take 1 Tablet by mouth in the morning. 90 Tablet 07/15/19 24 Active Loratadine 10 MG Oral Tablet (Claritin)Indicati ons:Dysfunction of Eustachian tube, bilateral TAKE 1 TABLET BY MOUTH ONCE DAILY IN THE MORNING 90 Tablet 08/24/19 24 Active Atorvastatin Calcium 20 MG Oral Tablet (Lipitor)Indicatio ns:Dyslipidemia, goal LDL below 130 TAKE 1 TABLET BY MOUTH ONCE DAILY IN THE MORNING FOR CHOLESTEROL 90 Tablet 3 08/25/19 24 Active Eliquis 5 MG Oral Tablet (Apixaban)Indicati ons:Atrial fibrillation, unspecified type (HCC) TAKE 1 TABLET BY MOUTH TWICE DAILY (MORNING AND BEDTIME) 180 Tablet 3 09/30/19 24 Active Calcitriol 0.25 MCG Oral Capsule (Rocaltrol) TAKE 1 CAPSULE BY MOUTH ONCE DAILY IN THE MORNING 30 Capsule 5 02/23/20 24 Active Cholecalciferol 25 MCG (1000 UT) Oral TabletIndications: Hypocalcemia,Chron ic kidney disease, stage 3b (HCC) TAKE 1 TABLET BY MOUTH ONCE DAILY IN THE MORNING 30 Tablet 11 03/01/20 24 Active documented as of this encounter (statuses as of 03/19/2024) Active Problems Problem Noted Date Diagnosed Date [...] as of this encounter (statuses as of 03/19/2024) Resolved Problems Problem Noted Date Diagnosed Date [...] Edema 09/11/2015 07/01/2023 DVT (deep venous thrombosis) ([facility]) (aka DVT (DEEP VENOUS THROMBOSIS) (HCC)) 11/15/2014 07/01/19 24 Menopause 06/12/2007 09/13/2018 Overview (06/12/2007): Age 57yrs, hrt x 4 wks DEEP PHLEBITIS-LEG NEC 04/06/200606/30 Anticoagulation management encounter 04/06/2006 09/13/2018 ADVANCE DIRECTIVE INFORMATION 03/02/2005 02/27/2024 Overview (03/02/2005): No, Advance Directive brochure given to patient at prior appointment. documented as of this encounter (statuses as of 03/19/2024) Immunizations Name Administration Dates Next Due COVID-19 mRNA, LNP-s, No Pre serve, 2-Dose Series (Pfizer) 03/13/2021,06/19/2020,05/29/2020 COVID-19, MRNA-LNP, PF, 30 M CG/0.3 mL, 12 YRS AND ABOVE, IM (PFIZER-Comirnaty) 07/01/2023 Pneumococcal Conjugate Vacc, 13 Valent (Prevnar) 09/11/2015 Pneumococcal Conjugate Vacci ne, 20-valent ([id number]) 10/07/2023 Season Influenza, Quad, PF, Adjuvanted, 65+ [...] 18 years and over) Not on file Are you (or your family) hui eless [...] of Assessment Author No 12/03/2019 9:20 PM LEXIST Maia Dill RN * Do you have [...] Date Author No 12/03/2019 9:20 PM EDT Maia Dill RN documented in this encounter Miscellaneous Notes * Telephone Encounter - Maggie Vivas LPN - 03/19/2024 10:22 AM EST Care Gaps Comprehensive Care Outreach Last Office/Telemedicine Visit: 10/07/2023 (in office), Visit date not found (telemedicine) Next Office Visit: 06/05/2024 Hemoglobin AIC Results: Lab Results Component Value Date/Time HEMOGLOBIN A1C - [facility] 6.8 (H) 09/30/2023 10:26 AM BP Readings from Last 1 Encounters: 10/14/23 118/68 Reviewed Health Maintenance below: Adult Wellness Visit Never done *COPD SEVERITY VERIFIED BY PFT Never done DXA Scan 03/19/2022 HbA1c 03/31/2024 Albumin/Creatinine Ratio 05/25/2024 CKD PHOS USE SMARTSET 23057 04/27/2024 TSH 05/25/2024 Care Gap Outreach Action Taken: Spoke to patients daughter. Labs added. documented in this encounter Plan of Treatment Upcoming Encounters Date Type Department Care Team (Late st Contact Info) Description 04/27/2024 11:00 AM EST Laboratory Laboratory Patient Service [address] [phone] [address] 05/04/2024 1:30 PM EST [facility] [place] [address] Cr Pan PA-C [address] [place] [address] 06/05/2024 3:40 PM EST Office Visit [address] [phone] Petra Marquez MD [address] [place] [phone] 08/23/2024 11:00 AM EDT Office Visit Nephrology [address] [place] [phone] Olvin Peres MD 200 [facility] [place], [place] [address] Scheduled Orders Name Type Priority Associated Diagnoses Orde r Schedule ALBUMIN / CREATININE RATIO, URINE Lab Routine Type 2 diabetes mellitus with hemoglobin A1c goal of less than 8.0% (HCC) Expected: 03/19/2024, Expires: 03/19/2025 TSH WITH FREE T4 IF INDICATED Lab Routine Substernal thyroid goiter Expected: 03/19/2024, Expires: 03/19/2025 PHOSPHORUS Lab Routine Stage 3a chronic kidney disease (HCC) Expected: 03/19/2024, Expires: 03/19/2025 LIPID PANEL WITH DIRECT LDL IF TG IS HIGH Lab Routine Dyslipidemia, goal LDL below 100 Expected: 03/19/2024, Expires: 03/19/2025 Health Maintenance Due Date Last Done Comments Diabetic Foot Exam 1953 Adult Wellness Visit 2003 *COPD SEVERITY VERIFIED BY PFT 08/17/2020 DXA Scan 03/19/2022 03/19/2015, 06/2011, 06/15/2008 COVID-19 Vaccine ( season) 2023 07/01/2023, 03/13/2021, 06/19/2020, Additional history exists Depression Screening 03/25/2024 03/25/2023 HbA1c 03/31/2024 09/30/2023 CKD PHOS USE SMARTSET 85556 04/27/202406/2023, 08/09/2022, 08/03/2022, Additional history exists Albumin/Creatinine Ratio 05/25/2024 024, 06/07/2022, 10/02/2019 TSH 05/25/2024 05/25/2023, 10/24, 08/03/2022, Additional history exists CKD HGB USE SMARTSET 64888 09/29/202409/29, 09/30/2023, 05/25/2023, Additional history exists O2 [...] as of this encounter Visit Diagnoses Diagnosis Type 2 diabetes mellitus with hemoglobin A1c goal of less than 8.0% (HCC)- Primary Stage 3a chronic kidney disease (HCC) Dyslipidemia, goal LDL below 100 Other and unspecified hyperlipidemia Substernal thyroid goiter Goiter, unspecified documented in this encounter Advance Directives * Full Code (Latest Code Status on File) Date Activated Date Inactivated Comments 12/03/2019 3:59 PM 12/05/2019 7:00 PM This order r eflects the patients wishes and were consensually agreed upon. Question Answer Comments Discussion of Advance Directives occurred with: Not Discussed Care Teams Histology Manager Relationship Specialty Start Date End Date Petra Marquez MD [address] [place] [phone] PCP - General Family Medicine 07/01/23 documented as of this encounter
--- OUTSIDE RECORDS SUMMARY | 2024-04-17 12:28 | External Medical Summary | Summary of Care ---
Author Name Unknown Organization [facility] Address [address] [place] [address] Phone [phone] Care Team Providers Care Hoisting Engineer Pile Driving Name Role Phone Petra Marquez MD Primary Care Provi rebecca Reason for Visit * Reason Comments eRx-Medication Refill Encounter Details Date Type Department Care Team (Late st Contact Info) Description 03/01/2024 Refill Nephrology, [facility] [address] [place] [address] Orlando Peres MD [address] [place] [address] Hypocalcemia; Chronic kidney disease, stage 3b (HCC) Allergies No known active allergiesdocumented as of this encounter (statuses as of 03/01/2024) Medications Medication Sig Dispensed Refills Start Date End Date Status Acetaminophen ER 650 MG Oral Tablet Extended Release Take 1 Tablet by mouth every 8 hours as needed for Pain, Moderate. Active Calcium Carbonate Antacid 500 MG Oral Tablet ChewableIndications :Hypocalcemia,Stage 3b chronic kidney disease (HCC) Take 3 Tablets by mouth in the morning and 3 Tablets before bedtime. 2 Active Torsemide 10 MG Oral Tablet (Demadex) TAKE 1 TABLET BY MOUTH ONCE DAILY IN THE MORNING 90 Tablet 2 3 Active Ventolin HFA 108 (90 Base) MCG/ACT Inhalation Aerosol SolutionIndications :Acute bronchitis, unspecified organism,COPD, mild (HCC) Inhale 2 Puffs by mouth every 4 hours as needed for Wheezing. 18 g 3 Active Ipratropium-Albuter ol 0.5-2.5 (3) MG/3ML Inhalation Solution (Duoneb)Indications :COPD exacerbation (HCC) Inhale 3 mL via nebulizer every 4 hours as needed for Wheezing or Shortness of Breath. 360 mL 2 4 Active Budesonide 0.5 MG/2ML Inhalation Suspension (Pulmicort)Indicati ons:COPD exacerbation (HCC),Chronic hypoxic respiratory failure (HCC) Inhale 0.5 mg via nebulizer in the morning and 0.5 mg in the evening. 120 mL 2 4 Active Formoterol Fumarate 20 MCG/2ML Inhalation Nebulization SolutionIndications :COPD exacerbation (HCC),Chronic hypoxic respiratory failure (HCC) Inhale 20 mcg by mouth in the morning and 20 mcg in the evening. 120 mL 2 4 Active Metoprolol Succinate ER 100 MG Oral Tablet Extended Release 24 Hour (toPROL XL)Indications:Atri al fibrillation, unspecified type (HCC) Take 1 Tablet by mouth in the morning. 90 Tablet 3 4 Active Levothyroxine Sodium 112 MCG Oral Tablet (Levoxyl)Indication s:Postoperative hypothyroidism TAKE 1 TABLET BY MOUTH ONCE DAILY AT LEAST 30 MINUTES PRIOR TO BREAKFAST AND OTHER MEDS 30 Tablet 11 4 Active Budesonide-Formoter ol Fumarate 160-4.5 MCG/ACT Inhalation Aerosol (Symbicort) Inhale 2 Puffs by mouth in the morning and 2 Puffs before bedtime. Active diphenhydrAMINE HCl 25 MG Oral Capsule (Benadryl Allergy) Take 1 Capsule by mouth every 6 hours as needed for Itching. Active Metoprolol Succinate ER 25 MG Oral Tablet Extended Release 24 Hour (Toprol XL)Indications:Atri al fibrillation, unspecified type (HCC) Take 1 Tablet by mouth every evening. 90 Tablet 3 4 Active Lisinopril 2.5 MG Oral Tablet (Prinivil) Take 1 Tablet by mouth in the morning. 90 Tablet 3 4 Active Loratadine 10 MG Oral Tablet (Claritin)Indicatio ns:Dysfunction of Eustachian tube, bilateral TAKE 1 TABLET BY MOUTH ONCE DAILY IN THE MORNING 90 Tablet 3 4 Active Atorvastatin Calcium 20 MG Oral Tablet (Lipitor)Indication s:Dyslipidemia, goal LDL below 130 TAKE 1 TABLET BY MOUTH ONCE DAILY IN THE MORNING FOR CHOLESTEROL 90 Tablet 3 4 Active Eliquis 5 MG Oral Tablet (Apixaban)Indicatio ns:Atrial fibrillation, unspecified type (HCC) TAKE 1 TABLET BY MOUTH TWICE DAILY (MORNING AND BEDTIME) 180 Tablet 3 4 Active Calcitriol 0.25 MCG Oral Capsule (Rocaltrol) TAKE 1 CAPSULE BY MOUTH ONCE DAILY IN THE MORNING 30 Capsule 5 4 Active Cholecalciferol 25 MCG (1000 UT) Oral TabletIndications:H ypocalcemia,Chronic kidney disease, stage 3b (HCC) TAKE 1 TABLET BY MOUTH ONCE DAILY IN THE MORNING 30 Tablet 11 4 Active Cholecalciferol 25 MCG (1000 UT) Oral TabletIndications:H ypocalcemia,Chronic kidney disease, stage 3b (HCC) TAKE 1 TABLET BY MOUTH ONCE DAILY IN THE MORNING 30 Tablet 5 4 03/01/20 24 Discontinued documented as of this encounter (statuses as of 03/01/2024) Active Problems Problem Noted Date Diagnosed Date [...] as of this encounter (statuses as of 03/01/2024) Resolved Problems Problem Noted Date Diagnosed Date Resolved Date COPD, group A, by GOLD 2017 classification 12/06/2022 05/05/2023 Overview: Per COPD GOLD Classification Dementia without behavioral disturbance 08/14/2020 10/08/2023 Overview: ICD-10 update of inactive term COPD, mild 08/14/2020 12/09/2022 Overview: Per COPD GOLD Classification Lymphedema of left leg 05/14/201906/30 Kidney disease, chronic, sta ge III (GFR 30-59 ml/min) 02/05/2019 05/14/2019 Overview: Per CKD protocol Edema 09/11/2015 07/01/2023 DVT (deep venous thrombosis) (HCC) (aka DVT (DEEP VENOUS THROMBOSIS) (HCC)) 11/15/2014 07/01/19 24 Menopause 06/12/2007 09/13/2018 Overview: Age 57yrs, hrt x 4 wks DEEP PHLEBITIS-LEG NEC 04/06/200606/30 Anticoagulation management encounter 04/06/2006 09/13/2018 ADVANCE DIRECTIVE INFORMATION 03/02/2005 02/27/2024 Overview: No, Advance Directive brochure given to patient at prior appointment. documented as of this encounter (statuses as of 03/01/2024) Immunizations Name Administration Dates Next Due COVID-19 mRNA, LNP-s, No Pre serve, 2-Dose Series ([employer]) 03/13/2021,06/19/2020,05/29/2020 COVID-19, MRNA-LNP, PF, 30 M CG/0.3 mL, 12 YRS AND ABOVE, IM (PFIZER-Comirnaty) 07/01/2023 Pneumococcal Conjugate Vacc, 13 Valent (Prevnar) 09/11/2015 Pneumococcal Conjugate Vacci ne, 20-valent ([id number]) 10/07/2023 Season Influenza, Quad, PF, Adjuvanted, 65+ [...] 18 years and over) Not on file 08/01/202 3 Are you (or your family) hui [...] ages 0-17 years) Not on file 11/23/2022 Sex and Gender Information Value Date [...] Telephone Encounter - Orlando Peres MD - 03/01/2024 9:57 AM ESTSigned Prescriptions: Disp Refills Cholecalciferol 25 MCG (1000 UT) Oral Tabl*30 Tab*11 Sig: TAKE 1 TABLET BY MOUTH ONCE DAILY IN THE MORNING Authorizing Provider: ORLANDO PERES * Telephone Encounter - Aida Briceño RN - 03/01/2024 8:40 AM ESTPending Prescriptions: Disp Refills Cholecalciferol 25 MCG (1000 UT) Oral Tabl*30 Tab*11 Sig: TAKE 1 TABLET BY MOUTH ONCE DAILY IN THE MORNING * Telephone Encounter - Aida Briceño RN - 03/01/2024 8:35 AM EST Prescription request received from pharmacy pending. Please authorize. Last OV 04/27/23 Next OV 08/23/24 documented in this encounter Plan of Treatment Upcoming Encounters Date Type Department Care Team (Late st Contact Info) Description 05/04/2024 1:30 PM EST Office Visit Cardiology, [facility] [address] [facility] [place] [address] Cr Pan PA-C [address] [facility] [place] [address] 06/05/2024 3:40 PM EST Office Visit [address] [phone] Petra Marquez MD [address] [place] [phone] 08/23/2024 11:00 AM EDT Office Visit Nephrology [address] [place] [phone] Orlando Peres MD [address] [facility] [place] [address] Health Maintenance Due Date Last Done Comments Diabetic Foot Exam 1953 Adult Wellness Visit 2003 *COPD SEVERITY VERIFIED BY PFT 08/17/2020 DXA Scan 03/19/2022 03/19/2015, 06/2011, 06/15/2008 COVID-19 Vaccine ( season) 2023 07/01/2023, 03/13/2021, 06/19/2020, Additional history exists Depression Screening 03/25/2024 03/25/2023 HbA1c 03/31/2024 09/30/2023 CKD PHOS USE SMARTSET 28104 04/27/202406/2023, 08/09/2022, 08/03/2022, Additional history exists Albumin/Creatinine Ratio 05/25/2024 024, 06/07/2022, 10/02/2019 TSH 05/25/2024 05/25/2023, 0711/2022, 08/03/2022, Additional history exists CKD HGB USE SMARTSET 41549 09/29/202409/29, 09/30/2023, 05/25/2023, Additional history exists O2 [...] as of this encounter Visit Diagnoses Diagnosis Hypocalcemia Chronic kidney disease, stage 3b (HCC) documented in this encounter Advance Directives * Full Code (Latest Code Status on File) Date Activated Date Inactivated Comments 12/03/2019 3:59 PM 12/05/2019 7:00 PM This order r eflects the patients wishes and were consensually agreed upon. Question Answer Comments Discussion of Advance Directives occurred with: Not Discussed Care Teams Hoisting Engineer Pile Driving Relationship Specialty Start Date End Date Petra Marquez MD [address] [place] [phone] PCP - General Family Medicine 07/01/23 documented as of this encounter
--- OUTSIDE RECORDS SUMMARY | 2024-04-17 12:28 | External Medical Summary | Summary of Care ---
Author Name Unknown Organization [facility] Address [address] [place] [address] Phone [phone] Care Team Providers Care Ton Container Shipper Name Role Phone Petra Marquez MD Primary Care Provi rebecca Reason for Visit * Reason Comments eRx-Medication Refill Encounter Details Date Type Department Care Team ([facility] Contact Info) Description 02/23/2024 Refill Nephrology [address] [place] [address] Olvin Peres MD [address] [place] [address] Allergies No known active allergiesdocumented as of this encounter (statuses as of 02/23/2024) Medications Medication Sig Dispensed Refills Start Date [...] the morning. 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 documented as of this encounter (statuses as of 02/23/2024) Resolved Problems Problem Noted Date Diagnosed Date [...] NEC 04/06/200606/30 Anticoagulation management encounter 04/06/2006 09/13/2018 documented as of this encounter (statuses as of 02/23/2024) Immunizations Name Administration Dates Next Due COVID-19 mRNA, LNP-s, No Pre serve, 2-Dose Series ([employer]) 03/13/2021,06/19/2020,05/29/2020 COVID-19, MRNA-LNP, PF, 30 M CG/0.3 mL, 12 YRS AND ABOVE, IM (PFIZER-Comirnaty) 07/01/2023 Pneumococcal Conjugate Vacc, 13 Valent (Prevnar) 09/11/2015 Pneumococcal Conjugate Vacci ne, 20-valent ([id number]) 10/07/2023 Season Influenza, Quad, PF, Adjuvanted, 65+ [...] encounter Miscellaneous Notes * Telephone Encounter - Teri Nicole MD - 02/23/2024 3:52 PM EDTSigned Prescriptions: Disp Refills Calcitriol 0.25 MCG Oral Capsule (Rocaltro*30 Cap*5 Sig: TAKE 1 CAPSULE BY MOUTH ONCE DAILY IN THE MORNING Authorizing Provider: TERI NICOLE * Telephone Encounter - Aida Briceño RN - 02/23/2024 10:37 AM EDTPending Prescriptions: Disp Refills Calcitriol 0.25 MCG Oral Capsule [Pharmacy*30 Cap*5 Sig: TAKE 1 CAPSULE BY MOUTH ONCE DAILY IN THE MORNING * Telephone Encounter - Aida Briceño RN - 02/23/2024 10:35 AM EDT Prescription request received from pharmacy pending. Please authorize. Last OV 04/27/23 Next OV 08/23/24 documented in this encounter Plan of Treatment Upcoming Encounters Date Type Department Care Team (Late st Contact Info) Description 05/04/2024 1:30 PM EST Office Visit Cardiology, [facility] [address] [facility] [place] [address] Cr Pan PA-C [address] [place] [address] 06/05/2024 3:40 PM EST Office Visit Family Practice [address] [phone] Petra Marquez MD [address] [place] [phone] 08/23/2024 11:00 AM EDT Office Visit Nephrology [address] [place] [phone] Olvin Peres MD 200 [facility] [place] [address] Health Maintenance Due Date Last Done Comments Diabetic Foot Exam 1953 Adult Wellness Visit 2003 *COPD SEVERITY VERIFIED BY PFT 08/17/2020 DXA Scan 03/19/2022 03/19/2015, 080 06/2011, 06/15/2008 COVID-19 Vaccine ( season) 2023 07/01/2023, 03/13/2021, 06/19/2020, Additional history exists Depression Screening 03/25/2024 03/25/2023 HbA1c 03/31/2024 09/30/2023 CKD PHOS USE SMARTSET 81361 04/27/202406/2023, 08/09/2022, 08/03/2022, Additional history exists Albumin/Creatinine Ratio 05/25/2024 024, 06/07/2022, 10/02/2019 TSH 05/25/2024 05/25/2023, 10/24, 08/03/2022, Additional history exists CKD HGB USE SMARTSET 41781 09/29/202409/29, 09/30/2023, 05/25/2023, Additional history exists O2 [...] Directives occurred with: Not Discussed Care Teams Ton Container Shipper Relationship Specialty Start Date End Date Petra Marquez MD [address] [place] [phone] PCP - General Family Medicine 07/01/23 documented as of this encounter
--- OUTSIDE RECORDS SUMMARY | 2024-04-17 12:28 | External Medical Summary | Summary of Care ---
Author Name Unknown Organization [facility] Address [address] [place] [address] Phone [phone] Care Team Providers Care Newspaper Writer Name Role Phone Petra Marquez MD Primary Care Provi rebecca Reason for Visit * Reason Comments eRx-Medication Refill Encounter Details Date Type Department Care Team ([facility] Contact Info) Description 10/24/2023 Refill Nephrology [address] [place] [address] Orlando Peres MD [address] [place] [address] Allergies No known active allergiesdocumented as of this encounter (statuses as of 10/25/2023) Medications Medication Sig Dispensed Refills Start Date [...] IN THE MORNING 30 Capsule 5 3 10/25/19 24 Discontinued documented as of this encounter (statuses as of 10/25/2023) Active Problems Problem Noted Date Diagnosed Date [...] as of this encounter (statuses as of 10/25/2023) Resolved Problems Problem Noted Date Diagnosed Date [...] as of this encounter (statuses as of 10/25/2023) Immunizations Name Administration Dates Next Due COVID-19 mRNA, LNP-s, No Pre serve, 2-Dose Series ([employer]) 03/13/2021,06/19/2020,05/29/2020 COVID-19, MRNA-LNP, 23-24, P F, 30 MCG/0.3 mL, 12 YRS AND ABOVE, IM (PFIZER-Comirnaty) 07/01/2023 Pneumococcal Conjugate Vacc, 13 Valent (Prevnar) 09/11/2015 Pneumococcal Conjugate Vacci ne, 20-valent ([id number]) 10/07/2023 Season Influenza, Quad, PF, Adjuvanted, 65+ [...] y our heating, water, or electric bill? No 11/23/2022 Is your family able to pay t he heat, water, or electric bill? (Household - for ages 0-17 years) Not on file 11/23/2022 Does your family have access to good internet? (Household - for ages 0-17 years) Not on file 11/23/2022 Employment Status Answer Date Recorded Are you unemployed or without regular income? No 11/23/2022 Does the household have a re gular source of income? (Household - for ages 0-17 years) Not on file 11/23/2022 Social Connections Answer Date Recorded How often do you feel lonely or isolated from th ose around you? Never 11/23/2022 Financial Resource Strain Answer Date R ecorded [...] Telephone Encounter - Orlando Peres MD - 10/25/2023 9:02 AM EDTSigned Prescriptions: Disp Refills Calcitriol 0.25 MCG Oral Capsule (Rocaltro*30 Cap*5 Sig: TAKE 1 CAPSULE BY MOUTH ONCE DAILY IN THE MORNING Authorizing Provider: ORLANDO PERES * Telephone Encounter - Aida Briceño RN - 10/25/2023 8:41 AM EDTPending Prescriptions: Disp Refills Calcitriol 0.25 MCG Oral Capsule [Pharmacy*30 Cap*5 Sig: TAKE 1 CAPSULE BY MOUTH ONCE DAILY IN THE MORNING * Telephone Encounter - Aida Briceño RN - 10/25/2023 8:40 AM EDT Prescription request received from pharmacy pending. Please authorize. Last OV 04/27/23 Next OV 12/15/23 documented in this encounter Plan of Treatment Upcoming Encounters Date Type Department Care Team (Late st Contact Info) Description 12/15/2023 10:00 AM EDT Office Visit Nephrology [address] [place] [phone] Orlando Peres MD [address] [place] [address] 01/03/2024 11:00 AM EDT Office Visit Family Practice [facility] [address] [place] [phone] Petra Marquez MD [address] [place] [phone] 05/04/2024 1:30 PM EST Office Visit Cardiology, [facility] [address] [place] [address] Jc Pickard MD [address] [place] [address] Health Maintenance Due Date Last Done Comments Diabetic Foot Exam 1953 *COPD SEVERITY VERIFIED BY PFT 08/17/2020 DXA Scan 03/19/2022 03/19/2015, 08/0 06/2011, 06/15/2008 Diabetic Eye Exam 10/20/2023 10/19/2022, 03/03/2021 COVID-19 Vaccine ( season) 2023 07/01/2023, 03/13/2021, 06/19/2020, Additional history exists Influenza Vaccine (FLU shot) (#1) 2023 02/23/2022, 01/16/2021, 03/10/2020, Additional history exists Depression Screening 03/25/2024 03/25/2023 HbA1c 03/31/2024 09/30/2023 CKD PHOS USE SMARTSET 10951 04/27/202406/2023, 08/09/2022, 08/03/2022, Additional history exists Albumin/Creatinine Ratio 05/25/2024 024, 06/07/2022, 10/02/2019 TSH 05/25/2024 05/25/2023, 10/24, 08/03/2022, Additional history exists CKD HGB USE SMARTSET 97734 09/29/202409/29, 09/30/2023, 05/25/2023, Additional history exists O2 ASSESSMENT COMPLETED IN PAST YEAR FOR COPD 10/06/2024 10/07/2023 DTaP,Tdap,and Td Vaccines (2 - Td or Tdap) 09/10/2025 09/11/2015 Alpha-1 Antitrypsin Completed 07/27/2021 Pneumococcal Vaccine: 65+ Years Completed 10/07/2023, 09/11/2015, 03/02/2005 GARDASIL-HPV IMMUNIZATION SERIES Aged Out No longer [...] Directives occurred with: Not Discussed Care Teams Newspaper Writer Relationship Specialty Start Date End Date Petra Marquez MD [address] [place] [phone] PCP - General Family Medicine 07/01/23 documented as of this encounter
--- NOTE | 2024-04-17 12:30 | History & Physical Report ---
Date of Service April 17, 2024 Assessment & Plan (1) Dyspnea on exertion: (2) Heart failure, diastolic, with acute decompensation: Plan: This is an 88-year-old female with PMH of COPD, HFpEF (EF 60-65% Apr 2023), type 2 diabetes, dyslipidemia, paroxysmal atrial fibrillation on Eliquis, hypertension, CKD 3, lymphedema, hypothyroidism and other medical problems listed below who presents from home with progressive shortness of breath over the past 2 weeks and was found to have acute decompensated HFpEF. Progressive SOB x 2 weeks, increased dietary sodium with holidays CXR - Cardiomegaly with pulmonary vascular congestion. Work up: ECG without acute ST changes, BNP 202, troponin WNL Echo from May 18 with EF of 60-65%, grade 1 diastolic dysfunction, moderate MR, mild TR and mildly elevated pulmonary arterial systolic pressure Missed AM torsemide- lasix 40mg IV given in ED Repeat 2D echo, daily weights, strict I&Os, low sodium diet, routine cards consult (3) Hypercapnic respiratory failure: (4) COPD (chronic obstructive pulmonary disease): Plan: Afebrile, mild leukocytosis, resp viral panel negative, procal WNL VBG pH 7.35, pCO2 70 No wheezing on exam; no h/o PFTs but follows with pulm, presumed COPD Received IV solumedrol and albuterol treatment in ED Continue home inhalers, PRN Duo nebs No further steroids at this time, no abx indicated Bipap HS and PRN today Repeat VBG in AM Follow up with pulm for outpatient PFTs, sleep study or consider inpatient consult if condition worsening (5) Atrial fibrillation: Plan: Given missed AM Toprol 100mg, takes 25mg Toprol HS Given missed Eliquis (6) Diabetes mellitus: Plan: A1c 6.8 in September 2023, repeat in AM 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 Pritchard. Please see addendum. I spent a total of 65 minutes coordinating, documenting, and providing care for this patient excluding time spent in the performance of separately billed ser vices. History of Present Illness Chief Complaint: Shortness of breath Primary Care Provider: Petra Marquez MD This is an 88-year-old female with PMH of COPD, HFpEF (EF 60-65% Apr 2023), type 2 diabetes, dyslipidemia, paroxysmal atrial fibrillation on Eliquis, hypertension, CKD 3, lymphedema, hypothyroidism and other medical problems listed below who presents from home with progressive shortness of breath over the past 2 weeks. Lives alone and daughter has noticed she has been less active over the past few days and seems SOB when doing typical tasks she does not have an issue with. Also audibly wheezing. Has needed to sit or lay down a lot of the time. No F/C, coughing, CP, N/V, abd pain, dysuria, diarrhea or constipation. Does not use oxygen at home and does not require ambulatory devices. Has lymphedema at baseline. Echo from April 2023 revealed preserved EF of 60 to 65%, grade 1 diastolic dysfunction, moderate mitral regurgitation, mild tricuspid regurgitation and mildly elevated pulmonary arterial systolic pressure. Has been compliant with medications, including diuretic and Eliquis. Allergies Allergy/AdvReac Type Severity Reaction Status Date / Time No Known Drug Allergies Allergy Unknown Verified 08/09/23 11:21 Home Medications Medication Instructions Recorded Confirmed Type loratadine 10 mg tablet (Claritin) 10 mg PO QAM 01/26/19 04/17/24 History levothyroxine 112 mcg tablet 112 mcg PO DAILYBB 10/16/21 04/17/24 History atorvastatin 20 mg tablet (Lipitor) 20 mg PO QAM 10/20/21 04/17/24 History lisinopril 10 mg tablet (Zestril) 2.5 mg PO DAILY@1200 10/20/21 04/17/24 History metoprolol succinate 100 mg 100 mg PO QAM 01/28/22 04/17/24 History tablet,extended release 24 hr acetaminophen 500 mg tablet 1,000 mg PO BID PRN Pain 02/07/22 04/17/24 History metoprolol succinate 25 mg 25 mg PO HS 02/07/22 04/17/24 History tablet,extended release 24 hr cholecalciferol (vitamin D3) 25 1,000 unit PO QAM #30 caps 02/17/22 04/17/24 Rx mcg (1,000 unit) capsule apixaban 5 mg tablet (Eliquis) 5 mg PO BID 05/01/23 04/17/24 History calcitriol 0.25 mcg capsule 0.25 mcg PO QAM 05/01/23 04/17/24 History calcium 500 mg (as 3 tab PO BID 05/01/23 04/17/24 History carbonate)-vitamin D3 15 mcg (600 unit) tablet (Os-Chris 500 + D3) torsemide 10 mg tablet 10 mg PO QAM 05/01/23 04/17/24 History albuterol sulfate 90 mcg/actuation 1 inh inhalation QID PRN sob #8.5 05/06/23 04/17/24 Rx aerosol inhaler grams benzonatate 100 mg capsule 100 mg PO Q8H PRN cough #30 caps 05/06/23 04/17/24 Rx ipratropium 0.5 mg-albuterol 3 mg 3 ml NEB Q4R PRN shortness of 05/06/23 04/17/24 Rx (2.5 mg base)/3 mL nebulization breath or wheezing #90 mL soln budesonide 1 mg/2 mL suspension 0.5 mg inhalation BID 06/02/23 04/17/24 History for nebulization diphenhydramine HCl 25 mg capsule 25 mg PO .qhs PRN Insomnia 06/02/23 04/17/24 History (Benadryl) guaifenesin 600 mg tablet, 600 mg PO ONCE 06/02/23 04/17/24 History extended release 12 hr (Mucinex) Past Med/Surg History Problem List Elevated blood sugar (Acute) Leukocytosis (Acute) Exertional shortness of breath (Acute) CKD (chronic kidney disease), stage III Diabetes mellitus Hypercapnic respiratory failure Heart failure, diastolic, with acute decompensation Dyspnea on exertion 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 informed by surgeon voice change is probably r/t intubation. Enlarged thyroid Nodular thyroid disease [place] (hard of hearing) HTN (hypertension) Lymphedema BLLE History of thrombosis Reactive airway disease Surgical History S/P IVC filter History of cataract surgery History of thyroidectomy History of tubal ligation History of breast biopsy LEFT - 1985 Family History Other No family history of adverse response to anesthesia No family history of allergies No family history of bleeding disorder Denies family history of Hearing loss Heart disease Cancer Hypertension Stroke Asthma Social History Smoking Status: Never smoker Second Hand Exposure: No; Do You Dip or Chew Tobacco: No; Hx Alcohol Use: No Hx Substance Use: No Preferred Language: Swiss Communication Ability: Effective 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 Physical Exam Physical Exam: Please see Dr. Pritchard's addendum for physical exam. Results & Data Results & Data Vital Signs (Past 12 Hours) Vital Signs Temp Pulse Resp BP Pulse Ox O2 Del Method O2 Flow Rate 04/17/24 12:01 76 23 130/62 95 04/17/24 11:30 76 17 118/85 94 04/17/24 11:25 93 Room Air 0 04/17/24 11:09 74 12 94 Room Air 04/17/24 11:03 79 20 132/56 L 04/17/24 10:57 82 04/17/24 10:40 36.8 C 78 20 157/74 H 91 Room Air Laboratory Results Short CBC 04/17/24 Range/Units 11:11 WBC 13.30 H (4.8-10.8) K/ul Hgb 13.3 (12.0-16.0) g/dl Hct 40.0 (37.0-47.0) % Plt Count 226 (130-400) K/uL BMP 04/17/24 11:11 Sodium 143 Potassium 4.3 Chloride 100 Carbon Dioxide 34 H BUN 22 Creatinine 1.17 Glucose 139 H Calcium 9.2 Liver Function 04/17/24 Range/Units 11:11 Total Bilirubin 1.2 H (0.2-1.0) mg/dl AST 14 (13-39) U/L ALT 11 (7-52) U/L Alkaline Phosphatase 99 (34-104) U/L Albumin 4.4 (3.4-5.0) gm/dl Diagnostic Findings Chest X-Ray 04/17/24 10:52 XR chest 1V portable CLINICAL HISTORY: Chest pain, nonspecific COMPARISON STUDY: Chest radiograph April 2023. Chest CT July 22, 2023. FINDINGS: There is no pneumothorax or pleural effusion. Moderate cardiomegaly is unchanged. There is pulmonary vascular congestion without overt pulmonary edema. There is no consolidation to suggest pneumonia. IMPRESSION: Cardiomegaly with pulmonary vascular congestion. ACT 112: Negative or not required by law. Electronically signed by: Johny Peace M.D. 04/17/2024 11:37 AM Supervising Physician Co-Signing Physician Notes Presents with SOB that has been worsening in the past 2 weeks Had some wheezing as well Has chronic leg edema Denied fever, chills, cough, chest pain On exam, General: Not in acute distress Eyes: PERRL, conjunctivae normal, not pale, anicteric sclerae, EOM intact bilaterally ENMT: External ear and nose normal, oropharynx normal Respiratory: Normal respiratory effort, no respiratory distress, Diminished breath sounds, no wheeze Cardiovascular: RRR S1 S2 Gastrointestinal (Abdomen): Abdomen is not distended, soft, non-tender to palpation, no guarding, no palpable hepatosplenomegaly, normal bowel sounds Musculoskeletal: B/L leg edema Neurologic: No focal weakness, sensation grossly intact Psychiatric: Alert and oriented x 3, euthymic affect CXR noted pulm vascular congestion Labs notable for WBC 13, BNP 202 Possible acute on chronic heart failure Hold home po torsemide and do IV lasix for now Low suspicion for infection based on history and available findings. Get procal. Hold antibiotics for VBG showed pCO2 70. Hence patient has some hypercarbia and may benefit from BIPAP. Needs to f/u with her Barkeeper for PFT and Sleep study I spent a total of 45 minutes coordinating, documenting and providing care for this patient excluding time spent in performance of separately billed services (5) Atrial fibrillation Atrial fibrillation type: paroxysmal Qualified Code(s): I48.0 - Paroxysmal atrial fibrillation
[2024-04-17] MEDS: ALBUT/IPRATROP 3MG/0.5MG NEB 3 ML VIAL NEB STA (12:32)
[2024-04-17] MEDS: methylPREDNISolone 125 MG/2 ML VIAL IV STA (12:32)
[2024-04-17 12:54] LABS: Base Excess VBG 10.2 mEq/L; HCO3 VBG 39 mmol/L; Oxygen Saturation VBG 78.8 %; PCO2 VBG 70 mmHg (38-50); PO2 VBG 48 mmHg; pH VBG 7.35 (7.36-7.41)
[2024-04-17] MEDS: APIXABAN 5 MG TABLET PO ONE (13:15)
[2024-04-17] MEDS: FUROSEMIDE 40 MG/4 ML VIAL IV ONE (13:15)
[2024-04-17] MEDS: METOPROLOL SUCC 50MG EXT REL TAB PO STA (13:15)
[2024-04-17] MEDS ORDERED: GLUCOSE 10 TAB/TUBE PO PRN (13:59)
[2024-04-17] MEDS ORDERED: GLUCOSE 40% GEL 15 GM TUBE PO PRN (13:59)
[2024-04-17] MEDS ORDERED: CARBOHYDRATES FOR HYPOGLYCEMIA PO PRN (13:59)
[2024-04-17] MEDS ORDERED: DEXTROSE 50% 50 ML SYRINGE IV PRN (13:59)
[2024-04-17] MEDS ORDERED: GLUCAGON FOR INJ 1 MG VIAL SQ PRN (13:59)
--- NOTE | 2024-04-17 14:42 | Cardiology Consultation ---
Date of Consultation April 17, 2024 Assessment & Plan (1) Heart failure, diastolic, with acute decompensation: (2) Exertional shortness of breath: (3) CKD (chronic kidney disease), stage III: Plan Patient is an 88-year-old female with past hypertension, paroxysmal atrial fi brillation and chronic diastolic heart failure with preserved ejection fraction. She carries an underlying history of chronic obstructive lung disease/tracheomalacia in association with respiratory infection April 2023. Patient presents today noting 2 to 3 weeks history of increasing dyspnea, dyspnea on exertion lower extremity edema with associated wheeze. Chest x-ray today demonstrates mild increase in vascular markings. Echocardiogram demonstrates preserved LV systolic function with improved hemodynamics. Impression: Mildly decompensated volume overload by clinical history. Underlyi ng pulmonary issues not completely excluded. Patient has received IV Lasix, Solu-Medrol and bronchodilator in ER. Recommendations: Continue IV diuretics overnight. Continue prehospital medications including beta-sandro, anticoagulation with Eliquis good possibility patient will respond promptly. History of Present Illness Reason for Consultation: Pulmonary vascular congestion Requesting Physician: Samantha Olmstead History of Present Illness Patient is an 88-year-old female with cardiac concerns as below 1. Paroxysmal atrial fibrillation recently observed on October 15, 2021 2. Hypertension 3. Past extensive DVT status post thrombectomy and IVC filter on chronic anticoagulation 4. Chronic obstructive lung disease 5. Lymphedema. 6. Acute respiratory failure secondary to RSV pneumonia May 01, 2023 7. Chronic diastolic heart failure with preserved ejection fraction Patient presents this admission noting 2 to 3 weeks increasing dyspnea and dyspnea on exertion chronic lower extremity edema. Denies fevers chills or productive cough. Notes no tachypalpitations syncope or near syncope. No chest pains or discomfort. Does admit to increased sodium intake through multiple restaurant visits recently. No overt orthopnea. No bleeding issues with patient maintained on chronic anticoagulation. Appetite and weight have been stable Allergies Allergy/AdvReac Type Severity Reaction Status Date / Time No Known Drug Allergies Allergy Unknown Verified 08/09/23 11:21 Home Medications Medication Instructions Recorded Confirmed Type loratadine 10 mg tablet (Claritin) 10 mg PO QAM 01/26/19 04/17/24 History levothyroxine 112 mcg tablet 112 mcg PO DAILYBB 10/16/21 04/17/24 History atorvastatin 20 mg tablet (Lipitor) 20 mg PO QAM 10/20/21 04/17/24 History lisinopril 10 mg tablet (Zestril) 2.5 mg PO DAILY@1200 10/20/21 04/17/24 History metoprolol succinate 100 mg 100 mg PO QAM 01/28/22 04/17/24 History tablet,extended release 24 hr acetaminophen 500 mg tablet 1,000 mg PO BID PRN Pain 02/07/22 04/17/24 History metoprolol succinate 25 mg 25 mg PO HS 02/07/22 04/17/24 History tablet,extended release 24 hr cholecalciferol (vitamin D3) 25 1,000 unit PO QAM #30 caps 02/17/22 04/17/24 Rx mcg (1,000 unit) capsule apixaban 5 mg tablet (Eliquis) 5 mg PO BID 05/01/23 04/17/24 History calcitriol 0.25 mcg capsule 0.25 mcg PO QAM 05/01/23 04/17/24 History calcium 500 mg (as 3 tab PO BID 05/01/23 04/17/24 History carbonate)-vitamin D3 15 mcg (600 unit) tablet (Os-Chris 500 + D3) torsemide 10 mg tablet 10 mg PO QAM 05/01/23 04/17/24 History albuterol sulfate 90 mcg/actuation 1 inh inhalation QID PRN sob #8.5 05/06/23 04/17/24 Rx aerosol inhaler grams benzonatate 100 mg capsule 100 mg PO Q8H PRN cough #30 caps 05/06/23 04/17/24 Rx ipratropium 0.5 mg-albuterol 3 mg 3 ml NEB Q4R PRN shortness of 05/06/23 04/17/24 Rx (2.5 mg base)/3 mL nebulization breath or wheezing #90 mL soln budesonide 1 mg/2 mL suspension 0.5 mg inhalation BID 06/02/23 04/17/24 History for nebulization diphenhydramine HCl 25 mg capsule 25 mg PO .qhs PRN Insomnia 06/02/23 04/17/24 History (Benadryl) guaifenesin 600 mg tablet, 600 mg PO ONCE 06/02/23 04/17/24 History extended release 12 hr (Mucinex) Patient History Medical History Weakness History of DVT (deep vein thrombosis) History of anesthesia complications per dtr, voice has changed since thyroidectomy. informed by surgeon voice change is probably r/t intubation. Enlarged thyroid Nodular thyroid disease [place] (hard of hearing) HTN (hypertension) Lymphedema BLLE History of thrombosis Reactive airway disease Surgical History S/P IVC filter History of cataract surgery History of thyroidectomy History of tubal ligation History of breast biopsy LEFT - 1985 Family History Other No family history of adverse response to anesthesia No family history of allergies No family history of bleeding disorder Denies family history of Hearing loss Heart disease Cancer Hypertension Stroke Asthma Social History Smoking Status: Never smoker Second Hand Exposure: No; Do You Dip or Chew Tobacco: No; Hx Alcohol Use: No Hx Substance Use: No Preferred Language: Citizen Of [place] Communication Ability: Effective Cloth Finishing Range 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 Required: No Beliefs That Will Affect Care: None marital status: / Current Living Situation: Alone current occupational status: retired How many Children do You have: 4 Feels Safe at Home: Yes Assistive Devices: None Review of Systems Review of Systems: All systems reviewed & are unremarkable except as noted in HPI & below Physical Exam Constitutional: WD/WN, vitals as above no acute distress Eyes: PERRL, conjunctivae normal, anicteric sclerae ENMT: external ear and nose normal, oropharynx normal Neck: trachea midline, no thyromegaly Respiratory: Auscultation: + wheezes Cardiovascular: Rate/Rhythm: regular rate and regular rhythm Heart Sounds: normal S1 and normal S2 Vessels: no JVD Extremities: + pedal edema Gastrointestinal (Abdomen): normal bowel sounds, soft, nontender, no hepatosplenomegaly Musculoskeletal: no cyanosis or clubbing, extremities motor strength 5/5 Results & Data Vital Signs (Past 12 Hours) Vital Signs Temp Pulse Resp BP Pulse Ox O2 Del Method O2 Flow Rate 04/17/24 13:56 83 04/17/24 12:30 80 22 117/68 94 04/17/24 12:01 76 23 130/62 95 04/17/24 11:30 76 17 118/85 94 04/17/24 11:25 93 Room Air 0 04/17/24 11:09 74 12 94 Room Air 04/17/24 11:03 79 20 132/56 L 04/17/24 10:57 82 04/17/24 10:40 36.8 C 78 20 157/74 H 91 Room Air Laboratory Results Laboratory Results - last 24 hr 04/17/24 04/17/24 04/17/24 11:11 11:46 12:43 WBC 13.30 H RBC 4.32 Hgb 13.3 Hct 40.0 MCV 92.6 MCH 30.8 MCHC 33.3 RDW Std Deviation 43.2 RDW Coeff of Juan 12.7 Plt Count 226 MPV 10.1 Immature Gran % (Auto) 0.5 Neut % (Auto) 74.3 Lymph % (Auto) 19.2 [place] % (Auto) 5.3 Eos % (Auto) 0.5 Baso % (Auto) 0.2 Neut # (Auto) 9.88 H Lymph # (Auto) 2.55 [place] # (Auto) 0.71 H Eos # (Auto) 0.07 Baso # (Auto) 0.03 Immature Gran # (Auto) 0.06 VBG pH 7.35 L VBG pCO2 70 H VBG pO2 48 VBG HCO3 39 VBG O2 Saturation 78.8 VBG Base Excess 10.2 Sodium 143 Potassium 4.3 Chloride 100 Carbon Dioxide 34 H Anion Gap 9 BUN 22 Creatinine 1.17 Est Cr Clr Drug Dosing 32.1 eGFR 45.44 BUN/Creatinine Ratio 18.8 Glucose 139 H Calcium 9.2 Total Bilirubin 1.2 H AST 14 ALT 11 Alkaline Phosphatase 99 Troponin I High Sens 10.4 B-Natriuretic Peptide 202 H Total Protein 7.3 Albumin 4.4 Globulin 2.9 Albumin/Globulin Ratio 1.5 Lipase 39 Procalcitonin < 0.02 Adenovirus (PCR) Not Detected B. pertussis DNA (PCR) Not Detected B.parapertussis DNA PCR Not Detected C. pneumoniae DNA (PCR) Not Detected Coronavirus OC43 (PCR) Not Detected Coronavirus HKU1 (PCR) Not Detected Coronavirus 229E (PCR) Not Detected SARS-CoV-2 (PCR) Not Detected Coronavirus NL63 (PCR) Not Detected Human Metapneumovir PCR Not Detected Influenza Type A (PCR) Not Detected Influenza Type B (PCR) Not Detected M. pneumoniae (PCR) Not Detected Parainfluenza 1 (PCR) Not Detected Parainfluenza 2 (PCR) Not Detected Parainfluenza 3 (PCR) Not Detected Parainfluenza 4 (PCR) Not Detected RSV (PCR) Not Detected Entero/Rhino (PCR) Not Detected Diagnostic Findings Echocardiogram preliminary today demonstrates moderate left hypertrophy with normal to hyperdynamic LV function, EF 65-70%, grade 2 diastolic dysfunction with moderate left atrial enlargement. There is trace mitral and tricuspid insufficiency. In comparison to prior study of April 2023 significant mitral insufficiency and pulmonary hypertension are no longer present.
[2024-04-17] MEDS ORDERED: diphenhydrAMINE Capsule 25 MG CAP PO PRN (15:38)
[2024-04-17] MEDS ORDERED: ALBUTEROL HFA 8 GM INHALER INH PRN (15:38)
[2024-04-17] MEDS ORDERED: POLYETHYLENE (MIRALAX) 17 GM PACK PO PRN (15:38)
[2024-04-17] MEDS ORDERED: ACETAMINOPHEN 325 MG TAB PO PRN (15:38)
[2024-04-17] MEDS ORDERED: ALBUT/IPRATROP 3MG/0.5MG NEB 3 ML VIAL NEB PRN (15:38)
[2024-04-17] MEDS ORDERED: ONDANSETRON INJ 2 MG/ML 2 ML VIAL IV PRN (15:38)
[2024-04-17] MEDS ORDERED: BENZONATATE 100 MG CAPSULE PO PRN (15:38)
--- NOTE | 2024-04-17 16:21 | Electrocardiogram Report ---
Test Reason : Blood Pressure : */* mmHG Vent. Rate : 75 BPM Atrial Rate : 75 BPM P-R Int : 178 ms QRS Dur : 64 ms QT Int : 418 ms P-R-T Axes : 70 60 39 degrees QTcB Int : 466 ms Normal sinus rhythm When compared with ECG of 02-May-2023 10:19, Premature supraventricular complexes are no longer Present QRS duration has decreased T wave amplitude has decreased in Anterior leads Confirmed by Edison Fernandes ([id number]) on 04/17/2024 4:21:33 PM Referred By: REFERRED SELF Confirmed By: Edison Fernandes
[2024-04-17] MEDS: INSULIN ASPART PER UNIT CHARGE SC SCH (17:40)
[2024-04-17] MEDS: FUROSEMIDE INJ 20 MG/2 ML VIAL IV ONE (17:44)
[2024-04-17] MEDS: BUDESONIDE 0.5 MG/2 ML VIAL (PULMICORT) INH SCH (19:11)
[2024-04-17] MEDS: CALCIUM 600MG + VIT D 400 IU TAB PO SCH (20:04)
[2024-04-17] MEDS: METOPROLOL SUCC 25MG EXT REL TAB PO SCH (20:04)
[2024-04-17] MEDS: APIXABAN 5 MG TABLET PO SCH (20:04)
[2024-04-18] MEDS: LEVOTHYROXINE SODIUM 112 MCG TABLET PO SCH (05:17)
[2024-04-18 06:16] LABS: Base Excess VBG 12.1 mEq/L; HCO3 VBG 37 mmol/L; PCO2 VBG 49 mmHg (38-50); PO2 VBG 58 mmHg; pH VBG 7.49 (7.36-7.41)
[2024-04-18 06:23] LABS: Hemoglobin 11.9 g/dl (12.0-16.0); Mean Corpuscular Hemoglobin 30.9 pg (25.0-34.0); Mean Corpuscular Volume 90.9 fL (80.0-100.0); Mean Platelet Volume 10.4 fL (9.4-12.4); Nucleated RBC # (auto) 0.02 K/uL (0.00-0.12); Nucleated RBC % (auto) 0.1 %; Platelet Count 210 K/uL (130-400); RDW Coefficient of Variation 12.6 % (11.5-14.5); RDW Standard Deviation 41.4 fL (36.4-46.3); Red Blood Count 3.85 M/uL (4.20-5.40); White Blood Count 14.04 K/ul (4.8-10.8)
[2024-04-18 06:45] LABS: Calcium 9.2 mg/dl (8.6-10.3); Creatinine Clr Calc Pharmacy 28.8 ml/min; Magnesium 1.8 mg/dl (1.7-2.4); Potassium 4.6 mmol/L (3.5-5.1)
[2024-04-18 07:47] LABS: Estimated Average Glucose 148 mg/dl; Hemoglobin A1C 6.8 % (4.5-5.6)
[2024-04-18] MEDS: ATORVASTATIN 20 MG TAB PO SCH (08:39)
[2024-04-18] MEDS: FUROSEMIDE 40 MG/4 ML VIAL IV SCH (08:40)
[2024-04-18] MEDS: CHOLECALCIFEROL 25 MCG (1000 UNITS) TAB PO SCH (08:40)
[2024-04-18] MEDS: CALCITRIOL 0.25 MCG CAPSULE PO SCH (08:40)
[2024-04-18] MEDS: LORATADINE 10 MG TAB PO SCH (08:41)
[2024-04-18] MEDS: METOPROLOL SUCC 50MG EXT REL TAB PO SCH (08:42)
--- NOTE | 2024-04-18 10:05 | Cardiology Progress Note ---
Date of Service April 18, 2024 Assessment & Plan (1) Heart failure, diastolic, with acute decompensation: (2) Exertional shortness of breath: (3) CKD (chronic kidney disease), stage III: Plan Patient is an 88-year-old female with past hypertension, paroxysmal atrial fibrillation and chronic diastolic heart failure with preserved ejection fraction. She carries an underlying history of chronic obstructive lung disease/tracheomalacia in association with respiratory infection April 2023. Patient presents today noting 2 to 3 weeks history of increasing dyspnea, dyspnea on exertion lower extremity edema with associated wheeze. Chest x-ray today demonstrates mild increase in vascular markings. Echocardiogram demonstrates preserved LV systolic function with improved hemodynamics. Impression: Mildly decompensated volume overload by clinical history. Underlying pulmonary issues not completely excluded. Patient has received IV Lasix, Solu-Medrol and bronchodilator in ER. Recommendations: Continue IV diuretics overnight. Continue prehospital medications including beta-sandro, anticoagulation with Eliquis good possibility patient will respond promptly. 04/18/2024 1. Acute decompensated diastolic heart failure with mild volume overload responded to IV diuretics. Would recommend increasing torsemide to 10 alternating with 20 mg every other day. Add spironolactone 12.5 mg 3 days/week No additional recommendations. Continue other prehospital medications Admission and Anticipated Discharge Date Admission Date: April 17, 2024 Subjective Patient was seen and examined, chart, medications, telemetry reviewed. Good diuresis overnight. Ambulatory in room without complaint. No chest pains, tachypalpitations. No sense of breathlessness or orthopnea. Lower extremity edema improved. Review of Systems Review of Systems: All systems reviewed & are unremarkable except as noted in Subjective Physical Exam Constitutional: WD/WN, vitals as above no acute distress Eyes: PERRL, conjunctivae normal, anicteric sclerae ENMT: external ear and nose normal, oropharynx normal Neck: trachea midline, no thyromegaly Cardiovascular: Rate/Rhythm: regular rate and regular rhythm Heart Sounds: normal S1 and normal S2 Vessels: no JVD Extremities: + pedal edema; no edema Gastrointestinal (Abdomen): normal bowel sounds, soft, nontender, no hepatosplenomegaly Musculoskeletal: no cyanosis or clubbing, extremities motor strength 5/5 Results & Data Vital Signs (Past 12 Hours) Vital Signs Temp Pulse Pulse Resp BP Pulse Ox O2 Del Method 04/18/24 08:08 36.6 C 76 20 134/75 91 Room Air 04/18/24 05:06 76 18 93 04/18/24 05:06 93 Room Air 04/18/24 02:34 36.5 C 70 17 130/72 92 Room Air 04/17/24 22:52 36.6 C 74 18 118/56 L 90 Room Air 04/17/24 22:34 74 Laboratory Results Laboratory Results - last 24 hr 04/17/24 04/17/24 04/17/24 11:11 11:46 12:43 WBC 13.30 H RBC 4.32 Hgb 13.3 Hct 40.0 MCV 92.6 MCH 30.8 MCHC 33.3 RDW Std Deviation 43.2 RDW Coeff of Juan 12.7 Plt Count 226 MPV 10.1 Immature Gran % (Auto) 0.5 Neut % (Auto) 74.3 Lymph % (Auto) 19.2 [place] % (Auto) 5.3 Eos % (Auto) 0.5 Baso % (Auto) 0.2 Neut # (Auto) 9.88 H Lymph # (Auto) 2.55 [place] # (Auto) 0.71 H Eos # (Auto) 0.07 Baso # (Auto) 0.03 Immature Gran # (Auto) 0.06 Absolute Nucleated RBC Nucleated RBC % (auto) VBG pH 7.35 L VBG pCO2 70 H VBG pO2 48 VBG HCO3 39 VBG O2 Saturation 78.8 VBG Base Excess 10.2 Sodium 143 Potassium 4.3 Chloride 100 Carbon Dioxide 34 H Anion Gap 9 BUN 22 Creatinine 1.17 Est Cr Clr Drug Dosing 32.1 eGFR 45.44 BUN/Creatinine Ratio 18.8 Glucose 139 H POC Glucose Estimat Average Glucose Hemoglobin A1c Calcium 9.2 Magnesium Total Bilirubin 1.2 H AST 14 ALT 11 Alkaline Phosphatase 99 Troponin I High Sens 10.4 B-Natriuretic Peptide 202 H Total Protein 7.3 Albumin 4.4 Globulin 2.9 Albumin/Globulin Ratio 1.5 Lipase 39 Procalcitonin < 0.02 Adenovirus (PCR) Not Detected B. pertussis DNA (PCR) Not Detected B.parapertussis DNA PCR Not Detected C. pneumoniae DNA (PCR) Not Detected Coronavirus OC43 (PCR) Not Detected Coronavirus HKU1 (PCR) Not Detected Coronavirus 229E (PCR) Not Detected SARS-CoV-2 (PCR) Not Detected Coronavirus NL63 (PCR) Not Detected Human Metapneumovir PCR Not Detected Influenza Type A (PCR) Not Detected Influenza Type B (PCR) Not Detected M. pneumoniae (PCR) Not Detected Parainfluenza 1 (PCR) Not Detected Parainfluenza 2 (PCR) Not Detected Parainfluenza 3 (PCR) Not Detected Parainfluenza 4 (PCR) Not Detected RSV (PCR) Not Detected Entero/Rhino (PCR) Not Detected 04/17/24 04/17/24 04/18/24 16:27 20:43 06:06 WBC 14.04 H RBC 3.85 L Hgb 11.9 L Hct 35.0 L MCV 90.9 MCH 30.9 MCHC 34.0 RDW Std Deviation 41.4 RDW Coeff of Juan 12.6 Plt Count 210 MPV 10.4 Immature Gran % (Auto) Neut % (Auto) Lymph % (Auto) [place] % (Auto) Eos % (Auto) Baso % (Auto) Neut # (Auto) Lymph # (Auto) [place] # (Auto) Eos # (Auto) Baso # (Auto) Immature Gran # (Auto) Absolute Nucleated RBC 0.02 Nucleated RBC % (auto) 0.1 VBG pH 7.49 H VBG pCO2 49 VBG pO2 58 VBG HCO3 37 VBG O2 Saturation 89.0 VBG Base Excess 12.1 Sodium 141 Potassium 4.6 Chloride 98 Carbon Dioxide 34 H Anion Gap 9 BUN 31 H Creatinine 1.29 H Est Cr Clr Drug Dosing 28.8 eGFR 40.42 BUN/Creatinine Ratio 24.0 H Glucose 156 H POC Glucose 159 H 212 H Estimat Average Glucose 148 Hemoglobin A1c 6.8 H Calcium 9.2 Magnesium 1.8 Total Bilirubin AST ALT Alkaline Phosphatase Troponin I High Sens B-Natriuretic Peptide Total Protein Albumin Globulin Albumin/Globulin Ratio Lipase Procalcitonin Adenovirus (PCR) B. pertussis DNA (PCR) B.parapertussis DNA PCR C. pneumoniae DNA (PCR) Coronavirus OC43 (PCR) Coronavirus HKU1 (PCR) Coronavirus 229E (PCR) SARS-CoV-2 (PCR) Coronavirus NL63 (PCR) Human Metapneumovir PCR Influenza Type A (PCR) Influenza Type B (PCR) M. pneumoniae (PCR) Parainfluenza 1 (PCR) Parainfluenza 2 (PCR) Parainfluenza 3 (PCR) Parainfluenza 4 (PCR) RSV (PCR) Entero/Rhino (PCR) 04/18/24 08:02 WBC RBC Hgb Hct MCV MCH MCHC RDW Std Deviation RDW Coeff of Juan Plt Count MPV Immature Gran % (Auto) Neut % (Auto) Lymph % (Auto) [place] % (Auto) Eos % (Auto) Baso % (Auto) Neut # (Auto) Lymph # (Auto) [place] # (Auto) Eos # (Auto) Baso # (Auto) Immature Gran # (Auto) Absolute Nucleated RBC Nucleated RBC % (auto) VBG pH VBG pCO2 VBG pO2 VBG HCO3 VBG O2 Saturation VBG Base Excess Sodium Potassium Chloride Carbon Dioxide Anion Gap BUN Creatinine Est Cr Clr Drug Dosing eGFR BUN/Creatinine Ratio Glucose POC Glucose 207 H Estimat Average Glucose Hemoglobin A1c Calcium Magnesium Total Bilirubin AST ALT Alkaline Phosphatase Troponin I High Sens B-Natriuretic Peptide Total Protein Albumin Globulin Albumin/Globulin Ratio Lipase Procalcitonin Adenovirus (PCR) B. pertussis DNA (PCR) B.parapertussis DNA PCR C. pneumoniae DNA (PCR) Coronavirus OC43 (PCR) Coronavirus HKU1 (PCR) Coronavirus 229E (PCR) SARS-CoV-2 (PCR) Coronavirus NL63 (PCR) Human Metapneumovir PCR Influenza Type A (PCR) Influenza Type B (PCR) M. pneumoniae (PCR) Parainfluenza 1 (PCR) Parainfluenza 2 (PCR) Parainfluenza 3 (PCR) Parainfluenza 4 (PCR) RSV (PCR) Entero/Rhino (PCR)
[2024-04-18] MEDS: SPIRONOLACTONE 12.5 MG TAB PO ONE (10:56)
[2024-04-18] MEDS: TORSEMIDE 20 MG TAB PO SCH (10:56)
--- NOTE | 2024-04-18 11:12 | Hospitalist Progress Note ---
Date of Service April 18, 2024 Assessment & Plan (1) Dyspnea on exertion: (2) Heart failure, diastolic, with acute decompensation: Plan: This is an 88-year-old female with PMH of COPD, HFpEF (EF 60-65% Apr 2023), type 2 diabetes, dyslipidemia, paroxysmal atrial fibrillation on Eliquis, hypertension, CKD 3, lymphedema, hypothyroidism and other medical problems listed below who presents from home with progressive shortness of breath over the past 2 weeks and was found to have acute decompensated HFpEF. Progressive SOB x 2 weeks, increased dietary sodium with holidays CXR - Cardiomegaly with pulmonary vascular congestion. Work up: ECG without acute ST changes, BNP 202, troponin WNL Echo from May 18 with EF of 60-65%, grade 1 diastolic dysfunction, moderate MR, mild TR and mildly elevated pulmonary arterial systolic pressure Missed AM torsemide- lasix 40mg IV given in ED Repeat 2D echo, daily weights, strict I&Os, low sodium diet, routine cards consult Appreciate cardiology input and recommendation She has had enough diuresis with improvement of symptoms Has had to a step O2 saturation test and does not require any oxygen She will be discharged home this afternoon (3) Hypercapnic respiratory failure: (4) COPD (chronic obstructive pulmonary disease): Plan: Afebrile, mild leukocytosis, resp viral panel negative, procal WNL VBG pH 7.35, pCO2 70 No wheezing on exam; no h/o PFTs but follows with pulm, presumed COPD Received IV solumedrol and albuterol treatment in ED Continue home inhalers, PRN Duo nebs No further steroids at this time, no abx indicated Bipap HS and PRN today Repeat VBG in AM Follow up with pulm for outpatient PFTs, sleep study or consider inpatient consult if condition worsening (5) Atrial fibrillation: Plan: Given missed AM Toprol 100mg, takes 25mg Toprol HS Given missed Eliquis Heart rate is controlled on the upper side at 94 today (6) Diabetes mellitus: Plan: A1c 6.8 in September 2023, repeat in AM Diet controlled SSI 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 BSG AC HS (7) CKD (chronic kidney disease), stage III: Plan: Cr 1.17 (baseline 1.1-1.3) Repeat BMP in AM DVT Ppx: Eliquis Code status: FULL PCP: Jimmy Dispo: Admitted to PCU Admission and Anticipated Discharge Date Admission Date: April 17, 2024 Subjective 04/18/2024 The patient was seen and examined in telemetry unit She has been feeling a lot better Denies any shortness of breath with exertion or at rest and her leg swelling has improved She wants to go home Review of Systems Review of Systems: All systems reviewed and are unremarkable except as noted below Physical Exam Physical Exam: Sitting on a chair without any acute distress Constitutional: well developed, well nourished and + obese; not ill appearing Eyes: PERRL, conjunctivae normal, anicteric sclerae ENMT: external ear and nose normal, oropharynx normal Neck: trachea midline, no thyromegaly Respiratory: no respiratory distress Auscultation: + diminished lung sounds and + crackles ( minimal bibasilar crackles) Cardiovascular: Rate/Rhythm: regular rate and regular rhythm; not tachycardic Heart Sounds: normal S1 and normal S2; no murmur Extremities: + edema ( 1+ edema bilaterally with chronic lymphedema) Gastrointestinal (Abdomen): Inspection/Auscultation: normal bowel sounds; abdomen not distended Percussion/Palpation: abdomen soft; abdomen nontender Musculoskeletal: No acute arthritis involving any of the joints Neurologic: normal touch/pain/proprioception and moves all extremities; no focal motor deficits Psychiatric: A+Ox3, euthymic affect Lymphatic: no cervical or axillary lymphadenopathy Results & Data Results & Data Vital Signs (Past 12 Hours) Vital Signs Temp Pulse Pulse Pulse Resp Resp Resp 04/18/24 10:07 94 H 70 18 18 04/18/24 08:08 36.6 C 76 20 04/18/24 05:06 76 18 04/18/24 05:06 04/18/24 02:34 36.5 C 70 17 BP Pulse Ox Pulse Ox Pulse Ox O2 Del Method 04/18/24 10:07 91 94 04/18/24 08:08 134/75 91 Room Air 04/18/24 05:06 93 04/18/24 05:06 93 Room Air 04/18/24 02:34 130/72 92 Room Air Laboratory Results Short CBC 04/17/24 04/18/24 Range/Units 11:11 06:06 WBC 13.30 H 14.04 H (4.8-10.8) K/ul Hgb 13.3 11.9 L (12.0-16.0) g/dl Hct 40.0 35.0 L (37.0-47.0) % Plt Count 226 210 (130-400) K/uL BMP 04/17/24 04/18/24 11:11 06:06 Sodium 143 141 Potassium 4.3 4.6 Chloride 100 98 Carbon Dioxide 34 H 34 H BUN 22 31 H Creatinine 1.17 1.29 H Glucose 139 H 156 H Calcium 9.2 9.2 Liver Function 04/17/24 Range/Units 11:11 Total Bilirubin 1.2 H (0.2-1.0) mg/dl AST 14 (13-39) U/L ALT 11 (7-52) U/L Alkaline Phosphatase 99 (34-104) U/L Albumin 4.4 (3.4-5.0) gm/dl Medications Administered Current Inpatient Medications Acetaminophen (Acetaminophen 325 Mg Tab) 650 mg PO Q4H PRN PRN Reason: Pain or Fever Stop: 05/17/24 15:37 Albuterol (Albuterol Hfa 8 Gm Inhaler) 1 puffs INH QID PRN PRN Reason: Shortness Of Breath Stop: 05/17/24 15:37 Albuterol (Albut/Ipratrop 3mg/0.5mg Neb 3 Ml Vial) 3 ml NEB Q4R PRN; Protocol PRN Reason: shortness of breath or wheezing Stop: 05/17/24 15:37 Apixaban (Apixaban 5 Mg Tablet) 5 mg PO BID [facility] Stop: 05/17/24 20:59 Last Admin: 04/18/24 08:39 Dose: 5 mg Atorvastatin Calcium (Atorvastatin 20 Mg Tab) 20 mg PO QAM [facility] Stop: 05/18/24 08:59 Last Admin: 04/18/24 08:39 Dose: 20 mg Benzonatate (Benzonatate 100 Mg Capsule) 100 mg PO Q8H PRN PRN Reason: cough Stop: 05/17/24 15:37 Budesonide (Budesonide 0.5 Mg/2 Ml Vial (Pulmicort)) 0.5 mg INH BIDR [facility] Stop: 05/17/24 18:59 Last Admin: 04/18/24 05:06 Dose: 0.5 mg Calcitriol (Calcitriol 0.25 Mcg Capsule) 0.25 mcg PO QAM [facility] Stop: 05/18/24 08:59 Last Admin: 04/18/24 08:40 Dose: 0.25 mcg Calcium/Vitamin D (Calcium 600mg + Vit D 400 Iu Tab) 3 tab PO BID [facility] Stop: 05/17/24 20:59 Last Admin: 04/18/24 08:40 Dose: 3 tab Dextrose (Dextrose 50% 50 Ml Syringe) 25 - 50 ml IV UD PRN; Protocol PRN Reason: Hypoglycemia Protocol Stop: 05/17/24 13:58 Diphenhydramine HCl (Diphenhydramine Capsule 25 Mg Cap) 25 mg PO HS PRN PRN Reason: Insomnia Stop: 05/17/24 15:37 Glucagon (Glucagon For Inj 1 Mg Vial) 1 mg SQ UD PRN; Protocol PRN Reason: Hypoglycemia Protocol Stop: 05/17/24 13:58 Glucose (Glucose 40% Gel 15 Gm Tube) 15 - 30 gm PO UD PRN; Protocol PRN Reason: Hypoglycemia Protocol Stop: 05/17/24 13:58 Glucose (Glucose 10 Tab/Tube) 4 - 8 tab PO UD PRN; Protocol PRN Reason: Hypoglycemia Protocol Stop: 05/17/24 13:58 Insulin Aspart (Insulin Aspart Per Unit Charge) 0 units SC ACHS [facility] Stop: 05/17/24 16:29 Last Admin: 04/18/24 08:58 Dose: 6 units Levothyroxine Sodium (Levothyroxine Sodium 112 Mcg Tablet) 112 mcg PO DAILYBB [facility] Stop: 05/18/24 06:29 Last Admin: 04/18/24 05:17 Dose: 112 mcg Lisinopril (Lisinopril 2.5 Mg Tab) 2.5 mg PO DAILY@1200 [facility] Stop: 05/18/24 11:59 Loratadine (Loratadine 10 Mg Tab) 10 mg PO QAM [facility] Stop: 05/18/24 08:59 Last Admin: 04/18/24 08:41 Dose: 10 mg Metoprolol Succinate (Metoprolol Succ 50mg Ext Rel Tab) 100 mg PO QAM [facility] Stop: 05/18/24 08:59 Last Admin: 04/18/24 08:42 Dose: 100 mg Metoprolol Succinate (Metoprolol Succ 25mg Ext Rel Tab) 25 mg PO HS [facility] Stop: 05/17/24 20:59 Last Admin: 04/17/24 20:04 Dose: 25 mg Miscellaneous (Carbohydrates For Hypoglycemia ) 15 - 30 gm PO UD PRN PRN Reason: Hypoglycemia Protocol Stop: 05/17/24 13:58 Ondansetron HCl (Ondansetron Inj 2 Mg/Ml 2 Ml Vial) 4 mg IV Q6H PRN PRN Reason: Nausea Stop: 05/17/24 15:37 Polyethylene Glycol (Polyethylene (Miralax) 17 Gm Pack) 17 gm PO DAILY PRN PRN Reason: Constipation Stop: 05/17/24 15:37 Torsemide (Torsemide 20 Mg Tab) [facility] [place] Stop: 05/18/24 10:14 Last Admin: 04/18/24 10:56 Dose: 20 mg Vitamin D (Cholecalciferol 25 Mcg (1000 Units) Tab) 25 mcg PO QAM [facility] Stop: 05/18/24 08:59 Last Admin: 04/18/24 08:40 Dose: 25 mcg (5) Atrial fibrillation Atrial fibrillation type: paroxysmal Qualified Code(s): I48.0 - Paroxysmal atrial fibrillation
[2024-04-18 11:46] VITALS: BP 126/60; PULSE 67; RESP 20; TEMP 97.7; O2SAT 93
--- NOTE | 2024-04-18 12:03 | Communication Note ---
Date of Service: April 18, 2024 By CMS guidelines, a determination that the admission or continued stay is not medically necessary has been made by a member of the UR committee and a ph ysician for this hospital stay, therefore a Code 44 will be completed and the Inpatient admission will be changed to outpatient.
--- NOTE | 2024-04-18 12:12 | Electrocardiogram Report ---
Test Reason : Blood Pressure : */* mmHG Vent. Rate : 71 BPM Atrial Rate : 71 BPM P-R Int : 182 ms QRS Dur : 78 ms QT Int : 432 ms P-R-T Axes : 58 65 47 degrees QTcB Int : 469 ms Sinus rhythm with Premature atrial complexes Otherwise normal ECG When compared with ECG of 17-Apr-2024 11:20, Premature atrial complexes are now Present Confirmed by Usman Leon ([id number] on 04/18/2024 12:12:22 PM Referred By: REFERRED SELF Confirmed By: Usman Leon
[2024-04-18] MEDS: lisinopril 2.5 MG TAB PO SCH (12:14)
--- NOTE | 2024-04-19 07:51 | Discharge Summary ---
Date of Service April 19, 2024 Admission HPI Per Admitting Provider This is an 88-year-old female with PMH of COPD, HFpEF (EF 60-65% Apr 2023), type 2 diabetes, dyslipidemia, paroxysmal atrial fibrillation on Eliquis, hypertension, CKD 3, lymphedema, hypothyroidism and other medical problems listed below who presents from home with progressive shortness of breath over the past 2 weeks. Lives alone and daughter has noticed she has been less active over the past few days and seems SOB when doing typical tasks she does not have an issue with. Also audibly wheezing. Has needed to sit or lay down a lot of the time. No F/C, coughing, CP, N/V, abd pain, dysuria, diarrhea or consti pation. Does not use oxygen at home and does not require ambulatory devices. Has lymphedema at baseline. Echo from April 2023 revealed preserved EF of 60 to 65%, grade 1 diastolic dysfunction, moderate mitral regurgitation, mild tricuspid regurgitation and mildly elevated pulmonary arterial systolic pressure. Has been compliant with medications, including diuretic and Eliquis. Admission Exam Per Admitting Provider General: Not in acute distress Eyes: PERRL, conjunctivae normal, not pale, anicteric sclerae, EOM intact bilaterally ENMT: External ear and nose normal, oropharynx normal Respiratory: Normal respiratory effort, no respiratory distress, Diminished breath sounds, no wheeze Cardiovascular: RRR S1 S2 Gastrointestinal (Abdomen): Abdomen is not distended, soft, non-tender to palpation, no guarding, no palpable hepatosplenomegaly, normal bowel sounds Musculoskeletal: B/L leg edema Neurologic: No focal weakness, sensation grossly intact Psychiatric: Alert and oriented x 3, euthymic affect Principal Diagnosis Acute decompensated diastolic heart failure, Atrial fibrillation Discharge Exam Sitting on a chair without any acute distress Constitutional well developed, well nourished and + obese; not ill appearing Eyes PERRL, conjunctivae normal, anicteric sclerae ENMT external ear and nose normal, oropharynx normal Neck trachea midline, no thyromegaly Respiratory no respiratory distress Auscultation: + diminished lung sounds and + crackles ( minimal bibasilar crackles) Cardiovascular Rate/Rhythm: regular rate and regular rhythm; not tachycardic Heart Sounds: normal S1 and normal S2; no murmur Extremities: + edema ( 1+ edema bilaterally with chronic lymphedema) Gastrointestinal (Abdomen) Inspection/Auscultation: normal bowel sounds; abdomen not distended Percussion/Palpation: abdomen soft; abdomen nontender Neurologic normal touch/pain/proprioception and moves all extremities; no focal motor deficits Psychiatric A+Ox3, euthymic affect Lymphatic no cervical or axillary lymphadenopathy Discharge Data Allergies Allergy/AdvReac Type Severity Reaction Status Date / Time No Known Drug Allergies Allergy Unknown Verified 08/09/23 11:21 Consultations 04/17/24 12:25 ED Decision to Admit Stat 04/17/24 13:24 Consult Cardiology Routine Hospital Course (1) Dyspnea on exertion: (2) Heart failure, diastolic, with acute decompensation: This is an 88-year-old female with PMH of COPD, HFpEF (EF 60-65% Apr 2023), type 2 diabetes, dyslipidemia, paroxysmal atrial fibrillation on Eliquis, hypertension, CKD 3, lymphedema, hypothyroidism and other medical problems listed below who presents from home with progressive shortness of breath over the past 2 weeks and was found to have acute decompensated HFpEF. Progressive SOB x 2 weeks, increased dietary sodium with holidays CXR - Cardiomegaly with pulmonary vascular congestion. Work up: ECG without acute ST changes, BNP 202, troponin WNL Echo from May 18 with EF of 60-65%, grade 1 diastolic dysfunction, moderate MR, mild TR and mildly elevated pulmonary arterial systolic pressure Missed AM torsemide- lasix 40mg IV given in ED Repeat 2D echo, daily weights, strict I&Os, low sodium diet, routine cards con yenifer Appreciate cardiology input and recommendation She has had enough diuresis with improvement of symptoms Has had to a step O2 saturation test and does not require any oxygen She will be discharged home this afternoon (3) Hypercapnic respiratory failure: (4) COPD (chronic obstructive pulmonary disease): Afebrile, mild leukocytosis, resp viral panel negative, procal WNL VBG pH 7.35, pCO2 70 No wheezing on exam; no h/o PFTs but follows with pulm, presumed COPD Received IV solumedrol and albuterol treatment in ED Continue home inhalers, PRN Duo nebs No further steroids at this time, no abx indicated Bipap HS and PRN today Repeat VBG in AM Follow up with pulm for outpatient PFTs, sleep study or consider inpatient consult if condition worsening (5) Atrial fibrillation: Given missed AM Toprol 100mg, takes 25mg Toprol HS Given missed Eliquis Heart rate is controlled on the upper side at 94 today (6) Diabetes mellitus: A1c 6.8 in September 2023, repeat in AM Diet 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 (7) CKD (chronic kidney disease), stage III: Cr 1.17 (baseline 1.1-1.3) Repeat BMP in AM DVT Ppx: Eliquis Code status: FULL PCP: Jimmy Dispo: Admitted to PCU Total Time Total Time Spent Total Time Spent (In Minutes): 35 minutes Discharge Plan Discharge Items Patient Disposition: Home - Self-Care Reason For Visit: DECOMPENSATED HFPEF, HYPERCAPNIC RESP FAILURE Discharge Diagnosis: Acute decompensated diastolic heart failure, Atrial fibrillation Condition on Discharge: Fair Activity: Resume your previous activity Non-emergency contact: Primary Care Provider Call non-emergency contact if: you have any medication questions and your symptoms worsen Follow-up/Referrals: Petra Marquez MD [Primary Care Provider] - ( your doctor's office will give you a call tomorrow with an appointment within 7 days) Diet: Heart Healthy Fluids: 1500ml (6 cups) Addtl Attending Provider Instructions: Please take precautions to avoid falls Take your medications as advised- take torsemide 10 mg every other day alternate with torsemide 20 mg and spironolactone 12.5 mg every other day. Please keep appointments with the healthcare providers Pending Studies at Discharge: No Stand-Alone Forms: My [facility] [employer] Private, Smoking Cessation Medications and DC Order Prescriptions: New torsemide 20 mg Tablet 20 mg PO Q OTHER DAY Qty: 30 0RF Rx Instructions: Alternating with Torsemide 10 mg spironolactone [Aldactone] 25 mg tablet 12.5 mg PO Q OTHER DAY Qty: 30 0RF Continued diphenhydramine HCl [Benadryl] 25 mg capsule 25 mg PO .qhs PRN (Reason: Insomnia) budesonide 1 mg/2 mL suspension for nebulization 0.5 mg inhalation BID guaifenesin [Mucinex] 600 mg tablet extended release 12hr 600 mg PO ONCE loratadine [Claritin] 10 mg tablet 10 mg PO QAM levothyroxine 112 mcg tablet 112 mcg PO DAILYBB atorvastatin [Lipitor] 20 mg tablet 20 mg PO QAM lisinopril [Zestril] 10 mg tablet 2.5 mg PO DAILY@1200 Hold Instructions: After follow-up with your primary care physician with recommendations. metoprolol succinate 100 mg tablet extended release 24 hr 100 mg PO QAM calcitriol 0.25 mcg capsule 0.25 mcg PO QAM calcium carbonate-vitamin D3 [Os-Chris 500 + D3] 500 mg-15 mcg (600 unit) tablet 3 tab PO BID Eliquis 5 mg tablet 5 mg PO BID benzonatate 100 mg Capsule 100 mg PO Q8H PRN (Reason: cough) Qty: 30 0RF albuterol sulfate 90 mcg/actuation Hfa Aerosol Inhaler 1 inh INHALATION QID PRN (Reason: sob) Qty: 8.5 0RF ipratropium-albuterol 0.5 mg-3 mg(2.5 mg base)/3 mL Solution For Nebulization 3 ml NEB Q4R PRN (Reason: shortness of breath or wheezing) Qty: 90 0RF acetaminophen 500 mg Tablet 1,000 mg PO BID PRN (Reason: Pain) metoprolol succinate 25 mg tablet extended release 24 hr 25 mg PO HS cholecalciferol (vitamin D3) 25 mcg (1,000 unit) Capsule 1,000 unit PO QAM Qty: 30 0RF Changed torsemide 10 mg tablet 10 mg PO Q OTHER DAY Qty: 30 0RF Rx Instructions: Alternating with Torsemide 20mg Discharge Orders: Discharge Order (Routine); Ordered 04/18/24 Ordered By: Mónica Layton Admission Data Admit Date/Time: 04/17/24 13:24 Attending Provider: Mónica Layton Admit Provider: Stefani Pritchard I. Primary Care Provider: Petra Marquez Other Providers: Jay Puente; Jc Pickard; Stefani Pritchard I. Other Interventions: Discharge Summary Assessment (RN) Last Done: 04/18/24 16:00
== END 2024-04-18 16:33 | disposition home or self-care (01) | DRG 291 ==
LOC: ED 10:33 → INTOOBSV 13:24 → SUATTDRO 13:24 → 2S 13:24